=== PATIENT | female | born 1935 | race Caucasian/White ===

== ENCOUNTER 2016-12-27 17:39 | Emergency (ER) | payer MEDICARE ==
[~2016-12-27] VITALS: Ht 165.1 cm; Wt 66.2 kg
[~2016-12-27 17:39] MED LIST: ALLO100T PO; DIGO250T PO; DOCU-27 PO; FURO40TA4 PO; ISOS60TA2 PO; METO50TA2 PO; MULT-208 PO; PARO40TA3 PO; POTA20TA4 PO; RAMI10CA PO; [UNRECOGNIZED DRUG - REMARK]
[2016-12-27 19:02] VITALS: BP 120/62
--- NOTE | 2016-12-27 19:12 | PHYS DOC ---
Past Medical History Past Medical History: Arthritis, Depression, Hypertension Past Surgical History: Hysterectomy, Pacemaker Additional Past Surgical Histo: partial thyroid, and cornea transplant. Alcohol Use: None Drug Use: None Adult General Chief Complaint Chief Complaint: SHOULDER INJURY HPI HPI 81-year-old female presents with left shoulder pain. She states she recently fell onto her left shoulder causing pain. She did not hit her head or injure any other part of her body. She states the pain is mild to moderate at this point and made worse with any arm movement. [] Review of Systems Review of Systems Constitutional: Denies fever or chills [] Eyes: Denies change in visual acuity, redness, or eye pain [] HENT: Denies nasal congestion or sore throat [] Respiratory: Denies cough or shortness of breath [] Cardiovascular: No additional information not addressed in HPI [] GI: Denies abdominal pain, nausea, vomiting, bloody stools or diarrhea [] : Denies dysuria or hematuria [] Musculoskeletal: Left shoulder pain [] Integument: Denies rash or skin lesions [] Neurologic: Denies headache, focal weakness or sensory changes [] Endocrine: Denies polyuria or polydipsia [] Allergies Allergies Allergies Coded Allergies Type Severity Reaction Last Updated Verified Sulfa (Sulfonamide Antibiotics) Allergy Intermediate 06/07/16 Yes iodine Allergy Intermediate 06/07/16 Yes Physical Exam Physical Exam Constitutional: Well developed, well nourished, no acute distress, non-toxic appearance. [] HENT: Normocephalic, atraumatic, bilateral external ears normal, oropharynx moist, no oral exudates, nose normal. [] Eyes: PERRLA, EOMI, conjunctiva normal, no discharge. [] Neck: Normal range of motion, no tenderness, supple, no stridor. [] Cardiovascular:Heart rate regular rhythm, no murmur [] Lungs & Thorax: Bilateral breath sounds clear to auscultation [] Abdomen: Bowel sounds normal, soft, no tenderness, no masses, no pulsatile masses. [] Skin: Warm, dry, no erythema, no rash. [] Back: No tenderness, no CVA tenderness. [] Extremities: Tenderness over the left greater tuberosity decreased range of motion secondary to pain. [] Neurologic: Alert and oriented X 3, normal motor function, normal sensory function, no focal deficits noted. [] Psychologic: Affect normal, judgement normal, mood normal. [] Current Patient Data Vital Signs Vital Signs Date Time Temp Pulse Resp B/P Pulse Ox O2 Delivery O2 Flow Rate FiO2 12/27/16 18:32 60 16 122/63 96 Room Air 12/27/16 17:52 97.8 97.8 EKG EKG [] Radiology/Procedures Radiology/Procedures [] Impressions: Shoulder x-ray: Negative exam as interpreted by me Course & Med Decision Making Course & Med Decision Making Pertinent Labs and Imaging studies reviewed. (See chart for details) [] Dragon Disclaimer Dragon Disclaimer This electronic medical record was generated, in whole or in part, using a voice recognition dictation system. Departure Departure Impression: Primary Impression: Sprain of left shoulder Disposition: 01 HOME, SELF-CARE Condition: STABLE Referrals: NOA COLLIER MD (PCP) Patient Instructions: Shoulder Sprain Additional Instructions: Tylenol or Motrin for discomfort. Wear the shoulder sling for comfort. Follow with Dr. Dover of this week for recheck. Return if symptoms worsen Problem Qualifiers Primary Impression: Sprain of left shoulder Encounter type: initial encounter Shoulder sprain type: unspecified sprain Qualified Code: S43.402A - Unspecified sprain of left shoulder joint, initial encounter VENTURA BONILLA DO Dec 27, 2016 19:12
--- NOTE | 2016-12-28 08:51 | RAD ---
Indication trauma. Fall. Pain. Internally and externally rotated views of the left shoulder as well as a Y view were obtained. There are some mild degenerative changes at the AC joint. A fracture or acute finding is not seen. Cardiac pacing device is noted. IMPRESSION: No acute bony finding
== END 2016-12-27 19:28 | disposition home or self-care (01) ==
LOC: ER 17:39
DX: S43.402A Unspecified sprain of left shoulder joint, initial encounter (principal); M19.90 Unspecified osteoarthritis, unspecified site; F32.9 Major depressive disorder, single episode, unspecified; I10 Essential (primary) hypertension; Z88.2 Allergy status to sulfonamides; Z88.8 Allergy status to other drugs, medicaments and biological substances; Z96.89 Presence of other specified functional implants; W18.39XA Other fall on same level, initial encounter; Y93.89 Activity, other specified; Y92.89 Other specified places as the place of occurrence of the external cause; Y99.8 Other external cause status
CPT/HCPCS: 73030; 99284

== ENCOUNTER 2017-04-20 21:57 | Emergency (ER) | payer BC, MEDICARE ==
[~2017-04-20] VITALS: Ht 172.7 cm; Wt 66.2 kg
[~2017-04-20 21:57] MED LIST changes: +DOCU-109 PO; -DOCU-27 PO
[2017-04-20] MEDS ORDERED: ACETAMINOPHEN 500 MG TABLET PO ONE (23:00)
--- NOTE | 2017-04-20 23:31 | RAD ---
INDICATION: FALL, HEAD LAC, neck pain COMPARISON: January 14, 2010 TECHNIQUE: Axial CT images obtained through the head and cervical spine without intravenous contrast. Coronal and sagittal reformats processed of cervical spine. One or more of the following individualized dose reduction techniques were utilized for this examination: 1. Automated exposure control; 2. Adjustment of the mA and/or kV according to patient size; 3. Use of iterative reconstruction technique. FINDINGS: Head: No intracranial hemorrhage. No midline shift. Basal cisterns patents. Ventricles and sulci are globally prominent. No acute osseous abnormality. Opacification maxillary sinuses Cervical: Degenerative changes throughout the cervical spine with osteophyte formation at the vertebral body endplates as well as facet hypertrophy. Grade 1 anterolisthesis of C3 on 4. IMPRESSION: No acute intracranial hemorrhage. Opacification of the maxillary sinuses. Could be from sinus congestion or sinusitis. Scattered foci of low-attenuation within the white matter. Nonspecific but can be seen with chronic small vessel ischemic disease. No definite acute fracture or dislocation of the cervical spine. Degenerative changes of the cervical spine. Suspected right lobe of thyroid lesion. Nonemergent ultrasound could further evaluate. Electronically signed by: Abhishek Bill MD (04/20/2017 11:28 PM)
--- NOTE | 2017-04-21 00:19 | PHYS DOC ---
Past Medical History Past Medical History: Arthritis, Depression, Hypertension Past Surgical History: Hysterectomy, Pacemaker Additional Past Surgical Histo: partial thyroid, and cornea transplant. Alcohol Use: None Drug Use: None Adult General Chief Complaint Chief Complaint: MECHANICAL FALL HPI HPI Patient is a 81 year old female who presents with daughter for evaluation of head injury after slip and fall at home. She hit her head on her bed and has a headache and pain to the top of her head associated with laceration. She notes minimal neck pain as well. Bleeding controlled with direct pressure from head wound. She denies vision changes, dizziness, numbness, tingling, weakness, chest pain, back pain, dyspnea, abdominal pain, extremity pain. Usually ambulates with walker. No blood thinner use. Review of Systems Review of Systems Constitutional: Denies fever or chills [] Eyes: Denies change in visual acuity, redness, or eye pain [] HENT: Denies nasal congestion or sore throat [] Respiratory: Denies cough or shortness of breath [] Cardiovascular: No additional information not addressed in HPI [] GI: Denies abdominal pain, nausea, vomiting, bloody stools or diarrhea [] : Denies dysuria or hematuria [] Musculoskeletal: Denies back pain or joint pain [] Integument: Denies rash or skin lesions [] Neurologic: Denies focal weakness or sensory changes [] Endocrine: Denies polyuria or polydipsia [] Current Medications Current Medications Current Medications Medications (Trade) Dose Ordered Sig/[facility] Start Time Stop Time Status Last Admin Dose Admin Acetaminophen (Tylenol) 500 mg 1X ONCE 04/20/17 23:00 04/20/17 23:01 DC 04/20/17 23:15 500 MG Lidocaine/Sodium Bicarbonate (Buffered Lidocaine 1%) 20 ml 1X ONCE 04/21/17 00:30 04/21/17 00:31 DC 04/21/17 00:37 20 ML Allergies Allergies Allergies Coded Allergies Type Severity Reaction Last Updated Verified Sulfa (Sulfonamide Antibiotics) Allergy Intermediate 06/07/16 Yes iodine Allergy Intermediate 06/07/16 Yes Physical Exam Physical Exam Constitutional: Well developed, well nourished, no acute distress, non-toxic appearance. [] HENT: Normocephalic, bilateral external ears normal, oropharynx moist, no oral exudates, nose normal. No murray sign, hemotympanum, or raccoon eyes. Has approximately 4 cm linear laceration to the midline top of head, no active bleeding, no palpable skull abnormality. [] Eyes: PERRLA, EOMI. [] Neck: Normal range of motion, no tenderness, supple. [] Cardiovascular:Heart rate regular rhythm [] Lungs & Thorax: Bilateral breath sounds clear to auscultation [] Abdomen: Bowel sounds normal, soft, no tenderness. [] Skin: Warm, dry, no erythema, no rash. [] Back: No tenderness, no CVA tenderness. [] Extremities: No tenderness, ROM intact, no edema. [] Neurologic: Alert and oriented X 3, normal motor function, normal sensory function, no focal deficits noted, cranial nerves II through XII intact. [] Psychologic: Affect normal, judgement normal, mood normal. [] Current Patient Data Vital Signs Vital Signs Date Time Temp Pulse Resp B/P (MAP) Pulse Ox O2 Delivery O2 Flow Rate FiO2 04/21/17 00:45 60 174/71 (105) Room Air 04/20/17 23:15 93 04/20/17 22:45 98.0 20 98.0 Radiology/Procedures Radiology/Procedures CT head and cervical spine without contrast IMPRESSION: No acute intracranial hemorrhage. Opacification of the maxillary sinuses. Could be from sinus congestion or sinusitis. Scattered foci of low-attenuation within the white matter. Nonspecific but can be seen with chronic small vessel ischemic disease. No definite acute fracture or dislocation of the cervical spine. Degenerative changes of the cervical spine. Suspected right lobe of thyroid lesion. Nonemergent ultrasound could further evaluate. Electronically signed by: Abhishek Bill MD (04/20/2017 11:28 PM) Course & Med Decision Making Course & Med Decision Making Pertinent Labs and Imaging studies reviewed. (See chart for details) Imaging is unremarkable. She has developed no new symptoms. Her symptoms are improving. She tolerated laceration repair well. She and daughter would like to go home. Return precautions given. She and daughter understand and agree with plan. Dragon Disclaimer Dragon Disclaimer This electronic medical record was generated, in whole or in part, using a voice recognition dictation system. Laceration Repair Lac Repair Indication: Scalp laceration Procedure: The patient was placed in the appropriate position and anesthesia around the's duration was lidocaine 1%, 6 mL. The area was then cleaned with normal saline. The laceration was closed with 5 maxim. Total repaired wound length: 3.5 cm. The patient tolerated the procedure well. Complications: none. Departure Departure Impression: Primary Impression: Closed head injury Additional Impression: Scalp laceration Disposition: 01 HOME, SELF-CARE Condition: STABLE Referrals: NOA COLLIER MD (PCP) Patient Instructions: Staple Wound Closure, [id number] Additional Instructions: Take Tylenol as needed for pain. Use normal bathing care to keep your wound clean. Have your maxim removed within 1 week. Follow up with your primary care doctor or return to the Emergency department for this. Return for any concerns. Problem Qualifiers Primary Impression: Closed head injury Encounter type: initial encounter Qualified Codes: S09.90XA - Unspecified injury of head, initial encounter Additional Impression: Scalp laceration Encounter type: initial encounter Qualified Codes: S01.01XA - Laceration without foreign body of scalp, initial encounter Perry MADDOX MD Apr 21, 2017 00:19
[2017-04-21] MEDS ORDERED: LIDOCAINE 1% / SOD BICARB 8.4% 20 ML VIAL. IJ ONE (00:30)
[2017-04-21 01:13] VITALS: BP 141/65
== END 2017-04-21 01:28 | disposition home or self-care (01) ==
LOC: ER 21:57
DX: S01.01XA Laceration without foreign body of scalp, initial encounter (principal); M54.2 Cervicalgia; M19.90 Unspecified osteoarthritis, unspecified site; F32.9 Major depressive disorder, single episode, unspecified; I10 Essential (primary) hypertension; Z90.710 Acquired absence of both cervix and uterus; Z95.0 Presence of cardiac pacemaker; Z94.7 Corneal transplant status; Z88.8 Allergy status to other drugs, medicaments and biological substances; Z88.2 Allergy status to sulfonamides; W01.190A Fall on same level from slipping, tripping and stumbling with subsequent striking against furniture, initial encounter; Y93.89 Activity, other specified; Y92.009 Unspecified place in unspecified non-institutional (private) residence as the place of occurrence of the external cause; Y99.8 Other external cause status
CPT/HCPCS: 12002; 70450; 72125; 99284-25

== ENCOUNTER 2017-11-27 11:57 | Inpatient (IN) | payer BC ==
[2017-11-27 12:44] LABS: ADD MAN DIFF? NO
[2017-11-27 12:52] LABS: BASO % 0 % (0-3); EOS # 0.2 x10^3/uL (0.0-0.7); EOS % 3 % (0-3); HEMATOCRIT 36.6 % (36.0-47.0); HEMOGLOBIN 12.1 g/dL (12.0-15.5); LYMPH # 1.1 x10^3/uL (1.0-4.8); LYMPH % 17 % (24-48); MEAN CORPUSCULAR HEMOGLOBIN 32 pg (25-35); MEAN CORPUSCULAR HGB CONC 33 g/dL (31-37); MEAN CORPUSCULAR VOLUME 95 fL (79-100); MONO # 0.5 x10^3/uL (0.0-1.1); MONO % 7 % (0-9); NEUT % 74 % (31-73); PLATELET COUNT 159 x10^3/uL (140-400); RED BLOOD COUNT 3.86 x10^6/uL (3.50-5.40); RED CELL DISTRIBUTION WIDTH 14.7 % (11.5-14.5); WHITE BLOOD COUNT 6.8 x10^3/uL (4.0-11.0)
[2017-11-27 12:58] LABS: BLOOD UREA NITROGEN 39 mg/dL (7-20); BUN/CREATININE RATIO 24 (6-20); CALCIUM 9.2 mg/dL (8.5-10.1); CREATININE 1.6 mg/dL (0.6-1.0); GLUCOSE 160 mg/dL (70-99)
[2017-11-27 12:59] LABS: ANION GAP 2 (6-14); CARBON DIOXIDE 36 mmol/L (21-32); CHLORIDE 99 mmol/L (98-107); GFR 30.7; POTASSIUM 3.9 mmol/L (3.5-5.1); SODIUM 137 mmol/L (136-145)
[2017-11-27 13:02] LABS: INR 1.2 (0.8-1.1); PROTHROMBIN TIME PATIENT 14.1 SEC (11.7-14.0)
[2017-11-27 13:06] LABS: ALBUMIN 3.4 g/dL (3.4-5.0); ALBUMIN/GLOBULIN RATIO 0.8 (1.0-1.7); ALK PHOS 67 U/L (46-116); ALT (SGPT) 13 U/L (14-59); AST (SGOT) 21 U/L (15-37); TOTAL BILIRUBIN 0.7 mg/dL (0.2-1.0); TOTAL PROTEIN 7.6 g/dL (6.4-8.2)
[2017-11-27 13:08] LABS: TROPONINI < 0.017 ng/mL (0.000-0.055)
[2017-11-27 13:10] LABS: NT-PRO BNP 1696 pg/mL (0-449)
[2017-11-27 13:29] LABS: BILIRUBIN,URINE NEGATIVE (NEG); CLARITY,URINE CLEAR; COLOR,URINE YELLOW; GLUCOSE,URINE NEGATIVE (NEG); NITRITE,URINE NEGATIVE (NEG); PROTEIN,URINE NEGATIVE (NEG-TRACE); UROBILINOGEN,URINE 0.2 mg/dL (0.2 mg/dL)
[2017-11-27 13:34] LABS: BACTERIA,URINE MANY /HPF (0-FEW); RBC,URINE OCC /HPF (0-2)
[2017-11-27 13:55] LABS: INFLUENZA A PATIENT NEGATIVE (NEGATIVE); INFLUENZA B PATIENT NEGATIVE (NEGATIVE); OBC FLU VALID
[2017-11-27] MEDS ORDERED: hydrALAZINE 20 MG/ML VIAL. IVP (17:15)
[2017-11-27] MEDS ORDERED: levETIRAcetam 500 MG in IV DEXTROSE 5% 100 ML IV (18:00)
[2017-11-27 18:16] LABS: CREATINE KINASE 27 U/L (26-192)
[2017-11-27 18:26] LABS: VITAMIN-B12 546 pg/mL (247-911)
[2017-11-27] MEDS: levETIRAcetam 500 MG in IV DEXTROSE 5% 100 ML IV (20:46)
[2017-11-28] MEDS: cefTRIAXone IV Push 1 GM VIAL. IVP (09:27)
[2017-11-28] MEDS: levETIRAcetam 500 MG in IV DEXTROSE 5% 100 ML IV ×2 (09:28→20:44)
[2017-11-28 13:21] LABS: HEMOGLOBIN A1C 4.9 % (4.8-5.6)
[2017-11-28] MEDS: DEXAMETHASONE 0.1% OPHTH SOLUTION 5ML BOTTLE. OU ×2 (14:42→20:46)
[2017-11-28] MEDS: FAMOTIDINE 20 MG/2 ML VIAL IVP (20:44)
[2017-11-28 21:10] LABS: MRSA BY PCR Negative (Negative)
[2017-11-29 06:31] LABS: ALBUMIN 3.2 g/dL (3.4-5.0); ALBUMIN/GLOBULIN RATIO 0.7 (1.0-1.7); ALK PHOS 64 U/L (46-116); ALT (SGPT) 11 U/L (14-59); ANION GAP 8 (6-14); AST (SGOT) 21 U/L (15-37); BLOOD UREA NITROGEN 36 mg/dL (7-20); BUN/CREATININE RATIO 28 (6-20); CALCIUM 9.3 mg/dL (8.5-10.1); CARBON DIOXIDE 34 mmol/L (21-32); CHLORIDE 103 mmol/L (98-107); CREATININE 1.3 mg/dL (0.6-1.0); GLUCOSE 117 mg/dL (70-99); PHOSPHORUS 3.8 mg/dL (2.6-4.7); POTASSIUM 3.6 mmol/L (3.5-5.1); SODIUM 145 mmol/L (136-145); TOTAL BILIRUBIN 0.7 mg/dL (0.2-1.0); TOTAL PROTEIN 7.6 g/dL (6.4-8.2); TRIGLYCERIDES 145 mg/dL (0-150)
[2017-11-29] MEDS: cefTRIAXone IV Push 1 GM VIAL. IVP (08:25)
[2017-11-29] MEDS: DEXAMETHASONE 0.1% OPHTH SOLUTION 5ML BOTTLE. OU ×2 (08:25→21:40)
[2017-11-29] MEDS: levETIRAcetam 500 MG in IV DEXTROSE 5% 100 ML IV (08:25)
[2017-11-29] MEDS: ACETAMINOPHEN 325 MG TABLET. PO (17:18)
[2017-11-29] MEDS: CHOLECALCIFEROL (VITAMIN D3) 1,000 UNIT TABLET PO (17:18)
[2017-11-29] MEDS: FAMOTIDINE 20 MG/2 ML VIAL IVP (21:00)
[2017-11-30] MEDS: DEXAMETHASONE 0.1% OPHTH SOLUTION 5ML BOTTLE. OU ×2 (08:30→20:41)
[2017-11-30] MEDS: cefTRIAXone IV Push 1 GM VIAL. IVP (08:31)
[2017-11-30] MEDS: CHOLECALCIFEROL (VITAMIN D3) 1,000 UNIT TABLET PO (08:31)
[2017-11-30] MEDS: CALCIUM CARBONATE 500 MG TABLET PO (08:33)
[2017-11-30] MEDS: ACETAMINOPHEN 325 MG TABLET. PO (17:53)
[2017-11-30] MEDS: LACTOBACILLUS RHAMNOSUS GG 1 CAPSULE. PO ×2 (17:53→20:40)
[2017-11-30] MEDS: FAMOTIDINE 20 MG/2 ML VIAL IVP (20:40)
[2017-12-01 06:34] LABS: ANION GAP 1 (6-14); BLOOD UREA NITROGEN 27 mg/dL (7-20); CALCIUM 8.7 mg/dL (8.5-10.1); CARBON DIOXIDE 37 mmol/L (21-32); CHLORIDE 102 mmol/L (98-107); CREATININE 1.2 mg/dL (0.6-1.0); GFR 42.8; GLUCOSE 105 mg/dL (70-99); MAGNESIUM 2.2 mg/dL (1.8-2.4); PHOSPHORUS 2.9 mg/dL (2.6-4.7); SODIUM 140 mmol/L (136-145)
[2017-12-01] MEDS: LACTOBACILLUS RHAMNOSUS GG 1 CAPSULE. PO ×2 (09:09→21:39)
[2017-12-01] MEDS: CHOLECALCIFEROL (VITAMIN D3) 1,000 UNIT TABLET PO (09:09)
[2017-12-01] MEDS: DEXAMETHASONE 0.1% OPHTH SOLUTION 5ML BOTTLE. OU ×2 (09:10→21:40)
[2017-12-01] MEDS: cefTRIAXone IV Push 1 GM VIAL. IVP (09:10)
[2017-12-01] MEDS: CALCIUM CARBONATE 500 MG TABLET PO (09:11)
[2017-12-01] MEDS: ACETAMINOPHEN 325 MG TABLET. PO (12:53)
[2017-12-01] MEDS: CIPROFLOXACIN HCL 250 MG TABLET. PO (21:39)
[2017-12-01] MEDS: levETIRAcetam 250 MG TABLET PO (21:39)
[2017-12-01] MEDS: FAMOTIDINE 20 MG TABLET. PO (21:39)
[2017-12-02 05:07] LABS: ANION GAP 7 (6-14); BLOOD UREA NITROGEN 23 mg/dL (7-20); CALCIUM 8.8 mg/dL (8.5-10.1); CARBON DIOXIDE 31 mmol/L (21-32); CHLORIDE 105 mmol/L (98-107); CREATININE 1.1 mg/dL (0.6-1.0); GFR 47.3; GLUCOSE 112 mg/dL (70-99); MAGNESIUM 2.4 mg/dL (1.8-2.4); PHOSPHORUS 2.7 mg/dL (2.6-4.7); POTASSIUM 3.8 mmol/L (3.5-5.1); SODIUM 143 mmol/L (136-145)
[2017-12-02] MEDS: DEXAMETHASONE 0.1% OPHTH SOLUTION 5ML BOTTLE. OU ×2 (08:23→21:55)
[2017-12-02] MEDS: CHOLECALCIFEROL (VITAMIN D3) 1,000 UNIT TABLET PO (08:23)
[2017-12-02] MEDS: CIPROFLOXACIN HCL 250 MG TABLET. PO (08:23)
[2017-12-02] MEDS: CALCIUM CARBONATE 500 MG TABLET PO (08:23)
[2017-12-02] MEDS: LACTOBACILLUS RHAMNOSUS GG 1 CAPSULE. PO ×2 (08:23→21:48)
[2017-12-02] MEDS: levETIRAcetam 250 MG TABLET PO ×2 (08:23→21:48)
[2017-12-02] MEDS: FUROSEMIDE 40 MG TABLET. PO (11:37)
[2017-12-02] MEDS: PARoxetine 20 MG TABLET PO (11:37)
[2017-12-02] MEDS: DIGOXIN 125 MCG TABLET. PO (11:39)
[2017-12-02] MEDS: METOPROLOL TART IMMED RELEASE 50 MG TABLET. PO ×2 (11:39→21:45)
[2017-12-02] MEDS: ACETAMINOPHEN 325 MG TABLET. PO (16:56)
[2017-12-02] MEDS: FAMOTIDINE 20 MG TABLET. PO (21:48)
[2017-12-03 06:01] LABS: ANION GAP 4 (6-14); BLOOD UREA NITROGEN 22 mg/dL (7-20); CALCIUM 8.7 mg/dL (8.5-10.1); CARBON DIOXIDE 32 mmol/L (21-32); CHLORIDE 104 mmol/L (98-107); CREATININE 1.1 mg/dL (0.6-1.0); GFR 47.3; GLUCOSE 107 mg/dL (70-99); MAGNESIUM 2.3 mg/dL (1.8-2.4); POTASSIUM 3.9 mmol/L (3.5-5.1); SODIUM 140 mmol/L (136-145)
[2017-12-03] MEDS: DEXAMETHASONE 0.1% OPHTH SOLUTION 5ML BOTTLE. OU ×2 (08:41→21:12)
[2017-12-03] MEDS: FUROSEMIDE 40 MG TABLET. PO (08:42)
[2017-12-03] MEDS: METOPROLOL TART IMMED RELEASE 50 MG TABLET. PO ×2 (08:42→21:07)
[2017-12-03] MEDS: CALCIUM CARBONATE 500 MG TABLET PO (08:42)
[2017-12-03] MEDS: LACTOBACILLUS RHAMNOSUS GG 1 CAPSULE. PO ×2 (08:42→21:07)
[2017-12-03] MEDS: PARoxetine 20 MG TABLET PO (08:43)
[2017-12-03] MEDS: CHOLECALCIFEROL (VITAMIN D3) 1,000 UNIT TABLET PO (08:43)
[2017-12-03] MEDS: DIGOXIN 125 MCG TABLET. PO (08:43)
[2017-12-03] MEDS: levETIRAcetam 250 MG TABLET PO ×2 (08:43→21:07)
[2017-12-03] MEDS: FAMOTIDINE 20 MG TABLET. PO (21:07)
[2017-12-03] MEDS: ACETAMINOPHEN 325 MG TABLET. PO (21:08)
[2017-12-04 05:19] LABS: ALBUMIN/GLOBULIN RATIO 0.8 (1.0-1.7); ALK PHOS 63 U/L (46-116); ALT (SGPT) 13 U/L (14-59); ANION GAP 6 (6-14); AST (SGOT) 20 U/L (15-37); BLOOD UREA NITROGEN 23 mg/dL (7-20); BUN/CREATININE RATIO 19 (6-20); CARBON DIOXIDE 33 mmol/L (21-32); CHLORIDE 104 mmol/L (98-107); CREATININE 1.2 mg/dL (0.6-1.0); GFR 42.8; GLUCOSE 105 mg/dL (70-99); MAGNESIUM 2.2 mg/dL (1.8-2.4); PHOSPHORUS 3.5 mg/dL (2.6-4.7); SODIUM 143 mmol/L (136-145); TOTAL BILIRUBIN 0.6 mg/dL (0.2-1.0)
[2017-12-04] MEDS: CHOLECALCIFEROL (VITAMIN D3) 1,000 UNIT TABLET PO (08:39)
[2017-12-04] MEDS: DEXAMETHASONE 0.1% OPHTH SOLUTION 5ML BOTTLE. OU ×2 (08:39→22:34)
[2017-12-04] MEDS: DIGOXIN 125 MCG TABLET. PO (08:39)
[2017-12-04] MEDS: PARoxetine 20 MG TABLET PO (08:39)
[2017-12-04] MEDS: FUROSEMIDE 40 MG TABLET. PO (08:40)
[2017-12-04] MEDS: CALCIUM CARBONATE 500 MG TABLET PO (08:40)
[2017-12-04] MEDS: METOPROLOL TART IMMED RELEASE 50 MG TABLET. PO ×2 (08:40→22:33)
[2017-12-04] MEDS: LACTOBACILLUS RHAMNOSUS GG 1 CAPSULE. PO ×2 (08:40→22:33)
[2017-12-04] MEDS: levETIRAcetam 250 MG TABLET PO ×2 (08:40→22:33)
[2017-12-04] MEDS: ACETAMINOPHEN 325 MG TABLET. PO ×3 (08:45→22:34)
[2017-12-04 16:35] LABS: HEMATOCRIT 35.1 % (36.0-47.0); HEMOGLOBIN 11.7 g/dL (12.0-15.5); MEAN CORPUSCULAR HEMOGLOBIN 32 pg (25-35); MEAN CORPUSCULAR HGB CONC 33 g/dL (31-37); MEAN CORPUSCULAR VOLUME 94 fL (79-100); PLATELET COUNT 188 x10^3/uL (140-400); RED BLOOD COUNT 3.72 x10^6/uL (3.50-5.40); RED CELL DISTRIBUTION WIDTH 14.2 % (11.5-14.5); WHITE BLOOD COUNT 6.2 x10^3/uL (4.0-11.0)
[2017-12-04 16:44] LABS: INR 1.1 (0.8-1.1); PROTHROMBIN TIME PATIENT 13.8 SEC (11.7-14.0)
[2017-12-04] MEDS: FAMOTIDINE 20 MG TABLET. PO (22:33)
[2017-12-05] MEDS: ACETAMINOPHEN 325 MG TABLET. PO ×3 (06:13→22:12)
[2017-12-05 06:54] LABS: POC GLUCOSE 92 mg/dL (70-99)
[2017-12-05] MEDS: CALCIUM CARBONATE 500 MG TABLET PO (09:04)
[2017-12-05] MEDS: FUROSEMIDE 40 MG TABLET. PO (09:05)
[2017-12-05] MEDS: DIGOXIN 125 MCG TABLET. PO (09:05)
[2017-12-05] MEDS: LACTOBACILLUS RHAMNOSUS GG 1 CAPSULE. PO ×2 (09:05→22:12)
[2017-12-05] MEDS: METOPROLOL TART IMMED RELEASE 50 MG TABLET. PO ×2 (09:05→22:12)
[2017-12-05] MEDS: levETIRAcetam 250 MG TABLET PO ×2 (09:06→22:12)
[2017-12-05] MEDS: CHOLECALCIFEROL (VITAMIN D3) 1,000 UNIT TABLET PO (09:06)
[2017-12-05] MEDS: PARoxetine 20 MG TABLET PO (09:06)
[2017-12-05] MEDS: DEXAMETHASONE 0.1% OPHTH SOLUTION 5ML BOTTLE. OU ×2 (09:10→22:12)
[2017-12-05] MEDS: FAMOTIDINE 20 MG TABLET. PO (22:12)
[2017-12-06] MEDS: levETIRAcetam 250 MG TABLET PO ×2 (09:11→21:56)
[2017-12-06] MEDS: CHOLECALCIFEROL (VITAMIN D3) 1,000 UNIT TABLET PO (09:11)
[2017-12-06] MEDS: LACTOBACILLUS RHAMNOSUS GG 1 CAPSULE. PO ×2 (09:11→21:57)
[2017-12-06] MEDS: FUROSEMIDE 40 MG TABLET. PO (09:11)
[2017-12-06] MEDS: CALCIUM CARBONATE 500 MG TABLET PO (09:12)
[2017-12-06] MEDS: PARoxetine 20 MG TABLET PO (09:12)
[2017-12-06] MEDS: METOPROLOL TART IMMED RELEASE 50 MG TABLET. PO ×2 (09:12→21:56)
[2017-12-06] MEDS: DIGOXIN 125 MCG TABLET. PO (09:12)
[2017-12-06] MEDS: DEXAMETHASONE 0.1% OPHTH SOLUTION 5ML BOTTLE. OU ×2 (09:13→21:56)
[2017-12-06] MEDS: ACETAMINOPHEN 325 MG TABLET. PO (21:55)
[2017-12-06] MEDS: FAMOTIDINE 20 MG TABLET. PO (21:56)
[2017-12-07 05:55] LABS: TRIGLYCERIDES 133 mg/dL (0-150)
[2017-12-07] MEDS: LACTOBACILLUS RHAMNOSUS GG 1 CAPSULE. PO ×2 (09:50→20:28)
[2017-12-07] MEDS: CHOLECALCIFEROL (VITAMIN D3) 1,000 UNIT TABLET PO (09:50)
[2017-12-07] MEDS: DEXAMETHASONE 0.1% OPHTH SOLUTION 5ML BOTTLE. OU ×2 (09:50→21:55)
[2017-12-07] MEDS: levETIRAcetam 250 MG TABLET PO ×2 (09:50→20:29)
[2017-12-07] MEDS: PARoxetine 20 MG TABLET PO (09:51)
[2017-12-07] MEDS: ACETAMINOPHEN 325 MG TABLET. PO ×2 (09:51→20:29)
[2017-12-07] MEDS: FUROSEMIDE 40 MG TABLET. PO (09:51)
[2017-12-07] MEDS: CALCIUM CARBONATE 500 MG TABLET PO (09:51)
[2017-12-07] MEDS: DIGOXIN 125 MCG TABLET. PO (09:51)
[2017-12-07] MEDS: METOPROLOL TART IMMED RELEASE 50 MG TABLET. PO ×2 (09:52→20:29)
[2017-12-07] MEDS: FAMOTIDINE 20 MG TABLET. PO (20:29)
[2017-12-08] MEDS: ACETAMINOPHEN 325 MG TABLET. PO ×2 (05:46→20:02)
[2017-12-08] MEDS: DEXAMETHASONE 0.1% OPHTH SOLUTION 5ML BOTTLE. OU ×2 (09:11→20:01)
[2017-12-08] MEDS: LACTOBACILLUS RHAMNOSUS GG 1 CAPSULE. PO ×2 (09:11→21:00)
[2017-12-08] MEDS: CALCIUM CARBONATE 500 MG TABLET PO (09:11)
[2017-12-08] MEDS: DIGOXIN 125 MCG TABLET. PO (09:12)
[2017-12-08] MEDS: METOPROLOL TART IMMED RELEASE 50 MG TABLET. PO ×2 (09:12→20:01)
[2017-12-08] MEDS: CHOLECALCIFEROL (VITAMIN D3) 1,000 UNIT TABLET PO (09:12)
[2017-12-08] MEDS: levETIRAcetam 250 MG TABLET PO ×2 (09:12→20:01)
[2017-12-08] MEDS: PARoxetine 20 MG TABLET PO (09:12)
[2017-12-08] MEDS: FUROSEMIDE 40 MG TABLET. PO (09:12)
[2017-12-08] MEDS: POLYETHYLENE GLYCOL 3350 17 GM PACKET. PO (11:55)
[2017-12-08] MEDS: FAMOTIDINE 20 MG TABLET. PO (20:01)
[2017-12-09] MEDS: FUROSEMIDE 40 MG TABLET. PO (08:07)
[2017-12-09] MEDS: LACTOBACILLUS RHAMNOSUS GG 1 CAPSULE. PO ×2 (08:07→21:21)
[2017-12-09] MEDS: METOPROLOL TART IMMED RELEASE 50 MG TABLET. PO ×2 (08:08→21:22)
[2017-12-09] MEDS: POLYETHYLENE GLYCOL 3350 17 GM PACKET. PO (08:08)
[2017-12-09] MEDS: PARoxetine 20 MG TABLET PO (08:09)
[2017-12-09] MEDS: CALCIUM CARBONATE 500 MG TABLET PO (08:09)
[2017-12-09] MEDS: CHOLECALCIFEROL (VITAMIN D3) 1,000 UNIT TABLET PO (08:10)
[2017-12-09] MEDS: DIGOXIN 125 MCG TABLET. PO (08:10)
[2017-12-09] MEDS: levETIRAcetam 250 MG TABLET PO ×2 (08:10→21:21)
[2017-12-09] MEDS: DEXAMETHASONE 0.1% OPHTH SOLUTION 5ML BOTTLE. OU ×2 (08:11→21:22)
[2017-12-09] MEDS: ACETAMINOPHEN 325 MG TABLET. PO (10:39)
[2017-12-09] MEDS: ACETAMINOPHEN/CODEINE 300/30MG TABLET. PO (15:31)
[2017-12-09] MEDS: FAMOTIDINE 20 MG TABLET. PO (21:22)
[2017-12-10] MEDS: CALCIUM CARBONATE 500 MG TABLET PO (09:50)
[2017-12-10] MEDS: POLYETHYLENE GLYCOL 3350 17 GM PACKET. PO (09:50)
[2017-12-10] MEDS: LACTOBACILLUS RHAMNOSUS GG 1 CAPSULE. PO ×2 (09:50→21:16)
[2017-12-10] MEDS: DIGOXIN 125 MCG TABLET. PO (09:51)
[2017-12-10] MEDS: METOPROLOL TART IMMED RELEASE 50 MG TABLET. PO ×2 (09:51→21:17)
[2017-12-10] MEDS: levETIRAcetam 250 MG TABLET PO ×2 (09:51→21:16)
[2017-12-10] MEDS: DEXAMETHASONE 0.1% OPHTH SOLUTION 5ML BOTTLE. OU ×2 (09:52→21:17)
[2017-12-10] MEDS: FUROSEMIDE 40 MG TABLET. PO (09:52)
[2017-12-10] MEDS: PARoxetine 20 MG TABLET PO (09:52)
[2017-12-10] MEDS: CHOLECALCIFEROL (VITAMIN D3) 1,000 UNIT TABLET PO (09:52)
[2017-12-10] MEDS: FAMOTIDINE 20 MG TABLET. PO (21:16)
[2017-12-10] MEDS: ACETAMINOPHEN/CODEINE 300/30MG TABLET. PO (21:16)
[2017-12-11] MEDS: POLYETHYLENE GLYCOL 3350 17 GM PACKET. PO (08:19)
[2017-12-11] MEDS: CHOLECALCIFEROL (VITAMIN D3) 1,000 UNIT TABLET PO (08:20)
[2017-12-11] MEDS: LACTOBACILLUS RHAMNOSUS GG 1 CAPSULE. PO ×2 (08:20→21:02)
[2017-12-11] MEDS: CALCIUM CARBONATE 500 MG TABLET PO (08:20)
[2017-12-11] MEDS: FUROSEMIDE 40 MG TABLET. PO (08:20)
[2017-12-11] MEDS: DIGOXIN 125 MCG TABLET. PO (08:20)
[2017-12-11] MEDS: METOPROLOL TART IMMED RELEASE 50 MG TABLET. PO ×2 (08:20→21:03)
[2017-12-11] MEDS: PARoxetine 20 MG TABLET PO (08:21)
[2017-12-11] MEDS: levETIRAcetam 250 MG TABLET PO ×2 (08:21→21:02)
[2017-12-11] MEDS: DEXAMETHASONE 0.1% OPHTH SOLUTION 5ML BOTTLE. OU ×2 (08:23→21:02)
[2017-12-11] MEDS: ACETAMINOPHEN/CODEINE 300/30MG TABLET. PO ×2 (12:06→21:02)
[2017-12-11] MEDS: FAMOTIDINE 20 MG TABLET. PO (21:02)
[2017-12-12] MEDS: POLYETHYLENE GLYCOL 3350 17 GM PACKET. PO (08:46)
[2017-12-12] MEDS: levETIRAcetam 250 MG TABLET PO (08:48)
[2017-12-12] MEDS: METOPROLOL TART IMMED RELEASE 50 MG TABLET. PO (08:48)
[2017-12-12] MEDS: DIGOXIN 125 MCG TABLET. PO (08:48)
[2017-12-12] MEDS: PARoxetine 20 MG TABLET PO (08:48)
[2017-12-12] MEDS: CALCIUM CARBONATE 500 MG TABLET PO (08:48)
[2017-12-12] MEDS: CHOLECALCIFEROL (VITAMIN D3) 1,000 UNIT TABLET PO (08:49)
[2017-12-12] MEDS: FUROSEMIDE 40 MG TABLET. PO (08:49)
[2017-12-12] MEDS: LACTOBACILLUS RHAMNOSUS GG 1 CAPSULE. PO (08:49)
[2017-12-12] MEDS: DEXAMETHASONE 0.1% OPHTH SOLUTION 5ML BOTTLE. OU (08:54)
== END 2017-12-12 16:15 | disposition home health service (06) | DRG 85 ==
LOC: 4 NORTH 11-29 15:06 → ER 11:57 → 1 WEST ICU 14:49
DX: S06.5X0A Traumatic subdural hemorrhage without loss of consciousness, initial encounter (principal); G93.41 Metabolic encephalopathy; G93.6 Cerebral edema; E11.22 Type 2 diabetes mellitus with diabetic chronic kidney disease; I27.20 Pulmonary hypertension, unspecified; E11.65 Type 2 diabetes mellitus with hyperglycemia; R13.10 Dysphagia, unspecified; I48.2 Chronic atrial fibrillation; G81.91 Hemiplegia, unspecified affecting right dominant side; R41.4 Neurologic neglect syndrome; I13.0 Hypertensive heart and chronic kidney disease with heart failure and stage 1 through stage 4 chronic kidney disease, or unspecified chronic kidney disease; I50.40 Unspecified combined systolic (congestive) and diastolic (congestive) heart failure; E03.9 Hypothyroidism, unspecified; E04.2 Nontoxic multinodular goiter; E55.9 Vitamin D deficiency, unspecified; F03.90 Unspecified dementia, unspecified severity, without behavioral disturbance, psychotic disturbance, mood disturbance, and anxiety; F32.9 Major depressive disorder, single episode, unspecified; G89.29 Other chronic pain; I25.10 Atherosclerotic heart disease of native coronary artery without angina pectoris; I70.0 Atherosclerosis of aorta; J32.0 Chronic maxillary sinusitis; K21.9 Gastro-esophageal reflux disease without esophagitis; M47.812 Spondylosis without myelopathy or radiculopathy, cervical region; M50.30 Other cervical disc degeneration, unspecified cervical region; N18.9 Chronic kidney disease, unspecified; R29.6 Repeated falls; R29.810 Facial weakness; M43.12 Spondylolisthesis, cervical region; M54.5 Low back pain; S60.221A Contusion of right hand, initial encounter; W18.39XA Other fall on same level, initial encounter; Y93.89 Activity, other specified; Y92.89 Other specified places as the place of occurrence of the external cause; Y99.8 Other external cause status; Z79.899 Other long term (current) drug therapy; Z86.73 Personal history of transient ischemic attack (TIA), and cerebral infarction without residual deficits; Z88.2 Allergy status to sulfonamides; Z90.710 Acquired absence of both cervix and uterus; Z91.81 History of falling; Z95.0 Presence of cardiac pacemaker; G47.00 Insomnia, unspecified; Z88.8 Allergy status to other drugs, medicaments and biological substances
CPT/HCPCS: 36415; 70450; 71045; 72125; 73565; 74018; 76536; 80048; 80053; 81001; 82306; 82550; 82607; 82962; 83036; 83735; 83880; 84100; 84443; 84478; 84484; 85025; 85027; 85610; 87086; 87641; 87804; 87804-59; 92526-GN; 92610-GN; 93005; 96365; 97110-GP; 97116-GP; 97140-GP; 97162-GP; 97166-GO; 97530-GO; 97530-GP; 97535-GO; 99285; 99285-25; J0696; J1953; S0028

== ENCOUNTER → 2017-12-29 | Outpatient (CLI) | payer BC | END | disposition home or self-care (01) | LOC: CT 14:56 | DX: I62.01 Nontraumatic acute subdural hemorrhage (principal) | CPT/HCPCS: 70450 ==

== ENCOUNTER 2018-01-08 14:23 | Emergency (ER) | payer BC ==
[2018-01-08 15:14] LABS: ADD MAN DIFF? NO
[2018-01-08 15:15] LABS: BASO % 0 % (0-3); EOS # 0.2 x10^3/uL (0.0-0.7); EOS % 4 % (0-3); HEMOGLOBIN 13.4 g/dL (12.0-15.5); LYMPH # 1.2 x10^3/uL (1.0-4.8); LYMPH % 22 % (24-48); MEAN CORPUSCULAR HEMOGLOBIN 31 pg (25-35); MEAN CORPUSCULAR HGB CONC 33 g/dL (31-37); MEAN CORPUSCULAR VOLUME 95 fL (79-100); MONO # 0.5 x10^3/uL (0.0-1.1); MONO % 8 % (0-9); NEUT # 3.7 x10^3uL (1.8-7.7); NEUT % 66 % (31-73); PLATELET COUNT 141 x10^3/uL (140-400); RED BLOOD COUNT 4.33 x10^6/uL (3.50-5.40); RED CELL DISTRIBUTION WIDTH 14.8 % (11.5-14.5); WHITE BLOOD COUNT 5.7 x10^3/uL (4.0-11.0)
[2018-01-08 15:28] LABS: ANION GAP 5 (6-14); BLOOD UREA NITROGEN 26 mg/dL (7-20); CALCIUM 9.5 mg/dL (8.5-10.1); CARBON DIOXIDE 36 mmol/L (21-32); CHLORIDE 104 mmol/L (98-107); CREATININE 1.1 mg/dL (0.6-1.0); GFR 47.3; GLUCOSE 82 mg/dL (70-99); POTASSIUM 3.9 mmol/L (3.5-5.1); SODIUM 145 mmol/L (136-145)
[2018-01-08 15:29] LABS: INR 1.1 (0.8-1.1); PARTIAL THROMBOPLASTIN TIME 30 SEC (24-38); PROTHROMBIN TIME PATIENT 13.7 SEC (11.7-14.0)
== END 2018-01-08 16:30 | disposition home or self-care (01) ==
LOC: ER 14:23
DX: S09.90XA Unspecified injury of head, initial encounter (principal); Z86.73 Personal history of transient ischemic attack (TIA), and cerebral infarction without residual deficits; I11.0 Hypertensive heart disease with heart failure; I50.9 Heart failure, unspecified; Z95.0 Presence of cardiac pacemaker; Z88.2 Allergy status to sulfonamides; Z91.041 Radiographic dye allergy status; W18.39XA Other fall on same level, initial encounter; Y93.89 Activity, other specified; Y99.8 Other external cause status; Y92.89 Other specified places as the place of occurrence of the external cause
CPT/HCPCS: 36415; 70450; 72125; 80048; 85025; 85610; 85730; 99285-25

== ENCOUNTER 2018-06-21 03:37 | Emergency (ER) | payer BC ==
[~2018-06-21] VITALS: Ht 162.6 cm; Wt 75.3 kg
[~2018-06-21 03:37] MED LIST changes: +ASPI-630 PO; +CALC500T54 PO; +LEVE250T30 PO; +MELA3TAB2 PO; -METO50TA2 PO; +METO50TA6 PO; +POLY17PO3 PO; +PRED5DRO16 OS; +PSYL0.5220 PO; +RANI150T21 PO
[2018-06-21] MEDS: LIDOCAINE 2% PF 2ML VIAL. INJ ONE (04:20)
[2018-06-21 05:00] VITALS: BP 162/77
--- NOTE | 2018-06-21 05:17 | RAD ---
INDICATION: pt fell; bleeding to top of head COMPARISON: January 08, 2018 TECHNIQUE: Axial CT images obtained through the head and cervical spine without intravenous contrast. Coronal and sagittal reformats processed of cervical spine. One or more of the following individualized dose reduction techniques were utilized for this examination: 1. Automated exposure control; 2. Adjustment of the mA and/or kV according to patient size; 3. Use of iterative reconstruction technique. FINDINGS: Head: No intracranial hemorrhage. No midline shift. Basal cisterns patents. Ventricles and sulci are again prominent. Scattered foci of low attenuation of white matter. No acute osseous abnormality. Repeat demonstration of high density opacification of right maxillary sinus. Suspected left posterior and possible additional right frontal scalp small cephalohematoma. Cervical: No definite acute fracture. No dislocation. No evidence of perivertebral hematoma. Degenerative changes throughout the spine. Grade 1 anterolisthesis of C4 on 5. IMPRESSION: 1. No acute intracranial hemorrhage. 2. No definite acute fracture or dislocation of the cervical spine. 3. Repeat demonstration of high density opacification of the right maxillary sinus. 4. Degenerative changes throughout the cervical spine. 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 5. Mass is identified at the right thyroid with some calcifications within. Ultrasound could better evaluate. Electronically signed by: Abhishek Bill MD (06/21/2018 5:14 AM) [facility]
[2018-06-21] MEDS: DIPHTH,PERTUSS(ACELL),TET TOX 0.5 ML DISP.SYRIN. VAX IM ONE (05:36)
--- NOTE | 2018-06-21 05:36 | PHYS DOC ---
Past Medical History Past Medical History: Arthritis, CHF, CVA, Depression, Hypertension Additional Past Medical Histor: "HEART PROBLEM" TIA IN April Past Surgical History: Hysterectomy, Pacemaker Additional Past Surgical Histo: partial thyroid, and cornea transplant,L) breast cyst removed. Alcohol Use: None Drug Use: None Adult General Chief Complaint Chief Complaint: MECHANICAL FALL HPI HPI Patient is a 82 year olD female brought in by family with mechanical fall she said she was walking to the bathroom in the dark in her room at her walker got caught the wrong way she hit her head no loss of consciousness no chest pain or shortness of breath no abdominal pain really no neck pain at all. This is happening to her several times before. NOT sick recently she did not faint Review of Systems Review of Systems Constitutional: Denies fever or chills [] Respiratory: Denies cough or shortness of breath [] Cardiovascular: No additional information not addressed in HPI [] GI: Denies abdominal pain, nausea, vomiting, bloody stools or diarrhea [] Integument: Denies rash or skin lesions [] All other systems were reviewed and found to be within normal limits, except as documented in this note. Current Medications Current Medications Current Medications Medications (Trade) Dose Ordered Sig/[facility] Start Time Stop Time Status Last Admin Dose Admin Diphtheria/ Tetanus/Acell Pertussis (Boostrix) 0.5 ml ONCE ONCE 06/21/18 05:30 06/21/18 05:31 DC Lidocaine HCl (Xylocaine-Mpf 2% Vial) 6 ml 1X ONCE 06/21/18 04:15 06/21/18 04:16 DC 06/21/18 04:20 6 ML Allergies Allergies Allergies Coded Allergies Type Severity Reaction Last Updated Verified Sulfa (Sulfonamide Antibiotics) Allergy Intermediate 12/05/17 Yes iodine Allergy Intermediate 12/05/17 Yes Physical Exam Physical Exam Constitutional: Well developed, well nourished, no acute distress, non-toxic appearance. [] HENT: Normocephalic, 4 CM LACERATION TO TOP OF HEAD NO FB NOTED , bilateral external ears normal, oropharynx moist, no oral exudates, nose normal. [] Eyes: PERRLA, EOMI, conjunctiva normal, no discharge. [] Neck:IN CCOLLAR no tenderness, supple, no stridor. [] NO CHETS WLAL TTP NOTED. Abdomen: Bowel sounds normal, soft, no tenderness, no masses, no pulsatile masses. [] Skin: Warm, dry, no erythema, no rash. [] Back: No tenderness, no CVA tenderness. [] Extremities: No tenderness, no cyanosis, no clubbing, ROM intact, no edema. [] Neurologic: Alert and oriented X 3, normal motor function, normal sensory function, no focal deficits noted. [] Psychologic: Affect normal, judgement normal, mood normal. [] Current Patient Data Vital Signs Vital Signs Date Time Temp Pulse Resp B/P (MAP) Pulse Ox O2 Delivery O2 Flow Rate FiO2 06/21/18 05:00 60 19 06/21/18 04:30 92 06/21/18 03:40 97.4 163/76 (105) Room Air 97.4 EKG EKG [] Radiology/Procedures Radiology/Procedures [] Impressions: IMPRESSION: 1. No acute intracranial hemorrhage. 2. No definite acute fracture or dislocation of the cervical spine. 3. Repeat demonstration of high density opacification of the right maxillary sinus. 4. Degenerative changes throughout the cervical spine. 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 5. Mass is identified at the right thyroid with some calcifications within. Ultrasound could better evaluate. Electronically signed by: Abhishek Bill MD (06/21/2018 5:14 AM) [facility] Course & Med Decision Making Course & Med Decision Making Pertinent Labs and Imaging studies reviewed. (See chart for details) [] Procedure note: Laceration repair verbal consent obtained lidocaine 2% subcutaneous for anesthesia was irrigated profusely no foreign body was seen closed with 5 maxim 4 cm total size Closed head injury head CT C-spine CT were negative frequent falls by history. Patient is well-appearing at baseline I reviewed multiple previous ER notes I could not find any tenderness ever given so we did give a today daughter's agreement precautions were advised. Discharge instructions included information about the thyroid finding said previously been reported to the family as well John Disclaimer John Disclaimer This electronic medical record was generated, in whole or in part, using a voice recognition dictation system. Departure Departure Impression: Primary Impression: Closed head injury Disposition: HOME, SELF-CARE Condition: STABLE Patient Instructions: Laceration Care, Adult, [id number] Additional Instructions: STAPLE REMOVAL IN TEN DAYS SHE ANDRES MD Jun 21, 2018 05:36
== END 2018-06-21 05:49 | disposition home or self-care (01) ==
LOC: ER 03:37
DX: S09.90XA Unspecified injury of head, initial encounter (principal); M19.90 Unspecified osteoarthritis, unspecified site; I11.0 Hypertensive heart disease with heart failure; I50.9 Heart failure, unspecified; F32.9 Major depressive disorder, single episode, unspecified; Z90.710 Acquired absence of both cervix and uterus; Z95.0 Presence of cardiac pacemaker; Z88.2 Allergy status to sulfonamides; Z91.041 Radiographic dye allergy status; W05.0XXA Fall from non-moving wheelchair, initial encounter; Y93.89 Activity, other specified; Y92.091 Bathroom in other non-institutional residence as the place of occurrence of the external cause; Y99.8 Other external cause status
CPT/HCPCS: 12002; 70450; 72125; 90471; 90715; 99284; J2001

== ENCOUNTER 2018-08-02 14:15 | Emergency (ER) | payer BC ==
[~2018-08-02] VITALS: Ht 165.1 cm; Wt 75.3 kg
[~2018-08-02 14:15] MED LIST changes: -RAMI10CA PO; +RAMI10CA53 PO
[2018-08-02 14:46] VITALS: BP 162/77
[2018-08-02 15:09] LABS: BASO % 1 % (0-3); EOS # 0.3 x10^3/uL (0.0-0.7); EOS % 6 % (0-3); HEMATOCRIT 40.1 % (36.0-47.0); HEMOGLOBIN 13.6 g/dL (12.0-15.5); LYMPH # 1.3 x10^3/uL (1.0-4.8); LYMPH % 28 % (24-48); MEAN CORPUSCULAR HEMOGLOBIN 32 pg (25-35); MEAN CORPUSCULAR HGB CONC 34 g/dL (31-37); MEAN CORPUSCULAR VOLUME 94 fL (79-100); MONO # 0.4 x10^3/uL (0.0-1.1); MONO % 9 % (0-9); NEUT # 2.6 x10^3uL (1.8-7.7); NEUT % 57 % (31-73); PLATELET COUNT 149 x10^3/uL (140-400); RED BLOOD COUNT 4.25 x10^6/uL (3.50-5.40); RED CELL DISTRIBUTION WIDTH 14.5 % (11.5-14.5); WHITE BLOOD COUNT 4.6 x10^3/uL (4.0-11.0)
--- NOTE | 2018-08-02 15:13 | PHYS DOC ---
Past Medical History Past Medical History: Arthritis, CHF, CVA, Depression, Hypertension Additional Past Medical Histor: "HEART PROBLEM" TIA IN April Past Surgical History: Hysterectomy, Pacemaker Additional Past Surgical Histo: partial thyroid, and cornea transplant,L) breast cyst removed. Alcohol Use: None Drug Use: None Adult General Chief Complaint Chief Complaint: VAGINAL BLEEDING [facility] HPI Patient is a 82 year old female who presents with vaginal bleeding this morning at 1 AM in her brief. Bleeding has since stopped. Patient lives with her daughter. Review of Systems Review of Systems Constitutional: Denies fever or chills [] Eyes: Denies change in visual acuity, redness, or eye pain [] HENT: Denies nasal congestion or sore throat [] Respiratory: Denies cough or shortness of breath [] Cardiovascular: No additional information not addressed in HPI [] GI: Denies abdominal pain, nausea, vomiting, bloody stools or diarrhea. Vaginal bleeding early this morning. [] : Denies dysuria or hematuria [] Musculoskeletal: Denies back pain or joint pain [] Integument: Denies rash or skin lesions [] Neurologic: Denies headache, focal weakness or sensory changes [] Endocrine: Denies polyuria or polydipsia [] All other systems were reviewed and found to be within normal limits, except as documented in this note. Allergies Allergies Allergies Coded Allergies Type Severity Reaction Last Updated Verified Sulfa (Sulfonamide Antibiotics) Allergy Intermediate 12/05/17 Yes iodine Allergy Intermediate 12/05/17 Yes Physical Exam Physical Exam Constitutional: Well developed, well nourished, no acute distress, non-toxic appearance. [] HENT: Normocephalic, atraumatic, bilateral external ears normal, oropharynx moist, no oral exudates, nose normal. [] Eyes: PERRLA, EOMI, conjunctiva normal, no discharge. [] Neck: Normal range of motion, no tenderness, supple, no stridor. [] Cardiovascular:Heart rate regular rhythm, no murmur [] Lungs & Thorax: Bilateral breath sounds clear to auscultation [] Abdomen: Bowel sounds normal, soft, no tenderness, no masses, no pulsatile masses. No vaginal blood seen. No rectal blood seen.[] Skin: Warm, dry, no erythema, no rash. [] Back: No tenderness, no CVA tenderness. [] Extremities: No tenderness, no cyanosis, no clubbing, ROM intact, no edema. [] Neurologic: Alert and oriented X 3, normal motor function, normal sensory function, no focal deficits noted. [] Psychologic: Affect normal, judgement normal, mood normal. [] Current Patient Data Vital Signs Vital Signs Date Time Temp Pulse Resp B/P (MAP) Pulse Ox O2 Delivery O2 Flow Rate FiO2 08/02/18 16:00 60 96 Room Air 08/02/18 14:46 97.8 18 162/77 (105) 97.8 Lab Values Laboratory Tests Test 08/02/18 14:48 08/02/18 14:57 08/02/18 15:41 White Blood Count 4.6 x10^3/uL (4.0-11.0) Red Blood Count 4.25 x10^6/uL (3.50-5.40) Hemoglobin 13.6 g/dL (12.0-15.5) Hematocrit 40.1 % (36.0-47.0) Mean Corpuscular Volume 94 fL (79-100) Mean Corpuscular Hemoglobin 32 pg (25-35) Mean Corpuscular Hemoglobin Concent 34 g/dL (31-37) Red Cell Distribution Width 14.5 % (11.5-14.5) Platelet Count 149 x10^3/uL (140-400) Neutrophils (%) (Auto) 57 % (31-73) Lymphocytes (%) (Auto) 28 % (24-48) Monocytes (%) (Auto) 9 % (0-9) Eosinophils (%) (Auto) 6 % (0-3) H Basophils (%) (Auto) 1 % (0-3) Neutrophils # (Auto) 2.6 x10^3uL (1.8-7.7) Lymphocytes # (Auto) 1.3 x10^3/uL (1.0-4.8) Monocytes # (Auto) 0.4 x10^3/uL (0.0-1.1) Eosinophils # (Auto) 0.3 x10^3/uL (0.0-0.7) Basophils # (Auto) 0.0 x10^3/uL (0.0-0.2) Sodium Level 144 mmol/L (136-145) Potassium Level 3.9 mmol/L (3.5-5.1) Chloride Level 105 mmol/L (98-107) Carbon Dioxide Level 35 mmol/L (21-32) H Anion Gap 4 (6-14) L Blood Urea Nitrogen 25 mg/dL (7-20) H Creatinine 1.1 mg/dL (0.6-1.0) H Estimated GFR (Cockcroft-Gault) 47.3 Glucose Level 73 mg/dL (70-99) Calcium Level 9.5 mg/dL (8.5-10.1) Urine Collection Type U cath Urine Color Yellow Urine Clarity Clear Urine pH 6.0 Urine Specific [place] 1.010 Urine Protein Negative mg/dL (NEG-TRACE) Urine Glucose (UA) Negative mg/dL (NEG) Urine Ketones (Stick) Negative mg/dL (NEG) Urine Blood Negative (NEG) Urine Nitrite Positive (NEG) Urine Bilirubin Negative (NEG) Urine Urobilinogen Dipstick 0.2 mg/dL (0.2 mg/dL) Urine Leukocyte Esterase Small (NEG) Urine RBC 0 /HPF (0-2) Urine WBC 5-10 /HPF (0-4) Urine Bacteria Many /HPF (0-FEW) Urine Hyaline Casts Moderate /HPF Urine Mucus Slight /LPF Stool Occult Blood Negative (NEG) Laboratory Tests 08/02/18 14:48 Laboratory Tests 08/02/18 14:48 Microbiology 08/02/18 Urine Culture - Preliminary, Resulted 08/02/18 Urine Culture Result 1 (SABAS) - Preliminary, Resulted EKG EKG [] Radiology/Procedures Radiology/Procedures [] Course & Med Decision Making Course & Med Decision Making Patient is a 82 year old female who presents with vaginal bleeding this morning at 1 AM in her brief. Bleeding has since stopped. Patient lives with her daughter. Patient is alert and oriented. Patient denies any pelvic trauma or sexual activity. Patient denies any urinary symptoms. Patient denies any dizziness, chest pain, abdominal pain, shortness of air, nausea, vomiting. Abdomen is soft and nontender and has no masses. Vaginal exam shows no vaginal bleeding and no trauma. Patient is straight catheter and clear yellow urine came out. There is no blood in the vaginal rectal area. Patient's brief does have small specks of dried blood. Lungs are clear in upper lobes but diminished in lower lobes. Patient denies any pain. Patient's urine is positive for nitrites she will be treated for urinary tract infection with Macrobid. Blood work is unremarkable. Stool Hemoccult is negative for blood. Patient to follow up with her primary care physician and REPORTING [employer]AD. Staff Physician Addendum: I was working in the ER during the course of this patient's visit. I was available for consultation as needed, but I was not directly involved in the care of this patient. [] Dragon Disclaimer Dragon Disclaimer This electronic medical record was generated, in whole or in part, using a voice recognition dictation system. Departure Departure Impression: Primary Impression: Urinary tract infection Disposition: HOME, SELF-CARE Condition: STABLE Referrals: NOA COLLIER MD (PCP) FIOR ZHANG Jr, MD Patient Instructions: Urinary Tract Infection Additional Instructions: Follow up with your primary care physician. Concerning any further vaginal bleeding. Take medications as prescribed. Scripts Nitrofurantoin Monohyd/M-Cryst (MACROBID 100 MG CAPSULE) 100 Mg Capsule 1 CAP PO BID, #20 CAP Prov: ANAT MERRILL APRN 08/02/18 Problem Qualifiers Primary Impression: Urinary tract infection Urinary tract infection type: site unspecified Hematuria presence: without hematuria Qualified Codes: N39.0 - Urinary tract infection, site not specified ANAT MERRILL APRN Aug 02, 2018 15:12 SHE ANDRES MD Aug 06, 2018 06:57
[2018-08-02 15:17] LABS: CALCIUM 9.5 mg/dL (8.5-10.1); CREATININE 1.1 mg/dL (0.6-1.0); GFR 47.3; POTASSIUM 3.9 mmol/L (3.5-5.1)
[2018-08-02 15:19] LABS: BILIRUBIN,URINE NEGATIVE (NEG); CLARITY,URINE CLEAR; COLOR,URINE YELLOW; NITRITE,URINE POSITIVE (NEG); PROTEIN,URINE NEGATIVE (NEG-TRACE); UROBILINOGEN,URINE 0.2 mg/dL (0.2 mg/dL)
[2018-08-02 15:37] LABS: BACTERIA,URINE MANY /HPF (0-FEW); HYALINE CASTS, URINE MODERATE /HPF; RBC,URINE 0 /HPF (0-2)
[2018-08-02 15:58] LABS: FECAL OB PT NEGATIVE (NEG)
[2018-08-02] MEDS ORDERED: NITR100C62 PO (16:00)
== END 2018-08-02 16:35 | disposition home or self-care (01) ==
LOC: ER 14:15
DX: N39.0 Urinary tract infection, site not specified (principal); I11.0 Hypertensive heart disease with heart failure; I50.9 Heart failure, unspecified; Z86.73 Personal history of transient ischemic attack (TIA), and cerebral infarction without residual deficits; Z95.0 Presence of cardiac pacemaker; Z90.710 Acquired absence of both cervix and uterus; Z88.2 Allergy status to sulfonamides; Z91.041 Radiographic dye allergy status
CPT/HCPCS: 36415; 80048; 81001; 82274; 85025; 87086; 99284; P9612

== ENCOUNTER 2019-05-17 03:49 | Emergency (ER) | payer BC ==
[~2019-05-17] VITALS: Ht 167.6 cm; Wt 75.3 kg
[~2019-05-17 03:49] MED LIST changes: +NITR100C62 PO; +POLY17PO28 PO; -POLY17PO3 PO; +RANI-376 PO; -RANI150T21 PO
--- NOTE | 2019-05-17 04:39 | PHYS DOC ---
Past Medical History Past Medical History: Arthritis, CHF, CVA, Depression, Hypertension Additional Past Medical Histor: "HEART PROBLEM" TIA IN April Past Surgical History: Hysterectomy, Pacemaker Additional Past Surgical Histo: partial thyroid, and cornea transplant,L)breast cyst removed. Alcohol Use: None Drug Use: None Adult General Chief Complaint Chief Complaint: MECHANICAL FALL [facility] Patient is a 83 year old after she fell this morning. Patient fell on her right side 2 days ago also. Patient says she hit her right elbow and right hip on the ground, denies hit her head. Patient denies any headache, no neck pain, no back pain. She denies any chest pain or any headache prior to the fall. Review of Systems Review of Systems Constitutional: Denies fever or chills [] Eyes: Denies change in visual acuity, redness, or eye pain [] HENT: Denies nasal congestion or sore throat [] Respiratory: Denies cough or shortness of breath [] Cardiovascular: No additional information not addressed in HPI [] GI: Denies abdominal pain, nausea, vomiting, bloody stools or diarrhea [] : Denies dysuria or hematuria [] Musculoskeletal: Denies back pain, positive for right elbow and right hip pain Integument: Denies rash or skin lesions [] Neurologic: Denies headache, focal weakness or sensory changes [] Endocrine: Denies polyuria or polydipsia [] All other systems were reviewed and found to be within normal limits, except as documented in this note. Allergies Allergies Allergies Coded Allergies Type Severity Reaction Last Updated Verified Sulfa (Sulfonamide Antibiotics) Allergy Intermediate 12/05/17 Yes iodine Allergy Intermediate 12/05/17 Yes Physical Exam Physical Exam Constitutional: Well developed, well nourished, no acute distress, non-toxic appearance. [] HENT: Normocephalic, atraumatic, bilateral external ears normal, oropharynx moist, no oral exudates, nose normal. [] Eyes: PERRLA, EOMI, conjunctiva normal, no discharge. [] Neck: Normal range of motion, no tenderness, supple, no stridor. [] Cardiovascular:Heart rate regular rhythm, no murmur [] Lungs & Thorax: Bilateral breath sounds clear to auscultation [] Abdomen: Bowel sounds normal, soft, no tenderness, no masses, no pulsatile masses. [] Skin: Warm, dry, There is a large hematoma on right upper thigh. Back: No tenderness, no CVA tenderness. [] Extremities: There is tenderness to palpation of right elbow and right hip. Neurologic: Alert and oriented X 3, normal motor function, normal sensory function, no focal deficits noted. [] Psychologic: Affect normal, judgement normal, mood normal. [] Current Patient Data Vital Signs Vital Signs Date Time Temp Pulse Resp B/P (MAP) Pulse Ox O2 Delivery O2 Flow Rate FiO2 05/17/19 03:50 98.3 76 18 147/88 (107) 96 Nasal Cannula 2.0 98.3 EKG EKG [] Radiology/Procedures Radiology/Procedures xray of right elbow, right hip, right femur: no fracture or dislocation. Course & Med Decision Making Course & Med Decision Making Pertinent Labs and Imaging studies reviewed. (See chart for details) [] Dragon Disclaimer Dragon Disclaimer This electronic medical record was generated, in whole or in part, using a voice recognition dictation system. Departure Departure Impression: Primary Impression: Contusion of elbow, right Additional Impression: Contusion of right hip and thigh Disposition: HOME, SELF-CARE Condition: STABLE Referrals: NOA COLLIER MD (PCP) FOLLOW UP WITH YOUR DOCTOR ON MONDAY Patient Instructions: Contusion, Elbow Contusion Problem Qualifiers RACHANA MILLER DO May 17, 2019 04:39
[2019-05-17 06:00] VITALS: BP 155/67
--- NOTE | 2019-05-17 06:01 | RAD ---
Three-view right elbow radiographs 05/17/2019 CLINICAL HISTORY: Fall with injury to the right elbow. AP, lateral and oblique digital radiographs of the right elbow were obtained. No fracture or dislocation of the right elbow is seen. There is no radiographic evidence of a joint effusion. IMPRESSION: No fracture or dislocation of the right elbow is seen. Electronically signed by: Abhinav Snyder MD (05/17/2019 5:59 AM) [id number]
--- NOTE | 2019-05-17 06:06 | RAD ---
AP and lateral right hip radiographs to include an AP radiograph of the pelvis along with AP and lateral radiographs of the right femur 05/17/2019 CLINICAL HISTORY: Fall with pelvic, right hip and right upper leg pain. An AP digital radiograph of the pelvis to include both hips was obtained. AP and lateral radiographs of the right hip were obtained. 2 AP and a lateral digital radiographs of the right femur were obtained. No pelvic bone fracture is seen. Both hips are intact. Specifically no fracture or dislocation of the right hip is seen. Mild to moderate degenerative changes are seen involving both SI joints and both hips, right greater than left. Calcification of the common iliac arteries and their branches is noted. Moderate to severe degenerative changes are seen involving all 3 compartments of the right knee. No fracture or dislocation right femur is seen. IMPRESSION: No fracture or dislocation is seen. Electronically signed by: Abhinav Snyder MD (05/17/2019 6:03 AM) [id number]
== END 2019-05-17 06:11 | disposition home or self-care (01) ==
LOC: ER 03:49
DX: S50.01XA Contusion of right elbow, initial encounter (principal); S70.01XA Contusion of right hip, initial encounter; S70.11XA Contusion of right thigh, initial encounter; I11.0 Hypertensive heart disease with heart failure; I50.9 Heart failure, unspecified; Z86.73 Personal history of transient ischemic attack (TIA), and cerebral infarction without residual deficits; Z95.0 Presence of cardiac pacemaker; Z88.2 Allergy status to sulfonamides; Z91.041 Radiographic dye allergy status; W18.09XA Striking against other object with subsequent fall, initial encounter; Y93.89 Activity, other specified; Y92.89 Other specified places as the place of occurrence of the external cause; Y99.8 Other external cause status
CPT/HCPCS: 73080; 73502; 73552; 99284

== ENCOUNTER 2019-06-14 12:34 | Inpatient (IN) | payer BC ==
[~2019-06-14] VITALS: Ht 170.2 cm; Wt 72.6 kg
--- NOTE | 2019-06-14 13:47 | RAD ---
PORTABLE CHEST 1V Clinical indications: Weakness. COMPARISON: June 07, 2016. Findings: Chronic cephalization of pulmonary flow is evident. Right pulmonary artery is prominent but unchanged. These findings may be seen with chronic pulmonary arterial hypertension. Chronic bilateral interstitial lung disease is seen. Calcified granuloma of the left midlung zone is seen which is stable. No new lung consolidation or pleural effusion or pneumothorax is seen. The heart size is prominent but stable. A unipolar right ventricular pacemaker is again evident. The mediastinum is stable. Impression: No new lung infiltrate is seen. Chronic cephalization of pulmonary flow. Findings may reflect chronic pulmonary arterial hypertension. Chronic interstitial lung disease bilaterally. Chronic cardiomegaly. Electronically signed by: Shaq London MD (06/14/2019 1:44 PM) [place] [id number]
--- NOTE | 2019-06-14 13:50 | RAD ---
CT HEAD INDICATION: Weakness COMPARISON: 06/21/2018 Exposure: One or more of the following individualized dose reduction techniques were utilized for this examination: 1. Automated exposure control 2. Adjustment of the mA and/or kV according to patient size 3. Use of iterative reconstruction technique TECHNIQUE: 5 mm contiguous axial images were obtained from the skull base to the vertex in both bone and soft tissue algorithm. FINDINGS: Mild bilateral periventricular white matter hypodensities likely chronic small vessel ischemic disease. No evidence of acute intracranial hemorrhage. No extra-axial fluid collections. No mass effect or midline shift. Ventricular size is appropriate. Basal cisterns are patent. No fractures identified.Weaver-white differentiation is preserved.Globes and orbits are within normal limits. Complete opacification of the right maxillary sinus. There is moderate mucosal thickening identified in the left maxillary sinus IMPRESSION: 1. No acute intracranial findings. 2. Sinus disease. Electronically signed by: Alvarez Ga MD (06/14/2019 1:47 PM) [id number]
[2019-06-14 13:59] LABS: BASO % 1 % (0-3); EOS # 0.2 x10^3/uL (0.0-0.7); EOS % 5 % (0-3); HEMATOCRIT 41.7 % (36.0-47.0); HEMOGLOBIN 14.2 g/dL (12.0-15.5); LYMPH # 1.1 x10^3/uL (1.0-4.8); LYMPH % 27 % (24-48); MEAN CORPUSCULAR HEMOGLOBIN 32 pg (25-35); MEAN CORPUSCULAR HGB CONC 34 g/dL (31-37); MEAN CORPUSCULAR VOLUME 95 fL (79-100); MONO # 0.4 x10^3/uL (0.0-1.1); MONO % 10 % (0-9); NEUT # 2.2 x10^3/uL (1.8-7.7); NEUT % 57 % (31-73); PLATELET COUNT 149 x10^3/uL (140-400); RED BLOOD COUNT 4.41 x10^6/uL (3.50-5.40); RED CELL DISTRIBUTION WIDTH 14.8 % (11.5-14.5)
--- NOTE | 2019-06-14 14:02 | PHYS DOC ---
Past Medical History Past Medical History: Arthritis, CHF, CVA, Depression, Hypertension Additional Past Medical Histor: "HEART PROBLEM" TIA IN April Past Surgical History: Hysterectomy, Pacemaker Additional Past Surgical Histo: partial thyroid, and cornea transplant,L)breast cyst removed. Alcohol Use: None Drug Use: None Adult General Chief Complaint Chief Complaint: NEURO SYMPTOMS/DEFICITS [facility] HPI Patient is a 83 year old female who presents with him health nurse came to the house today in family states the patient complained of right arm weakness and home health nurse had to go to the ER. This right arm weakness complaint started at 9:00 this morning. Family states patient was finding she went to bed. Family states that the patient has been acting more altered in her speech is slowed and has been more fatigued lately. Family states that she also has been depressed and they think that she is starting to give up. Family denies patient having fever, nausea, vomiting, chest pain, shortness of air. Review of Systems Review of Systems Constitutional: Denies fever or chills [] Eyes: Denies change in visual acuity, redness, or eye pain [] HENT: Denies nasal congestion or sore throat [] Respiratory: Denies cough or shortness of breath [] Cardiovascular: No additional information not addressed in HPI [] GI: Denies abdominal pain, nausea, vomiting, bloody stools or diarrhea [] : Denies dysuria or hematuria [] Musculoskeletal: Right sided weakness. Denies back pain or joint pain [] Integument: Denies rash or skin lesions [] Neurologic: AMS. Denies headache, focal weakness or sensory changes [] Endocrine: Denies polyuria or polydipsia [] All other systems were reviewed and found to be within normal limits, except as documented in this note. Allergies Allergies Allergies Coded Allergies Type Severity Reaction Last Updated Verified Sulfa (Sulfonamide Antibiotics) Allergy Intermediate 12/05/17 Yes iodine Allergy Intermediate 12/05/17 Yes Physical Exam Physical Exam Constitutional: Well developed, well nourished, no acute distress, non-toxic appearance. [] HENT: Normocephalic, atraumatic, bilateral external ears normal, oropharynx michaela st, no oral exudates, nose normal. [] Eyes: PERRLA, EOMI, conjunctiva normal, no discharge. [] Neck: Normal range of motion, no tenderness, supple, no stridor. [] Cardiovascular:Heart rate sinus, incomplete right bundle rhythm, no murmur [] Lungs & Thorax: Bilateral breath sounds clear to auscultation [] Abdomen: Bowel sounds normal, soft, no tenderness, no masses, no pulsatile masses. [] Skin: Warm, dry, no erythema, no rash. [] Back: No tenderness, no CVA tenderness. [] Extremities: Right arm and leg weakness. No tenderness, no cyanosis, no clubbing, ROM intact, no edema. [] Neurologic: Alert and oriented X 3, normal motor function, normal sensory function, no focal deficits noted. [] Psychologic: Affect normal, judgement normal, mood normal. [] Current Patient Data Vital Signs Vital Signs Date Time Temp Pulse Resp B/P (MAP) Pulse Ox O2 Delivery O2 Flow Rate FiO2 06/14/19 14:00 60 18 94 06/14/19 13:21 98.6 144/92 (109) Room Air 98.6 Lab Values Laboratory Tests Test 06/14/19 13:00 06/14/19 13:54 Urine Collection Type Unknown Urine Color Yellow Urine Clarity Clear Urine pH 6.5 Urine Specific [place] 1.010 Urine Protein Negative mg/dL (NEG-TRACE) Urine Glucose (UA) Negative mg/dL (NEG) Urine Ketones (Stick) Negative mg/dL (NEG) Urine Blood Negative (NEG) Urine Nitrite Negative (NEG) Urine Bilirubin Negative (NEG) Urine Urobilinogen Dipstick 0.2 mg/dL (0.2 mg/dL) Urine Leukocyte Esterase Negative (NEG) Urine RBC 0 /HPF (0-2) Urine WBC 0 /HPF (0-4) Urine Squamous Epithelial Cells Few /LPF Urine Bacteria 0 /HPF (0-FEW) White Blood Count 4.0 x10^3/uL (4.0-11.0) Red Blood Count 4.41 x10^6/uL (3.50-5.40) Hemoglobin 14.2 g/dL (12.0-15.5) Hematocrit 41.7 % (36.0-47.0) Mean Corpuscular Volume 95 fL (79-100) Mean Corpuscular Hemoglobin 32 pg (25-35) Mean Corpuscular Hemoglobin Concent 34 g/dL (31-37) Red Cell Distribution Width 14.8 % (11.5-14.5) H Platelet Count 149 x10^3/uL (140-400) Neutrophils (%) (Auto) 57 % (31-73) Lymphocytes (%) (Auto) 27 % (24-48) Monocytes (%) (Auto) 10 % (0-9) H Eosinophils (%) (Auto) 5 % (0-3) H Basophils (%) (Auto) 1 % (0-3) Neutrophils # (Auto) 2.2 x10^3/uL (1.8-7.7) Lymphocytes # (Auto) 1.1 x10^3/uL (1.0-4.8) Monocytes # (Auto) 0.4 x10^3/uL (0.0-1.1) Eosinophils # (Auto) 0.2 x10^3/uL (0.0-0.7) Basophils # (Auto) 0.0 x10^3/uL (0.0-0.2) Prothrombin Time 14.4 SEC (11.7-14.0) H Prothrombin Time INR 1.2 (0.8-1.1) H Activated Partial Thromboplast Time 28 SEC (24-38) Sodium Level 147 mmol/L (136-145) H Potassium Level 4.5 mmol/L (3.5-5.1) Chloride Level 107 mmol/L (98-107) Carbon Dioxide Level 37 mmol/L (21-32) H Anion Gap 3 (6-14) L Blood Urea Nitrogen 32 mg/dL (7-20) H Creatinine 1.3 mg/dL (0.6-1.0) H Estimated GFR (Cockcroft-Gault) 38.9 BUN/Creatinine Ratio 25 (6-20) H Glucose Level 85 mg/dL (70-99) Calcium Level 10.1 mg/dL (8.5-10.1) Total Bilirubin 0.6 mg/dL (0.2-1.0) Aspartate Amino Transferase (AST) 29 U/L (15-37) Alanine Aminotransferase (ALT) 17 U/L (14-59) Alkaline Phosphatase 75 U/L (46-116) Troponin I Quantitative < 0.017 ng/mL (0.000-0.055) Total Protein 8.6 g/dL (6.4-8.2) H Albumin 3.8 g/dL (3.4-5.0) Albumin/Globulin Ratio 0.8 (1.0-1.7) L Laboratory Tests 06/14/19 13:54 Laboratory Tests 06/14/19 13:54 EKG EKG AFib, incomplete right bundle block, no STEMI[] Interpretation Time: [address] Baldwin Radiology/Procedures Radiology/Procedures [] Impressions: [facility] [address] [place] [address] IMAGING REPORT Signed PATIENT: MARTA SULLIVAN ACCOUNT: [id number] : 1935 LOCATION: ER AGE: 83 SEX: F EXAM STATUS: REG ER ORD. PHYSICIAN: ANAT MERRILL APRN REASON: WEAKNESS PROCEDURE: CT HEAD WO CONTRAST CT HEAD INDICATION: Weakness COMPARISON: 06/21/2018 Exposure: One or more of the following individualized dose reduction techniques were utilized for this examination: 1. Automated exposure control 2. Adjustment of the mA and/or kV according to patient size 3. Use of iterative reconstruction technique TECHNIQUE: 5 mm contiguous axial images were obtained from the skull base to the vertex in both bone and soft tissue algorithm. FINDINGS: Mild bilateral periventricular white matter hypodensities likely chronic small vessel ischemic disease. No evidence of acute intracranial hemorrhage. No extra-axial fluid collections. No mass effect or midline shift. Ventricular size is appropriate. Basal cisterns are patent. No fractures identified.Weaver-white differentiation is preserved.Globes and orbits are within normal limits. Complete opacification of the right maxillary sinus. There is moderate mucosal thickening identified in the left maxillary sinus IMPRESSION: 1. No acute intracranial findings. 2. Sinus disease. Electronically signed by: Alvarez Ga MD (06/14/2019 1:47 PM) [id number] DICTATED and SIGNED BY: ALVAREZ GA MD DATE: 06/14/19 [id number] [place] [address] IMAGING REPORT Signed PATIENT: MARTA SULLIVAN ACCOUNT: [id number] : 1935 LOCATION: ER AGE: 83 SEX: F EXAM STATUS: REG ER ORD. PHYSICIAN: ANAT MERRILL APRN REASON: WEAKNESS PROCEDURE: PORTABLE CHEST 1V PORTABLE CHEST 1V Clinical indications: Weakness. COMPARISON: June 07, 2016. Findings: Chronic cephalization of pulmonary flow is evident. Right pulmonary artery is prominent but unchanged. These findings may be seen with chronic pulmonary arterial hypertension. Chronic bilateral interstitial lung disease is seen. Calcified granuloma of the left midlung zone is seen which is stable. No new lung consolidation or pleural effusion or pneumothorax is seen. The heart size is prominent but stable. A unipolar right ventricular pacemaker is again evident. The mediastinum is stable. Impression: No new lung infiltrate is seen. Chronic cephalization of pulmonary flow. Findings may reflect chronic pulmonary arterial hypertension. Chronic interstitial lung disease bilaterally. Chronic cardiomegaly. Electronically signed by: Ros London MD (06/14/2019 1:44 PM) [id number] DICTATED and SIGNED BY: ROS LONDON MD DATE: 06/14/19 1344 Course & Med Decision Making Course & Med Decision Making Patient is a 83 year old female who presents with [facility] health nurse came to the house today in family states the patient complained of right arm weakness and home health nurse had to go to the ER. This right arm weakness complaint started at 9:00 this morning. Family states patient was finding she went to bed. Family states that the patient has been acting more altered in her speech is slowed and has been more fatigued lately. Family states that she also has been depressed and they think that she is starting to give up. Family denies patient having fever, nausea, vomiting, chest pain, shortness of air. PERRLA. Patient is weaker on the right side with examination. Patient does follow commands but she is slow to follow commands. Family states patient has chronic pain generalized all over her body. Patient is not on blood thinners. No extremity edema. EKG shows sinus with rhythm with incomplete right bundle branch block but no STEMI. She rates her generalized pain 8 out of 10. Chest x-ray and head CT show no acute findings. Bilateral feet numbness. Urinalysis shows no infection. I have spoken to Dr. Salazar and he states to admit the patient and consult neurology. Patient remained stable with no change in status. Dragon Disclaimer Dragon Disclaimer This electronic medical record was generated, in whole or in part, using a voice recognition dictation system. NIHSS Stroke Scale NIH Stroke Scale: NIH Stroke Scale Response (Comments) Value Level of Consciousness: 0 Alert/Responsive 0 LOC Questions: 0 Answers both correctly 0 LOC Commands: 0 Performs both tasks 0 Best Gaze: 0 Normal 0 Visual: 0 No visual loss 0 Facial Palsy: 0 Normal, symmetrical 0 Motor - Left Arm 0 No drift 0 Motor - Right Arm 2 Some effort 2 Motor - Left Leg 0 No drift 0 Motor: Right Leg 1 Drift but can hold 1 Limb Ataxia: 0 Absent 0 Sensory: 1 Mid to moderate loss 1 Best Language: 0 Normal 0 Dysathria: 0 Normal 0 Extinction and Inattention: 0 Normal 0 Total 4 Departure Departure Impression: Primary Impression: Altered mental status Additional Impression: Weakness Disposition: 09 ADMITTED INPATIENT Admitting Physician: Dale Salazar Condition: STABLE Referrals: DALE SALAZAR MD (PCP) Problem Qualifiers Primary Impression: Altered mental status Altered mental status type: unspecified Qualified Codes: R41.82 - Altered mental status, unspecified ANAT MERRILL APRN Jun 14, 2019 14:02
[2019-06-14 14:08] LABS: PROTHROMBIN TIME PATIENT 14.4 SEC (11.7-14.0)
[2019-06-14 14:10] LABS: CALCIUM 10.1 mg/dL (8.5-10.1); CREATININE 1.3 mg/dL (0.6-1.0); GFR 38.9; POTASSIUM 4.5 mmol/L (3.5-5.1)
[2019-06-14 14:15] LABS: ALBUMIN 3.8 g/dL (3.4-5.0); ALBUMIN/GLOBULIN RATIO 0.8 (1.0-1.7); TOTAL BILIRUBIN 0.6 mg/dL (0.2-1.0); TOTAL PROTEIN 8.6 g/dL (6.4-8.2)
[2019-06-14 14:16] LABS: BILIRUBIN,URINE NEGATIVE (NEG); CLARITY,URINE CLEAR; COLOR,URINE YELLOW; NITRITE,URINE NEGATIVE (NEG); PH,URINE 6.5; PROTEIN,URINE NEGATIVE (NEG-TRACE); UROBILINOGEN,URINE 0.2 mg/dL (0.2 mg/dL)
--- NOTE | 2019-06-14 14:26 | EKG ---
[facility] [address] [place] [address] Test Date: 2019-06-14 Test Time: 13:40:45 Pat Name: MARTA SULLIVAN Department: Room: Gender: F [employer]: : 1935 Requested By: ANAT MERRILL Order Number: [id number] Reading MD: Measurements Intervals [place] Rate: 61 P: ID: QRS: 118 QRSD: 118 T: 0 QT: 442 QTc: 451 Interpretive Statements ATRIAL FIBRILLATION ABNORMAL RIGHT AXIS DEVIATION INCOMPLETE RIGHT BUNDLE BRANCH BLOCK LVH WITH REPOLARIZATION ABNORMALITY RVH WITH REPOLARIZATION ABNORMALITY QRS(T) CONTOUR ABNORMALITY CANNOT RULE OUT HIGH LATERAL INFARCT ABNORMAL ECG No previous ECG available for comparison
[2019-06-14 14:28] LABS: BACTERIA,URINE 0 /HPF (0-FEW); RBC,URINE 0 /HPF (0-2); SQUAMOUS EPITHELIAL CELL,UR FEW /LPF; WBC,URINE 0 /HPF (0-4)
[2019-06-14] MEDS ORDERED: ONDANSETRON PF 4 MG/2 ML VIAL. IV PRN (15:45)
[2019-06-14] MEDS ORDERED: ACETAMINOPHEN 325 MG TABLET. PO PRN (15:45)
[2019-06-14 17:59] VITALS: BP 146/69
[2019-06-14 19:45] VITALS: BP 156/67
[2019-06-14 23:45] VITALS: BP 135/65
[2019-06-15 03:45] VITALS: BP 125/64
[2019-06-15 07:56] VITALS: BP 152/67
[2019-06-15] MEDS: ALLOPURINOL 100 MG TABLET. PO SCH (09:00)
[2019-06-15 09:49] LABS: BASO % 1 % (0-3); EOS # 0.2 x10^3/uL (0.0-0.7); EOS % 6 % (0-3); HEMATOCRIT 41.4 % (36.0-47.0); HEMOGLOBIN 13.8 g/dL (12.0-15.5); LYMPH # 0.8 x10^3/uL (1.0-4.8); LYMPH % 24 % (24-48); MEAN CORPUSCULAR HEMOGLOBIN 31 pg (25-35); MEAN CORPUSCULAR HGB CONC 33 g/dL (31-37); MEAN CORPUSCULAR VOLUME 94 fL (79-100); MONO # 0.3 x10^3/uL (0.0-1.1); MONO % 7 % (0-9); NEUT # 2.1 x10^3/uL (1.8-7.7); NEUT % 61 % (31-73); PLATELET COUNT 147 x10^3/uL (140-400); RED BLOOD COUNT 4.39 x10^6/uL (3.50-5.40); RED CELL DISTRIBUTION WIDTH 14.7 % (11.5-14.5); WHITE BLOOD COUNT 3.5 x10^3/uL (4.0-11.0)
[2019-06-15 10:09] LABS: CALCIUM 9.5 mg/dL (8.5-10.1); CREATININE 1.3 mg/dL (0.6-1.0); GFR 38.9; POTASSIUM 3.9 mmol/L (3.5-5.1)
[2019-06-15] MEDS: DEXAMETHASONE 0.1% OPHTH SOLUTION 5ML BOTTLE. OS SCH ×2 (10:11→20:52)
[2019-06-15] MEDS: DOCUSATE SODIUM 100 MG CAPSULE. PO SCH ×2 (10:12→20:52)
[2019-06-15] MEDS: POTASSIUM CHLORIDE 20 MEQ TABLET.ER. PO SCH (10:12)
[2019-06-15] MEDS: POLYETHYLENE GLYCOL 3350 17 GM PACKET. PO SCH (10:12)
[2019-06-15] MEDS: levETIRAcetam 250 MG TABLET PO SCH ×2 (10:12→20:52)
[2019-06-15] MEDS: METOPROLOL TART IMMED RELEASE 50 MG TABLET. PO SCH ×2 (10:13→20:52)
[2019-06-15] MEDS: DIGOXIN 250 MCG TABLET. PO SCH (10:13)
[2019-06-15] MEDS: FAMOTIDINE 20 MG TABLET. PO SCH (10:13)
[2019-06-15] MEDS: FUROSEMIDE 40 MG TABLET. PO SCH (10:13)
[2019-06-15 11:22] VITALS: BP 142/54
[2019-06-15] MEDS ORDERED: ASPIRIN CHEWABLE 81 MG TABLET. PO SCH (12:30)
--- NOTE | 2019-06-15 12:33 | RAD ---
EXAM: CT right lower extremity from the iliac crest through the distal tibial shaft DATE: 06/15/2019 10:53 AM COMPARISON: No prior INDICATION: Right lower leg injury, pain and swelling. TECHNIQUE: CT of the right lower extremity from the iliac crest through the distal tibial shaft was performed without IV contrast. Axial, coronal and sagittal reformatted images were generated. PQRS compliance statement - One or more of the following individualized dose reduction techniques were utilized for this study: 1. Automated exposure control 2. Adjustment of the mA and/or kV according to patient size 3. Use of iterative reconstruction technique FINDINGS: A 9.7 x 5.5 x 20.8 cm (AP by transverse by craniocaudal) collection is seen overlying the anterolateral aspect of the right proximal thigh. This abuts the fascia overlying the anterolateral right thigh. Mild mass effect on the subjacent musculature. Dense atherosclerotic calcifications of aorta are seen. Colonic diverticulosis. Moderate colonic stool content. No abdominal or pelvic ascites. No abdominal or pelvic lymphadenopathy. No evidence for acute fracture or dislocation. Right knee joint osteoarthritis. IMPRESSION: Collection overlying the anterolateral right thigh about the fascia, possibly soft tissue hematoma although Simons-Brad lesion/degloving injury would have similar appearance. Electronically signed by: Claudio Farris MD (06/15/2019 12:30 PM) [facility]
--- NOTE | 2019-06-15 14:18 | RAD ---
EXAM: 3 views right shoulder DATE: 06/15/2019 1:28 PM INDICATION: Right shoulder pain COMPARISON: No Prior FINDINGS/ IMPRESSION: 1. Advanced right glenohumeral joint osteoarthritis with symmetric joint space effacement, subchondral cystic change and inferior projecting osteophytes. 2. Mild AC joint degenerative change. 3. Humeral head is high riding which may be seen with rotator cuff tear or tendinosis. Electronically signed by: Claudio Farris MD (06/15/2019 2:15 PM) [facility]
--- NOTE | 2019-06-15 14:26 | PDOC2 ---
NEUROLOGY CONSULT Date of Admission Date of Admission DATE: 06/15/19 TIME: 14:20 Reason for Consult Reason for Consult: Right side weakness, recurrent. Slurred speech, recurrent. 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 Metabolic encephalopathy. Fall AFib. CAD CHF HTN DM Hypothyroidism. Thyroid nodules. Degenerative spine disease. Vit D insufficiency. Pacemaker. RECOMMENDATIONS/PLAN: ASA 81 mg daily OK. Repeat HCT today. Lab: see orders. Treat medical diseases. No MRI due to pacemaker. HISTORY OF THE PRESENT ILLNESS: 83-y-old female patient with multiple medical diseases and AFib but not on anticoagulant due to frequent falls. She had symptoms of right side weakness and slurred speech this am and she was brought to the ER of [facility] for further evaluation. She had similar symptoms several times in junior past. HCT was negative for ICH or ischemic changes this time. Past Medical History Cardiovascular: AFIB, CAD, CHF, HTN CENTRAL NERVOUS SYSTEM: Dementia ENT: No pertinent hx Renal/: No pertinent hx Endocrine: Diabetes, Hypothyroidism Past Surgical History Pacemaker placement. Family History Non contributory. Social History ALCOHOL: none Drugs: None ALLERGY: Reviewed. MEDICATIONS: Refer to MAR REVIEW OF SYSTEMS: Constitutional: No malnutrition, cachexia. Head: Traumatic brain and head injury this time. Skin: No edema, or rash. Ear: No infection, tinnitus. Eyes: No vision loss or color blindness. Nose: No bleeding or purulent discharges. Hearing: Hearing decrease. Neck: No acute injury. Breast: No history of cancer, masses,or discharges. Cardiac: CAD, CHF, AFib, Pacemaker Placement, HTN.. Pulmonary: No COPD. GI: No GI ulcer, GI bleeding. Urinary/genital: UTI. Endocrinologic: Diabetes Mellitus, hypothyroidism. Skeletomuscular: Falls. Neurological: see HP. Psychiatric: Denies drug use/abuse. Otherwise, not [id number] review of systems. PHYSICAL EXAMINATION: General appearance is in subacute distress. HEENT: Normocephalic and nontraumatic. Eyes, nose, ears, and throat are unremarkable. Neck is supple. No lymphadenopathy. No bruits are heard over the carotid artery. No crepitus. Cardiovascular: S1, S2, irregular rate and rhythm. Pulmonary: Relative clear to auscultation bilaterally. Abdomen: Bowel sounds are positive. Extremities: No rash, lesions, or edema. No restriction of range of motion NEUROLOGICAL EXAMINATION: Awake. Oriented partially to time, but knows place and person. PERRL. EOMI CN: No VII palsy. Muscle tone: WNL Muscle strength: 3- right UE, 3-4 right LE, 4+ left side. DTR: 1+ Plantar reflex: Neutral response bilaterally Gait: Not examined in bed. Sensory exam: minimal response to stimuli. No acute cerebellar signs elicited. F-T-N test fine. Current Medications Current Medications Current Medications Ondansetron HCl (Zofran) 4 mg PRN Q8HRS PRN IV NAUSEA/VOMITING; Start 06/14/19 at 15:45; Stop 06/15/19 at 15:44 Acetaminophen (Tylenol) 650 mg PRN Q4HRS PRN PO FEVER Last administered on 06/15/19 10:18; Start 06/14/19 at 15:45; Stop 06/15/19 at 15:44 Allopurinol (Zyloprim) 100 mg DAILY PO Last administered on 06/15/19 10:18; Start 06/15/19 at 09:00 Digoxin (Lanoxin) 250 mcg DAILY PO Last administered on 06/15/19 10:18; Start 06/15/19 at 09:00 Docusate Sodium (Colace) 100 mg BID PO Last administered on 06/15/19 10:18; Start 06/15/19 at 09:00 Furosemide (Lasix) 40 mg DAILY PO Last administered on 06/15/19 10:18; Start 06/15/19 at 09:00 Levetiracetam (Keppra) 250 mg BID PO Last administered on 06/15/19 10:18; Start 06/15/19 at 09:00 Metoprolol Tartrate (Lopressor) 50 mg BID PO Last administered on 06/15/19 10:18; Start 06/15/19 at 09:00 Polyethylene Glycol (miraLAX PACKET) 17 gm DAILY PO Last administered on 06/15/19 10:18; Start 06/15/19 at 09:00 Potassium Chloride (Klor-Con) 20 meq DAILY PO Last administered on 06/15/19 10:18; Start 06/15/19 at 09:00 Dexamethasone (Maxidex) 1 drop BID OS Last administered on 06/15/19 10:18; Start 06/15/19 at 09:00 Famotidine (Pepcid) 20 mg DAILY PO Last administered on 06/15/19at 10:18; Start 06/15/19 at 09:00 Sertraline HCl (Zoloft) 50 mg QHS PO ; Start 06/15/19 at 21:00 Aspirin (Children'S Aspirin) 81 mg DAILYWBKFT PO Last administered on 06/15/19at 12:51; Start 06/15/19 at 12:30; Stop 06/16/19 at 08:00 Aspirin (Children'S Aspirin) 325 mg DAILYWBKFT PO ; Start 06/16/19 at 08:00; Status UNV Active Scripts Active Polyethylene Glycol 3350 17 Gm Powd.pack 17 Gm PO DAILY 30 Days Zantac (Ranitidine Hcl) 150 Mg Tablet 150 Mg PO BID 30 Days Metoprolol Tartrate 50 Mg Tablet 50 Mg PO BID Furosemide 40 Mg Tablet 40 Mg PO DAILY 30 Days Keppra (Levetiracetam) 250 Mg Tablet 250 Mg PO BID 30 Days Reported Prednisolone Acetate 5 Ml Drops.susp 1 Drop OS BID Fiber Laxative (Psyllium Husk) 0.52 Gm Capsule 0.52 Gm PO Calcium (Calcium Carbonate) 500 Mg Tab.chew 500 Mg PO BID Melatonin 3 Mg Tablet 5 Mg PO PRN Allopurinol 100 Mg Tablet Unknown Dose PO DAILY Paroxetine Hcl 40 Mg Tablet Unknown Dose PO DAILY Multi-Day Vitamins (Multivitamin) 1 Each Tablet Unknown Dose PO DAILY Digoxin 250 Mcg Tablet Unknown Dose PO DAILY Klor-Con M20 (Potassium Chloride) 20 Meq Tab.er.prt Unknown Dose PO DAILY Colace (Docusate Sodium) 100 Mg Capsule Unknown Dose PO BID Allergies Allergies: Allergies Coded Allergies Type Severity Reaction Last Updated Verified Sulfa (Sulfonamide Antibiotics) Allergy Intermediate 12/05/17 Yes iodine Allergy Intermediate 12/05/17 Yes ROS Review of System The patient denies any associated fevers, chills, headache, ear pain, rhinorrhea, sore throat, stiff neck, productive cough, chest pain, shortness of breath, back or flank pain, abdominal pain, nausea, vomiting, diarrhea, constipation, dysuria, rash, numbness, weakness, tingling, incontinence, difficulty ambulating, or diaphoresis. Physical Exam Physical Exam General: Well developed, well nourished, no acute distress, well appearing HEENT: Pupils equally round and reactive to light, EOMI, no discharge, normal conjunctiva Neck: Supple, no nuchal rigidity, no JVD, trachea midline, no tenderness Cardiac: RRR, no murmurs, no gallops, no rubs Chest/Lungs: CTAB, no wheeze, no rhonchi, no crackles Abdomen: soft, non-distended, no guarding, no peritoneal signs, non-tender Back: No tenderness Extremities: no edema, pulses intact, non-tender,capillary refill <3 sec bilateral upper and lower extremities, Neuro: Alert and oriented x 4, no focal deficits, normal speech Vitals Vitals: Vital Signs Date Time Temp Pulse Resp B/P (MAP) Pulse Ox O2 Delivery O2 Flow Rate FiO2 06/15/19 11:22 97.7 83 20 142/54 (83) 93 Nasal Cannula 2.0 97.7 Labs Labs Laboratory Tests Test 06/14/19 13:00 06/14/19 13:54 06/15/19 09:33 Urine Collection Type Unknown Urine Color Yellow Urine Clarity Clear Urine pH 6.5 Urine Specific [place] 1.010 Urine Protein Negative mg/dL (NEG-TRACE) Urine Glucose (UA) Negative mg/dL (NEG) Urine Ketones (Stick) Negative mg/dL (NEG) Urine Blood Negative (NEG) Urine Nitrite Negative (NEG) Urine Bilirubin Negative (NEG) Urine Urobilinogen Dipstick 0.2 mg/dL (0.2 mg/dL) Urine Leukocyte Esterase Negative (NEG) Urine RBC 0 /HPF (0-2) Urine WBC 0 /HPF (0-4) Urine Squamous Epithelial Cells Few /LPF Urine Bacteria 0 /HPF (0-FEW) White Blood Count 4.0 x10^3/uL (4.0-11.0) 3.5 x10^3/uL (4.0-11.0) Red Blood Count 4.41 x10^6/uL (3.50-5.40) 4.39 x10^6/uL (3.50-5.40) Hemoglobin 14.2 g/dL (12.0-15.5) 13.8 g/dL (12.0-15.5) Hematocrit 41.7 % (36.0-47.0) 41.4 % (36.0-47.0) Mean Corpuscular Volume 95 fL (79-100) 94 fL (79-100) Mean Corpuscular Hemoglobin 32 pg (25-35) 31 pg (25-35) Mean Corpuscular Hemoglobin Concent 34 g/dL (31-37) 33 g/dL (31-37) Red Cell Distribution Width 14.8 % (11.5-14.5) 14.7 % (11.5-14.5) Platelet Count 149 x10^3/uL (140-400) 147 x10^3/uL (140-400) Neutrophils (%) (Auto) 57 % (31-73) 61 % (31-73) Lymphocytes (%) (Auto) 27 % (24-48) 24 % (24-48) Monocytes (%) (Auto) 10 % (0-9) 7 % (0-9) Eosinophils (%) (Auto) 5 % (0-3) 6 % (0-3) Basophils (%) (Auto) 1 % (0-3) 1 % (0-3) Neutrophils # (Auto) 2.2 x10^3/uL (1.8-7.7) 2.1 x10^3/uL (1.8-7.7) Lymphocytes # (Auto) 1.1 x10^3/uL (1.0-4.8) 0.8 x10^3/uL (1.0-4.8) Monocytes # (Auto) 0.4 x10^3/uL (0.0-1.1) 0.3 x10^3/uL (0.0-1.1) Eosinophils # (Auto) 0.2 x10^3/uL (0.0-0.7) 0.2 x10^3/uL (0.0-0.7) Basophils # (Auto) 0.0 x10^3/uL (0.0-0.2) 0.0 x10^3/uL (0.0-0.2) Prothrombin Time 14.4 SEC (11.7-14.0) Prothromb Time International Ratio 1.2 (0.8-1.1) Activated Partial Thromboplast Time 28 SEC (24-38) Sodium Level 147 mmol/L (136-145) 146 mmol/L (136-145) Potassium Level 4.5 mmol/L (3.5-5.1) 3.9 mmol/L (3.5-5.1) Chloride Level 107 mmol/L (98-107) 105 mmol/L (98-107) Carbon Dioxide Level 37 mmol/L (21-32) 34 mmol/L (21-32) Anion Gap 3 (6-14) 7 (6-14) Blood Urea Nitrogen 32 mg/dL (7-20) 32 mg/dL (7-20) Creatinine 1.3 mg/dL (0.6-1.0) 1.3 mg/dL (0.6-1.0) Estimated GFR (Cockcroft-Gault) 38.9 38.9 BUN/Creatinine Ratio 25 (6-20) Glucose Level 85 mg/dL (70-99) 124 mg/dL (70-99) Calcium Level 10.1 mg/dL (8.5-10.1) 9.5 mg/dL (8.5-10.1) Total Bilirubin 0.6 mg/dL (0.2-1.0) Aspartate Amino Transf (AST/SGOT) 29 U/L (15-37) Alanine Aminotransferase (ALT/SGPT) 17 U/L (14-59) Alkaline Phosphatase 75 U/L (46-116) Troponin I Quantitative < 0.017 ng/mL (0.000-0.055) Total Protein 8.6 g/dL (6.4-8.2) Albumin 3.8 g/dL (3.4-5.0) Albumin/Globulin Ratio 0.8 (1.0-1.7) Creatine Kinase 23 U/L (26-192) Laboratory Tests Test 06/15/19 09:33 White Blood Count 3.5 x10^3/uL (4.0-11.0) Red Blood Count 4.39 x10^6/uL (3.50-5.40) Hemoglobin 13.8 g/dL (12.0-15.5) Hematocrit 41.4 % (36.0-47.0) Mean Corpuscular Volume 94 fL (79-100) Mean Corpuscular Hemoglobin 31 pg (25-35) Mean Corpuscular Hemoglobin Concent 33 g/dL (31-37) Red Cell Distribution Width 14.7 % (11.5-14.5) Platelet Count 147 x10^3/uL (140-400) Neutrophils (%) (Auto) 61 % (31-73) Lymphocytes (%) (Auto) 24 % (24-48) Monocytes (%) (Auto) 7 % (0-9) Eosinophils (%) (Auto) 6 % (0-3) Basophils (%) (Auto) 1 % (0-3) Neutrophils # (Auto) 2.1 x10^3/uL (1.8-7.7) Lymphocytes # (Auto) 0.8 x10^3/uL (1.0-4.8) Monocytes # (Auto) 0.3 x10^3/uL (0.0-1.1) Eosinophils # (Auto) 0.2 x10^3/uL (0.0-0.7) Basophils # (Auto) 0.0 x10^3/uL (0.0-0.2) Sodium Level 146 mmol/L (136-145) Potassium Level 3.9 mmol/L (3.5-5.1) Chloride Level 105 mmol/L (98-107) Carbon Dioxide Level 34 mmol/L (21-32) Anion Gap 7 (6-14) Blood Urea Nitrogen 32 mg/dL (7-20) Creatinine 1.3 mg/dL (0.6-1.0) Estimated GFR (Cockcroft-Gault) 38.9 Glucose Level 124 mg/dL (70-99) Calcium Level 9.5 mg/dL (8.5-10.1) Creatine Kinase 23 U/L (26-192) MICHAEL MITCHELL MD Jun 15, 2019 14:26
--- NOTE | 2019-06-15 15:01 | RAD ---
Carotid ultrasound 06/15/2019. Reason for exam: CVA. Color Doppler and spectral waveform analysis was performed along with real-time grayscale technique. Measurements were obtained in centimeters per second. Carotid stenoses were graded per It criteria. FINDINGS: A small amount of plaque is seen at both carotid bulbs. Flow in the vertebral arteries is antegrade. The following velocity measurements were obtained: CCA peak: Right, 69, left, 87. ICA peak: Right, 79, left, 64. IC/CC ratio: Right, 1.09, left, 0.73. IMPRESSION: Mild plaque. No evidence of significant stenosis. Electronically signed by: Jc Green Jr., MD (06/15/2019 2:58 PM) [facility]
[2019-06-15 15:50] VITALS: BP 136/56
--- NOTE | 2019-06-15 18:23 | NUR ---
Call placed to Dr Beckford, CT of head was done yesterday but ordered for repeat today. Dr Beckford is aware and does want CT done again.
[2019-06-15 19:40] VITALS: BP 131/60
--- NOTE | 2019-06-15 20:51 | HP ---
ADMIT DATE: 06/14/2019 CHIEF COMPLAINT: Weakness. HISTORY OF PRESENT ILLNESS AND HOSPITAL COURSE: This patient is an 83-year-old female, who was recently discharged approximately [address] [facility]. She was followed by home health. Home health nurse felt that she was increasingly weak with facial droop and right-sided weakness more than her previous deficits from left subdural hematoma. The patient came to the ER, was found to have changes in mental status as noted by family and ongoing weakness and could not rule out new CVA. The patient was unable to care for herself; therefore, she was admitted to the hospital for further evaluation including Neurology consultation. The patient had ongoing complaints of right hip pain and right shoulder weakness as well as significant knee pain, right hip had continued mass with at least 2 previous x-rays showing no evidence of hip fracture. , the patient was admitted for further evaluation and Neurology consultation. PAST MEDICAL HISTORY: Significant for: 1. Chronic atrial fibrillation, not on anticoagulation due to significant fall risk. 2. Sick sinus syndrome with pacemaker placement. 3. Hypertension. 4. Osteoarthritis of knees and shoulders. 5. Osteoporosis. 6. Pulmonary hypertension. 7. Obesity. 8. History of subdural hematoma. 9. Recent seizure, admitted at [facility] in April with new onset seizure. 10. Coronary artery disease. 11. History of congestive heart failure. 12. Valvular heart disease. 13. Depression and anxiety. 14. Chronic kidney disease stage 3. 15. Mild dementia. 16. Urinary incontinence. FAMILY HISTORY: Significant for mother who with complications of TB, father who with throat cancer, brother who with cancer of unspecified and a sister who had Alzheimer's type dementia. PAST SURGICAL HISTORY: Significant for partial thyroidectomy, corneal transplants, abdominal hysterectomy, breast biopsy, and pacemaker placement. SOCIAL HISTORY: The patient does not smoke. She has never smoked. She does not use alcohol. She has excellent family support. ALLERGIES: The patient's allergies revealed ALLERGIES TO SULFA, WHICH CAUSES A RASH AND IODINE WITH UNKNOWN REACTION LISTED. REVIEW OF SYSTEMS: The patient was doing well until 3 or 4 days ago when she began having increasing weakness and right-sided weakness. She also complains of significant fatigue. She states mass on right side of the hip will swell and then improve over time intermittently. PHYSICAL EXAMINATION: GENERAL: This is a well-nourished, moderately obese female, in no apparent distress on my exam, she is alert and oriented. HEENT: Benign. NECK: Supple. CARDIAC: Irregularly irregular. LUNGS: Clear. ABDOMEN: Soft, nontender. EXTREMITIES: 2+ pulses. She had a large seroma type mass along the right lateral aspect of her hip and femur. She has poor range of motion of her knees, tenderness to her right shoulder with range of motion. ASSESSMENT: 1. Recurrent right-sided weakness, possibly due to old subdural hematoma. 2. Generalized weakness. 3. Chronic atrial fibrillation. 4. Pulmonary hypertension. 5. See past medical history. PLAN: To proceed with PT and OT modalities, consult neurology for further evaluation. Assess the need for further skilled care or home with home health versus fci placement. If symptoms do not improve, reevaluate shoulder, knee and hip pain. Obtain CT of the hip to rule out occult fracture. Consult Orthopedics for further treatment to assist with mobility and pain. NOA COLLIER MD DR: GAYE/baltazar JOB#: [id number] / [id number]
[2019-06-15] MEDS ORDERED: SERTRALINE 50 MG TABLET. PO SCH (21:00)
--- NOTE | 2019-06-15 22:21 | CONS ---
DATE OF CONSULTATION: 06/15/2019 ORTHOPEDIC CONSULTATION REQUESTING CONSULTATION: Dale Salazar MD REASON FOR CONSULTATION: Right shoulder pain and right hip mass. HISTORY OF PRESENT ILLNESS: The patient is an 83-year-old female who indicates that she has longstanding right shoulder pain, but was brought into the hospital as she complained of some right arm weakness and apparently family stated that she had been found with some altered speech and a lot of fatigue lately. She says the shoulder pain has been severe over a long period of time, certainly worsening over the last several months. She said she had a recent fall within the past couple of months and noted some swelling on her hip. It was initially much more painful, swelling is up and down since then and is over the outside of her hip itself. It is more painful with pressure on the area than it is with weightbearing. PAST MEDICAL HISTORY: Significant for previous stroke, congestive heart failure, depression, hypertension, arthritis and recent TIA. PAST SURGICAL HISTORY: Pacemaker and hysterectomy, thyroid surgery, corneal transplant and breast surgery for removal of a cyst. MEDICATIONS: List is reviewed. ALLERGIES: SHE LISTS ALLERGIES TO SULFA AND IODINE. SOCIAL HISTORY: Family is involved in her care. Denies any tobacco, alcohol or drug use. FAMILY HISTORY: Noncontributory. REVIEW OF SYSTEMS: Significant really for her shoulder pain as above and a hip swelling and tenderness. PHYSICAL EXAMINATION: EXTREMITIES: On examination, she has extremely limited range of motion of the right shoulder, basically pseudoparalysis finding where she can only abducted or elevate the shoulder to about 25 degrees elevation and that with quite a bit of pain. There is no apprehension or instability. Rotator cuff strength is minimal, really cannot abducted against any gravity much less any other force. External rotation strength is minimal, internal rotation strength about 3+ to 4/5. Normal parascapular motion. She seems to have some crepitus with motion of the right shoulder, better motion of the left shoulder with relatively normal examination, normal alignment, stability of bilateral elbows and wrists. On examination of both lower extremities, she has a swollen area over the lateral right hip, shows some bruising and I suspect hematoma. She has mild tenderness over the area, which is overlying the trochanteric bursa just proximally. She has no tenderness on weightbearing through an extended extremity or rotating the hip and no groin tenderness whatsoever otherwise normal alignment, stability of bilateral hips, knees and ankles and overall intact motor function, distal pulses, sensation, reflexes, skin in both upper and lower extremities throughout. IMAGING STUDIES: CT of the lower extremity show no bony abnormality on my evaluation, but she does have some soft tissue swelling lateral to the right hip and according to radiology report consistent with soft tissue hematoma, which it looks like clinically. IMPRESSION: Hematoma, right hip and right shoulder pain, chronic and worsening with pseudoparalysis. TREATMENT PLAN: I described to her that the findings on her shoulder are likely indicative of chronic rotator cuff injury. I would like to get x-rays of her shoulder to further evaluate her situation and treatment options. She does not indicate any prior treatments for it as far as her right hip. She does have hematoma over the hip based on her clinical examination and CT findings. I told her that there really is not a good way other than observation and letting this resolve on its own because opening it up, leaves her possibility of infection and it is unlikely to resolve at any faster, but potentially with a lot more complications to and she should not be symptomatically limited in terms of walking and can just keep pressure off of it symptomatically. I will see her follow up when her x-ray results are available for further evaluation, treatment and discussion regarding her right shoulder. GEOVANI FERNANDEZ MD DR: ZEINAB/baltazar JOB#: [id number] / [id number]
[2019-06-15 23:45] VITALS: BP 139/65
--- NOTE | 2019-06-16 01:22 | RAD ---
EXAM: CT HEAD WITHOUT CONTRAST. HISTORY: Right weakness. TECHNIQUE: Computed tomography of the head was performed without intravenous contrast. COMPARISON: 06/14/2019. FINDINGS: There is no intracranial hemorrhage. A stable 1.5 cm CSF density inferiorly in the left basal ganglia may reflect a chronic lacunar infarct or a choroidal fissure cyst. Hypoattenuation within the white matter indicates moderate chronic microangiopathic change. Prominence of the lateral ventricles and hemispheric sulci indicates moderate atrophy. The right maxillary sinus is opacified with dense material. There is moderate mucosal thickening in the left maxillary sinus. There are changes of bilateral cataract surgery. The temporal bones are unremarkable. The calvarium reveals no suspicious lesions. There are atherosclerotic calcifications of the internal carotid and vertebral arteries. IMPRESSION: 1. No acute intracranial findings. 2. Moderate atrophy and chronic microangiopathic white matter change 3. 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 *One or more of the following individualized dose reduction techniques were utilized for this examination: 1. Automated exposure control. 2. Adjustment of the mA and/or kV according to patient size. 3. Use of iterative reconstruction technique. Electronically signed by: Bryn Ames MD (06/16/2019 1:19 AM) [facility]
[2019-06-16 03:45] VITALS: BP 144/59
[2019-06-16 07:40] VITALS: BP 147/73
[2019-06-16] MEDS ORDERED: ASPIRIN CHEWABLE 81 MG TABLET. PO SCH (08:00)
[2019-06-16] MEDS ORDERED: ASPIRIN ENTERIC COATED 325 MG TABLET.DR. PO SCH (08:00)
--- NOTE | 2019-06-16 08:28 | SNU/HH DC ---
DISCHARGE WITH HOME HEALTH DISCHARGE INFORMATION: Discharge Date: Jun 16, 2019 Final Diagnosis: Problems Medical Problems: (1) Altered mental status Status: Acute (2) Weakness Status: Acute Condition on Discharge: Stable CODE STATUS: Code Status: Full HOME HEALTH: Face to Face: I certify this patient is under my care and that I, or a nurse practitioner or physician's desk assistant working with me, had a face to face encounter that meets the physician face to face encounter requirements with this patient on []. RN For Eval/Treatment: Yes Physical Therapy For: Evalulation/Treatment Occupational Therapy For: Evaluation/Treatment Home Health Aide For: Self-care Pt Meets Homebound Status: Unsteady balance w/ amb, POST DISCHARGE ORDERS: Activity Instructions for Disc: Activity as tolerated CERTIFICATION STATEMENT: Certification Statement: Certification Statement: Based on the above finding, I certify that this patient is confined to the home and needs intermittent long-term care, physical therapy and/or speech therapy, or continues to need occupational therapy.~ This patient is under my care, and I have initiated the establishment of the plan of care.~ This patient will be followed by myself or a community physician who will periodically review the plan of care. Home Meds Active Scripts Polyethylene Glycol 3350 (POLYETHYLENE GLYCOL 3350) 17 Gm Powd.pack, 17 GM PO DAILY for 30 Days, #30 PKT Prov:NOA COLLIER MD 12/12/17 Ranitidine Hcl (ZANTAC) 150 Mg Tablet, 150 MG PO BID for 30 Days, #60 TAB Prov:NOA COLLIER MD 12/12/17 Metoprolol Tartrate (METOPROLOL TARTRATE) 50 Mg Tablet, 50 MG PO BID, #60 TAB 5 Refills Prov:NOA COLLIER MD 12/12/17 Furosemide (FUROSEMIDE) 40 Mg Tablet, 40 MG PO DAILY for 30 Days, #30 TAB Prov:NOA COLLIER MD 12/12/17 Levetiracetam (KEPPRA) 250 Mg Tablet, 250 MG PO BID for 30 Days, #60 TAB Prov:DAKOTA EDOUARD MD 12/01/17 Reported Medications Prednisolone Acetate (PREDNISOLONE ACETATE) 5 Ml Drops.susp, 1 DROP OS BID, #5 ML 11/27/17 Psyllium Husk (FIBER LAXATIVE) 0.52 Gm Capsule, 0.52 GM PO, CAP 11/27/17 Calcium Carbonate (CALCIUM) 500 Mg Tab.chew, 500 MG PO BID, TAB.CHEW 11/27/17 Melatonin (MELATONIN) 3 Mg Tablet, 5 MG PO PRN for INSOMNIA, TAB 11/27/17 Allopurinol (ALLOPURINOL) 100 Mg Tablet, PO DAILY, #30 TAB 5 Refills 06/04/16 Paroxetine Hcl (PAROXETINE HCL) 40 Mg Tablet, PO DAILY, #30 TAB 5 Refills 06/04/16 Multivitamin (MULTI-DAY VITAMINS) 1 Each Tablet, PO DAILY, #30 TAB 06/04/16 Digoxin (DIGOXIN) 250 Mcg Tablet, PO DAILY, #30 TAB 5 Refills 06/04/16 Potassium Chloride (KLOR-CON M20) 20 Meq Tab.er.prt, PO DAILY, #90 TAB 1 Refill 06/04/16 Docusate Sodium (COLACE) 100 Mg Capsule, PO BID, #30 CAP 06/04/16 Discontinued Scripts Nitrofurantoin Monohyd/M-Cryst (MACROBID 100 MG CAPSULE) 100 Mg Capsule, 1 CAP PO BID, #20 CAP Prov:ANAT MERRILL APRN 08/02/18 NOA COLLIER MD Jun 16, 2019 08:28
--- NOTE | 2019-06-16 08:44 | DS ---
DATE OF DISCHARGE: 06/16/2019 ADMITTING DIAGNOSES: 1. Right-sided weakness, suspected cerebrovascular accident. 2. Mental status changes. 3. Chronic atrial fibrillation. 4. Pulmonary hypertension. CHRONIC DIAGNOSES: 1. Sick sinus syndrome with pacemaker. 2. Hypertension. 3. Osteoarthritis of shoulders and knees. 4. Osteoporosis. 5. Pulmonary hypertension. 6. Obesity. 7. History of subdural hematoma. 8. Recent new onset seizure in 04/2019. 9. Coronary artery disease. 10. Congestive heart failure, stable. 11. Valvular heart disease. 12. Depression, anxiety. 13. Chronic kidney disease stage 3. 14. Mild dementia. 15. Urinary incontinence. HISTORY OF PRESENT ILLNESS AND HOSPITAL COURSE: This patient is an 83-year-old female who was found by longterm home health nurse to have increasing right-sided weakness consistent with CVA. She was brought to the Emergency Room and felt that she was weak. Family felt that her mental status had changed and that she had ongoing increasing right-sided weakness. She had negative CT and MRI could not be done due to pacemaker placement. Neurology was consulted for evaluation and the patient had ongoing shoulder and knee pain and Orthopedic Surgery was also consulted. The patient had a previous hematoma to her right hip and no occult fracture was ruled out by a CT scan. She improved during hospital stay and required PT and OT modalities. The patient was recommended to go to longterm, but has run out of longterm days due to recent longterm stay and has been stable at home with home health with excellent family support. Therefore, plans to discharge the patient to home with home health were made. DISCHARGE MEDICATIONS: She was discharged on the following medications: Allopurinol 100 mg daily, calcium carbonate 500 mg b.i.d., Lanoxin 250 mcg daily, Colace 100 mg b.i.d., Lasix 40 mg daily, Keppra 250 mg b.i.d., melatonin 5 mg at bedtime p.r.n., metoprolol 50 mg b.i.d., Plavix 40 mg daily, MiraLax 17 g in liquid daily, potassium 10 mEq daily, prednisone ophthalmic drops 1 drop to both eyes b.i.d., fiber laxative daily, Zantac 150 mg b.i.d. INSTRUCTIONS: She will follow up in the office in 1 week for continued care and evaluation. NOA COLLIER MD DR: Bill JOB#: [id number] / [id number]
[2019-06-16] MEDS: DEXAMETHASONE 0.1% OPHTH SOLUTION 5ML BOTTLE. OS SCH (09:32)
[2019-06-16] MEDS: levETIRAcetam 250 MG TABLET PO SCH (09:32)
[2019-06-16] MEDS: DIGOXIN 250 MCG TABLET. PO SCH (09:32)
[2019-06-16] MEDS: POTASSIUM CHLORIDE 20 MEQ TABLET.ER. PO SCH (09:32)
[2019-06-16] MEDS: ALLOPURINOL 100 MG TABLET. PO SCH (09:33)
[2019-06-16] MEDS: DOCUSATE SODIUM 100 MG CAPSULE. PO SCH (09:33)
[2019-06-16] MEDS: FUROSEMIDE 40 MG TABLET. PO SCH (09:33)
[2019-06-16] MEDS: FAMOTIDINE 20 MG TABLET. PO SCH (09:33)
[2019-06-16] MEDS: METOPROLOL TART IMMED RELEASE 50 MG TABLET. PO SCH (09:33)
[2019-06-16] MEDS: POLYETHYLENE GLYCOL 3350 17 GM PACKET. PO SCH (09:34)
[2019-06-16 11:09] LABS: CHOLESTEROL/HDL RATIO 2.7
[2019-06-16 11:13] VITALS: BP 130/56
[2019-06-16] MEDS ORDERED: BUPIVACAINE MPF 0.5% 10 ML VIAL. IJ ONE (11:15)
[2019-06-16 11:25] LABS: DIG 0.4 ng/mL (0.9-2.0)
[2019-06-16] MEDS ORDERED: methylPREDNISolone ACETATE 80 MG/ML VIAL. IM ONE (11:30)
[2019-06-16 11:31] LABS: DIG < 0.2 ng/mL (0.9-2.0)
--- NOTE | 2019-06-16 12:08 | PDOC ---
PROGRESS NOTES Subjective Subjective Problems overnight: Continues to have right shoulder pain and weakness particularly with any use but constant aching as well Objective Vital Signs Vital Signs Date Time Temp Pulse Resp B/P (MAP) Pulse Ox O2 Delivery O2 Flow Rate FiO2 06/16/19 11:13 97.5 88 18 130/56 (80) 98 Nasal Cannula 2.0 97.5 Physical Exam Right shoulder has finding is of no paralysis crepitus with motion and even restricted passive range of motion and pain with any passive or active range of motion and extreme weakness Labs Laboratory Tests Test 06/14/19 13:00 06/14/19 13:54 06/15/19 09:33 06/16/19 10:00 Urine Collection Type Unknown Urine Color Yellow Urine Clarity Clear Urine pH 6.5 Urine Specific Levan 1.010 Urine Protein Negative mg/dL (NEG-TRACE) Urine Glucose (UA) Negative mg/dL (NEG) Urine Ketones (Stick) Negative mg/dL (NEG) Urine Blood Negative (NEG) Urine Nitrite Negative (NEG) Urine Bilirubin Negative (NEG) Urine Urobilinogen Dipstick 0.2 mg/dL (0.2 mg/dL) Urine Leukocyte Esterase Negative (NEG) Urine RBC 0 /HPF (0-2) Urine WBC 0 /HPF (0-4) Urine Squamous Epithelial Cells Few /LPF Urine Bacteria 0 /HPF (0-FEW) White Blood Count 4.0 x10^3/uL (4.0-11.0) 3.5 x10^3/uL (4.0-11.0) Red Blood Count 4.41 x10^6/uL (3.50-5.40) 4.39 x10^6/uL (3.50-5.40) Hemoglobin 14.2 g/dL (12.0-15.5) 13.8 g/dL (12.0-15.5) Hematocrit 41.7 % (36.0-47.0) 41.4 % (36.0-47.0) Mean Corpuscular Volume 95 fL (79-100) 94 fL (79-100) Mean Corpuscular Hemoglobin 32 pg (25-35) 31 pg (25-35) Mean Corpuscular Hemoglobin Concent 34 g/dL (31-37) 33 g/dL (31-37) Red Cell Distribution Width 14.8 % (11.5-14.5) 14.7 % (11.5-14.5) Platelet Count 149 x10^3/uL (140-400) 147 x10^3/uL (140-400) Neutrophils (%) (Auto) 57 % (31-73) 61 % (31-73) Lymphocytes (%) (Auto) 27 % (24-48) 24 % (24-48) Monocytes (%) (Auto) 10 % (0-9) 7 % (0-9) Eosinophils (%) (Auto) 5 % (0-3) 6 % (0-3) Basophils (%) (Auto) 1 % (0-3) 1 % (0-3) Neutrophils # (Auto) 2.2 x10^3/uL (1.8-7.7) 2.1 x10^3/uL (1.8-7.7) Lymphocytes # (Auto) 1.1 x10^3/uL (1.0-4.8) 0.8 x10^3/uL (1.0-4.8) Monocytes # (Auto) 0.4 x10^3/uL (0.0-1.1) 0.3 x10^3/uL (0.0-1.1) Eosinophils # (Auto) 0.2 x10^3/uL (0.0-0.7) 0.2 x10^3/uL (0.0-0.7) Basophils # (Auto) 0.0 x10^3/uL (0.0-0.2) 0.0 x10^3/uL (0.0-0.2) Prothrombin Time 14.4 SEC (11.7-14.0) Prothromb Time International Ratio 1.2 (0.8-1.1) Activated Partial Thromboplast Time 28 SEC (24-38) Sodium Level 147 mmol/L (136-145) 146 mmol/L (136-145) Potassium Level 4.5 mmol/L (3.5-5.1) 3.9 mmol/L (3.5-5.1) Chloride Level 107 mmol/L (98-107) 105 mmol/L (98-107) Carbon Dioxide Level 37 mmol/L (21-32) 34 mmol/L (21-32) Anion Gap 3 (6-14) 7 (6-14) Blood Urea Nitrogen 32 mg/dL (7-20) 32 mg/dL (7-20) Creatinine 1.3 mg/dL (0.6-1.0) 1.3 mg/dL (0.6-1.0) Estimated GFR (Cockcroft-Gault) 38.9 38.9 BUN/Creatinine Ratio 25 (6-20) Glucose Level 85 mg/dL (70-99) 124 mg/dL (70-99) Calcium Level 10.1 mg/dL (8.5-10.1) 9.5 mg/dL (8.5-10.1) Total Bilirubin 0.6 mg/dL (0.2-1.0) Aspartate Amino Transf (AST/SGOT) 29 U/L (15-37) Alanine Aminotransferase (ALT/SGPT) 17 U/L (14-59) Alkaline Phosphatase 75 U/L (46-116) Troponin I Quantitative < 0.017 ng/mL (0.000-0.055) Total Protein 8.6 g/dL (6.4-8.2) Albumin 3.8 g/dL (3.4-5.0) Albumin/Globulin Ratio 0.8 (1.0-1.7) Creatine Kinase 23 U/L (26-192) Digoxin Level < 0.2 ng/mL (0.9-2.0) 0.4 ng/mL (0.9-2.0) Digoxin Last Dose Date Unknown 06/15/19 Digoxin Last Dose Time Unknown 1013 Triglycerides Level 87 mg/dL (0-150) Cholesterol Level 128 mg/dL (0-200) LDL Cholesterol, Calculated 63 mg/dL (0-100) VLDL Cholesterol, Calculated 17 mg/dL (0-40) Non-HDL Cholesterol Calculated 80 mg/dL (0-129) HDL Cholesterol 48 mg/dL (40-60) Cholesterol/HDL Ratio 2.7 Laboratory Tests Test 06/16/19 10:00 Triglycerides Level 87 mg/dL (0-150) Cholesterol Level 128 mg/dL (0-200) LDL Cholesterol, Calculated 63 mg/dL (0-100) VLDL Cholesterol, Calculated 17 mg/dL (0-40) Non-HDL Cholesterol Calculated 80 mg/dL (0-129) HDL Cholesterol 48 mg/dL (40-60) Cholesterol/HDL Ratio 2.7 Digoxin Level 0.4 ng/mL (0.9-2.0) Digoxin Last Dose Date 06/15/19 Digoxin Last Dose Time 1013 Imaging X-rays show severe degenerative changes at the glenohumeral joint and high riding humeral head suspicious for rotator cuff arthropathy Assessment Assessment Right shoulder pain and weakness and rotator cuff arthropathy Plan Plan of Care I went over with her the treatment options of continued observation which is unacceptable to her due to the pain and limitations. We talked about the possibility of an injection to give her hopefully symptomatic pain relief only and noted that it would not improve her function. I also talked about the possibility of surgical treatment of a reverse shoulder arthroplasty which would address both her pain and functional issues. She said that while she is right handed and is thinking about further treatment as this is very limiting to her daily activities she would like to proceed with the injection initially and therefore after informed consent was obtained right shoulder was injected with 1 mL 80 mg/mm Depo-Medrol under sterile conditions from an anterior approach which she tolerated well. She can follow-up on an outpatient basis for further discussion about treatment options based on how her pain relief and function as after injection GEOVANI FERNANDEZ MD Jun 16, 2019 12:08
--- NOTE | 2019-06-16 12:40 | NUR ---
Dr. Moran at beside with patient and injected Bupivacaine 0.5% and 1 ml 80mg/mm Depo-Medrol using aseptic technique. Band aid applied to right shoulder.
--- NOTE | 2019-06-16 14:20 | NUR ---
Discharge instructions given to patient and son. Education given over general weakness, altered mental status, and stroke symptoms. Informed patient to follow up with current home health agency. Pt will also follow up with Dr. Salazar in one week. Dr. Moran's contact information given to patient and was instructed to follow up outpatient if she desired further treatment. Patient and son verbalized understanding.
--- NOTE | 2019-06-16 14:31 | PDOC ---
PROGRESS NOTES Assessment Assessment Right side weakness, recurrent. Slurred speech, recurrent. 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 Metabolic encephalopathy. Fall AFib. CAD CHF HTN DM Hypothyroidism. Thyroid nodules. Degenerative spine disease. Vit D insufficiency. Pacemaker. No evidence of acute large vessel stroke this time. RECOMMENDATIONS/PLAN: Treat medical diseases. No MRI due to pacemaker. Discussed with her son at bedside on 06/16/19. 2HCTs are negative for acute findings. HISTORY OF THE PRESENT ILLNESS: 83-y-old female patient with multiple medical diseases and AFib but not on anticoagulant due to frequent falls. She had symptoms of right side weakness and slurred speech this am and she was brought to the ER of [facility] for further evaluation. She had similar symptoms several times in the past. HCT was negative for ICH or ischemic changes this time. Right side weakness improved since 06/15/19. Past Medical History Cardiovascular: AFIB, CAD, CHF, HTN CENTRAL NERVOUS SYSTEM: Dementia ENT: No pertinent hx Renal/: No pertinent hx Endocrine: Diabetes, Hypothyroidism Past Surgical History Pacemaker placement. Family History Non contributory. Social History ALCOHOL: none Drugs: None ALLERGY: Reviewed. MEDICATIONS: Refer to MAR REVIEW OF SYSTEMS: Constitutional: No malnutrition, cachexia. Head: Traumatic brain and head injury this time. Skin: No edema, or rash. Ear: No infection, tinnitus. Eyes: No vision loss or color blindness. Nose: No bleeding or purulent discharges. Hearing: Hearing decrease. Neck: No acute injury. Breast: No history of cancer, masses,or discharges. Cardiac: CAD, CHF, AFib, Pacemaker Placement, HTN.. Pulmonary: No COPD. GI: No GI ulcer, GI bleeding. Urinary/genital: UTI. Endocrinologic: Diabetes Mellitus, hypothyroidism. Skeletomuscular: Falls. Neurological: see HP. Psychiatric: Denies drug use/abuse. Otherwise, not [id number] review of systems. PHYSICAL EXAMINATION: General appearance is in no acute distress. HEENT: Normocephalic and nontraumatic. Eyes, nose, ears, and throat are unremarkable. Neck is supple. No lymphadenopathy. No bruits are heard over the carotid artery. No crepitus. Cardiovascular: S1, S2, irregular rate and rhythm. Pulmonary: Relative clear to auscultation bilaterally. Abdomen: Bowel sounds are positive. Extremities: No rash, lesions, or edema. No restriction of range of motion NEUROLOGICAL EXAMINATION: Awake. Oriented partially to time, but knows place and person. PERRL. EOMI CN: No VII palsy. Muscle tone: WNL Muscle strength: 4 right side, 4+ left side.. DTR: 1+ Plantar reflex: Neutral response bilaterally Gait: Not examined in chair. Sensory exam: withdraw response to stimuli. No acute cerebellar signs elicited. F-T-N test fine. Objective Objective Vital Signs Date Time Temp Pulse Resp B/P (MAP) Pulse Ox O2 Delivery O2 Flow Rate FiO2 06/16/19 11:13 97.5 88 18 130/56 (80) 98 Nasal Cannula 2.0 97.5 Intake and Output 06/16/19 07:00 Intake Total 1150 ml Output Total 51 ml Balance 1099 ml Intake Oral 1150 ml Output Stool Total 1 ml Chest Tube Drainage Total 50 ml # Voids 3 Vitals Signs Vitals VS - Last 72 Hours, by Label Date Time Temp Pulse Resp B/P (MAP) Pulse Ox O2 Delivery O2 Flow Rate FiO2 06/16/19 11:13 97.5 88 18 130/56 (80) 98 Nasal Cannula 2.0 97.5 06/16/19 09:34 94 147/73 06/16/19 09:34 94 147/73 06/16/19 08:00 Nasal Cannula 2.0 06/16/19 07:40 97.8 94 18 147/73 (97) 96 Nasal Cannula 2.0 97.8 06/16/19 03:45 97.5 61 17 144/59 (87) 95 Nasal Cannula 2.0 97.5 06/15/19 23:45 97.8 62 17 139/65 (89) 96 Nasal Cannula 2.0 97.8 06/15/19 20:52 63 131/60 06/15/19 20:00 Nasal Cannula 2.0 06/15/19 19:40 97.9 63 20 131/60 (83) 96 Nasal Cannula 2.0 97.9 06/15/19 15:50 98.2 82 20 136/56 (82) 95 Nasal Cannula 2.0 98.2 06/15/19 11:22 97.7 83 20 142/54 (83) 93 Nasal Cannula 2.0 97.7 06/15/19 10:18 95 152/67 06/15/19 10:18 95 152/67 06/15/19 08:00 Room Air 2.0 06/15/19 07:56 98.1 95 18 152/67 (95) 92 Nasal Cannula 2.0 98.1 Laboratory Laboratory Laboratory Tests Test 06/16/19 10:00 Triglycerides Level 87 mg/dL (0-150) Cholesterol Level 128 mg/dL (0-200) LDL Cholesterol, Calculated 63 mg/dL (0-100) VLDL Cholesterol, Calculated 17 mg/dL (0-40) Non-HDL Cholesterol Calculated 80 mg/dL (0-129) HDL Cholesterol 48 mg/dL (40-60) Cholesterol/HDL Ratio 2.7 Digoxin Level 0.4 ng/mL (0.9-2.0) Digoxin Last Dose Date 06/15/19 Digoxin Last Dose Time 1013 Medication Medications Current Medications Aspirin (Children'S Aspirin) 324 mg DAILYWBKFT PO ; Start 06/16/19 at 08:00; Stop 06/15/19 at 14:28; Status DC Aspirin (Ecotrin) 325 mg DAILYWBKFT PO ; Start 06/16/19 at 08:00; Stop 06/15/19 at 14:24; Status DC Bupivacaine HCl (Sensorcaine Mpf 0.5%) 10 ml 1X ONCE IJ ; Start 06/16/19 at 11:15; Stop 06/16/19 at 11:16; Status DC Methylprednisolone Acetate (DEPO-Medrol 80MG VIAL) 80 mg 1X ONCE IM ; Start 06/16/19 at 11:30; Stop 06/16/19 at 11:31; Status DC Sertraline HCl (Zoloft) 50 mg QHS PO Last administered on 06/15/19at 20:52; Start 06/15/19 at 21:00 Comment Review of Relevant I have reviewed the following items jerrica (where applicable) has been applied. MICHAEL MITCHELL MD Jun 16, 2019 14:31
== END 2019-06-16 13:31 | disposition home health service (06) | DRG 553 ==
LOC: ER 12:34 → 6 SOUTH 14:12
PROVIDERS: ADMIT Family Medicine; ATTEND Family Medicine
DX: M19.011 Primary osteoarthritis, right shoulder (principal); G93.41 Metabolic encephalopathy; I13.0 Hypertensive heart and chronic kidney disease with heart failure and stage 1 through stage 4 chronic kidney disease, or unspecified chronic kidney disease; M17.0 Bilateral primary osteoarthritis of knee; S70.01XA Contusion of right hip, initial encounter; I50.9 Heart failure, unspecified; F32.9 Major depressive disorder, single episode, unspecified; I48.2 Chronic atrial fibrillation; I49.5 Sick sinus syndrome; M19.012 Primary osteoarthritis, left shoulder; M81.0 Age-related osteoporosis without current pathological fracture; I27.20 Pulmonary hypertension, unspecified; E66.9 Obesity, unspecified; I25.10 Atherosclerotic heart disease of native coronary artery without angina pectoris; F41.9 Anxiety disorder, unspecified; N18.3 Chronic kidney disease, stage 3 (moderate); F03.90 Unspecified dementia, unspecified severity, without behavioral disturbance, psychotic disturbance, mood disturbance, and anxiety; R32 Unspecified urinary incontinence; R47.81 Slurred speech; E04.2 Nontoxic multinodular goiter; E55.9 Vitamin D deficiency, unspecified; E03.9 Hypothyroidism, unspecified; E11.22 Type 2 diabetes mellitus with diabetic chronic kidney disease; W18.39XA Other fall on same level, initial encounter; Z80.8 Family history of malignant neoplasm of other organs or systems; Z68.25 Body mass index [BMI] 25.0-25.9, adult; Z86.73 Personal history of transient ischemic attack (TIA), and cerebral infarction without residual deficits; Z90.710 Acquired absence of both cervix and uterus; Z95.0 Presence of cardiac pacemaker; Z91.81 History of falling; Z88.2 Allergy status to sulfonamides; Z91.041 Radiographic dye allergy status; Z82.0 Family history of epilepsy and other diseases of the nervous system; Z79.82 Long term (current) use of aspirin; Y93.89 Activity, other specified; Y92.89 Other specified places as the place of occurrence of the external cause; Y99.8 Other external cause status
CPT/HCPCS: 36415; 70450; 71045; 73030; 73700; 80048; 80053; 80061; 80162; 81001; 82550; 82607; 84484; 85025; 85610; 85730; 93005; 93880; 97116; 99285-25; G0378

== ENCOUNTER → 2020-01-15 | Outpatient (CLI) | payer BC ==
[~2020-01-15] MED LIST changes: -DIGO250T PO; +DIGO250T3 PO; -MELA3TAB2 PO; +MELA3TAB4 PO
[2020-01-15 05:51] LABS: BASO % 1 % (0-3); EOS # 0.3 x10^3/uL (0.0-0.7); EOS % 8 % (0-3); HEMATOCRIT 39.5 % (36.0-47.0); HEMOGLOBIN 12.9 g/dL (12.0-15.5); LYMPH % 25 % (24-48); MEAN CORPUSCULAR HEMOGLOBIN 30 pg (25-35); MEAN CORPUSCULAR HGB CONC 33 g/dL (31-37); MEAN CORPUSCULAR VOLUME 93 fL (79-100); MONO # 0.3 x10^3/uL (0.0-1.1); MONO % 8 % (0-9); NEUT # 2.4 x10^3/uL (1.8-7.7); NEUT % 59 % (31-73); PLATELET COUNT 127 x10^3/uL (140-400); RED BLOOD COUNT 4.25 x10^6/uL (3.50-5.40)
[2020-01-15 06:06] LABS: CALCIUM 9.5 mg/dL (8.5-10.1); CREATININE 1.2 mg/dL (0.6-1.0); GFR 42.6; POTASSIUM 4.2 mmol/L (3.5-5.1)
== END | disposition home or self-care (01) ==
LOC: SPEC 00:12
PROVIDERS: ATTEND Family Medicine
DX: I25.10 Atherosclerotic heart disease of native coronary artery without angina pectoris (principal)
CPT/HCPCS: 36415; 80048; 85025

== ENCOUNTER → 2020-04-23 | Outpatient (CLI) | payer BC ==
--- NOTE | 2020-04-23 12:37 | RAD ---
Right shoulder 2 views INDICATION: Right shoulder pain. COMPARISON: Right shoulder x-rays of 06/15/2019. FINDINGS: No fracture or dislocation. Severe degenerative changes at the glenohumeral joints and lesser degenerative changes at the acromioclavicular joint are evident. These are similar to previous exam. Soft tissues unremarkable. IMPRESSION: Degenerative changes in the right glenohumeral joint and acromioclavicular joint. No fracture or dislocation. Electronically signed by: Patricia Grubbs MD (04/23/2020 12:34 PM) [id number]
== END | disposition home or self-care (01) ==
PROVIDERS: ATTEND Family Medicine
DX: M19.011 Primary osteoarthritis, right shoulder (principal)
CPT/HCPCS: 73030

== ENCOUNTER → 2020-05-20 | Outpatient (CLI) | payer BC | END | disposition home or self-care (01) | LOC: SPEC 11:59 | PROVIDERS: ATTEND Family Medicine | DX: E55.9 Vitamin D deficiency, unspecified (principal) | CPT/HCPCS: 36415; 82306 ==

== ENCOUNTER 2020-05-26 14:00 | Inpatient (IN) | payer BC ==
[~2020-05-26] VITALS: Ht 167.6 cm; Wt 77.9 kg
[2020-05-26 14:31] LABS: BASO % 0 % (0-3); EOS # 0.1 x10^3/uL (0.0-0.7); EOS % 2 % (0-3); HEMATOCRIT 49.1 % (36.0-47.0); HEMOGLOBIN 16.3 g/dL (12.0-15.5); LYMPH # 1.2 x10^3/uL (1.0-4.8); LYMPH % 25 % (24-48); MEAN CORPUSCULAR HEMOGLOBIN 31 pg (25-35); MEAN CORPUSCULAR HGB CONC 33 g/dL (31-37); MEAN CORPUSCULAR VOLUME 92 fL (79-100); MONO # 0.3 x10^3/uL (0.0-1.1); MONO % 7 % (0-9); NEUT # 3.2 x10^3/uL (1.8-7.7); NEUT % 65 % (31-73); PLATELET COUNT 109 x10^3/uL (140-400); RED BLOOD COUNT 5.33 x10^6/uL (3.50-5.40); RED CELL DISTRIBUTION WIDTH 16.4 % (11.5-14.5); WHITE BLOOD COUNT 4.9 x10^3/uL (4.0-11.0)
[2020-05-26 14:40] LABS: PROTHROMBIN TIME PATIENT 14.3 SEC (11.7-14.0)
[2020-05-26 14:44] LABS: D-DIMER 1.16 ug/mlFEU (0.00-0.50)
--- NOTE | 2020-05-26 14:46 | PHYS DOC ---
Past Medical History Past Medical History: Arthritis, CHF, CVA, Depression, Hypertension Additional Past Medical Histor: "HEART PROBLEM" TIA IN April Past Surgical History: Hysterectomy, Pacemaker Additional Past Surgical Histo: partial thyroid, and cornea transplant,L)breast cyst removed. Smoking Status: Former Smoker Alcohol Use: None Drug Use: None General Adult EDM: Chief Complaint: SHORTNESS OF BREATH HPI: HPI: Patient is a 84 year old who was noted to have a low O2 sats at the shelter. Patient has been short of breath for a day. Patient reports a cough but no fever. Patient also complains of epigastric pain and some nausea. No vomiting or diarrhea. Patient denies any chest pain. Patient given breathing treatments and oxygen with improvement of her symptoms prior to arrival. Review of Systems: Review of Systems: Constitutional: Denies fever or chills. [] Eyes: Denies change in visual acuity. [] HENT: Denies nasal congestion or sore throat. [] Respiratory: Complains of cough and shortness of breath Cardiovascular: Denies chest pain or edema. [] GI: Complains of epigastric pain but no, nausea, vomiting, bloody stools or diarrhea. [] : Denies dysuria. [] Musculoskeletal: Denies back pain or joint pain. [] Integument: Denies rash. [] Neurologic: Denies headache, focal weakness or sensory changes. [] Endocrine: Denies polyuria or polydipsia. [] Lymphatic: Denies swollen glands. [] Psychiatric: Denies depression or anxiety. [] Heart Score: Risk Factors: Risk Factors: DM, Current or recent (<one month) smoker, HTN, HLP, family history of CAD, obesity. Risk Scores: Score 0 - 3: 2.5% MACE over next 6 weeks - Discharge Home Score 4 - 6: 20.3% MACE over next 6 weeks - Admit for Clinical Observation Score 7 - 10: 72.7% MACE over next 6 weeks - Early Invasive Strategies Allergies: Allergies: Allergies Coded Allergies Type Severity Reaction Last Updated Verified Sulfa (Sulfonamide Antibiotics) Allergy Intermediate 12/05/17 Yes iodine Allergy Intermediate 12/05/17 Yes Physical Exam: PE: Constitutional: Well developed, well nourished, mild distress HENT: Normocephalic, atraumatic, bilateral external ears normal, oropharynx moist, no oral exudates, nose normal. [] Eyes: PERRLA, EOMI, conjunctiva normal, no discharge. [] Neck: Normal range of motion, no tenderness, supple, no stridor. [] Cardiovascular:Heart rate regular rhythm, no murmur, peripheral pulses intact [] Lungs & Thorax: Diminished breath sounds bilaterally Abdomen: Bowel sounds normal, soft, mild epigastric tenderness but no guarding or rebound, no pulsatile masses Skin: Warm, dry, no erythema, no rash. [] Back: No tenderness, no CVA tenderness. [] Extremities: No tenderness, no cyanosis, no clubbing, ROM intact, no edema. [] Neurologic: Alert but mild confusion normal motor function, normal sensory function, no focal deficits noted. [] Psychologic: Affect normal, judgement normal, mood normal. [] Current Patient Data: Labs: Laboratory Tests Test 05/26/20 14:20 White Blood Count 4.9 x10^3/uL (4.0-11.0) Red Blood Count 5.33 x10^6/uL (3.50-5.40) Hemoglobin 16.3 g/dL (12.0-15.5) H Hematocrit 49.1 % (36.0-47.0) H Mean Corpuscular Volume 92 fL (79-100) Mean Corpuscular Hemoglobin 31 pg (25-35) Mean Corpuscular Hemoglobin Concent 33 g/dL (31-37) Red Cell Distribution Width 16.4 % (11.5-14.5) H Platelet Count 109 x10^3/uL (140-400) L Neutrophils (%) (Auto) 65 % (31-73) Lymphocytes (%) (Auto) 25 % (24-48) Monocytes (%) (Auto) 7 % (0-9) Eosinophils (%) (Auto) 2 % (0-3) Basophils (%) (Auto) 0 % (0-3) Neutrophils # (Auto) 3.2 x10^3/uL (1.8-7.7) Lymphocytes # (Auto) 1.2 x10^3/uL (1.0-4.8) Monocytes # (Auto) 0.3 x10^3/uL (0.0-1.1) Eosinophils # (Auto) 0.1 x10^3/uL (0.0-0.7) Basophils # (Auto) 0.0 x10^3/uL (0.0-0.2) Prothrombin Time 14.3 SEC (11.7-14.0) H Prothrombin Time INR 1.2 (0.8-1.1) H Activated Partial Thromboplast Time 30 SEC (24-38) Fibrinogen 376 mg/dL (200-440) D-Dimer (Kristan) 1.16 ug/mlFEU (0.00-0.50) H Laboratory Tests 05/26/20 14:20 EKG: EKG: EKG interpreted by tx junctional rhythm with a LVH and right axis deviation wide-complex nonspecific ST changes rate of 65 Radiology/Procedures: Radiology/Procedures: [][facility] [address] [place], [place] [id number] IMAGING REPORT Signed PATIENT: MARTA SULLIVAN ACCOUNT: [id number] : 1935 LOCATION: ER AGE: 84 SEX: F EXAM STATUS: REG ER ORD. PHYSICIAN: MONTRELL DANIELS MD REASON: cough, soa PROCEDURE: PORTABLE CHEST 1V PORTABLE CHEST 1V History: Reason: cough, soa / Spl. Instructions: / History: Comparison: January 14, 2020 Findings: Mild interstitial thickening. No pleural effusion. Unchanged heart size. No pneumothorax. Stable left-sided pacemaker. Bilateral glenohumeral DJD, right greater than left. Chronic right-sided rib fracture. Prior granulomatous disease within the chest. Impression: 1. Unchanged mild interstitial thickening, may relate to chronic interstitial changes although superimposed pulmonary edema is possible. Electronically signed by: Kris Rodriguez DO (05/26/2020 2:45 PM) [facility] DICTATED and SIGNED BY: KRIS RODRIGUEZ DO DATE: 05/26/20 1442 Course & Med Decision Making: Course & Med Decision Making Pertinent Labs and Imaging studies reviewed. (See chart for details) [] 84-year-old female presents with shortness of breath and hypoxia. X-ray due to pulmonary fibrosis or CHF. Patient given Lasix and steroids. Patient also tested for COVID will be admitted to the hospital. Discussed with Dr. Shahid who will admit the patient. Patient stable on minimal supplemental oxygen at this time. Dragon Disclaimer: Dragon Disclaimer: This electronic medical record was generated, in whole or in part, using a voice recognition dictation system. Departure Departure Impression: Primary Impression: Hypoxia Disposition: ADMITTED INPATIENT Admitting Physician: DONNIE (DR. SHAHID) Condition: STABLE Referrals: NOA COLLIER MD (PCP) Justicifation of Admission Dx: Justifications for Admission: Justification of Admission Dx: Yes MONTRELL DANIELS MD May 26, 2020 14:46
[2020-05-26 15:05] LABS: % LYMPHS 30 % (24-48); % MONOS 8 % (0-10); % SEGS 62 % (35-66); ANISOCYTOSIS SLIGHT; PLT ESTIMATE DECREASED (ADEQUATE)
[2020-05-26 15:09] LABS: CALCIUM 9.6 mg/dL (8.5-10.1); CREATININE 1.6 mg/dL (0.6-1.0); GFR 30.6; POTASSIUM 4.2 mmol/L (3.5-5.1)
[2020-05-26] MEDS ORDERED: methylPREDNISolone SOD SUCC PF 125 MG/2 ML VIAL. IV ONE (16:00)
[2020-05-26] MEDS ORDERED: ONDANSETRON PF 4 MG/2 ML VIAL. IV PRN (16:30)
--- NOTE | 2020-05-26 16:31 | PDOC1 ---
History and Physical Date of Admission: Date of Admission DATE: 05/26/20 TIME: 16:26 Chief Complaint: Chief Complain: Shortness of breath History of Present Illness: HPI: Most of the history was obtained from the ED physician and via chart review Patient is an 84-year-old female with past medical history of pulmonary fibrosis, chronic systolic CHF with EF of 50% last echocardiogram was in 2016, h istory of CVA, hypertension, diabetes, hypothyroidism who presents with having low O2 saturations in the shelter. Patient states that she has been short of breath for a day. Denies any exacerbating or alleviating factors. Patient reports a cough but no fever. Denies abdominal pain, diarrhea, bloody stools, dysuria, confusion, or syncope. Past Medical/Surgical History: PMH/PSH: Past Medical History: Arthritis, CHF, CVA, Depression, Hypertension, Hysterectomy, Pacemaker Past Surgical history: Partial thyroidectomy and cornea transplant, L breast cyst removed. Allergies: Allergies: Coded Allergies: Sulfa (Sulfonamide Antibiotics) (Verified Allergy, Intermediate, 12/05/17) iodine (Verified Allergy, Intermediate, 12/05/17) Family History: Family History: Reviewed and none reported Social History: Social History: Smoking Status: Former Smoker Alcohol Use: None Drug Use: None Current Medications: Current Medications Current Medications Methylprednisolone Sodium Succinate (SOLU-Medrol 125MG VIAL) 125 mg 1X ONCE IV ; Start 05/26/20 at 16:00; Stop 05/26/20 at 16:01; Status DC Active Scripts Active Polyethylene Glycol 3350 17 Gm Powd.pack 17 Gm PO DAILY 30 Days Zantac (Ranitidine Hcl) 150 Mg Tablet 150 Mg PO BID 30 Days Metoprolol Tartrate 50 Mg Tablet 50 Mg PO BID Furosemide 40 Mg Tablet 40 Mg PO DAILY 30 Days Keppra (Levetiracetam) 250 Mg Tablet 250 Mg PO BID 30 Days Reported Prednisolone Acetate 5 Ml Drops.susp 1 Drop OS BID Fiber Laxative (Psyllium Husk) 0.52 Gm Capsule 0.52 Gm PO Calcium (Calcium Carbonate) 500 Mg Tab.chew 500 Mg PO BID Melatonin 3 Mg Tablet 5 Mg PO PRN Allopurinol 100 Mg Tablet Unknown Dose PO DAILY Paroxetine Hcl 40 Mg Tablet Unknown Dose PO DAILY Multi-Day Vitamins (Multivitamin) 1 Each Tablet Unknown Dose PO DAILY Digoxin 250 Mcg Tablet Unknown Dose PO DAILY Klor-Con M20 (Potassium Chloride) 20 Meq Tab.er.prt Unknown Dose PO DAILY Colace (Docusate Sodium) 100 Mg Capsule Unknown Dose PO BID ROS: Review of Systems Review of System REVIEW OF SYSTEMS: GENERAL: Denies weakness SKIN: No bruising, hair changes or rashes. EYES: No blurred, double or loss of vision. NOSE AND THROAT: No history of nosebleeds, hoarseness or sore throat. HEART: No history of palpitations, chest pain or shortness of breath on exertion. LUNGS: Denies cough, hemoptysis, wheezing or shortness of breath. GASTROINTESTINAL: Denies changes in appetite, nausea, vomiting, diarrhea or constipation. GENITOURINARY: No history of frequency, urgency, hesitancy or nocturia. NEUROLOGIC: Denies history of numbness, tingling, or tremor. PSYCHIATRIC: No history of panic, anxiety or depression. ENDOCRINE: No history of heat or cold intolerance, polyuria or polydipsia. EXTREMITIES: Denies joint pain, pain on walking or stiffness. Physical Exam: Vital Signs: Vital Signs Date Time Temp Pulse Resp B/P (MAP) Pulse Ox O2 Delivery O2 Flow Rate FiO2 05/26/20 14:00 97.5 72 20 121/68 (85) 91 Room Air 97.5 Physcial Exam: GEN: No apparent distress. Alert and oriented HEENT: Normal cephalic, atraumatic, external auditory canals are patent EYES: Extraocular muscles are intact, pupil are equally round and reactive to light and accommodation MUSCULOSKELETAL: Well developed , well nourished, good range of motion ENDOCRINE: No thyromegaly was palpated LYMPHATICS: No cervical chain or axillary nodes were noted HEMATOPOIETIC: No bruising NECK: Supple, no JVD, no thyromegaly was noted LUNGS: Clear to auscultation in all lung neves without rhonchi or wheezing HEART: RRR, S!, S2 present. Peripheral pulses intact, no obvious murmurs noted ABDOMEN: Soft, nontender. Positive bowel sounds, no organomegaly, normal bowel sounds EXTREMITIES: Without clubbing, cyanosis, or edema. Pedal pulses intact. Negative Homans sign NEUROLOGIC: Normal speech and tone. A&O x 3, moves all extremities, no obvious focal deficits PSYCHIATRIC: Normal affect, normal mood. Stable SKIN: No ulcerations or rashes, good skin turgor, no jaundice VASCULAR: Good capillary refill, neurovascular bundle appears to be intact Labs: Labs: Laboratory Tests Test 05/26/20 14:20 White Blood Count 4.9 x10^3/uL (4.0-11.0) Red Blood Count 5.33 x10^6/uL (3.50-5.40) Hemoglobin 16.3 g/dL (12.0-15.5) Hematocrit 49.1 % (36.0-47.0) Mean Corpuscular Volume 92 fL (79-100) Mean Corpuscular Hemoglobin 31 pg (25-35) Mean Corpuscular Hemoglobin Concent 33 g/dL (31-37) Red Cell Distribution Width 16.4 % (11.5-14.5) Platelet Count 109 x10^3/uL (140-400) Neutrophils (%) (Auto) 65 % (31-73) Lymphocytes (%) (Auto) 25 % (24-48) Monocytes (%) (Auto) 7 % (0-9) Eosinophils (%) (Auto) 2 % (0-3) Basophils (%) (Auto) 0 % (0-3) Neutrophils # (Auto) 3.2 x10^3/uL (1.8-7.7) Lymphocytes # (Auto) 1.2 x10^3/uL (1.0-4.8) Monocytes # (Auto) 0.3 x10^3/uL (0.0-1.1) Eosinophils # (Auto) 0.1 x10^3/uL (0.0-0.7) Basophils # (Auto) 0.0 x10^3/uL (0.0-0.2) Segmented Neutrophils % 62 % (35-66) Lymphocytes % 30 % (24-48) Monocytes % 8 % (0-10) Platelet Estimate Decreased (ADEQUATE) Anisocytosis Slight Prothrombin Time 14.3 SEC (11.7-14.0) Prothromb Time International Ratio 1.2 (0.8-1.1) Activated Partial Thromboplast Time 30 SEC (24-38) Fibrinogen 376 mg/dL (200-440) D-Dimer (Kristan) 1.16 ug/mlFEU (0.00-0.50) Sodium Level 134 mmol/L (136-145) Potassium Level 4.2 mmol/L (3.5-5.1) Chloride Level 97 mmol/L (98-107) Carbon Dioxide Level 35 mmol/L (21-32) Anion Gap 2 (6-14) Blood Urea Nitrogen 35 mg/dL (7-20) Creatinine 1.6 mg/dL (0.6-1.0) Estimated GFR (Cockcroft-Gault) 30.6 BUN/Creatinine Ratio 22 (6-20) Glucose Level 100 mg/dL (70-99) Lactic Acid Level 1.3 mmol/L (0.4-2.0) Calcium Level 9.6 mg/dL (8.5-10.1) Troponin I Quantitative 0.035 ng/mL (0.000-0.055) QD-Vvk-X-Type Natriuretic Peptide 7314 pg/mL (0-449) Lipase 235 U/L (73-393) Procalcitonin < 0.10 ng/mL (0.00-0.10) Laboratory Tests Test 05/26/20 14:20 White Blood Count 4.9 x10^3/uL (4.0-11.0) Red Blood Count 5.33 x10^6/uL (3.50-5.40) Hemoglobin 16.3 g/dL (12.0-15.5) Hematocrit 49.1 % (36.0-47.0) Mean Corpuscular Volume 92 fL (79-100) Mean Corpuscular Hemoglobin 31 pg (25-35) Mean Corpuscular Hemoglobin Concent 33 g/dL (31-37) Red Cell Distribution Width 16.4 % (11.5-14.5) Platelet Count 109 x10^3/uL (140-400) Neutrophils (%) (Auto) 65 % (31-73) Lymphocytes (%) (Auto) 25 % (24-48) Monocytes (%) (Auto) 7 % (0-9) Eosinophils (%) (Auto) 2 % (0-3) Basophils (%) (Auto) 0 % (0-3) Neutrophils # (Auto) 3.2 x10^3/uL (1.8-7.7) Lymphocytes # (Auto) 1.2 x10^3/uL (1.0-4.8) Monocytes # (Auto) 0.3 x10^3/uL (0.0-1.1) Eosinophils # (Auto) 0.1 x10^3/uL (0.0-0.7) Basophils # (Auto) 0.0 x10^3/uL (0.0-0.2) Segmented Neutrophils % 62 % (35-66) Lymphocytes % 30 % (24-48) Monocytes % 8 % (0-10) Platelet Estimate Decreased (ADEQUATE) Anisocytosis Slight Prothrombin Time 14.3 SEC (11.7-14.0) Prothromb Time International Ratio 1.2 (0.8-1.1) Activated Partial Thromboplast Time 30 SEC (24-38) Fibrinogen 376 mg/dL (200-440) D-Dimer (Kristan) 1.16 ug/mlFEU (0.00-0.50) Sodium Level 134 mmol/L (136-145) Potassium Level 4.2 mmol/L (3.5-5.1) Chloride Level 97 mmol/L (98-107) Carbon Dioxide Level 35 mmol/L (21-32) Anion Gap 2 (6-14) Blood Urea Nitrogen 35 mg/dL (7-20) Creatinine 1.6 mg/dL (0.6-1.0) Estimated GFR (Cockcroft-Gault) 30.6 BUN/Creatinine Ratio 22 (6-20) Glucose Level 100 mg/dL (70-99) Lactic Acid Level 1.3 mmol/L (0.4-2.0) Calcium Level 9.6 mg/dL (8.5-10.1) Troponin I Quantitative 0.035 ng/mL (0.000-0.055) JR-Zgw-X-Type Natriuretic Peptide 7314 pg/mL (0-449) Lipase 235 U/L (73-393) Procalcitonin < 0.10 ng/mL (0.00-0.10) Images: Images All labs, images, and reports were reviewed by sd personally PORTABLE CHEST 1V History: Reason: cough, soa / Spl. Instructions: / History: Comparison: January 14, 2020 Findings: Mild interstitial thickening. No pleural effusion. Unchanged heart size. No pneumothorax. Stable left-sided pacemaker. Bilateral glenohumeral DJD, right greater than left. Chronic right-sided rib fracture. Prior granulomatous disease within the chest. Impression: 1. Unchanged mild interstitial thickening, may relate to chronic interstitial changes although superimposed pulmonary edema is possible. Assessment/Plan Assessment/Plan Acute hypoxic respiratory failure due to CHF exacerbation versus underlying interstitial lung disease PUI COVID testing Elevated d-dimer, low probability for PE Acute electrolyte derangement Acute on chronic renal failure secondary to vasomotor nephropathy Erythrocytosis due to possible chronic hypoxia Thrombocytopenia CHF History of CVA Depression Hypertension Admit to medicine Will obtain bilateral DVT ultrasound to rule out DVT. Pending COVID testing Cardiology consult Pending echo Pending pulmonology consult Pending cardiology consult Heparin for DVT prophylaxis ADA diet Full code Discussed with RN and SW Dispo pending ultrasound Justicifation of Admission Dx: Justifications for Admission: Justification of Admission Dx: Yes Respiratory Failure: Severe Resp Distress MAN SHAHID MD May 26, 2020 16:31
[2020-05-26 17:24] LABS: ALBUMIN 3.9 g/dL (3.4-5.0); TOTAL BILIRUBIN 1.2 mg/dL (0.2-1.0); TOTAL PROTEIN 7.9 g/dL (6.4-8.2)
[2020-05-26 17:38] LABS: C-REACTIVE PROTEIN 4.6 mg/L (0-3.3)
--- NOTE | 2020-05-26 17:49 | RAD ---
Exam: CT of chest without contrast INDICATION: Short of air TECHNIQUE: Sequential axial images through the chest obtained without IV contrast. Sagittal and coronal reformatted images were reconstructed from the axial data and reviewed. Comparisons: None FINDINGS: Visualized portions of the thyroid are unremarkable. No enlarged mediastinal lymph nodes are identified. Heart is enlarged. No pericardial effusion. Pacer with leads terminating in the right ventricle. Moderate coronary artery calcifications. Thoracic aorta has a normal course and caliber. Pulmonary artery is mildly enlarged with main pulmonary artery measuring approximately 3.7 cm in diameter. Airways are patent. No consolidation or pneumothorax. Strandy opacities at the dependent portion lungs likely representing atelectasis. No suspicious lung nodules. There is a linear bandlike opacity at the right upper lobe anteriorly, likely related to scarring. 2 mm nodule in the right upper lobe series 2 image 18 No pleural effusion or thickening. Visualized upper abdomen is unremarkable. No suspicious osseous lesions or acute fractures. IMPRESSION: 1. Mild pulmonary artery enlargement. Correlate with 4 pulmonary arterial hypertension. 2. A 2 mm nodule in the right upper lobe. In a low-risk patient no further follow-up imaging is recommended. In a high-risk patient optional one-year follow-up CT can BE performed. Exposure: One or more of the following in the visualized dose reduction techniques were utilized for this examination: 1. Automated exposure control 2. Adjustment of the MA and/or KV according to patient size 3. Use of iterative of reconstructive technique Electronically signed by: Fabricio Bernal MD (05/26/2020 5:46 PM) [id number]
[2020-05-26] MEDS ORDERED: FUROSEMIDE 40 MG/4 ML VIAL. IVP ONE (18:00)
[2020-05-26 18:22] VITALS: BP 152/72
[2020-05-26] MEDS: METOPROLOL TART IMMED RELEASE 50 MG TABLET. PO SCH (20:23)
[2020-05-26] MEDS: DOCUSATE SODIUM 100 MG CAPSULE. PO SCH (20:23)
[2020-05-26] MEDS: levETIRAcetam 250 MG TABLET PO SCH (20:23)
[2020-05-26] MEDS: CALCIUM CARBONATE 500 MG TABLET PO SCH (20:24)
[2020-05-26] MEDS: HEPARIN for SUB-Q USE 5,000 UNIT/ML VIAL. SQ SCH (20:34)
[2020-05-26 23:45] VITALS: BP 123/62
[2020-05-27 03:15] VITALS: BP 135/65
--- NOTE | 2020-05-27 03:28 | EKG ---
[facility] [address] [place] [id number] Test Date: 2020-05-26 Test Time: 14:10:35 Pat Name: MARTA SULLIVAN Department: Room: Gender: F Clerk Of Court: : 1935 Requested By: MONTRELL DANIELS Order Number: [id number] Reading MD: Measurements Intervals [place] Rate: 65 P: [place]: QRS: 152 QRSD: 164 T: -15 QT: 456 QTc: 475 Interpretive Statements IRREGULAR RHYTHM, NO P-WAVE FOUND VENTRICULAR PREMATURE COMPLEX(ES) ABNORMAL RIGHT AXIS DEVIATION NON SPECIFIC INTRAVENTRICULAR BLOCK CONSIDER RIGHT VENTRICULAR HYPERTROPHY QRS(T) CONTOUR ABNORMALITY CONSISTENT WITH LATERAL INFARCT POSSIBLY RECENT ABNORMAL ECG RI6.01 No previous ECG available for comparison
[2020-05-27 07:12] VITALS: BP 143/70
[2020-05-27] MEDS: CALCIUM CARBONATE 500 MG TABLET PO SCH ×2 (09:25→18:21)
[2020-05-27] MEDS: DOCUSATE SODIUM 100 MG CAPSULE. PO SCH ×2 (09:25→20:33)
[2020-05-27] MEDS: levETIRAcetam 250 MG TABLET PO SCH ×2 (09:25→20:33)
[2020-05-27] MEDS: METOPROLOL TART IMMED RELEASE 50 MG TABLET. PO SCH ×2 (09:25→20:34)
[2020-05-27] MEDS: POLYETHYLENE GLYCOL 3350 17 GM PACKET. PO SCH (09:25)
[2020-05-27] MEDS: HEPARIN for SUB-Q USE 5,000 UNIT/ML VIAL. SQ SCH ×2 (09:29→20:34)
--- NOTE | 2020-05-27 10:04 | PDOC ---
[facility] PROGRESS NOTE Chief Complaint Chief Complaint Acute hypoxic respiratory failure due to CHF exacerbation versus underlying interstitial lung disease COVID testing pending Elevated d-dimer, low probability for PE Acute electrolyte derangement Acute on chronic renal failure secondary to vasomotor nephropathy Erythrocytosis due to possible chronic hypoxia Thrombocytopenia CHF History of CVA Depression Hypertension History of Present Illness History of Present Illness 05/27/20 Patient seen and examined Chart reviewed Discussed with RN No fevers today Resting in NAD on 2L O2 NC Vitals/I&O Vitals/I&O: Vital Signs Date Time Temp Pulse Resp B/P (MAP) Pulse Ox O2 Delivery O2 Flow Rate FiO2 05/27/20 09:25 66 143/70 05/27/20 07:12 95.6 22 95 Nasal Cannula 2.0 95.6 I & O 05/26/20 05/26/20 05/27/20 15:00 23:00 07:00 Intake Total 100 ml Balance 100 ml Physical Exam General: Alert, Cooperative Heart: Regular rate, Normal S1, Normal S2 Lungs: Clear Abdomen: Soft, No tenderness Extremities: No clubbing, No cyanosis Skin: No rashes, No significant lesion Labs Labs: Laboratory Tests Test 05/26/20 14:20 White Blood Count 4.9 x10^3/uL (4.0-11.0) Red Blood Count 5.33 x10^6/uL (3.50-5.40) Hemoglobin 16.3 g/dL (12.0-15.5) Hematocrit 49.1 % (36.0-47.0) Mean Corpuscular Volume 92 fL (79-100) Mean Corpuscular Hemoglobin 31 pg (25-35) Mean Corpuscular Hemoglobin Concent 33 g/dL (31-37) Red Cell Distribution Width 16.4 % (11.5-14.5) Platelet Count 109 x10^3/uL (140-400) Neutrophils (%) (Auto) 65 % (31-73) Lymphocytes (%) (Auto) 25 % (24-48) Monocytes (%) (Auto) 7 % (0-9) Eosinophils (%) (Auto) 2 % (0-3) Basophils (%) (Auto) 0 % (0-3) Neutrophils # (Auto) 3.2 x10^3/uL (1.8-7.7) Lymphocytes # (Auto) 1.2 x10^3/uL (1.0-4.8) Monocytes # (Auto) 0.3 x10^3/uL (0.0-1.1) Eosinophils # (Auto) 0.1 x10^3/uL (0.0-0.7) Basophils # (Auto) 0.0 x10^3/uL (0.0-0.2) Segmented Neutrophils % 62 % (35-66) Lymphocytes % 30 % (24-48) Monocytes % 8 % (0-10) Platelet Estimate Decreased (ADEQUATE) Anisocytosis Slight Prothrombin Time 14.3 SEC (11.7-14.0) Prothromb Time International Ratio 1.2 (0.8-1.1) Activated Partial Thromboplast Time 30 SEC (24-38) Fibrinogen 376 mg/dL (200-440) D-Dimer (Kristan) 1.16 ug/mlFEU (0.00-0.50) Sodium Level 134 mmol/L (136-145) Potassium Level 4.2 mmol/L (3.5-5.1) Chloride Level 97 mmol/L (98-107) Carbon Dioxide Level 35 mmol/L (21-32) Anion Gap 2 (6-14) Blood Urea Nitrogen 35 mg/dL (7-20) Creatinine 1.6 mg/dL (0.6-1.0) Estimated GFR (Cockcroft-Gault) 30.6 BUN/Creatinine Ratio 22 (6-20) Glucose Level 100 mg/dL (70-99) Lactic Acid Level 1.3 mmol/L (0.4-2.0) Calcium Level 9.6 mg/dL (8.5-10.1) Transferrin 178 mg/dL (149-313) Total Bilirubin 1.2 mg/dL (0.2-1.0) Aspartate Amino Transf (AST/SGOT) 26 U/L (15-37) Alanine Aminotransferase (ALT/SGPT) 17 U/L (14-59) Alkaline Phosphatase 88 U/L (46-116) Creatine Kinase 69 U/L (26-192) Troponin I Quantitative 0.035 ng/mL (0.000-0.055) C-Reactive Protein, Quantitative 4.6 mg/L (0-3.3) KS-Nbk-[id number]-Type Natriuretic Peptide 7314 pg/mL (0-449) Total Protein 7.9 g/dL (6.4-8.2) Albumin 3.9 g/dL (3.4-5.0) Albumin/Globulin Ratio 1.0 (1.0-1.7) Lipase 235 U/L (73-393) Procalcitonin < 0.10 ng/mL (0.00-0.10) Thyroid Stimulating Hormone (TSH) 3.009 uIU/mL (0.358-3.74) Assessment and Plan Assessmemt and Plan Problems Medical Problems: (1) Hypoxia Status: Acute Assessment/Plan Acute hypoxic respiratory failure due to CHF exacerbation versus underlying interstitial lung disease PUI COVID testing pending Elevated d-dimer, low probability for PE Acute electrolyte derangement Acute on chronic renal failure secondary to vasomotor nephropathy Erythrocytosis due to possible chronic hypoxia Thrombocytopenia CHF History of CVA Depression Hypertension Plan: Pending COVID testing Pending pulmonology consult Pending cardiology consult Bilateral DVT ultrasound is pending to rule out DVT PT/OT/ST Heparin for DVT prophylaxis DNR Appreciate subspecialty input Comment Review of Relevant I have reviewed the following items jerrica (where applicable) has been applied. Medications: Current Medications Medications (Trade) Dose Ordered Sig/Chen Route PRN Reason Start Time Stop Time Status Last Admin Dose Admin Methylprednisolone Sodium Succinate (SOLU-Medrol 125MG VIAL) 125 mg 1X ONCE IV 05/26/20 16:00 05/26/20 16:01 DC 05/26/20 16:59 Heparin Sodium (Porcine) (Heparin Sodium) 5,000 unit Q12HR SQ 05/26/20 21:00 05/27/20 09:29 Docusate Sodium (Colace) 100 mg BID PO 05/26/20 21:00 05/27/20 09:25 Levetiracetam (Keppra) 250 mg BID PO 05/26/20 21:00 05/27/20 09:25 Metoprolol Tartrate (Lopressor) 50 mg BID PO 05/26/20 21:00 05/27/20 09:25 Polyethylene Glycol (miraLAX PACKET) 17 gm DAILY PO 05/27/20 09:00 05/27/20 09:25 Calcium Carbonate/ Glycine (Oscal) 500 mg BIDWMEALS PO 05/26/20 20:00 05/27/20 09:25 Furosemide (Lasix) 40 mg 1X ONCE IVP 05/26/20 18:00 05/26/20 18:01 DC 05/26/20 19:06 Justicifation of Admission Dx: Justifications for Admission: Justification of Admission Dx: Yes Respiratory Failure: Severe Resp Distress HANSEL CHEATHAM III DO May 27, 2020 10:04
[2020-05-27 10:38] LABS: CALCIUM 9.6 mg/dL (8.5-10.1); CREATININE 1.5 mg/dL (0.6-1.0); GFR 32.9; MAGNESIUM 1.9 mg/dL (1.8-2.4); POTASSIUM 4.3 mmol/L (3.5-5.1)
[2020-05-27 11:05] VITALS: BP 146/74
[2020-05-27] MEDS ORDERED: FUROSEMIDE 40 MG/4 ML VIAL. IVP ONE (11:45)
--- NOTE | 2020-05-27 11:49 | PDOC2 ---
CARDIAC CONSULT DATE OF CONSULT Date of Consult DATE: 05/27/20 TIME: 11:13 REASON FOR CONSULT Reason for Consult: CHF, dyspnea REFERRING PHYSICIAN Referring Physician: Torres SOURCE Source: Chart review, Patient HISTORY OF PRESENT ILLNESS HISTORY OF PRESENT ILLNESS This is a pleasant 84 yo female admitted for complains of shortness of breath and note with hypoxia at the correction. Denies any chest pain or palpitations. She does have chronic AFIB and currently is rate controlled with intermittent V pacing. No recent falls or injury. She did get better with O2 suppleent. She is a poor historian. Presently she denies any discomfort and for the most part she defers answering questions to her daughter but she is not p resent and she could not give me any further details. PAST MEDICAL HISTORY Cardiovascular: AFIB (chronic), CAD (known for diffuse disease), CHF, HTN, Valve insufficiency (moderate to severe TR), Pulmonary hypertension Pulmonary: No pertinent hx CENTRAL NERVOUS SYSTEM: Other (subdural hematoma) GI: GERD Heme/Onc: No pertinent hx Hepatobiliary: No pertinent hx Psych: Anxiety Musculoskeletal: Osteoarthritis Rheumatologic: Gout Infectious disease: No pertinent hx ENT: Other (cataract) Renal/: Chronic renal insuff (CKD3) Endocrine: Diabetes (?), Hypothyroidism Dermatology: No pertinent hx PAST SURGICAL HISTORY Past Surgical History: Pacemaker (single chamber), Cataract Removal, Tonsillectomy, Hysterectomy, Other (partial thyroidectomy) FAMILY HISTORY Family History noncontributory SOCIAL HISTORY Smoke: No ALCOHOL: none Drugs: None Lives: [facility] CURRENT MEDICATIONS CURRENT MEDICATIONS Current Medications Medications (Trade) Dose Ordered Sig/Chen Route PRN Reason Start Time Stop Time Status Last Admin Dose Admin Methylprednisolone Sodium Succinate (SOLU-Medrol 125MG VIAL) 125 mg 1X ONCE IV 05/26/20 16:00 05/26/20 16:01 DC 05/26/20 16:59 Heparin Sodium (Porcine) (Heparin Sodium) 5,000 unit Q12HR SQ 05/26/20 21:00 05/27/20 09:29 Docusate Sodium (Colace) 100 mg BID PO 05/26/20 21:00 05/27/20 09:25 Levetiracetam (Keppra) 250 mg BID PO 05/26/20 21:00 05/27/20 09:25 Metoprolol Tartrate (Lopressor) 50 mg BID PO 05/26/20 21:00 05/27/20 09:25 Polyethylene Glycol (miraLAX PACKET) 17 gm DAILY PO 05/27/20 09:00 05/27/20 09:25 Calcium Carbonate/ Glycine (Oscal) 500 mg BIDWMEALS PO 05/26/20 20:00 05/27/20 09:25 Furosemide (Lasix) 40 mg 1X ONCE IVP 05/26/20 18:00 05/26/20 18:01 DC 05/26/20 19:06 ALLERGIES ALLERGIES: Coded Allergies: Sulfa (Sulfonamide Antibiotics) (Verified Allergy, Intermediate, 12/05/17) iodine (Verified Allergy, Intermediate, 12/05/17) ROS Review of System limited, poor historian PHYSICAL EXAM PHYSICAL EXAM Discussed with RN General: Alert, Oriented X3, Cooperative, No acute distress HEENT: Atraumatic Lungs: Other (diminished) Heart: Other (AFIB- V paced) Abdomen: Soft Extremities: Other (2+ bilateral pitting edema) Skin: No breakdown Neuro: Normal speech Psych/Mental Status: Mental status NL, Mood NL MUSCULOSKELETAL: Osteoarthritic changes both hands VITALS/I&O VITALS/I&O: Vital Signs Date Time Temp Pulse Resp B/P (MAP) Pulse Ox O2 Delivery O2 Flow Rate FiO2 05/27/20 09:25 66 143/70 05/27/20 07:12 95.6 22 95 Nasal Cannula 2.0 95.6 I & O 05/26/20 05/26/20 05/27/20 15:00 23:00 07:00 Intake Total 100 ml Balance 100 ml LABS Lab: Laboratory Tests Test 05/26/20 14:20 05/27/20 09:40 White Blood Count 4.9 x10^3/uL (4.0-11.0) Red Blood Count 5.33 x10^6/uL (3.50-5.40) Hemoglobin 16.3 g/dL (12.0-15.5) H Hematocrit 49.1 % (36.0-47.0) H Mean Corpuscular Volume 92 fL (79-100) Mean Corpuscular Hemoglobin 31 pg (25-35) Mean Corpuscular Hemoglobin Concent 33 g/dL (31-37) Red Cell Distribution Width 16.4 % (11.5-14.5) H Platelet Count 109 x10^3/uL (140-400) L Neutrophils (%) (Auto) 65 % (31-73) Lymphocytes (%) (Auto) 25 % (24-48) Monocytes (%) (Auto) 7 % (0-9) Eosinophils (%) (Auto) 2 % (0-3) Basophils (%) (Auto) 0 % (0-3) Neutrophils # (Auto) 3.2 x10^3/uL (1.8-7.7) Lymphocytes # (Auto) 1.2 x10^3/uL (1.0-4.8) Monocytes # (Auto) 0.3 x10^3/uL (0.0-1.1) Eosinophils # (Auto) 0.1 x10^3/uL (0.0-0.7) Basophils # (Auto) 0.0 x10^3/uL (0.0-0.2) Segmented Neutrophils % 62 % (35-66) Lymphocytes % 30 % (24-48) Monocytes % 8 % (0-10) Platelet Estimate Decreased (ADEQUATE) Anisocytosis Slight Prothrombin Time 14.3 SEC (11.7-14.0) H Prothrombin Time INR 1.2 (0.8-1.1) H Activated Partial Thromboplast Time 30 SEC (24-38) Fibrinogen 376 mg/dL (200-440) D-Dimer (Kristan) 1.16 ug/mlFEU (0.00-0.50) H Sodium Level 134 mmol/L (136-145) L 140 mmol/L (136-145) Potassium Level 4.2 mmol/L (3.5-5.1) 4.3 mmol/L (3.5-5.1) Chloride Level 97 mmol/L (98-107) L 101 mmol/L (98-107) Carbon Dioxide Level 35 mmol/L (21-32) H 34 mmol/L (21-32) H Anion Gap 2 (6-14) L 5 (6-14) L Blood Urea Nitrogen 35 mg/dL (7-20) H 36 mg/dL (7-20) H Creatinine 1.6 mg/dL (0.6-1.0) H 1.5 mg/dL (0.6-1.0) H Estimated GFR (Cockcroft-Gault) 30.6 32.9 BUN/Creatinine Ratio 22 (6-20) H Glucose Level 100 mg/dL (70-99) H 112 mg/dL (70-99) H Lactic Acid Level 1.3 mmol/L (0.4-2.0) Calcium Level 9.6 mg/dL (8.5-10.1) 9.6 mg/dL (8.5-10.1) Transferrin 178 mg/dL (149-313) Total Bilirubin 1.2 mg/dL (0.2-1.0) H Aspartate Amino Transferase (AST) 26 U/L (15-37) Alanine Aminotransferase (ALT) 17 U/L (14-59) Alkaline Phosphatase 88 U/L (46-116) Creatine Kinase 69 U/L (26-192) Troponin I Quantitative 0.035 ng/mL (0.000-0.055) C-Reactive Protein, Quantitative 4.6 mg/L (0-3.3) H ZB-Cwu-[id number]-Type Natriuretic Peptide 7314 pg/mL (0-449) H Total Protein 7.9 g/dL (6.4-8.2) Albumin 3.9 g/dL (3.4-5.0) Albumin/Globulin Ratio 1.0 (1.0-1.7) Lipase 235 U/L (73-393) Procalcitonin < 0.10 ng/mL (0.00-0.10) Thyroid Stimulating Hormone (TSH) 3.009 uIU/mL (0.358-3.74) Magnesium Level 1.9 mg/dL (1.8-2.4) Laboratory Tests 05/26/20 14:20 Laboratory Tests 05/26/20 14:20 05/27/20 09:40 ECHOCARDIOGRAM ECHOCARDIOGRAM <Conclusion> Left ventricle systolic function is normal. The Ejection Fraction is 50-55%. Septal motion suggestive of conduction abnormality. Tissue Doppler imaging reveals moderate left ventricular diastolic dysfunction. The right ventricle is moderately dilated. Right ventricular systolic function is mild to moderately reduced. There is a pacemaker lead seen in the right ventricle and right atrium. The right atrium is severely dilated. Doppler and Color Flow revealed moderate to severe tricuspid regurgitation. There is severe pulmonary hypertension. The PA pressure was estimated at 72 mmHg. DATE: 06/06/16 1022 ASSESSMENT/PLAN ASSESSMENT/PLAN 1. Acute on chronic diastolic CHF with known severe pulmonary HTN and valvular insufficiency. SOA better 2. PUI: Covid PCR pending. Afebrile 3. CAD: known diffuse disease, clinically stable. No CP 4. Chronic AFIB: rate controlled 5. PPM in situ: (medtronic) V paced 6. Hx of Subdural Hematoma due to falls: 2018 7. HTN: controlled 8. CKD3 Recommendations 1. Lasix therapy 2. Continue metoprolol. Will check Dig level. 3. Will verify utilization of ASA as this will benefit her given her AFIB and hx of CAD. Discussed with RN to check with facility. 4. Await covid PCR and if negative then will obtain TTE and interrogate device SARAH RIOS APRN May 27, 2020 11:48
--- NOTE | 2020-05-27 12:23 | CONS ---
DATE OF CONSULTATION: PULMONARY CONSULTATION ATTENDING PHYSICIAN: Dr. Macdonald. REASON FOR CONSULTATION: Hypoxia. HISTORY OF PRESENT ILLNESS: The patient is an 84-year-old female who has history of pulmonary fibrosis, probably mild; history of chronic systolic CHF with an EF of 50%, last echo was in 2016; history of CVA, hypertension and diabetes. She was brought into the hospital with low oxygen saturation from the detention. She had some mild shortness of breath. She has a mild cough. No fever, no chills. No chest pain. Denies any obvious COVID exposures. CT of the chest was reviewed. She has mild basilar fibrosis. She has mild pulmonary artery enlargement and a 2 mm nodule in the right upper lobe. She is currently requiring oxygen at 2 liters, saturation 95%, no fever. I have been asked to see her for further evaluation. PAST MEDICAL HISTORY: History of arthritis, CHF, CVA, depression, hypertension. PAST SURGICAL HISTORY: Hysterectomy, pacemaker, partial thyroidectomy and cornea transplant and breast cyst removal. ALLERGIES: SULFA AND IODINE. REVIEW OF SYSTEMS: Twelve-point system obtained. Pertinent positives discussed in my history of present illness, otherwise noncontributory. All systems that were negative were reviewed as well. FAMILY HISTORY: Noncontributory to lungs. SOCIAL HISTORY: She has minimal tobacco use in the past. MEDICATIONS: Reviewed as listed in the MRAD. PHYSICAL EXAMINATION: VITAL SIGNS: Reviewed. Blood pressure is stable, pulse ox 95% on 2 liters. NECK: Supple. LUNGS: With diminished breath sounds at the bases. CARDIOVASCULAR: With a regular rate. ABDOMEN: Soft. EXTREMITIES: With no pitting edema. LABORATORY DATA: Reviewed. White cell count 4.9, hemoglobin 16.3, and platelets are 109. BUN 36 and creatinine 1.5. IMPRESSION: 1. Acute hypoxic respiratory failure. Could be a combination of mild underlying fibrosis versus systolic congestive heart failure. We will need additional imaging study such as echocardiogram. 2. Probable underlying chronic obstructive pulmonary disease, although she has minimal tobacco use. 3. Low clinical suspicion for COVID. 4. Acute kidney injury. 5. Mild hyponatremia. RECOMMENDATIONS: 1. Continue present oxygen at 2 liters. 2. Obtain an echocardiogram. 3. Rule out for COVID. 4. Obtain venous Dopplers of lower extremities that has been ordered. We will follow with that. 5. P.r.n. bronchodilators. 6. Discussed with RN. Raines will follow along with you. IRAM OCASIO MD DR: ANMOL/baltazar JOB#: [id number] / [id number]
[2020-05-27 12:37] LABS: DIG < 0.2 ng/mL (0.9-2.0)
[2020-05-27 15:35] VITALS: BP 143/66
--- NOTE | 2020-05-27 16:35 | NUR ---
SW following. Spoke with RN and reviewed chart. Pt is a LTC resident at [facility] and pt can return when stable per Marjorie. Pt on 2l and oral medications. Pulmonary and cardiology are consulted. SW to continue following.
[2020-05-27 19:19] VITALS: BP 135/68
[2020-05-27 23:14] VITALS: BP 134/61
[2020-05-28 02:41] VITALS: BP 130/64
--- NOTE | 2020-05-28 05:19 | RAD ---
Bilateral Lower Extremity Venous Doppler: Reason for examination: Bilateral lower extremity swelling. The lower extremity venous systems bilaterally were evaluated from the common femoral and greater saphenous veins distally to the calf veins with grayscale imaging, color-flow imaging and spectral analysis. There is normal blood flow without deep venous thrombosis. There is normal response of the venous systems to compression and augmentation. Impression: No deep venous thrombosis in the lower extremity venous systems bilaterally. Electronically signed by: Jamila Moon MD (05/28/2020 5:16 AM) [id number]
[2020-05-28 07:00] VITALS: BP 135/62
--- NOTE | 2020-05-28 09:05 | PDOC ---
CARDIO Progress Notes Date and Time Date of Service 05/28/2020 Time of Evaluation 1100 Subjective Subjective: No Chest Pain, No shortness of breath, No Palpitations Vitals Vitals Vital Signs Date Time Temp Pulse Resp B/P (MAP) Pulse Ox O2 Delivery O2 Flow Rate FiO2 05/28/20 07:00 97.7 90 16 135/62 (86) 94 Room Air 97.7 05/28/20 02:41 2.0 Weight Weight [ ] Input and Output Intake and Output Intake and Output 05/28/20 07:00 Intake Total 200 ml Balance 200 ml Intake Oral 200 ml # Voids 1 # Bowel Movements 1 Laboratory Labs Laboratory Tests Test 05/27/20 09:40 Sodium Level 140 mmol/L (136-145) Potassium Level 4.3 mmol/L (3.5-5.1) Chloride Level 101 mmol/L (98-107) Carbon Dioxide Level 34 mmol/L (21-32) Anion Gap 5 (6-14) Blood Urea Nitrogen 36 mg/dL (7-20) Creatinine 1.5 mg/dL (0.6-1.0) Estimated GFR (Cockcroft-Gault) 32.9 Glucose Level 112 mg/dL (70-99) Calcium Level 9.6 mg/dL (8.5-10.1) Magnesium Level 1.9 mg/dL (1.8-2.4) Digoxin Level < 0.2 ng/mL (0.9-2.0) Digoxin Last Dose Date 05/26/20 Digoxin Last Dose Time 0900 Microbiology Micro Microbiology 05/26/20 Blood Culture - Preliminary, Resulted NO GROWTH AFTER 1 DAY Physical Exam HEENT: Neck Supple W Full Motion Chest: Symmetric LUNGS: Clear to Auscultation Heart: irregularly irregular (AFIB) Abdomen: Soft N/T Extremities: No Calf Tenderness Neurology: alert, follow commands Assessment Assessment 1. Acute on chronic diastolic CHF with mild systolic dysfunction associated with known severe pulmonary HTN and valvular insufficiency. compensated. covid negative 2. CAD: known diffuse disease, clinically stable. No CP. EF at 45-50% 3. Chronic AFIB: rate controlled, off tele unit 4. PPM in situ: (medtronic) V paced, interogation revealed normal functioning device, no sustained or frequent HVR, 10 month battery life. single lead device. 6. Hx of Subdural Hematoma due to falls: 2017 7. HTN: controlled 8. CKD3 9. Debility Recommendations 1. Lasix therapy. 2. Continue metoprolol. off digoxin. 3. No hx of GI bleed. risks and benefits reviewed with family and inquired with son Alec if any absolute contraindications mentioned in regards to ASA and there was none. Agreed to resume ECASA 81 mg for known CAD and stroke prevention. Not a candidated for director long term care OAC. 4. Continue with conservative measures given her advanced age and significant chronic comorbidities 5. Follow up with Dr. Beyer on July 21 at 1:30 PM Justicifation of Admission Dx: Justifications for Admission: Justification of Admission Dx: Yes Respiratory Failure: Severe Resp Distress SARAH RIOS APRN May 28, 2020 09:05
--- NOTE | 2020-05-28 09:12 | NUR ---
SW following. Discussed with RN, pt is COVID-19 negative. SW awaiting confirmation from Dr. Ga of when pt may be able to return to [facility]. RODNEY will continue to follow. Addendum: 05/28/20 at 1104 by JANA STEVENS Pt discharging back to [facility] today at 1130. RODNEY attempted to contact Chasity JARAMILLO to notify - no answer. RODNEY notified pt's son, Tico. RN notified. No further RODNEY needs.
[2020-05-28 09:19] VITALS: BP 135/62
[2020-05-28] MEDS: levETIRAcetam 250 MG TABLET PO SCH (09:19)
[2020-05-28] MEDS: DOCUSATE SODIUM 100 MG CAPSULE. PO SCH (09:19)
[2020-05-28] MEDS: CALCIUM CARBONATE 500 MG TABLET PO SCH (09:19)
[2020-05-28] MEDS: METOPROLOL TART IMMED RELEASE 50 MG TABLET. PO SCH (09:19)
[2020-05-28] MEDS: POLYETHYLENE GLYCOL 3350 17 GM PACKET. PO SCH (09:19)
[2020-05-28] MEDS: HEPARIN for SUB-Q USE 5,000 UNIT/ML VIAL. SQ SCH (09:20)
[2020-05-28] MEDS ORDERED: DIGO125T3 PO (09:38)
--- NOTE | 2020-05-28 09:41 | PDOC3 ---
Discharge Summary Visit Information Date of Admission: May 26, 2020 Date of Discharge: May 28, 2020 Admitting Diagnosis: CHF Final Diagnosis Acute hypoxic respiratory failure due to CHF exacerbation versus underlying interstitial lung disease COVID testing pending Elevated d-dimer, low probability for PE Acute electrolyte derangement Acute on chronic renal failure secondary to vasomotor nephropathy Erythrocytosis due to possible chronic hypoxia Thrombocytopenia CHF History of CVA Depression Hypertension Problems Medical Problems: (1) Hypoxia Status: Acute Brief Hospital Course Allergies Allergies Coded Allergies Type Severity Reaction Last Updated Verified Sulfa (Sulfonamide Antibiotics) Allergy Intermediate 12/05/17 Yes iodine Allergy Intermediate 12/05/17 Yes Vital Signs Vital Signs Date Time Temp Pulse Resp B/P (MAP) Pulse Ox O2 Delivery O2 Flow Rate FiO2 05/28/20 09:19 90 135/62 05/28/20 07:00 97.7 16 94 Room Air 97.7 05/28/20 02:41 2.0 Lab Results Laboratory Tests Test 05/26/20 14:20 05/26/20 17:00 05/27/20 09:40 White Blood Count 4.9 x10^3/uL (4.0-11.0) Red Blood Count 5.33 x10^6/uL (3.50-5.40) Hemoglobin 16.3 g/dL (12.0-15.5) Hematocrit 49.1 % (36.0-47.0) Mean Corpuscular Volume 92 fL (79-100) Mean Corpuscular Hemoglobin 31 pg (25-35) Mean Corpuscular Hemoglobin Concent 33 g/dL (31-37) Red Cell Distribution Width 16.4 % (11.5-14.5) Platelet Count 109 x10^3/uL (140-400) Neutrophils (%) (Auto) 65 % (31-73) Lymphocytes (%) (Auto) 25 % (24-48) Monocytes (%) (Auto) 7 % (0-9) Eosinophils (%) (Auto) 2 % (0-3) Basophils (%) (Auto) 0 % (0-3) Neutrophils # (Auto) 3.2 x10^3/uL (1.8-7.7) Lymphocytes # (Auto) 1.2 x10^3/uL (1.0-4.8) Monocytes # (Auto) 0.3 x10^3/uL (0.0-1.1) Eosinophils # (Auto) 0.1 x10^3/uL (0.0-0.7) Basophils # (Auto) 0.0 x10^3/uL (0.0-0.2) Segmented Neutrophils % 62 % (35-66) Lymphocytes % 30 % (24-48) Monocytes % 8 % (0-10) Platelet Estimate Decreased (ADEQUATE) Anisocytosis Slight Prothrombin Time 14.3 SEC (11.7-14.0) Prothromb Time International Ratio 1.2 (0.8-1.1) Activated Partial Thromboplast Time 30 SEC (24-38) Fibrinogen 376 mg/dL (200-440) D-Dimer (Kristan) 1.16 ug/mlFEU (0.00-0.50) Sodium Level 134 mmol/L (136-145) 140 mmol/L (136-145) Potassium Level 4.2 mmol/L (3.5-5.1) 4.3 mmol/L (3.5-5.1) Chloride Level 97 mmol/L (98-107) 101 mmol/L (98-107) Carbon Dioxide Level 35 mmol/L (21-32) 34 mmol/L (21-32) Anion Gap 2 (6-14) 5 (6-14) Blood Urea Nitrogen 35 mg/dL (7-20) 36 mg/dL (7-20) Creatinine 1.6 mg/dL (0.6-1.0) 1.5 mg/dL (0.6-1.0) Estimated GFR (Cockcroft-Gault) 30.6 32.9 BUN/Creatinine Ratio 22 (6-20) Glucose Level 100 mg/dL (70-99) 112 mg/dL (70-99) Lactic Acid Level 1.3 mmol/L (0.4-2.0) Calcium Level 9.6 mg/dL (8.5-10.1) 9.6 mg/dL (8.5-10.1) Transferrin 178 mg/dL (149-313) Total Bilirubin 1.2 mg/dL (0.2-1.0) Aspartate Amino Transf (AST/SGOT) 26 U/L (15-37) Alanine Aminotransferase (ALT/SGPT) 17 U/L (14-59) Alkaline Phosphatase 88 U/L (46-116) Creatine Kinase 69 U/L (26-192) Troponin I Quantitative 0.035 ng/mL (0.000-0.055) C-Reactive Protein, Quantitative 4.6 mg/L (0-3.3) NJ-Cgi-N-Type Natriuretic Peptide 7314 pg/mL (0-449) Total Protein 7.9 g/dL (6.4-8.2) Albumin 3.9 g/dL (3.4-5.0) Albumin/Globulin Ratio 1.0 (1.0-1.7) Lipase 235 U/L (73-393) Procalcitonin < 0.10 ng/mL (0.00-0.10) Thyroid Stimulating Hormone (TSH) 3.009 uIU/mL (0.358-3.74) Coronavirus (PCR) Not detected (Not Detected) Magnesium Level 1.9 mg/dL (1.8-2.4) Digoxin Level < 0.2 ng/mL (0.9-2.0) Digoxin Last Dose Date 05/26/20 Digoxin Last Dose Time 0900 Brief Hospital Course Ms. Dean is a 84 old Patient seen and examined Chart reviewed Discussed with RN No fevers today Resting in NAD on 2L O2 NC Discharge Information Condition at Discharge: Improved Follow Up: Weeks Disposition/Orders: D/C to Another Facility Scheduled Allopurinol (Allopurinol) 100 Mg Tablet, Unknown Dose PO DAILY, #30 Ref 5 (Reported) Entered as Reported by: ROCÍO GRIFFITHS on 06/04/16 0837 Last Action: HELD on 05/26/201723 by MAN SHAHID MD Calcium Carbonate (Calcium) 500 Mg Tab.chew, 500 MG PO BID, (Reported) Entered as Reported by: ISSAC AQUINO on 11/27/17 175 Last Action: Converted on 05/26/201723 by MAN SHAHID MD Digoxin (Digoxin) 250 Mcg Tablet, Unknown Dose PO DAILY, #30 Ref 5 (Reported) Entered as Reported by: ROCÍO GRIFFITHS on 06/04/16 0833 Digoxin (Digoxin) 125 Mcg Tablet, 125 MCG PO DAILY for AFIB/HEART FAILURE, #30 Prescribed by: JAGJIT FONSECA on 05/28/20 0938 Docusate Sodium (Colace) 100 Mg Capsule, Unknown Dose PO BID, #30 (Reported) Entered as Reported by: ROCÍO GRIFFITHS on 06/04/16 0831 Last Action: Continued on 05/26/201723 by MAN SHAHID MD Furosemide (Furosemide) 40 Mg Tablet, 40 MG PO DAILY for 30 Days, #30 Prescribed by: NOA COLLIER on 12/12/17901 Last Action: HELD on 05/26/201723 by MAN SHAHID MD Levetiracetam (Keppra) 250 Mg Tablet, 250 MG PO BID for 30 Days, #60 Prescribed by: DAKOTA EDOUARD MD on 12/01/171133 Last Action: Continued on 05/26/201723 by MAN SHAHID MD Metoprolol Tartrate (Metoprolol Tartrate) 50 Mg Tablet, 50 MG PO BID, #60 Ref 5 Prescribed by: NOA COLLIER on 12/12/17901 Last Action: Continued on 05/26/201723 by MAN SHAHID MD Multivitamin (Multi-Day Vitamins) 1 Each Tablet, Unknown Dose PO DAILY, #30 (Reported) Entered as Reported by: ROCÍO GRIFFITHS on 06/04/16 0835 Paroxetine Hcl (Paroxetine Hcl) 40 Mg Tablet, Unknown Dose PO DAILY, #30 Ref 5 ( Reported) Entered as Reported by: ROCÍO GRIFFITHS on 06/04/16 0837 Polyethylene Glycol 3350 (Polyethylene Glycol 3350) 17 Gm Powd.pack, 17 GM PO DAILY for 30 Days, #30 Prescribed by: NOA COLLIER on 12/12/17901 Last Action: Continued on 05/26/201723 by MAN SHAHID MD Potassium Chloride (Klor-Con M20) 20 Meq Tab.er.prt, Unknown Dose PO DAILY, #90 Ref 1 (Reported) Entered as Reported by: ROCÍO CANTUO on 06/04/16 0832 Prednisolone Acetate (Prednisolone Acetate) 5 Ml Drops.susp, 1 DROP OS BID, #5 (Reported) Entered as Reported by: LOY CAMACHO on 11/27/172000 Ranitidine Hcl (Zantac) 150 Mg Tablet, 150 MG PO BID for 30 Days, #60 Prescribed by: NOA COLLIER on 12/12/17901 Scheduled PRN Melatonin (Melatonin) 3 Mg Tablet, 5 MG PO for INSOMNIA, (Reported) Entered as Reported by: ISSAC AQUINO on 1/29/18 1753 Miscellaneous Medications Psyllium Husk (Fiber Laxative) 0.52 Gm Capsule, 0.52 GM PO, (Reported) Entered as Reported by: ISSAC AQUINO on 11/27/17 175 Patient Instructions Patient Instructions > 30 min face to face eval dig level low, unsure if taking resume dig at 125 mcg for age Justicifation of Admission Dx: Justifications for Admission: Justification of Admission Dx: Yes Respiratory Failure: Severe Resp Distress JAGJIT FONSECA MD May 28, 2020 09:41
--- NOTE | 2020-05-28 09:42 | PDOC ---
PULMONARY PROGRESS NOTES Subjective feels better no soa Vitals Vital Signs Date Time Temp Pulse Resp B/P (MAP) Pulse Ox O2 Delivery O2 Flow Rate FiO2 05/28/20 09:19 90 135/62 05/28/20 07:00 97.7 16 94 Room Air 97.7 05/28/20 02:41 2.0 General: Alert, No acute distress Lungs: Clear Cardiovascular: S1 Abdomen: Soft Extremities: No Edema Labs Laboratory Tests Test 05/26/20 14:20 05/26/20 17:00 05/27/20 09:40 White Blood Count 4.9 x10^3/uL (4.0-11.0) Red Blood Count 5.33 x10^6/uL (3.50-5.40) Hemoglobin 16.3 g/dL (12.0-15.5) Hematocrit 49.1 % (36.0-47.0) Mean Corpuscular Volume 92 fL (79-100) Mean Corpuscular Hemoglobin 31 pg (25-35) Mean Corpuscular Hemoglobin Concent 33 g/dL (31-37) Red Cell Distribution Width 16.4 % (11.5-14.5) Platelet Count 109 x10^3/uL (140-400) Neutrophils (%) (Auto) 65 % (31-73) Lymphocytes (%) (Auto) 25 % (24-48) Monocytes (%) (Auto) 7 % (0-9) Eosinophils (%) (Auto) 2 % (0-3) Basophils (%) (Auto) 0 % (0-3) Neutrophils # (Auto) 3.2 x10^3/uL (1.8-7.7) Lymphocytes # (Auto) 1.2 x10^3/uL (1.0-4.8) Monocytes # (Auto) 0.3 x10^3/uL (0.0-1.1) Eosinophils # (Auto) 0.1 x10^3/uL (0.0-0.7) Basophils # (Auto) 0.0 x10^3/uL (0.0-0.2) Segmented Neutrophils % 62 % (35-66) Lymphocytes % 30 % (24-48) Monocytes % 8 % (0-10) Platelet Estimate Decreased (ADEQUATE) Anisocytosis Slight Prothrombin Time 14.3 SEC (11.7-14.0) Prothromb Time International Ratio 1.2 (0.8-1.1) Activated Partial Thromboplast Time 30 SEC (24-38) Fibrinogen 376 mg/dL (200-440) D-Dimer (Kristan) 1.16 ug/mlFEU (0.00-0.50) Sodium Level 134 mmol/L (136-145) 140 mmol/L (136-145) Potassium Level 4.2 mmol/L (3.5-5.1) 4.3 mmol/L (3.5-5.1) Chloride Level 97 mmol/L (98-107) 101 mmol/L (98-107) Carbon Dioxide Level 35 mmol/L (21-32) 34 mmol/L (21-32) Anion Gap 2 (6-14) 5 (6-14) Blood Urea Nitrogen 35 mg/dL (7-20) 36 mg/dL (7-20) Creatinine 1.6 mg/dL (0.6-1.0) 1.5 mg/dL (0.6-1.0) Estimated GFR (Cockcroft-Gault) 30.6 32.9 BUN/Creatinine Ratio 22 (6-20) Glucose Level 100 mg/dL (70-99) 112 mg/dL (70-99) Lactic Acid Level 1.3 mmol/L (0.4-2.0) Calcium Level 9.6 mg/dL (8.5-10.1) 9.6 mg/dL (8.5-10.1) Transferrin 178 mg/dL (149-313) Total Bilirubin 1.2 mg/dL (0.2-1.0) Aspartate Amino Transf (AST/SGOT) 26 U/L (15-37) Alanine Aminotransferase (ALT/SGPT) 17 U/L (14-59) Alkaline Phosphatase 88 U/L (46-116) Creatine Kinase 69 U/L (26-192) Troponin I Quantitative 0.035 ng/mL (0.000-0.055) C-Reactive Protein, Quantitative 4.6 mg/L (0-3.3) MT-Nbh-Z-Type Natriuretic Peptide 7314 pg/mL (0-449) Total Protein 7.9 g/dL (6.4-8.2) Albumin 3.9 g/dL (3.4-5.0) Albumin/Globulin Ratio 1.0 (1.0-1.7) Lipase 235 U/L (73-393) Procalcitonin < 0.10 ng/mL (0.00-0.10) Thyroid Stimulating Hormone (TSH) 3.009 uIU/mL (0.358-3.74) Coronavirus (PCR) Not detected (Not Detected) Magnesium Level 1.9 mg/dL (1.8-2.4) Digoxin Level < 0.2 ng/mL (0.9-2.0) Digoxin Last Dose Date 05/26/20 Digoxin Last Dose Time 0900 Medications Active Scripts Medications Dose Route/Sig Max Daily Dose Days Date Category Digoxin 125 Mcg Tablet 125 Mcg PO DAILY 05/28/20 Rx Polyethylene Glycol 3350 17 Gm Powd.pack 17 Gm PO DAILY 30 12/12/17 Rx Zantac (Ranitidine Hcl) 150 Mg Tablet 150 Mg PO BID 30 12/12/17 Rx Metoprolol Tartrate 50 Mg Tablet 50 Mg PO BID 12/12/17 Rx Furosemide 40 Mg Tablet 40 Mg PO DAILY 30 12/12/17 Rx Keppra (Levetiracetam) 250 Mg Tablet 250 Mg PO BID 30 12/01/17 Rx Prednisolone Acetate 5 Ml Drops.susp 1 Drop OS BID 11/27/17 Reported Fiber Laxative (Psyllium Husk) 0.52 Gm Capsule 0.52 Gm PO 11/27/17 Reported Calcium (Calcium Carbonate) 500 Mg Tab.chew 500 Mg PO BID 11/27/17 Reported Melatonin 3 Mg Tablet 5 Mg PO PRN 11/27/17 Reported Allopurinol 100 Mg Tablet Unknown Dose PO DAILY 06/04/16 Reported Paroxetine Hcl 40 Mg Tablet Unknown Dose PO DAILY 06/04/16 Reported Multi-Day Vitamins (Multivitamin) 1 Each Tablet Unknown Dose PO DAILY 06/04/16 Reported Digoxin 250 Mcg Tablet Unknown Dose PO DAILY 06/04/16 Reported Klor-Con M20 (Potassium Chloride) 20 Meq Tab.er.prt Unknown Dose PO DAILY 06/04/16 Reported Colace (Docusate Sodium) 100 Mg Capsule Unknown Dose PO BID 06/04/16 Reported Impression . 1. Acute hypoxic respiratory failure. Could be a combination of mild underlying fibrosis versus acute on chronic diastolic congestive heart failure. 2. Probable underlying chronic obstructive pulmonary disease, although she has minimal tobacco use. 3. Low clinical suspicion for COVID. test neg 4. Acute kidney injury. 5. Mild hyponatremia. 6. Moderate diastolic dysfunction. sec pulmonary HTN Plan . RECOMMENDATIONS: 1. Continue present oxygen at 2 liters. 2. echocardiogram report reviewed 3. Ruled out for COVID. 4. Neg venous Dopplers of lower extremities 5. P.r.n. bronchodilators. 6. PO Lasix 7. Discussed with RN. We will follow along with you. IRAM OCASIO MD May 28, 2020 09:42
[2020-05-28 09:48] LABS: CALCIUM 9.5 mg/dL (8.5-10.1); CREATININE 1.4 mg/dL (0.6-1.0); GFR 35.7; MAGNESIUM 1.9 mg/dL (1.8-2.4); POTASSIUM 3.6 mmol/L (3.5-5.1)
--- NOTE | 2020-05-28 10:10 | SNU/HH DC ---
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 Erythrocytosis due to possible chronic hypoxia Thrombocytopenia CHF, acute on chronic diastolic History of CVA Depression Hypertension Problems Medical Problems: (1) Hypoxia Status: Acute CONDITION ON DISCHARGE: Stable CODE STATUS: Code Status: DNR/DNI LONG-TERM: SNF STAY <30 DAYS: Yes POST DISCHARGE ORDERS: ACTIVITY ORDERS: Activity as tolerated WEIGHT BEARING STATUS: Full weight bearing, As tolerated DIET AFTER DISCHARGE: Cardiac FOLLOW-UP: PHYSICIAN FOLLOW-UP: primary care, 1-2 weeks, ADDITIONAL FOLLOW-UP: cardiology as needed LAB ORDERS FOR FOLLOW-UP: cbc, chem 7, digoxin level in 7 days TREATMENT/EQUIPMENT ORDERS: ADAPTIVE EQUIPMENT NEEDED: None Physical Therapy For: Evalulation/Treatment Occupational Therapy For: Evaluation/Treatment DISCHARGE MEDICATIONS: Home Meds Active Scripts Digoxin (DIGOXIN) 125 Mcg Tablet, 125 MCG PO DAILY for AFIB/HEART FAILURE, #30 TAB Prov:JAGJIT FONSECA MD 05/28/20 Polyethylene Glycol 3350 (POLYETHYLENE GLYCOL 3350) 17 Gm Powd.pack, 17 GM PO DAILY for 30 Days, #30 PKT Prov:NOA COLLIER MD 12/12/17 Ranitidine Hcl (ZANTAC) 150 Mg Tablet, 150 MG PO BID for 30 Days, #60 TAB Prov:NOA COLLIER MD 12/12/17 Metoprolol Tartrate (METOPROLOL TARTRATE) 50 Mg Tablet, 50 MG PO BID, #60 TAB 5 Refills Prov:NOA COLLIER MD 12/12/17 Furosemide (FUROSEMIDE) 40 Mg Tablet, 40 MG PO DAILY for 30 Days, #30 TAB Prov:NOA COLLIER MD 12/12/17 Levetiracetam (KEPPRA) 250 Mg Tablet, 250 MG PO BID for 30 Days, #60 TAB Prov:DAKOTA EDOUARD MD 12/01/17 Reported Medications Prednisolone Acetate (PREDNISOLONE ACETATE) 5 Ml Drops.susp, 1 DROP OS BID, #5 ML 11/27/17 Calcium Carbonate (CALCIUM) 500 Mg Tab.chew, 500 MG PO BID, TAB.CHEW 11/27/17 Allopurinol (ALLOPURINOL) 100 Mg Tablet, PO DAILY, #30 TAB 5 Refills 8/6/16 Paroxetine Hcl (PAROXETINE HCL) 40 Mg Tablet, PO DAILY, #30 TAB 5 Refills 06/04/16 Multivitamin (MULTI-DAY VITAMINS) 1 Each Tablet, PO DAILY, #30 TAB 06/04/16 Potassium Chloride (KLOR-CON M20) 20 Meq Tab.er.prt, PO DAILY, #90 TAB 1 Refill 06/04/16 Docusate Sodium (COLACE) 100 Mg Capsule, PO BID, #30 CAP 06/04/16 Discontinued Reported Medications Psyllium Husk (FIBER LAXATIVE) 0.52 Gm Capsule, 0.52 GM PO, CAP 11/27/17 Melatonin (MELATONIN) 3 Mg Tablet, 5 MG PO PRN for INSOMNIA, TAB 11/27/17 Digoxin (DIGOXIN) 250 Mcg Tablet, PO DAILY, #30 TAB 5 Refills 06/04/16 JAGJIT FONSECA MD May 28, 2020 10:10
--- NOTE | 2020-05-28 10:15 | CARD ---
MR#: [id number] Date of Study: 05/28/2020 Ordering Physician: IRAM OCASIO, Referring Physician: IRAM OCASIO Tech: Kimberly Carcamo TAMRA APPROVED REPORT EXAM: Two-dimensional and M-mode echocardiogram with Doppler and color Doppler. Other Information Quality : Good INDICATION Dyspnea Congestive Heart Failure Pacemaker 2D DIMENSIONS RVDd4.3 (2.9-3.5cm)Left Atrium(2D)4.9 (1.6-4.0cm) IVSd1.4 (0.7-1.1cm)Aortic Root(2D)2.8 (2.0-3.7cm) LVDd4.2 (3.9-5.9cm)LVOT Diameter2.0 (1.8-2.4cm) PWd1.1 (0.7-1.1cm)LVDs3.0 (2.5-4.0cm) FS (%) 29.2 %SV44.2 ml LVEF(%)56.4 (>50%) Aortic Valve AoV Peak Luigi.170.9cm/sAoV VTI35.0cm AO Peak GR.11.7mmHgLVOT Peak Luigi.84.4cm/s AO Mean GR.7mmHgAVA (VMAX)1.63cm2 KENISHA (VTI)1.80cm2 Mitral Valve MV E Gawknsqz81.2cm/sMV DECEL [id number] MV A Yhyzfldl59.5cm/sE/A Ratio3.0 Tricuspid Valve TR P. Hepmkthk599xy/sRAP [id number] TR Peak Gr.76trIwQWDF81dfCh LEFT VENTRICLE The left ventricle is normal size. There is mild asymmetric septal left ventricular hypertrophy. The left ventricular systolic function is low normal. EF 45-50% Apical motion consistent with pacemaker a ctivation. There is normal segmental wall motion. Mild global hypokinesis. Tissue Doppler imaging rev eals moderate left ventricular diastolic dysfunction. RIGHT VENTRICLE The right ventricle is moderate to severely dilated. RV Systolic function is mildly to moderately red uced. There is a pacemaker lead in the right ventricle. ATRIA The left atrium is moderately dilated. A pacemaker is seen in the right atrium consistent with histor y. The right atrium is mildly dilated. The interatrial septum is intact with no evidence for an atria l septal defect or patent foramen ovale as noted on 2-D or Doppler imaging. AORTIC VALVE The aortic valve is calcified but opens well. Doppler and Color Flow revealed no significant aortic r egurgitation. There is no significant aortic valvular stenosis. MITRAL VALVE The mitral valve is calcified but opens well. Mitral annular calcification is mild. There is no evide nce of mitral valve prolapse. There is no mitral valve stenosis. Doppler and Color-flow revealed trac e to mild mitral regurgitation. TRICUSPID VALVE The tricuspid valve is normal in structure and function. Doppler and Color Flow revealed trace to mil d tricuspid regurgitation. There is severe pulmonary hypertension. The PA pressure was estimated at 6 6 mmHg. There is no tricuspid valve stenosis. PULMONIC VALVE The pulmonic valve is not well visualized. Doppler and Color Flow revealed mild pulmonic valvular reg urgitation. There is no pulmonic valvular stenosis. GREAT VESSELS The aortic root is normal in size. The ascending aorta is normal in size. The IVC is dilated and joy apses >50% with inspiration. PERICARDIAL EFFUSION There is no evidence of significant pericardial effusion. Critical Notification Critical Value: No <Conclusion> The left ventricular systolic function is low normal. EF 45-50% Apical motion consistent with pacemaker activation. There is normal segmental wall motion. Mild globa l hypokinesis. The right ventricle is moderate to severely dilated. RV Systolic function is mildly to moderately reduced. There is a pacemaker lead in the right ventricle. Doppler and Color Flow revealed trace to mild tricuspid regurgitation. There is severe pulmonary hype rtension. The PA pressure was estimated at 66 mmHg. Signed by : Wilmer Machado, Electronically Approved : 05/28/2020 10:15:24
[2020-05-28 12:35] LABS: CHOLESTEROL/HDL RATIO 2.5
[2020-05-29] MEDS ORDERED: ASPIRIN ENTERIC COATED 81 MG TABLET.DR. PO SCH (08:00)
[2020-05-29] MEDS ORDERED: POTASSIUM CHLORIDE 10 MEQ TABLET.ER. PO SCH (08:00)
[2020-05-29] MEDS ORDERED: FUROSEMIDE 40 MG TABLET. PO SCH (09:00)
== END 2020-05-28 12:10 | DRG 189 ==
LOC: ER 14:00 → 6 SOUTH 16:35 → 4 NORTH 05-28 05:01
PROVIDERS: ADMIT Internal Medicine; ATTEND Internal Medicine
DX: J96.01 Acute respiratory failure with hypoxia (principal); N17.0 Acute kidney failure with tubular necrosis; I50.43 Acute on chronic combined systolic (congestive) and diastolic (congestive) heart failure; I13.0 Hypertensive heart and chronic kidney disease with heart failure and stage 1 through stage 4 chronic kidney disease, or unspecified chronic kidney disease; E87.1 Hypo-osmolality and hyponatremia; I48.20 Chronic atrial fibrillation, unspecified; M84.48XA Pathological fracture, other site, initial encounter for fracture; D69.6 Thrombocytopenia, unspecified; D75.1 Secondary polycythemia; E03.9 Hypothyroidism, unspecified; E11.22 Type 2 diabetes mellitus with diabetic chronic kidney disease; F32.9 Major depressive disorder, single episode, unspecified; I07.1 Rheumatic tricuspid insufficiency; I25.10 Atherosclerotic heart disease of native coronary artery without angina pectoris; I27.20 Pulmonary hypertension, unspecified; J44.9 Chronic obstructive pulmonary disease, unspecified; J84.10 Pulmonary fibrosis, unspecified; M19.011 Primary osteoarthritis, right shoulder; N18.3 Chronic kidney disease, stage 3 (moderate); Z20.828 Contact with and (suspected) exposure to other viral communicable diseases; Z86.73 Personal history of transient ischemic attack (TIA), and cerebral infarction without residual deficits; Z87.891 Personal history of nicotine dependence; Z90.710 Acquired absence of both cervix and uterus; Z94.7 Corneal transplant status; Z95.0 Presence of cardiac pacemaker; F41.9 Anxiety disorder, unspecified; K21.9 Gastro-esophageal reflux disease without esophagitis; M10.9 Gout, unspecified; M19.90 Unspecified osteoarthritis, unspecified site
CPT/HCPCS: 36415; 71045; 71250; 80048; 80053; 80061; 80162; 82550; 83605; 83690; 83735; 83880; 84145; 84443; 84466; 84484; 85007; 85025; 85379; 85384; 85610; 85730; 86140; 87040; 93005; 93306; 93970; 96374; 99285; J1644; J1940; J2930; G0378; U0003-CS

== ENCOUNTER → 2020-06-04 | Outpatient (CLI) | payer BC ==
[2020-05-28 09:19] VITALS: BP 135/62
[~2020-06-04] MED LIST changes: +DIGO125T3 PO
[2020-06-04 09:57] LABS: ANION GAP 0 (6-14); BLOOD UREA NITROGEN 26 mg/dL (7-20); CALCIUM 9.1 mg/dL (8.5-10.1); CARBON DIOXIDE 37 mmol/L (21-32); CHLORIDE 105 mmol/L (98-107); DIG 1.1 ng/mL (0.9-2.0); GFR 52.6; GLUCOSE 82 mg/dL (70-99); POTASSIUM 4.3 mmol/L (3.5-5.1); SODIUM 142 mmol/L (136-145)
[2020-06-04 10:10] LABS: BASO % 1 % (0-3); EOS # 0.2 x10^3/uL (0.0-0.7); EOS % 4 % (0-3); HEMATOCRIT 44.5 % (36.0-47.0); HEMOGLOBIN 14.6 g/dL (12.0-15.5); LYMPH % 22 % (24-48); MEAN CORPUSCULAR HEMOGLOBIN 30 pg (25-35); MEAN CORPUSCULAR HGB CONC 33 g/dL (31-37); MEAN CORPUSCULAR VOLUME 91 fL (79-100); MONO # 0.5 x10^3/uL (0.0-1.1); MONO % 11 % (0-9); NEUT # 2.8 x10^3/uL (1.8-7.7); NEUT % 63 % (31-73); PLATELET COUNT 110 x10^3/uL (140-400); RED BLOOD COUNT 4.88 x10^6/uL (3.50-5.40); RED CELL DISTRIBUTION WIDTH 15.5 % (11.5-14.5); WHITE BLOOD COUNT 4.4 x10^3/uL (4.0-11.0)
[2020-06-04 13:29] LABS: % ATYL 1 % (0-0); % BANDS 3 % (0-9); % EOS 3 % (0-5); % LYMPHS 27 % (24-48); % MONOS 13 % (0-10); % SEGS 53 % (35-66)
[2020-06-04 13:30] LABS: PLT ESTIMATE ADEQUATE (ADEQUATE)
== END | disposition home or self-care (01) ==
LOC: SPEC 08:51
PROVIDERS: ATTEND Family Medicine
DX: I48.0 Paroxysmal atrial fibrillation (principal); J44.9 Chronic obstructive pulmonary disease, unspecified; I50.9 Heart failure, unspecified
CPT/HCPCS: 36415; 80048; 80162; 85007; 85025

== ENCOUNTER → 2020-10-09 | Outpatient (CLI) | payer BC ==
[2020-10-09 13:16] LABS: BASO % 0 % (0-3); EOS # 0.2 x10^3/uL (0.0-0.7); EOS % 6 % (0-3); HEMATOCRIT 36.2 % (36.0-47.0); HEMOGLOBIN 12.2 g/dL (12.0-15.5); LYMPH # 0.7 x10^3/uL (1.0-4.8); LYMPH % 18 % (24-48); MEAN CORPUSCULAR HEMOGLOBIN 32 pg (25-35); MEAN CORPUSCULAR HGB CONC 34 g/dL (31-37); MEAN CORPUSCULAR VOLUME 95 fL (79-100); MONO # 0.3 x10^3/uL (0.0-1.1); MONO % 8 % (0-9); NEUT # 2.7 x10^3/uL (1.8-7.7); NEUT % 69 % (31-73); PLATELET COUNT 113 x10^3/uL (140-400)
[2020-10-09 13:31] LABS: CALCIUM 8.7 mg/dL (8.5-10.1); CREATININE 1.2 mg/dL (0.6-1.0); GFR 42.5
== END ==
LOC: SPEC 11:54 → EDSTATUS 12:41
PROVIDERS: ATTEND Family Medicine
DX: I25.10 Atherosclerotic heart disease of native coronary artery without angina pectoris (principal)
CPT/HCPCS: 36415; 80048; 85025

== ENCOUNTER → 2020-10-22 | Outpatient (CLI) | payer BC ==
[~2020-10-22] MED LIST changes: +ACET500T68 PO; +Cholecalciferol PO; +DICL100G54 TP; +FLUO20CA20 PO; -ISOS60TA2 PO; +ISOS60TA55 PO; +MAG355OR11 PO; +MELA10TA3 PO; +NITR0.4T24 SL; +OMEP20CA16 PO; +PETR113O TP; -POLY17PO28 PO; +POLY17PO52 PO; +PROP10DR3 EACHEYE; +TRAM50TA PO; +zinc
[2020-10-22 11:46] LABS: CALCIUM 8.6 mg/dL (8.5-10.1); CREATININE 1.2 mg/dL (0.6-1.0); GFR 42.5; POTASSIUM 4.2 mmol/L (3.5-5.1)
== END ==
LOC: SPEC 11:25
PROVIDERS: ATTEND Family Medicine
DX: I50.9 Heart failure, unspecified (principal)
CPT/HCPCS: 36415; 80048

== ENCOUNTER 2020-11-14 20:02 | Inpatient (IN) | payer BC, OTHER ==
[~2020-11-14] VITALS: Ht 170.2 cm; Wt 68.3 kg
[~2020-11-14 20:02] MED LIST changes: -ACET500T68 PO; -Cholecalciferol PO; -DICL100G54 TP; -FLUO20CA20 PO; -MAG355OR11 PO; -MELA10TA3 PO; -NITR0.4T24 SL; -OMEP20CA16 PO; -PETR113O TP; -PROP10DR3 EACHEYE; -TRAM50TA PO; -zinc
[2020-11-14] MEDS ORDERED: DEXAMETHASONE SOD PHOS 20 MG/5 ML VIAL. IV ONE (20:45)
[2020-11-14 20:48] LABS: BASO % 0 % (0-3); EOS # 0.1 x10^3/uL (0.0-0.7); EOS % 2 % (0-3); HEMATOCRIT 42.6 % (36.0-47.0); HEMOGLOBIN 13.9 g/dL (12.0-15.5); LYMPH # 0.3 x10^3/uL (1.0-4.8); LYMPH % 9 % (24-48); MEAN CORPUSCULAR HEMOGLOBIN 30 pg (25-35); MEAN CORPUSCULAR HGB CONC 33 g/dL (31-37); MEAN CORPUSCULAR VOLUME 93 fL (79-100); MONO # 0.3 x10^3/uL (0.0-1.1); MONO % 8 % (0-9); NEUT % 82 % (31-73); PLATELET COUNT 125 x10^3/uL (140-400); RED BLOOD COUNT 4.58 x10^6/uL (3.50-5.40); RED CELL DISTRIBUTION WIDTH 14.8 % (11.5-14.5); WHITE BLOOD COUNT 3.7 x10^3/uL (4.0-11.0)
[2020-11-14 20:51] LABS: PROTHROMBIN TIME PATIENT 14.3 SEC (11.7-14.0)
[2020-11-14 20:53] LABS: CALCIUM 9.1 mg/dL (8.5-10.1); CREATININE 1.4 mg/dL (0.6-1.0); GFR 35.6; POTASSIUM 4.2 mmol/L (3.5-5.1)
[2020-11-14 20:59] LABS: ALBUMIN/GLOBULIN RATIO 0.7 (1.0-1.7); TOTAL BILIRUBIN 1.6 mg/dL (0.2-1.0); TOTAL PROTEIN 7.6 g/dL (6.4-8.2)
[2020-11-14 21:12] LABS: % BANDS 12 % (0-9); % EOS 1 % (0-5); % LYMPHS 10 % (24-48); % MONOS 10 % (0-10); % MYELOS 1 % (0-0); % SEGS 66 % (35-66)
[2020-11-14 21:13] LABS: PLT ESTIMATE DECREASED (ADEQUATE)
[2020-11-14] MEDS ORDERED: IV NORMAL SALINE 1000ML BAG 1,000 ML IV ONE ×2 (21:30)
[2020-11-14] MEDS ORDERED: ACETAMINOPHEN 650 MG SUPP.RECT. PR ONE (21:30)
[2020-11-14] MEDS ORDERED: ACETAMINOPHEN 325 MG TABLET. PO PRN ×2 (21:45→22:00)
[2020-11-14] MEDS ORDERED: SENNOSIDES 8.6 MG TABLET PO PRN (21:45)
[2020-11-14] MEDS ORDERED: DOCUSATE SODIUM 100 MG CAPSULE. PO PRN (21:45)
[2020-11-14] MEDS ORDERED: DEXTROSE 50% 25 GM / 50ML DISP.SYRIN. IV PRN (21:45)
--- NOTE | 2020-11-14 21:45 | PHYS DOC ---
Past Medical History Past Medical History: Arthritis, CHF, CVA, Depression, Hypertension Additional Past Medical Histor: "HEART PROBLEM" TIA (MARISABEL TOWNSEND APRN) Past Surgical History: Hysterectomy, Pacemaker Additional Past Surgical Histo: partial thyroid, and cornea transplant,L)breast cyst removed. (MARISABEL TOWNSEND APRN) Smoking Status: Unknown if ever smoked Alcohol Use: None Drug Use: None (MARISABEL TOWNSEND APRN) General Adult EDM: Chief Complaint: ALTERED MENTAL STATUS HPI: HPI: Patient is a 85 year old female with a history of CHF, CVA, hypertension, who presents to the ED today from the local custodial. Patient was sent to the ED for altered mental status that began 4 days ago. Shortness of breath that was noted today with O2 sats less than 90 on room air at the custodial. Patient herself is a poor historian. snf reports patient also had a fever. Per custodial report patient tested positive for COVID-19 4 days ago. (MARISABEL TOWNSEND APRN) Review of Systems: Review of Systems: Constitutional: Reports fever Eyes: Denies change in visual acuity. [] HENT: Denies nasal congestion or sore throat. [] Respiratory: Reports shortness of breath. Denies cough Cardiovascular: Denies chest pain or edema. [] GI: Denies abdominal pain, nausea, vomiting, bloody stools or diarrhea. [] : Denies dysuria. [] Musculoskeletal: Denies back pain or joint pain. [] Integument: Denies rash. [] Neurologic: Reports altered mental status. Denies headache, focal weakness or sensory changes. [] Psychiatric: Denies depression or anxiety. [] (MARISABEL TOWNSEND APRN) Heart Score: Risk Factors: Risk Factors: DM, Current or recent (<one month) smoker, HTN, HLP, family hi story of CAD, obesity. Risk Scores: Score 0 - 3: 2.5% MACE over next 6 weeks - Discharge Home Score 4 - 6: 20.3% MACE over next 6 weeks - Admit for Clinical Observation Score 7 - 10: 72.7% MACE over next 6 weeks - Early Invasive Strategies (MARISABEL TOWNSEND APRN) Current Medications: Current Medications Medications (Trade) Dose Ordered Sig/Chen Start Time Stop Time Status Last Admin Dose Admin Acetaminophen (Tylenol Supp) 650 mg 1X ONCE 11/14/20 21:30 11/14/20 21:31 DC 11/14/20 21:05 650 MG Ascorbic Acid (Vitamin C) 3,000 mg TID 11/15/20 09:00 UNV Dexamethasone Sodium Phosphate (Decadron) 4 mg Q12HR 11/15/20 09:00 UNV Levofloxacin/ Dextrose 100 ml @ 100 mls/hr 1X ONCE 11/14/20 22:00 11/14/20 22:59 Sodium Chloride 1,000 ml @ 1,000 mls/hr 1X ONCE 11/14/20 21:30 11/14/20 22:29 Cancel Thiamine HCl 100 mg/Dextrose 51 ml @ 102 mls/hr Q8HRS 11/14/20 22:00 UNV (MARISABEL TOWNSEND APRN) Allergies: Allergies: Allergies Coded Allergies Type Severity Reaction Last Updated Verified Sulfa (Sulfonamide Antibiotics) Allergy Intermediate 12/05/17 Yes iodine Allergy Intermediate 12/05/17 Yes (MARISABEL TOWNSEND APRN) Physical Exam: PE: Constitutional: Well developed, well nourished, no acute distress, non-toxic appearance. [] HENT: Normocephalic, atraumatic, bilateral external ears normal, oropharynx moist, no oral exudates, nose normal. [] Eyes: PERRLA, EOMI, conjunctiva normal, no discharge. [] Neck: Normal range of motion, no tenderness, supple, no stridor. [] Cardiovascular:Heart rate regular rhythm Lungs & Thorax: Coarse lung sounds Abdomen: Bowel sounds normal, soft, no tenderness, no masses, no pulsatile masses. [] Skin: Warm, dry, no erythema, no rash. [] Back: No tenderness, no CVA tenderness. [] Extremities: No tenderness, no cyanosis, no clubbing, ROM intact, no edema. [] Neurologic: Alert and oriented X 1, normal motor function, normal sensory function, no focal deficits noted. [] Psychologic: Affect normal, judgement normal, mood normal. [] (MARISABEL TOWNSEND CARVER HAND) Current Patient Data: Labs: Laboratory Tests Test 11/14/20 20:14 11/14/20 20:30 Glucose (Fingerstick) 102 mg/dL (70-99) H White Blood Count 3.7 x10^3/uL (4.0-11.0) L Red Blood Count 4.58 x10^6/uL (3.50-5.40) Hemoglobin 13.9 g/dL (12.0-15.5) Hematocrit 42.6 % (36.0-47.0) Mean Corpuscular Volume 93 fL (79-100) Mean Corpuscular Hemoglobin 30 pg (25-35) Mean Corpuscular Hemoglobin Concent 33 g/dL (31-37) Red Cell Distribution Width 14.8 % (11.5-14.5) H Platelet Count 125 x10^3/uL (140-400) L Neutrophils (%) (Auto) 82 % (31-73) H Lymphocytes (%) (Auto) 9 % (24-48) L Monocytes (%) (Auto) 8 % (0-9) Eosinophils (%) (Auto) 2 % (0-3) Basophils (%) (Auto) 0 % (0-3) Neutrophils # (Auto) 3.0 x10^3/uL (1.8-7.7) Lymphocytes # (Auto) 0.3 x10^3/uL (1.0-4.8) L Monocytes # (Auto) 0.3 x10^3/uL (0.0-1.1) Eosinophils # (Auto) 0.1 x10^3/uL (0.0-0.7) Basophils # (Auto) 0.0 x10^3/uL (0.0-0.2) Segmented Neutrophils % 66 % (35-66) Band Neutrophils % 12 % (0-9) H Lymphocytes % 10 % (24-48) L Monocytes % 10 % (0-10) Eosinophils % 1 % (0-5) Myelocytes % 1 % (0-0) H Platelet Estimate Decreased (ADEQUATE) Prothrombin Time 14.3 SEC (11.7-14.0) H Prothrombin Time INR 1.1 (0.8-1.1) Activated Partial Thromboplast Time 27 SEC (24-38) Sodium Level 154 mmol/L (136-145) H Potassium Level 4.2 mmol/L (3.5-5.1) Chloride Level 112 mmol/L (98-107) H Carbon Dioxide Level 33 mmol/L (21-32) H Anion Gap 9 (6-14) Blood Urea Nitrogen 65 mg/dL (7-20) H Creatinine 1.4 mg/dL (0.6-1.0) H Estimated GFR (Cockcroft-Gault) 35.6 BUN/Creatinine Ratio 46 (6-20) H Glucose Level 103 mg/dL (70-99) H Lactic Acid Level 1.2 mmol/L (0.4-2.0) Calcium Level 9.1 mg/dL (8.5-10.1) Total Bilirubin 1.6 mg/dL (0.2-1.0) H Aspartate Amino Transferase (AST) 52 U/L (15-37) H Alanine Aminotransferase (ALT) 29 U/L (14-59) Alkaline Phosphatase 89 U/L (46-116) Troponin I Quantitative 0.092 ng/mL (0.000-0.055) [id number]-Type Natriuretic Peptide 03578 pg/mL (0-449) H Total Protein 7.6 g/dL (6.4-8.2) Albumin 3.0 g/dL (3.4-5.0) L Albumin/Globulin Ratio 0.7 (1.0-1.7) L Laboratory Tests 11/14/20 20:30 Laboratory Tests 11/14/20 20:30 (MARISABEL TOWNSEND APRN) EKG: EKG: []PROCEDURE: PORTABLE CHEST 1V Exam: Chest one view INDICATION: Short of air TECHNIQUE: Frontal view of the chest Comparisons: 10/08/2020 FINDINGS: Heart is mildly enlarged. Pulmonary vessels are within normal limits. Diffuse hazy airspace disease. No pleural effusion. IMPRESSION: Diffuse bilateral airspace disease, may relate to edema or atypical infectious process. Electronically signed by: Fabricio Hylton MD (11/14/2020 9:45 PM) [facility] DICTATED and SIGNED BY: FABRICIO HYLTON MD DATE: 11/14/20 [id number] (MARISABEL TOWNSEND APRN) Radiology/Procedures: Radiology/Procedures: [] (MARISABEL TOWNSEND APRN) Course & Med Decision Making: Course & Med Decision Making Pertinent Labs and Imaging studies reviewed. (See chart for details) This is a 85-year-old female patient presented to the ED today from the local custodial to be evaluated for altered mental status, shortness of breath, fever. Patient is currently on oxygen 4 L satting 95%. She was apparently less than 90% on room air in the custodial. Patient arrives in the ED and we are notified she is a DNR/DNI. I contacted patient's power of regulatory attorney who is the son-in-law, spoke to him and he requested we do what we can to provide patient with better care than what she got at the custodial. Son-in-law also did not believe patient has COVID-19. He is requesting we retest her. Informed him patient was positive and looking at her physical exam and symptoms she probably has Covid. CBC with a WBC of 3.7, platelet count is 125. CMP with sodium of 154, creatinine 1.4, BUN 65, BNP 12,476, lactic is normal Patient is febrile in the ED. I spoke to Dr. Macdonald who accepted patient for admission. He requested we give her Decadron, as well as small amount IV fluids roughly 500 cc. Patient was also given Levaquin (MARISABEL TOWNSEND APRN) Dragon Disclaimer: Dragon Disclaimer: This electronic medical record was generated, in whole or in part, using a voice recognition dictation system. (MARISABEL TOWNSEND APRN) Departure Departure Impression: Primary Impression: Altered mental status Qualified Codes: R41.82 - Altered mental status, unspecified Additional Impressions: Dehydration COVID-19 virus RNA test result positive at limit of detection Respiratory failure Qualified Codes: J96.01 - Acute respiratory failure with hypoxia Fever Qualified Codes: R50.9 - Fever, unspecified Disposition: ADMITTED INPT THIS HOSP Condition: STABLE Referrals: NOA COLLIER MD (PCP) Attending Signature Attending Signature I have reviewed the PA/PULP MILL TEAM LEADER's note and plan of care. I was available for consultation as needed during the patient's visit in the emergency department. I agree with the clinical impression, plan, and disposition. (NOA ROBLES DO) MARISABEL TOWNSEND APRN Nov 14, 2020 21:45 NOA ROBLES DO Nov 15, 2020 03:07
[2020-11-14] MEDS ORDERED: ONDANSETRON PF 4 MG/2 ML VIAL. IV PRN (22:00)
[2020-11-14] MEDS ORDERED: MORPHINE SULFATE 4 MG/ML VIAL. IV PRN (22:00)
[2020-11-14 23:26] VITALS: BP 143/76
[2020-11-15] MEDS: THIAMINE INJ 100 MG in IV DEXTROSE 5% 50 ML IV SCH ×4 (00:07→21:17)
[2020-11-15] MEDS ORDERED: PETR113O TP (00:24)
[2020-11-15] MEDS ORDERED: ACET500T68 PO (00:25)
[2020-11-15] MEDS ORDERED: DICL100G54 TP (00:31)
[2020-11-15] MEDS ORDERED: FLUO20CA20 PO (00:32)
[2020-11-15] MEDS ORDERED: LEVE250T30 PO (00:33)
[2020-11-15] MEDS ORDERED: MAG355OR11 PO (00:35)
[2020-11-15] MEDS ORDERED: MELA10TA3 PO (00:37)
[2020-11-15] MEDS ORDERED: NITR0.4T24 SL (00:48)
[2020-11-15] MEDS ORDERED: OMEP20CA16 PO (00:49)
[2020-11-15] MEDS ORDERED: PROP10DR3 EACHEYE (00:53)
[2020-11-15] MEDS ORDERED: TRAM50TA PO (00:54)
[2020-11-15] MEDS ORDERED: zinc (00:57)
[2020-11-15] MEDS ORDERED: Cholecalciferol PO (00:58)
--- NOTE | 2020-11-15 02:19 | NUR ---
Admit from ED to [facility] room 252 via [place]. Transferred from [place] to bed in room via 4 person lift. Alert. Confused. Cooperative. VSS. Orientated to room and call light. Reviewed POC to include COVID isolation, tele monitor, IV ABX, and not to get out of bed without assist. Needs reinforcement. Resting in bed with call light at hand. Bed alarm on.
[2020-11-15 02:47] VITALS: BP 142/65
[2020-11-15 06:01] LABS: BASO % 0 % (0-3); EOS % 1 % (0-3); HEMATOCRIT 39.5 % (36.0-47.0); HEMOGLOBIN 12.9 g/dL (12.0-15.5); LYMPH # 0.2 x10^3/uL (1.0-4.8); LYMPH % 9 % (24-48); MEAN CORPUSCULAR HEMOGLOBIN 30 pg (25-35); MEAN CORPUSCULAR HGB CONC 33 g/dL (31-37); MEAN CORPUSCULAR VOLUME 93 fL (79-100); MONO # 0.1 x10^3/uL (0.0-1.1); MONO % 4 % (0-9); NEUT # 2.4 x10^3/uL (1.8-7.7); NEUT % 87 % (31-73); PLATELET COUNT 107 x10^3/uL (140-400); RED BLOOD COUNT 4.24 x10^6/uL (3.50-5.40); RED CELL DISTRIBUTION WIDTH 15.2 % (11.5-14.5); WHITE BLOOD COUNT 2.7 x10^3/uL (4.0-11.0)
[2020-11-15 06:15] LABS: CALCIUM 8.5 mg/dL (8.5-10.1); CREATININE 1.2 mg/dL (0.6-1.0); GFR 42.5; MAGNESIUM 2.7 mg/dL (1.8-2.4); PHOSPHORUS 3.2 mg/dL (2.6-4.7)
[2020-11-15 07:00] VITALS: BP 150/66
[2020-11-15] MEDS: DEXAMETHASONE SOD PHOS 4 MG/ML VIAL IVP SCH (08:53)
[2020-11-15] MEDS: ASCORBIC ACID 500 MG TABLET PO SCH ×3 (08:54→21:16)
[2020-11-15] MEDS ORDERED: ENOXAPARIN 40 MG/0.4 ML SYRINGE. SQ SCH (09:00)
[2020-11-15] MEDS ORDERED: DEXAMETHASONE SOD PHOS 4 MG/ML VIAL IVP SCH (09:00)
[2020-11-15 10:50] VITALS: BP 156/66
[2020-11-15] MEDS ORDERED: DICLOFENAC SODIUM 1% TOPICAL GEL 100GM TUBE. TP PRN (11:45)
[2020-11-15] MEDS ORDERED: ACETAMINOPHEN 500 MG TABLET PO PRN (11:45)
[2020-11-15] MEDS ORDERED: DOCUSATE SODIUM 100 MG CAPSULE. PO PRN (11:45)
[2020-11-15] MEDS ORDERED: ENOXAPARIN 30 MG/0.3 ML SYRINGE. SQ SCH (12:00)
[2020-11-15] MEDS ORDERED: MINERAL OIL/PETROLATUM TOPICAL CREAM 113GM JAR. TP PRN (12:00)
--- NOTE | 2020-11-15 12:07 | HP ---
ADMIT DATE: HISTORY OF PRESENT ILLNESS: This patient is an 85-year-old woman who resides [facility] a [facility]. She presented to the Emergency Department late yesterday evening with about 7 days of shortness of air and hypoxia. She tested positive for COVID-19 four days ago and was able to be treated conservatively at the penitentiary. They transferred her in late last night when she was unable to maintain her saturations up over 90% on room air. I am seeing her this morning now about 12 hours since admission. She is quite dyspneic, but holding her saturation at about 95% on 4 liters. Nursing tells me that she has had a hard time swallowing and we are holding her home medications while we are obtaining a formal swallow evaluation. The patient's only complaint this morning is that she is quite thirsty and is asking for water. She denies any pain, palpitations, nausea, vomiting, or change in her bowel habits. She is unable to engage monosyllabic responses, which may be her baseline, but she is also quite dyspneic. All other systems reviewed and negative. PAST MEDICAL HISTORY: 1. The patient had an admission here in 04/2020 for increased dyspnea. Most of the history is obtained by review of those records. The patient does have a history of chronic diastolic congestive heart failure that had been reportedly stable. 2. Chronic atrial fibrillation for which she has been a poor candidate for anticoagulation. 3. The patient has a pacemaker for sick sinus syndrome, follows with the Cardiology team here. 4. COPD. 5. Question of interstitial lung disease. 6. Chronic stage 3 renal failure with a baseline creatinine of about 1.5. MEDICATIONS: Please see the medication reconciliation form. SOCIAL HISTORY: The patient resides in a local penitentiary. I have not spoken with her medical durable power of trust and estates attorney at this point. Per the record, she does have full code status. She does not take any tobacco, alcohol or illicit drugs. FAMILY HISTORY: Reviewed in full from the record and noncontributory to the present illness. PHYSICAL EXAMINATION: VITAL SIGNS: Reviewed since admission and are notable for the patient was hypothermic on admission with the temperature of 95.1, blood pressure has been in the 140s-150s/60s, heart rate is in the 60s and regular. She is quite dyspneic, saturating 95% on average on 4 liters. GENERAL: She is a frail 85-year-old woman who is interactive, dyspneic, otherwise in no acute distress. HEENT: Unremarkable for acute abnormality. NECK: Soft and supple. No adenopathy or thyromegaly noted. CHEST: Bilateral equal air entry, though diminished throughout. No crackles or wheezes are noted. She is markedly dyspneic with a respiratory rate of about 22-24 on evaluation. HEART: S1, S2 normal. Regular rate and rhythm. No murmurs or gallops are noted. ABDOMEN: Soft, nontender, nondistended. No masses or organomegaly noted. EXTREMITIES: Unremarkable for acute abnormality. LABORATORY DATA AND OTHER STUDIES: Admission white count is 2.7, which is lower than her baseline that is typically in normal range; hemoglobin of 12.9; platelet count of 107. Chemistry panel notable for marked hypernatremia with a sodium level of 156, BUN is 60, creatinine is 1.2, GFR is measured at 34. Magnesium is 2.7. Troponin mildly elevated. Chest x-ray is notable for diffuse hazy airspace disease. No pleural effusion. ASSESSMENT AND PLAN AND IMPRESSION: An 85-year-old woman with underlying complex multimorbidity admitted from the penitentiary 4 days after a COVID positive PCR test for hypoxia and dyspnea. She is holding her own on 4 liters of oxygen continuously. I have spoken with Pulmonary. They have been consulted this morning. Their assistance is appreciated. It does not appear that the patient is a candidate for remdesivir given her borderline GFR and duration of symptoms bordering and eligibility for the treatment. We appreciate their input. We may need Cardiology consultation as well. The patient's leukopenia and thrombocytopenia are most likely secondary to the COVID. We will gently rehydrate her with 1/2 normal saline, carefully monitoring her volume status. Reevaluate hypernatremia in the morning. We will use Lovenox for DVT prophylaxis. Inpatient status is most appropriate as we anticipate a length of stay of at least 3-5 midnights while we work this through. We will continue to follow her closely clinically on the telemetry unit. CITLALY WALSH MD DR: KASSANDRA/baltazar JOB#: [id number] / [id number] MTDD
[2020-11-15] MEDS: POLYVINYL ALCOHOL 1.4% OPHTH SOLUTION 15ML BOTTLE. OU SCH ×3 (13:36→21:16)
[2020-11-15] MEDS: DIGOXIN 125 MCG TABLET. PO SCH (13:36)
[2020-11-15] MEDS: FUROSEMIDE 40 MG TABLET. PO SCH (13:36)
[2020-11-15] MEDS: FLUoxetine HCL 20 MG CAPSULE PO SCH (13:36)
--- NOTE | 2020-11-15 14:18 | EKG ---
[facility] [address] [place] [address] Test Date: 2020-11-14 Test Time: 20:18:04 Pat Name: MARTA SULLIVAN Department: Room: Gender: F [employer] Manager: : [id number] Requested By: MARISABEL TOWNSEND Order Number: [id number] Reading MD: Measurements Intervals [place] Rate: 60 P: NE: QRS: 185 QRSD: 176 T: -23 QT: 432 QTc: 436 Interpretive Statements IRREGULAR RHYTHM, NO P-WAVE FOUND ABNORMAL RIGHT SUPERIOR AXIS DEVIATION NON SPECIFIC INTRAVENTRICULAR BLOCK CONSIDER RIGHT VENTRICULAR HYPERTROPHY QRS(T) CONTOUR ABNORMALITY CONSISTENT WITH ANTEROSEPTAL INFARCT POSSIBLY RECENT ABNORMAL ECG RI6.02 No previous ECG available for comparison
[2020-11-15 15:12] VITALS: BP 162/63
[2020-11-15] MEDS: IV 1/2 NORMAL SALINE 1,000 ML IV SCH (16:11)
[2020-11-15 19:55] VITALS: BP 158/58
[2020-11-15] MEDS: levETIRAcetam 250 MG TABLET PO SCH (21:16)
[2020-11-15] MEDS: METOPROLOL TART IMMED RELEASE 50 MG TABLET. PO SCH (21:17)
[2020-11-15] MEDS: ENOXAPARIN 40 MG/0.4 ML SYRINGE. SQ SCH (21:17)
[2020-11-15 23:12] VITALS: BP 174/63
[2020-11-16] MEDS: IV 1/2 NORMAL SALINE 1,000 ML IV SCH ×2 (01:20→14:40)
[2020-11-16 02:45] VITALS: BP 184/61
[2020-11-16] MEDS: THIAMINE INJ 100 MG in IV DEXTROSE 5% 50 ML IV SCH (05:45)
[2020-11-16 07:08] LABS: BASO % 0 % (0-3); EOS % 0 % (0-3); HEMATOCRIT 40.7 % (36.0-47.0); HEMOGLOBIN 13.6 g/dL (12.0-15.5); LYMPH # 0.2 x10^3/uL (1.0-4.8); LYMPH % 5 % (24-48); MEAN CORPUSCULAR HEMOGLOBIN 30 pg (25-35); MEAN CORPUSCULAR HGB CONC 33 g/dL (31-37); MEAN CORPUSCULAR VOLUME 91 fL (79-100); MONO # 0.3 x10^3/uL (0.0-1.1); MONO % 7 % (0-9); NEUT # 3.7 x10^3/uL (1.8-7.7); NEUT % 88 % (31-73); PLATELET COUNT 126 x10^3/uL (140-400); RED BLOOD COUNT 4.47 x10^6/uL (3.50-5.40); RED CELL DISTRIBUTION WIDTH 14.5 % (11.5-14.5); WHITE BLOOD COUNT 4.2 x10^3/uL (4.0-11.0)
[2020-11-16 07:20] VITALS: BP 164/66
[2020-11-16 07:22] LABS: ALBUMIN 2.6 g/dL (3.4-5.0); ALBUMIN/GLOBULIN RATIO 0.6 (1.0-1.7); CALCIUM 8.7 mg/dL (8.5-10.1); CREATININE 1.1 mg/dL (0.6-1.0); POTASSIUM 3.8 mmol/L (3.5-5.1); TOTAL BILIRUBIN 1.8 mg/dL (0.2-1.0); TOTAL PROTEIN 6.8 g/dL (6.4-8.2)
[2020-11-16] MEDS: ASCORBIC ACID 500 MG TABLET PO SCH (09:00)
[2020-11-16] MEDS: POLYETHYLENE GLYCOL 3350 17 GM PACKET. PO SCH (09:00)
[2020-11-16] MEDS: POLYVINYL ALCOHOL 1.4% OPHTH SOLUTION 15ML BOTTLE. OU SCH ×4 (09:04→21:00)
[2020-11-16] MEDS: PANTOPRAZOLE 40 MG TABLET.DR. PO SCH (09:04)
[2020-11-16] MEDS: METOPROLOL TART IMMED RELEASE 50 MG TABLET. PO SCH ×2 (09:05→21:00)
[2020-11-16] MEDS: levETIRAcetam 250 MG TABLET PO SCH ×2 (09:05→21:01)
[2020-11-16] MEDS: DIGOXIN 125 MCG TABLET. PO SCH (09:05)
[2020-11-16] MEDS: FUROSEMIDE 40 MG TABLET. PO SCH (09:05)
[2020-11-16] MEDS: FLUoxetine HCL 20 MG CAPSULE PO SCH (09:05)
[2020-11-16] MEDS: DEXAMETHASONE SOD PHOS 4 MG/ML VIAL IVP SCH (09:06)
[2020-11-16] MEDS: ENOXAPARIN 40 MG/0.4 ML SYRINGE. SQ SCH ×2 (09:06→21:01)
[2020-11-16] MEDS: ASCORBIC ACID 1,000 MG TABLET PO SCH ×3 (10:00→21:00)
[2020-11-16 10:34] VITALS: BP 147/64
--- NOTE | 2020-11-16 11:14 | PDOC ---
PROGRESS NOTES Date of Service: DATE: 11/16/20 TIME: 11:09 Chief Complaint Chief Complaint sepsis, leukopenia and tachypnea and febrile on admit, acute COVID 19 infection acute hypoxic respiratory failure, on 2 liters acute systolic CHF, BNP elevation, exacerbated by the gentle IV fluid severe malnutrition acute vasomotor nephropathy, dehydration hypernatremia, History of Present Illness History of Present Illness the 1./2 normal saline was stopped overnight for shortness of breath, sodium is better, cont to hold, may restart soon cont the PO intake, doing well on vitamin supplements, add zinc, BID lovenox Vitals Vitals Vital Signs Date Time Temp Pulse Resp B/P (MAP) Pulse Ox O2 Delivery O2 Flow Rate FiO2 11/16/20 10:34 98.4 60 26 147/64 (91) 96 Nasal Cannula 4.0 98.4 Physical Exam General: Alert, Cooperative, No acute distress Heart: Regular rate, Normal S2, Other (3/6 SAMI murmur,. l;eft sternal to apex) Lungs: Clear Abdomen: Soft Skin: No rashes, No breakdown Labs LABS Laboratory Tests Test 11/16/20 06:39 White Blood Count 4.2 x10^3/uL (4.0-11.0) Red Blood Count 4.47 x10^6/uL (3.50-5.40) Hemoglobin 13.6 g/dL (12.0-15.5) Hematocrit 40.7 % (36.0-47.0) Mean Corpuscular Volume 91 fL (79-100) Mean Corpuscular Hemoglobin 30 pg (25-35) Mean Corpuscular Hemoglobin Concent 33 g/dL (31-37) Red Cell Distribution Width 14.5 % (11.5-14.5) Platelet Count 126 x10^3/uL (140-400) Neutrophils (%) (Auto) 88 % (31-73) Lymphocytes (%) (Auto) 5 % (24-48) Monocytes (%) (Auto) 7 % (0-9) Eosinophils (%) (Auto) 0 % (0-3) Basophils (%) (Auto) 0 % (0-3) Neutrophils # (Auto) 3.7 x10^3/uL (1.8-7.7) Lymphocytes # (Auto) 0.2 x10^3/uL (1.0-4.8) Monocytes # (Auto) 0.3 x10^3/uL (0.0-1.1) Eosinophils # (Auto) 0.0 x10^3/uL (0.0-0.7) Basophils # (Auto) 0.0 x10^3/uL (0.0-0.2) Sodium Level 147 mmol/L (136-145) Potassium Level 3.8 mmol/L (3.5-5.1) Chloride Level 110 mmol/L (98-107) Carbon Dioxide Level 28 mmol/L (21-32) Anion Gap 9 (6-14) Blood Urea Nitrogen 47 mg/dL (7-20) Creatinine 1.1 mg/dL (0.6-1.0) Estimated GFR (Cockcroft-Gault) 47.0 BUN/Creatinine Ratio 43 (6-20) Glucose Level 110 mg/dL (70-99) Calcium Level 8.7 mg/dL (8.5-10.1) Total Bilirubin 1.8 mg/dL (0.2-1.0) Aspartate Amino Transf (AST/SGOT) 48 U/L (15-37) Alanine Aminotransferase (ALT/SGPT) 23 U/L (14-59) Alkaline Phosphatase 78 U/L (46-116) Total Protein 6.8 g/dL (6.4-8.2) Albumin 2.6 g/dL (3.4-5.0) Albumin/Globulin Ratio 0.6 (1.0-1.7) Review of Systems Review of Systems weakness, cough, Assessment and Plan Assessmemt and Plan Problems Medical Problems: (1) Altered mental status Status: Acute (2) COVID-19 virus RNA test result positive at limit of detection Status: Acute (3) Dehydration Status: Acute (4) Fever Status: Acute Comment Review of Relevant I have reviewed the following items jerrica (where applicable) has been applied. Labs Laboratory Tests Test 11/14/20 20:14 11/14/20 20:30 11/15/20 01:45 11/15/20 04:00 Glucose (Fingerstick) 102 mg/dL (70-99) White Blood Count 3.7 x10^3/uL (4.0-11.0) 2.7 x10^3/uL (4.0-11.0) Red Blood Count 4.58 x10^6/uL (3.50-5.40) 4.24 x10^6/uL (3.50-5.40) Hemoglobin 13.9 g/dL (12.0-15.5) 12.9 g/dL (12.0-15.5) Hematocrit 42.6 % (36.0-47.0) 39.5 % (36.0-47.0) Mean Corpuscular Volume 93 fL (79-100) 93 fL (79-100) Mean Corpuscular Hemoglobin 30 pg (25-35) 30 pg (25-35) Mean Corpuscular Hemoglobin Concent 33 g/dL (31-37) 33 g/dL (31-37) Red Cell Distribution Width 14.8 % (11.5-14.5) 15.2 % (11.5-14.5) Platelet Count 125 x10^3/uL (140-400) 107 x10^3/uL (140-400) Neutrophils (%) (Auto) 82 % (31-73) 87 % (31-73) Lymphocytes (%) (Auto) 9 % (24-48) 9 % (24-48) Monocytes (%) (Auto) 8 % (0-9) 4 % (0-9) Eosinophils (%) (Auto) 2 % (0-3) 1 % (0-3) Basophils (%) (Auto) 0 % (0-3) 0 % (0-3) Neutrophils # (Auto) 3.0 x10^3/uL (1.8-7.7) 2.4 x10^3/uL (1.8-7.7) Lymphocytes # (Auto) 0.3 x10^3/uL (1.0-4.8) 0.2 x10^3/uL (1.0-4.8) Monocytes # (Auto) 0.3 x10^3/uL (0.0-1.1) 0.1 x10^3/uL (0.0-1.1) Eosinophils # (Auto) 0.1 x10^3/uL (0.0-0.7) 0.0 x10^3/uL (0.0-0.7) Basophils # (Auto) 0.0 x10^3/uL (0.0-0.2) 0.0 x10^3/uL (0.0-0.2) Segmented Neutrophils % 66 % (35-66) Band Neutrophils % 12 % (0-9) Lymphocytes % 10 % (24-48) Monocytes % 10 % (0-10) Eosinophils % 1 % (0-5) Myelocytes % 1 % (0-0) Platelet Estimate Decreased (ADEQUATE) Prothrombin Time 14.3 SEC (11.7-14.0) Prothromb Time International Ratio 1.1 (0.8-1.1) Activated Partial Thromboplast Time 27 SEC (24-38) Sodium Level 154 mmol/L (136-145) 156 mmol/L (136-145) Potassium Level 4.2 mmol/L (3.5-5.1) 4.0 mmol/L (3.5-5.1) Chloride Level 112 mmol/L (98-107) 115 mmol/L (98-107) Carbon Dioxide Level 33 mmol/L (21-32) 29 mmol/L (21-32) Anion Gap 9 (6-14) 12 (6-14) Blood Urea Nitrogen 65 mg/dL (7-20) 60 mg/dL (7-20) Creatinine 1.4 mg/dL (0.6-1.0) 1.2 mg/dL (0.6-1.0) Estimated GFR (Cockcroft-Gault) 35.6 42.5 BUN/Creatinine Ratio 46 (6-20) Glucose Level 103 mg/dL (70-99) 128 mg/dL (70-99) Lactic Acid Level 1.2 mmol/L (0.4-2.0) Calcium Level 9.1 mg/dL (8.5-10.1) 8.5 mg/dL (8.5-10.1) Total Bilirubin 1.6 mg/dL (0.2-1.0) Aspartate Amino Transf (AST/SGOT) 52 U/L (15-37) Alanine Aminotransferase (ALT/SGPT) 29 U/L (14-59) Alkaline Phosphatase 89 U/L (46-116) Troponin I Quantitative 0.092 ng/mL (0.000-0.055) 0.092 ng/mL (0.000-0.055) 0.089 ng/mL (0.000-0.055) LF-Fiq-K-Type Natriuretic Peptide 14945 pg/mL (0-449) Total Protein 7.6 g/dL (6.4-8.2) Albumin 3.0 g/dL (3.4-5.0) Albumin/Globulin Ratio 0.7 (1.0-1.7) Procalcitonin 0.11 ng/mL (0.00-0.10) Phosphorus Level 3.2 mg/dL (2.6-4.7) Magnesium Level 2.7 mg/dL (1.8-2.4) Test 11/16/20 06:39 White Blood Count 4.2 x10^3/uL (4.0-11.0) Red Blood Count 4.47 x10^6/uL (3.50-5.40) Hemoglobin 13.6 g/dL (12.0-15.5) Hematocrit 40.7 % (36.0-47.0) Mean Corpuscular Volume 91 fL (79-100) Mean Corpuscular Hemoglobin 30 pg (25-35) Mean Corpuscular Hemoglobin Concent 33 g/dL (31-37) Red Cell Distribution Width 14.5 % (11.5-14.5) Platelet Count 126 x10^3/uL (140-400) Neutrophils (%) (Auto) 88 % (31-73) Lymphocytes (%) (Auto) 5 % (24-48) Monocytes (%) (Auto) 7 % (0-9) Eosinophils (%) (Auto) 0 % (0-3) Basophils (%) (Auto) 0 % (0-3) Neutrophils # (Auto) 3.7 x10^3/uL (1.8-7.7) Lymphocytes # (Auto) 0.2 x10^3/uL (1.0-4.8) Monocytes # (Auto) 0.3 x10^3/uL (0.0-1.1) Eosinophils # (Auto) 0.0 x10^3/uL (0.0-0.7) Basophils # (Auto) 0.0 x10^3/uL (0.0-0.2) Sodium Level 147 mmol/L (136-145) Potassium Level 3.8 mmol/L (3.5-5.1) Chloride Level 110 mmol/L (98-107) Carbon Dioxide Level 28 mmol/L (21-32) Anion Gap 9 (6-14) Blood Urea Nitrogen 47 mg/dL (7-20) Creatinine 1.1 mg/dL (0.6-1.0) Estimated GFR (Cockcroft-Gault) 47.0 BUN/Creatinine Ratio 43 (6-20) Glucose Level 110 mg/dL (70-99) Calcium Level 8.7 mg/dL (8.5-10.1) Total Bilirubin 1.8 mg/dL (0.2-1.0) Aspartate Amino Transf (AST/SGOT) 48 U/L (15-37) Alanine Aminotransferase (ALT/SGPT) 23 U/L (14-59) Alkaline Phosphatase 78 U/L (46-116) Total Protein 6.8 g/dL (6.4-8.2) Albumin 2.6 g/dL (3.4-5.0) Albumin/Globulin Ratio 0.6 (1.0-1.7) Laboratory Tests Test 11/16/20 06:39 White Blood Count 4.2 x10^3/uL (4.0-11.0) Red Blood Count 4.47 x10^6/uL (3.50-5.40) Hemoglobin 13.6 g/dL (12.0-15.5) Hematocrit 40.7 % (36.0-47.0) Mean Corpuscular Volume 91 fL (79-100) Mean Corpuscular Hemoglobin 30 pg (25-35) Mean Corpuscular Hemoglobin Concent 33 g/dL (31-37) Red Cell Distribution Width 14.5 % (11.5-14.5) Platelet Count 126 x10^3/uL (140-400) Neutrophils (%) (Auto) 88 % (31-73) Lymphocytes (%) (Auto) 5 % (24-48) Monocytes (%) (Auto) 7 % (0-9) Eosinophils (%) (Auto) 0 % (0-3) Basophils (%) (Auto) 0 % (0-3) Neutrophils # (Auto) 3.7 x10^3/uL (1.8-7.7) Lymphocytes # (Auto) 0.2 x10^3/uL (1.0-4.8) Monocytes # (Auto) 0.3 x10^3/uL (0.0-1.1) Eosinophils # (Auto) 0.0 x10^3/uL (0.0-0.7) Basophils # (Auto) 0.0 x10^3/uL (0.0-0.2) Sodium Level 147 mmol/L (136-145) Potassium Level 3.8 mmol/L (3.5-5.1) Chloride Level 110 mmol/L (98-107) Carbon Dioxide Level 28 mmol/L (21-32) Anion Gap 9 (6-14) Blood Urea Nitrogen 47 mg/dL (7-20) Creatinine 1.1 mg/dL (0.6-1.0) Estimated GFR (Cockcroft-Gault) 47.0 BUN/Creatinine Ratio 43 (6-20) Glucose Level 110 mg/dL (70-99) Calcium Level 8.7 mg/dL (8.5-10.1) Total Bilirubin 1.8 mg/dL (0.2-1.0) Aspartate Amino Transf (AST/SGOT) 48 U/L (15-37) Alanine Aminotransferase (ALT/SGPT) 23 U/L (14-59) Alkaline Phosphatase 78 U/L (46-116) Total Protein 6.8 g/dL (6.4-8.2) Albumin 2.6 g/dL (3.4-5.0) Albumin/Globulin Ratio 0.6 (1.0-1.7) Microbiology 11/14/20 Blood Culture - Preliminary, Resulted NO GROWTH AFTER 1 DAY Medications Current Medications Dexamethasone Sodium Phosphate (Decadron) 10 mg 1X ONCE IV Last administered on 11/14/20at 21:05; Start 11/14/20 at 20:45; Stop 11/14/20 at 20:46; Status DC Acetaminophen (Tylenol Supp) 650 mg 1X ONCE SD Last administered on 11/14/20at 21:05; Start 11/14/20 at 21:30; Stop 11/14/20 at 21:31; Status DC Sodium Chloride 1,000 ml @ 1,000 mls/hr 1X ONCE IV Last administered on 11/14/20at 21:06; Start 11/14/20 at 21:30; Stop 11/14/20 at 22:29; Status DC Sodium Chloride 1,000 ml @ 1,000 mls/hr 1X ONCE IV ; Start 11/14/20 at 21:30; Stop 11/14/20 at 22:29; Status Cancel Levofloxacin/ Dextrose 100 ml @ 100 mls/hr 1X ONCE IV Last administered on 11/14/20at 22:36; Start 11/14/20 at 22:00; Stop 11/14/20 at 22:59; Status DC Ascorbic Acid (Vitamin C) 3,000 mg TID PO Last administered on 11/15/20at 21:16; Start 11/15/20 at 09:00; Stop 11/16/20 at 09:35; Status DC Thiamine HCl 100 mg/Dextrose 51 ml @ 102 mls/hr Q8HRS IV Last administered on 11/16/20at 05:45; Start 11/14/20 at 22:00; Stop 11/16/20 at 10:00; Status DC Dexamethasone Sodium Phosphate (Decadron) 4 mg Q12HR IVP ; Start 11/15/20 at 09:00; Stop 11/14/20 at 21:35; Status DC Dexamethasone Sodium Phosphate (Decadron) 4 mg DAILY IVP Last administered on 11/16/20at 09:06; Start 11/15/20 at 09:00 Sennosides (Senna) 17.2 mg PRN BID PRN PO CONSTIPATION 1ST CHOICE; Start 11/14/20 at 21:45 Docusate Sodium (Colace) 100 mg PRN DAILY PRN PO HARD STOOLS; Start 11/14/20 at 21:45 Ondansetron HCl (Zofran) 4 mg PRN Q6HRS PRN IVP NAUSEA/VOMITING 1ST CHOICE; Start 11/14/20 at 21:45 Dextrose (Dextrose 50%-Water Syringe) 12.5 gm PRN Q15MIN PRN IV SEE COMMENTS; Start 11/14/20 at 21:45 Acetaminophen (Tylenol) 650 mg PRN Q4HRS PRN PO TEMP OVER 100.4F OR MILD PAIN; Start 11/14/20 at 21:45; Stop 11/15/20 at 12:59; Status DC Enoxaparin Sodium (Lovenox 40mg Syringe) 40 mg DAILY SQ Last administered on 11/15/20at 08:54; Start 11/15/20 at 09:00; Stop 11/15/20 at 13:03; Status DC Ondansetron HCl (Zofran) 4 mg PRN Q8HRS PRN IV NAUSEA/VOMITING; Start 11/14/20 at 22:00; Stop 11/14/20 at 21:58; Status DC Morphine Sulfate (Morphine Sulfate) 4 mg PRN Q2HR PRN IV SEVERE PAIN 7-10; Start 11/14/20 at 22:00; Stop 11/15/20 at 21:59; Status DC Acetaminophen (Tylenol) 650 mg PRN Q4HRS PRN PO FEVER > 100.3'F; Start 11/14/20 at 22:00; Stop 11/14/20 at 21:58; Status DC Acetaminophen (Tylenol) 1,000 mg PRN Q6HRS PRN PO pain/fever; Start 11/15/20 at 11:45 Diclofenac Sodium (Voltaren) 1 danielle PRN QID PRN TP PAIN; Start 11/15/20 at 11:45 Digoxin (Lanoxin) 125 mcg DAILY PO Last administered on 11/16/20at 09:05; Start 11/15/20 at 12:00 Docusate Sodium (Colace) 100 mg PRN BID PRN PO CONSTIPATION; Start 11/15/20 at 11:45 Fluoxetine HCl (PROzac) 20 mg DAILY PO Last administered on 11/16/20at 09:05; Start 11/15/20 at 12:00 Furosemide (Lasix) 40 mg DAILY PO Last administered on 11/16/20at 09:05; Start 11/15/20 at 12:00 Levetiracetam (Keppra) 250 mg BID PO Last administered on 11/16/20at 09:05; Start 11/15/20 at 21:00 Metoprolol Tartrate (Lopressor) 50 mg BID PO Last administered on 11/16/20at 09:05; Start 11/15/20 at 21:00 Polyethylene Glycol (miraLAX PACKET) 17 gm DAILY PO ; Start 11/16/20 at 09:00 Pantoprazole Sodium (Protonix) 40 mg DAILYAC PO Last administered on 11/16/20at 09:04; Start 11/16/20 at 07:30 Multi-Ingredient Ointment (Hydrocerin Cream) 1 danielle PRN Q1HR PRN TP DRY SKIN / SCALING; Start 11/15/20 at 12:00 Glycerin/ Hypromellose/ Polyethylene (Artificial Tears) 1 drop QID OU Last administered on 11/16/20at 09:04; Start 11/15/20 at 13:00 Sodium Chloride 1,000 ml @ 75 mls/hr [id number] IV Last administered on 11/15/20at 16:11; Start 11/15/20 at 12:00 Enoxaparin Sodium (Lovenox 30mg Syringe) 30 mg Q24H SQ ; Start 11/15/20 at 12:00; Status UNV Enoxaparin Sodium (Lovenox 40mg Syringe) 40 mg BID SQ Last administered on 11/16/20at 09:06; Start 11/15/20 at 21:00 Thiamine Mononitrate (Vitamin B-1) 100 mg Q8HRS PO ; Start 11/16/20 at 14:00 Ascorbic Acid (Vitamin C) 1,000 mg TID PO ; Start 11/16/20 at 10:00 Active Scripts Active Digoxin 125 Mcg Tablet 125 Mcg PO DAILY Polyethylene Glycol 3350 17 Gm Powd.pack 17 Gm PO DAILY 30 Days Metoprolol Tartrate 50 Mg Tablet 50 Mg PO BID Furosemide 40 Mg Tablet 40 Mg PO DAILY 30 Days Keppra (Levetiracetam) 250 Mg Tablet 250 Mg PO BID 30 Days Reported [Cholecalciferol] 6,000 Intlu PO DAILY [zinc] 1 Tab DAILY Tramadol Hcl 50 Mg Tablet 50 Mg PO Q12HR Systane Ultra 0.4-0.3% Eye Drp (Propylene Glycol/Peg 400) 10 Ml Drops 1 Drop EACHEYE QID Omeprazole 20 Mg Capsule.dr 20 Mg PO DAILY Nitrostat (Nitroglycerin) 0.4 Mg Tab.subl 0.4 Mg SL PRN Q5MIN PRN Melatonin 10 Mg Tablet.er 10 Mg PO HS Maalox Advanced Suspension (Mag Hydrox/Aluminum Hyd/Simeth) 355 Ml Oral.susp 30 Ml PO Q2HR PRN Keppra (Levetiracetam) 250 Mg Tablet 250 Mg PO BID Fluoxetine Hcl 20 Mg Capsule 20 Mg PO DAILY Voltaren (Diclofenac Sodium) 100 Gm Gel..gram. 1 Gm TP QID PRN 30 Days apply to affected area(s) Acetaminophen 500 Mg Tablet 1,000 Mg PO Q6HRS PRN Vitamin A & D Ointment (Petrolatum,White/Lanolin) 113 Gm Oint...g. 113 Gm TP BID Apply to buttock topically as needed for irritaion Calcium (Calcium Carbonate) 500 Mg Tab.chew 1,000 Mg PO BID Allopurinol 100 Mg Tablet 100 Mg PO DAILY Multi-Day Vitamins (Multivitamin) 1 Each Tablet 1 Tab PO DAILY Klor-Con M20 (Potassium Chloride) 20 Meq Tab.er.prt 20 Meq PO DAILY Colace (Docusate Sodium) 100 Mg Capsule 100 Mg Pe PO BID PRN Vitals/I & O Vital Sign - Last 24 Hours 11/15/20 11/15/20 11/15/20 11/15/20 13:36 15:12 19:55 20:00 Temp 97.8 97.7 97.8 97.7 Pulse 60 60 63 Resp 24 24 B/P (MAP) 156/66 162/63 (96) 158/58 (91) Pulse Ox 95 94 O2 Delivery Nasal Cannula Nasal Cannula Nasal Cannula O2 Flow Rate 4.0 4.0 4.0 11/15/20 11/15/20 11/16/20 11/16/20 21:17 23:12 02:45 07:20 Temp 97.8 97.7 98.3 97.8 97.7 98.3 Pulse 63 67 66 78 Resp 24 24 28 B/P (MAP) 158/58 174/63 (100) 184/61 (102) 164/66 (98) Pulse Ox 90 88 94 O2 Delivery Nasal Cannula Nasal Cannula Nasal Cannula O2 Flow Rate 4.0 4.0 4.0 11/16/20 11/16/20 11/16/20 11/16/20 07:49 09:05 09:05 10:34 Temp 98.4 98.4 Pulse 78 78 60 Resp 26 B/P (MAP) 164/66 164/66 147/64 (91) Pulse Ox 96 O2 Delivery Nasal Cannula Nasal Cannula O2 Flow Rate 4.0 4.0 Intake and Output 11/15/20 11/15/20 11/16/20 15:00 23:00 07:00 Intake Total 51 ml 837 ml 25 ml Output Total 600 ml 200 ml Balance 51 ml 237 ml -175 ml Justicifation of Admission Dx: Justifications for Admission: Justification of Admission Dx: Yes Respiratory Failure: Severe Resp Distress JAGJIT FONSECA MD Nov 16, 2020 11:14
[2020-11-16] MEDS ORDERED: guaiFENesin/CODEINE 100mg/10mg 5 ML LIQUID PO PRN (11:15)
[2020-11-16] MEDS: ZINC SULFATE 220 MG CAPSULE. PO SCH (12:51)
[2020-11-16] MEDS: THIAMINE 100 MG TABLET. PO SCH ×2 (12:51→21:00)
--- NOTE | 2020-11-16 14:12 | NUR ---
SS following for discharge planning. SS reviewed pt chart and discussed with pt RN. Pt is LTC resident from [facility], ; fax [phone]. Pt is currently on four liters nasal canula. COVID19 positive. Per RN, pt having respiratory distress due to COVID19. Not stable. SS will continue to follow for discharge planning.
[2020-11-16] MEDS ORDERED: FUROSEMIDE 40 MG/4 ML VIAL. IVP ONE (14:45)
[2020-11-16 15:00] VITALS: BP 132/58
--- NOTE | 2020-11-16 15:54 | PDOC ---
PULMONARY PROGRESS NOTES DATE: 11/16/20 TIME: 15:53 Vitals Vital Signs Date Time Temp Pulse Resp B/P (MAP) Pulse Ox O2 Delivery O2 Flow Rate FiO2 11/16/20 10:34 98.4 60 26 147/64 (91) 96 Nasal Cannula 4.0 98.4 General: Alert, No acute distress Lungs: Clear Cardiovascular: S1 Abdomen: Soft Extremities: No Edema Labs Laboratory Tests Test 11/14/20 20:14 11/14/20 20:30 11/15/20 01:45 11/15/20 04:00 Glucose (Fingerstick) 102 mg/dL (70-99) White Blood Count 3.7 x10^3/uL (4.0-11.0) 2.7 x10^3/uL (4.0-11.0) Red Blood Count 4.58 x10^6/uL (3.50-5.40) 4.24 x10^6/uL (3.50-5.40) Hemoglobin 13.9 g/dL (12.0-15.5) 12.9 g/dL (12.0-15.5) Hematocrit 42.6 % (36.0-47.0) 39.5 % (36.0-47.0) Mean Corpuscular Volume 93 fL (79-100) 93 fL (79-100) Mean Corpuscular Hemoglobin 30 pg (25-35) 30 pg (25-35) Mean Corpuscular Hemoglobin Concent 33 g/dL (31-37) 33 g/dL (31-37) Red Cell Distribution Width 14.8 % (11.5-14.5) 15.2 % (11.5-14.5) Platelet Count 125 x10^3/uL (140-400) 107 x10^3/uL (140-400) Neutrophils (%) (Auto) 82 % (31-73) 87 % (31-73) Lymphocytes (%) (Auto) 9 % (24-48) 9 % (24-48) Monocytes (%) (Auto) 8 % (0-9) 4 % (0-9) Eosinophils (%) (Auto) 2 % (0-3) 1 % (0-3) Basophils (%) (Auto) 0 % (0-3) 0 % (0-3) Neutrophils # (Auto) 3.0 x10^3/uL (1.8-7.7) 2.4 x10^3/uL (1.8-7.7) Lymphocytes # (Auto) 0.3 x10^3/uL (1.0-4.8) 0.2 x10^3/uL (1.0-4.8) Monocytes # (Auto) 0.3 x10^3/uL (0.0-1.1) 0.1 x10^3/uL (0.0-1.1) Eosinophils # (Auto) 0.1 x10^3/uL (0.0-0.7) 0.0 x10^3/uL (0.0-0.7) Basophils # (Auto) 0.0 x10^3/uL (0.0-0.2) 0.0 x10^3/uL (0.0-0.2) Segmented Neutrophils % 66 % (35-66) Band Neutrophils % 12 % (0-9) Lymphocytes % 10 % (24-48) Monocytes % 10 % (0-10) Eosinophils % 1 % (0-5) Myelocytes % 1 % (0-0) Platelet Estimate Decreased (ADEQUATE) Prothrombin Time 14.3 SEC (11.7-14.0) Prothromb Time International Ratio 1.1 (0.8-1.1) Activated Partial Thromboplast Time 27 SEC (24-38) Sodium Level 154 mmol/L (136-145) 156 mmol/L (136-145) Potassium Level 4.2 mmol/L (3.5-5.1) 4.0 mmol/L (3.5-5.1) Chloride Level 112 mmol/L (98-107) 115 mmol/L (98-107) Carbon Dioxide Level 33 mmol/L (21-32) 29 mmol/L (21-32) Anion Gap 9 (6-14) 12 (6-14) Blood Urea Nitrogen 65 mg/dL (7-20) 60 mg/dL (7-20) Creatinine 1.4 mg/dL (0.6-1.0) 1.2 mg/dL (0.6-1.0) Estimated GFR (Cockcroft-Gault) 35.6 42.5 BUN/Creatinine Ratio 46 (6-20) Glucose Level 103 mg/dL (70-99) 128 mg/dL (70-99) Lactic Acid Level 1.2 mmol/L (0.4-2.0) Calcium Level 9.1 mg/dL (8.5-10.1) 8.5 mg/dL (8.5-10.1) Total Bilirubin 1.6 mg/dL (0.2-1.0) Aspartate Amino Transf (AST/SGOT) 52 U/L (15-37) Alanine Aminotransferase (ALT/SGPT) 29 U/L (14-59) Alkaline Phosphatase 89 U/L (46-116) Troponin I Quantitative 0.092 ng/mL (0.000-0.055) 0.092 ng/mL (0.000-0.055) 0.089 ng/mL (0.000-0.055) [id number] Natriuretic Peptide 40872 pg/mL (0-449) Total Protein 7.6 g/dL (6.4-8.2) Albumin 3.0 g/dL (3.4-5.0) Albumin/Globulin Ratio 0.7 (1.0-1.7) Procalcitonin 0.11 ng/mL (0.00-0.10) Phosphorus Level 3.2 mg/dL (2.6-4.7) Magnesium Level 2.7 mg/dL (1.8-2.4) Test 11/16/20 06:39 White Blood Count 4.2 x10^3/uL (4.0-11.0) Red Blood Count 4.47 x10^6/uL (3.50-5.40) Hemoglobin 13.6 g/dL (12.0-15.5) Hematocrit 40.7 % (36.0-47.0) Mean Corpuscular Volume 91 fL (79-100) Mean Corpuscular Hemoglobin 30 pg (25-35) Mean Corpuscular Hemoglobin Concent 33 g/dL (31-37) Red Cell Distribution Width 14.5 % (11.5-14.5) Platelet Count 126 x10^3/uL (140-400) Neutrophils (%) (Auto) 88 % (31-73) Lymphocytes (%) (Auto) 5 % (24-48) Monocytes (%) (Auto) 7 % (0-9) Eosinophils (%) (Auto) 0 % (0-3) Basophils (%) (Auto) 0 % (0-3) Neutrophils # (Auto) 3.7 x10^3/uL (1.8-7.7) Lymphocytes # (Auto) 0.2 x10^3/uL (1.0-4.8) Monocytes # (Auto) 0.3 x10^3/uL (0.0-1.1) Eosinophils # (Auto) 0.0 x10^3/uL (0.0-0.7) Basophils # (Auto) 0.0 x10^3/uL (0.0-0.2) Sodium Level 147 mmol/L (136-145) Potassium Level 3.8 mmol/L (3.5-5.1) Chloride Level 110 mmol/L (98-107) Carbon Dioxide Level 28 mmol/L (21-32) Anion Gap 9 (6-14) Blood Urea Nitrogen 47 mg/dL (7-20) Creatinine 1.1 mg/dL (0.6-1.0) Estimated GFR (Cockcroft-Gault) 47.0 BUN/Creatinine Ratio 43 (6-20) Glucose Level 110 mg/dL (70-99) Calcium Level 8.7 mg/dL (8.5-10.1) Total Bilirubin 1.8 mg/dL (0.2-1.0) Aspartate Amino Transf (AST/SGOT) 48 U/L (15-37) Alanine Aminotransferase (ALT/SGPT) 23 U/L (14-59) Alkaline Phosphatase 78 U/L (46-116) Total Protein 6.8 g/dL (6.4-8.2) Albumin 2.6 g/dL (3.4-5.0) Albumin/Globulin Ratio 0.6 (1.0-1.7) Laboratory Tests Test 11/16/20 06:39 White Blood Count 4.2 x10^3/uL (4.0-11.0) Red Blood Count 4.47 x10^6/uL (3.50-5.40) Hemoglobin 13.6 g/dL (12.0-15.5) Hematocrit 40.7 % (36.0-47.0) Mean Corpuscular Volume 91 fL (79-100) Mean Corpuscular Hemoglobin 30 pg (25-35) Mean Corpuscular Hemoglobin Concent 33 g/dL (31-37) Red Cell Distribution Width 14.5 % (11.5-14.5) Platelet Count 126 x10^3/uL (140-400) Neutrophils (%) (Auto) 88 % (31-73) Lymphocytes (%) (Auto) 5 % (24-48) Monocytes (%) (Auto) 7 % (0-9) Eosinophils (%) (Auto) 0 % (0-3) Basophils (%) (Auto) 0 % (0-3) Neutrophils # (Auto) 3.7 x10^3/uL (1.8-7.7) Lymphocytes # (Auto) 0.2 x10^3/uL (1.0-4.8) Monocytes # (Auto) 0.3 x10^3/uL (0.0-1.1) Eosinophils # (Auto) 0.0 x10^3/uL (0.0-0.7) Basophils # (Auto) 0.0 x10^3/uL (0.0-0.2) Sodium Level 147 mmol/L (136-145) Potassium Level 3.8 mmol/L (3.5-5.1) Chloride Level 110 mmol/L (98-107) Carbon Dioxide Level 28 mmol/L (21-32) Anion Gap 9 (6-14) Blood Urea Nitrogen 47 mg/dL (7-20) Creatinine 1.1 mg/dL (0.6-1.0) Estimated GFR (Cockcroft-Gault) 47.0 BUN/Creatinine Ratio 43 (6-20) Glucose Level 110 mg/dL (70-99) Calcium Level 8.7 mg/dL (8.5-10.1) Total Bilirubin 1.8 mg/dL (0.2-1.0) Aspartate Amino Transf (AST/SGOT) 48 U/L (15-37) Alanine Aminotransferase (ALT/SGPT) 23 U/L (14-59) Alkaline Phosphatase 78 U/L (46-116) Total Protein 6.8 g/dL (6.4-8.2) Albumin 2.6 g/dL (3.4-5.0) Albumin/Globulin Ratio 0.6 (1.0-1.7) Medications Active Scripts Medications Dose Route/Sig Max Daily Dose Days Date Category Dose Instructions [Cholecalciferol] 6,000 Intlu PO DAILY 11/15/20 Reported [zinc] 1 Tab DAILY 11/15/20 Reported Tramadol Hcl 50 Mg Tablet 50 Mg PO Q12HR 11/15/20 Reported Systane Ultra 0.4-0.3% Eye Drp (Propylene Glycol/Peg 400) 10 Ml Drops 1 Drop EACHEYE QID 11/15/20 Reported Omeprazole 20 Mg Capsule.dr 20 Mg PO DAILY 11/15/20 Reported Nitrostat (Nitroglycerin) 0.4 Mg Tab.subl 0.4 Mg SL PRN Q5MIN PRN 11/15/20 Reported Melatonin 10 Mg Tablet.er 10 Mg PO HS 11/15/20 Reported Maalox Advanced Suspension (Mag Hydrox/Aluminum Hyd/Simeth) 355 Ml Oral.susp 30 Ml PO Q2HR PRN 11/15/20 Reported Keppra (Levetiracetam) 250 Mg Tablet 250 Mg PO BID 11/15/20 Reported Fluoxetine Hcl 20 Mg Capsule 20 Mg PO DAILY 11/15/20 Reported Voltaren (Diclofenac Sodium) 100 Gm Gel..gram. 1 Gm TP QID PRN 30 11/15/20 Reported apply to affected area(s) Acetaminophen 500 Mg Tablet 1,000 Mg PO Q6HRS PRN 11/15/20 Reported Vitamin A & D Ointment (Petrolatum,White/Lanolin) 113 Gm Oint...g. 113 Gm TP BID 11/15/20 Reported Apply to buttock topically as needed for irritaion Digoxin 125 Mcg Tablet 125 Mcg PO DAILY 05/28/20 Rx Polyethylene Glycol 3350 17 Gm Powd.pack 17 Gm PO DAILY 30 12/12/17 Rx Metoprolol Tartrate 50 Mg Tablet 50 Mg PO BID 12/12/17 Rx Furosemide 40 Mg Tablet 40 Mg PO DAILY 30 12/12/17 Rx Keppra (Levetiracetam) 250 Mg Tablet 250 Mg PO BID 30 12/01/17 Rx Calcium (Calcium Carbonate) 500 Mg Tab.chew 1,000 Mg PO BID 11/27/17 Reported Allopurinol 100 Mg Tablet 100 Mg PO DAILY 06/04/16 Reported Multi-Day Vitamins (Multivitamin) 1 Each Tablet 1 Tab PO DAILY 06/04/16 Reported Klor-Con M20 (Potassium Chloride) 20 Meq Tab.er.prt 20 Meq PO DAILY 06/04/16 Reported Colace (Docusate Sodium) 100 Mg Capsule 100 Mg Pe PO BID PRN 06/04/16 Reported Impression . Full note dictated Acute hypoxemic respiratory failure suspect secondary to COVID-19 viral pneumonia positive on 11/06/20---, possible bacterial pneumonia I suspect some of her dyspnea is likewise related to acute pulmonary edema, will give Lasix x1 CARL GRISSOM MD Nov 16, 2020 15:53
[2020-11-16] MEDS ORDERED: PIP/TAZO PER PHARMACY MC PRN (16:00)
[2020-11-16] MEDS: PIPERACILLIN/TAZOBACTAM 3.375 GM in IV NORMAL SALINE 50ML 50 ML IV SCH ×2 (16:45→23:00)
[2020-11-16] MEDS ORDERED: PIPERACILLIN/TAZOBACTAM 2.25 GM in IV NORMAL SALINE 50ML 50 ML IV SCH (17:00)
[2020-11-16 18:41] VITALS: BP 124/58
--- NOTE | 2020-11-16 20:38 | CONS ---
DATE OF CONSULTATION: 11/16/2020 ATTENDING PHYSICIAN: Dr. Arredondo. REASON FOR CONSULTATION: The patient is seen in pulmonary consultation at the request of Dr. Arredondo for acute hypoxemic respiratory failure. HISTORY OF PRESENT ILLNESS: The patient is an 85-year-old female who [facility]. Apparently, she tested positive on the 8th of this month. She was transferred to [place] for hypoxemia. Room air saturation started to decrease down to below 90%. She was transferred to [place]. She was admitted. I was asked to see her in consultation. She had a chest x-ray, which revealed diffuse bilateral airspace disease. In comparison to the film of 10/08/2020, this was about the same or maybe slightly worse. The patient denies fever, chills or night sweats. The patient does have a history of previous mild fibrosis. She was back here. She was in the hospital back in 04/2020. 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 PAST MEDICAL HISTORY: Remarkable for: 1. 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 2. Chronic obstructive pulmonary disease, unknown FEV1. 3. History of chronic heart failure. She is on diuretics at home. 4. History of arthritis. 5. Depression. 6. Hypertension. 7. Previous cerebrovascular accident. 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 She also had a breast cyst removed. ALLERGIES: SULFA AND IODINE. REVIEW OF SYSTEMS: As indicated above, otherwise, a 10-point system was reviewed and negative. FAMILY HISTORY: Noncontributory in this age group. SOCIAL HISTORY: She has minimal use of tobacco in the past. CURRENT MEDICATIONS: List was reviewed. The patient has been started on steroids, given vitamin C, zinc. She is on DVT prophylaxis. PHYSICAL EXAMINATION: GENERAL: The patient was in no respiratory distress. VITAL SIGNS: Stable. O2 saturation was greater than 92%, currently on 4 liters of oxygen supplementation. She had a T-max of 102.7 upon admission. HEENT: Eyes, the sclerae were nonicteric. NECK: Jugular venous distention was not elevated. CHEST: Full expansion. LUNGS: Adequate flow with crackles in the bases. CARDIOVASCULAR: Regular rate and rhythm with S1, S2, no S3. ABDOMEN: Soft, nontender. EXTREMITIES: No clubbing, cyanosis or edema. LABORATORY DATA: White count was 3.7, hemoglobin and hematocrit were noted. INR was 1.1. Electrolytes were noted. BUN was elevated, creatinine was elevated. Troponin was elevated. BNP was markedly elevated. IMPRESSION: 1. Acute hypoxemic respiratory failure. 2. COVID-19 viral pneumonia that tested positive on 10/06/2020. 3. Acute on chronic systolic heart failure. 4. Chronic obstructive pulmonary disease with acute exacerbation. 5. Renal insufficiency. 6. Severe malnutrition, present upon admission. 7. Elevated troponin, suspect demand ischemia. PLAN: 1. We will continue support of IV steroids, the patient is too far out to benefit from remdesivir. 2. Continue empiric antibiotics. 3. Diurese Lasix x 1. Monitor urinary output and clinical response. 4. Continue home meds. 5. Continue DVT prophylaxis. I do appreciate the privilege in sharing in the patient's care. CARL GRISSOM MD DR: ABHINAV/baltazar JOB#: [id number] / [id number]
[2020-11-16 23:24] VITALS: BP 136/62
[2020-11-17 03:53] VITALS: BP 120/62
[2020-11-17] MEDS: IV 1/2 NORMAL SALINE 1,000 ML IV SCH (04:00)
[2020-11-17] MEDS: THIAMINE 100 MG TABLET. PO SCH ×3 (05:04→21:05)
[2020-11-17] MEDS: PIPERACILLIN/TAZOBACTAM 3.375 GM in IV NORMAL SALINE 50ML 50 ML IV SCH ×4 (05:04→23:10)
[2020-11-17 07:00] VITALS: BP 143/60
--- NOTE | 2020-11-17 07:14 | PDOC ---
[facility] PROGRESS NOTE Date of Service DOS: DATE: 11/17/20 TIME: 07:10 Chief Complaint Chief Complaint A/P: Sepsis, leukopenia and tachypnea and febrile on admit, Acute COVID 19 infection Acute hypoxic respiratory failure, on 2 liters Acute systolic CHF, BNP elevation, exacerbated by the gentle IV fluid Severe protein calorie malnutrition Acute vasomotor nephropathy, dehydration Hypernatremia Elevated troponin - likely demand ischemia COPD Depression HTN Prior CVA COVID-19 viral pneumonia that tested positive on 10/06/2020. 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 She did test positive for COVID 19 on 11/06/20. Chest radiograph revealed diffuse bilateral airspace disease. Admitted with pulmonary consultation. 11/16: the 1./2 normal saline was stopped overnight for shortness of breath, sodium is better, cont to hold, may restart soon. cont the PO intake, doing well Overnight afebrile. On 4L NCO2. Asking for water. Notes no appetite. K 3.1, Na 150. 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 l;eft sternal to apex) Lungs: Clear Abdomen: Soft Skin: No rashes, No breakdown Assessment and Plan Assessmemt and Plan Problems Medical Problems: (1) Altered mental status Status: Acute (2) COVID-19 virus RNA test result positive at limit of detection Status: Acute (3) Dehydration Status: Acute (4) Fever Status: Acute Comment Review of Relevant I have reviewed the following items jerrica (where applicable) has been applied. Medications: Current Medications Medications (Trade) Dose Ordered Sig/Chen Route PRN Reason Start Time Stop Time Status Last Admin Dose Admin Pantoprazole Sodium (Protonix) 40 mg DAILYAC PO 11/16/20 07:30 11/16/20 09:04 Thiamine Mononitrate (Vitamin B-1) 100 mg Q8HRS PO 11/16/20 14:00 11/17/20 05:04 Ascorbic Acid (Vitamin C) 1,000 mg TID PO 11/16/20 10:00 11/16/20 21:00 Zinc Sulfate (Orazinc) 220 mg DAILY PO 11/16/20 12:00 11/16/20 12:51 Furosemide (Lasix) 40 mg 1X ONCE IVP 11/16/20 14:45 11/16/20 14:53 DC 11/16/20 15:42 Piperacillin Sod/ Tazobactam Sod 3.375 gm/Sodium Chloride 50 ml @ 100 mls/hr Q6HRS IV 11/16/20 17:00 11/17/20 05:04 Justifications for Admission Other Justification covid infection QUANG COLEY MD Nov 17, 2020 07:14
[2020-11-17 07:33] LABS: BASO % 0 % (0-3); EOS # 0.1 x10^3/uL (0.0-0.7); EOS % 2 % (0-3); HEMATOCRIT 40.8 % (36.0-47.0); HEMOGLOBIN 13.5 g/dL (12.0-15.5); LYMPH # 0.3 x10^3/uL (1.0-4.8); LYMPH % 7 % (24-48); MEAN CORPUSCULAR HEMOGLOBIN 30 pg (25-35); MEAN CORPUSCULAR HGB CONC 33 g/dL (31-37); MEAN CORPUSCULAR VOLUME 91 fL (79-100); MONO # 0.3 x10^3/uL (0.0-1.1); MONO % 9 % (0-9); NEUT # 3.2 x10^3/uL (1.8-7.7); NEUT % 82 % (31-73); PLATELET COUNT 118 x10^3/uL (140-400); RED BLOOD COUNT 4.48 x10^6/uL (3.50-5.40); RED CELL DISTRIBUTION WIDTH 14.7 % (11.5-14.5); WHITE BLOOD COUNT 3.9 x10^3/uL (4.0-11.0)
[2020-11-17 07:44] LABS: CALCIUM 8.8 mg/dL (8.5-10.1); CREATININE 1.2 mg/dL (0.6-1.0); GFR 42.5; POTASSIUM 3.1 mmol/L (3.5-5.1)
[2020-11-17] MEDS ORDERED: POTASSIUM CL 20MEQ IN D5W 1,000 ML IV ONE (08:45)
[2020-11-17] MEDS ORDERED: POTASSIUM BICARB 10 MEQ EFFERVESCENT TABLET. PO ONE (08:45)
[2020-11-17] MEDS: FLUoxetine HCL 20 MG CAPSULE PO SCH (08:57)
[2020-11-17] MEDS: METOPROLOL TART IMMED RELEASE 50 MG TABLET. PO SCH ×2 (08:57→21:05)
[2020-11-17] MEDS: POLYVINYL ALCOHOL 1.4% OPHTH SOLUTION 15ML BOTTLE. OU SCH ×4 (08:57→21:04)
[2020-11-17] MEDS: levETIRAcetam 250 MG TABLET PO SCH ×2 (08:57→21:04)
[2020-11-17] MEDS: ZINC SULFATE 220 MG CAPSULE. PO SCH (08:57)
[2020-11-17] MEDS: DEXAMETHASONE SOD PHOS 4 MG/ML VIAL IVP SCH (08:57)
[2020-11-17] MEDS: DIGOXIN 125 MCG TABLET. PO SCH (08:58)
[2020-11-17] MEDS: PANTOPRAZOLE 40 MG TABLET.DR. PO SCH (08:58)
[2020-11-17] MEDS: ASCORBIC ACID 1,000 MG TABLET PO SCH ×3 (08:58→21:04)
[2020-11-17] MEDS: FUROSEMIDE 40 MG TABLET. PO SCH (08:58)
[2020-11-17] MEDS: ENOXAPARIN 40 MG/0.4 ML SYRINGE. SQ SCH ×2 (08:59→21:04)
[2020-11-17] MEDS: POLYETHYLENE GLYCOL 3350 17 GM PACKET. PO SCH (09:00)
--- NOTE | 2020-11-17 09:29 | PDOC ---
PULMONARY PROGRESS NOTES DATE: 11/17/20 TIME: 09:27 Subjective no soa,on 4 litres Vitals Vital Signs Date Time Temp Pulse Resp B/P (MAP) Pulse Ox O2 Delivery O2 Flow Rate FiO2 11/17/20 08:58 60 120/62 11/17/20 07:00 96.7 20 94 Nasal Cannula 4.0 96.7 General: Alert, No acute distress Lungs: Crackles Cardiovascular: S1 Abdomen: Soft Neuro Exam: Alert Extremities: No Edema Skin: Warm Labs Laboratory Tests Test 11/16/20 06:39 11/17/20 07:10 White Blood Count 4.2 x10^3/uL (4.0-11.0) 3.9 x10^3/uL (4.0-11.0) Red Blood Count 4.47 x10^6/uL (3.50-5.40) 4.48 x10^6/uL (3.50-5.40) Hemoglobin 13.6 g/dL (12.0-15.5) 13.5 g/dL (12.0-15.5) Hematocrit 40.7 % (36.0-47.0) 40.8 % (36.0-47.0) Mean Corpuscular Volume 91 fL (79-100) 91 fL (79-100) Mean Corpuscular Hemoglobin 30 pg (25-35) 30 pg (25-35) Mean Corpuscular Hemoglobin Concent 33 g/dL (31-37) 33 g/dL (31-37) Red Cell Distribution Width 14.5 % (11.5-14.5) 14.7 % (11.5-14.5) Platelet Count 126 x10^3/uL (140-400) 118 x10^3/uL (140-400) Neutrophils (%) (Auto) 88 % (31-73) 82 % (31-73) Lymphocytes (%) (Auto) 5 % (24-48) 7 % (24-48) Monocytes (%) (Auto) 7 % (0-9) 9 % (0-9) Eosinophils (%) (Auto) 0 % (0-3) 2 % (0-3) Basophils (%) (Auto) 0 % (0-3) 0 % (0-3) Neutrophils # (Auto) 3.7 x10^3/uL (1.8-7.7) 3.2 x10^3/uL (1.8-7.7) Lymphocytes # (Auto) 0.2 x10^3/uL (1.0-4.8) 0.3 x10^3/uL (1.0-4.8) Monocytes # (Auto) 0.3 x10^3/uL (0.0-1.1) 0.3 x10^3/uL (0.0-1.1) Eosinophils # (Auto) 0.0 x10^3/uL (0.0-0.7) 0.1 x10^3/uL (0.0-0.7) Basophils # (Auto) 0.0 x10^3/uL (0.0-0.2) 0.0 x10^3/uL (0.0-0.2) Sodium Level 147 mmol/L (136-145) 150 mmol/L (136-145) Potassium Level 3.8 mmol/L (3.5-5.1) 3.1 mmol/L (3.5-5.1) Chloride Level 110 mmol/L (98-107) 111 mmol/L (98-107) Carbon Dioxide Level 28 mmol/L (21-32) 32 mmol/L (21-32) Anion Gap 9 (6-14) 7 (6-14) Blood Urea Nitrogen 47 mg/dL (7-20) 51 mg/dL (7-20) Creatinine 1.1 mg/dL (0.6-1.0) 1.2 mg/dL (0.6-1.0) Estimated GFR (Cockcroft-Gault) 47.0 42.5 BUN/Creatinine Ratio 43 (6-20) Glucose Level 110 mg/dL (70-99) 114 mg/dL (70-99) Calcium Level 8.7 mg/dL (8.5-10.1) 8.8 mg/dL (8.5-10.1) Total Bilirubin 1.8 mg/dL (0.2-1.0) Aspartate Amino Transf (AST/SGOT) 48 U/L (15-37) Alanine Aminotransferase (ALT/SGPT) 23 U/L (14-59) Alkaline Phosphatase 78 U/L (46-116) Total Protein 6.8 g/dL (6.4-8.2) Albumin 2.6 g/dL (3.4-5.0) Albumin/Globulin Ratio 0.6 (1.0-1.7) Magnesium Level 2.5 mg/dL (1.8-2.4) Laboratory Tests Test 11/17/20 07:10 White Blood Count 3.9 x10^3/uL (4.0-11.0) Red Blood Count 4.48 x10^6/uL (3.50-5.40) Hemoglobin 13.5 g/dL (12.0-15.5) Hematocrit 40.8 % (36.0-47.0) Mean Corpuscular Volume 91 fL (79-100) Mean Corpuscular Hemoglobin 30 pg (25-35) Mean Corpuscular Hemoglobin Concent 33 g/dL (31-37) Red Cell Distribution Width 14.7 % (11.5-14.5) Platelet Count 118 x10^3/uL (140-400) Neutrophils (%) (Auto) 82 % (31-73) Lymphocytes (%) (Auto) 7 % (24-48) Monocytes (%) (Auto) 9 % (0-9) Eosinophils (%) (Auto) 2 % (0-3) Basophils (%) (Auto) 0 % (0-3) Neutrophils # (Auto) 3.2 x10^3/uL (1.8-7.7) Lymphocytes # (Auto) 0.3 x10^3/uL (1.0-4.8) Monocytes # (Auto) 0.3 x10^3/uL (0.0-1.1) Eosinophils # (Auto) 0.1 x10^3/uL (0.0-0.7) Basophils # (Auto) 0.0 x10^3/uL (0.0-0.2) Sodium Level 150 mmol/L (136-145) Potassium Level 3.1 mmol/L (3.5-5.1) Chloride Level 111 mmol/L (98-107) Carbon Dioxide Level 32 mmol/L (21-32) Anion Gap 7 (6-14) Blood Urea Nitrogen 51 mg/dL (7-20) Creatinine 1.2 mg/dL (0.6-1.0) Estimated GFR (Cockcroft-Gault) 42.5 Glucose Level 114 mg/dL (70-99) Calcium Level 8.8 mg/dL (8.5-10.1) Magnesium Level 2.5 mg/dL (1.8-2.4) Medications Active Scripts Medications Dose Route/Sig Max Daily Dose Days Date Category Dose Instructions [Cholecalciferol] 6,000 Intlu PO DAILY 11/15/20 Reported [zinc] 1 Tab DAILY 11/15/20 Reported Tramadol Hcl 50 Mg Tablet 50 Mg PO Q12HR 11/15/20 Reported Systane Ultra 0.4-0.3% Eye Drp (Propylene Glycol/Peg 400) 10 Ml Drops 1 Drop EACHEYE QID 11/15/20 Reported Omeprazole 20 Mg Capsule.dr 20 Mg PO DAILY 11/15/20 Reported Nitrostat (Nitroglycerin) 0.4 Mg Tab.subl 0.4 Mg SL PRN Q5MIN PRN 11/15/20 Reported Melatonin 10 Mg Tablet.er 10 Mg PO HS 11/15/20 Reported Maalox Advanced Suspension (Mag Hydrox/Aluminum Hyd/Simeth) 355 Ml Oral.susp 30 Ml PO Q2HR PRN 11/15/20 Reported Keppra (Levetiracetam) 250 Mg Tablet 250 Mg PO BID 11/15/20 Reported Fluoxetine Hcl 20 Mg Capsule 20 Mg PO DAILY 11/15/20 Reported Voltaren (Diclofenac Sodium) 100 Gm Gel..gram. 1 Gm TP QID PRN 30 11/15/20 Reported apply to affected area(s) Acetaminophen 500 Mg Tablet 1,000 Mg PO Q6HRS PRN 11/15/20 Reported Vitamin A & D Ointment (Petrolatum,White/Lanolin) 113 Gm Oint...g. 113 Gm TP BID 11/15/20 Reported Apply to buttock topically as needed for irritaion Digoxin 125 Mcg Tablet 125 Mcg PO DAILY 05/28/20 Rx Polyethylene Glycol 3350 17 Gm Powd.pack 17 Gm PO DAILY 30 12/12/17 Rx Metoprolol Tartrate 50 Mg Tablet 50 Mg PO BID 12/12/17 Rx Furosemide 40 Mg Tablet 40 Mg PO DAILY 30 12/12/17 Rx Keppra (Levetiracetam) 250 Mg Tablet 250 Mg PO BID 30 12/01/17 Rx Calcium (Calcium Carbonate) 500 Mg Tab.chew 1,000 Mg PO BID 11/27/17 Reported Allopurinol 100 Mg Tablet 100 Mg PO DAILY 06/04/16 Reported Multi-Day Vitamins (Multivitamin) 1 Each Tablet 1 Tab PO DAILY 06/04/16 Reported Klor-Con M20 (Potassium Chloride) 20 Meq Tab.er.prt 20 Meq PO DAILY 06/04/16 Reported Colace (Docusate Sodium) 100 Mg Capsule 100 Mg Pe PO BID PRN 06/04/16 Reported Impression . 1. Acute hypoxemic respiratory failure. 2. COVID-19 viral pneumonia that tested positive on 11/06/2019. 3. Acute on chronic systolic heart failure. 4. Chronic obstructive pulmonary disease with acute exacerbation. 5. Renal insufficiency. 6. Severe malnutrition, present upon admission. 7. Elevated troponin, suspect demand ischemia. Plan . PLAN: 1. We will continue support of IV steroids started on remdesivir per PCP 2. Continue empiric antibiotics. 3. Diurese Lasix x 1. Monitor urinary output and clinical response. 4. Continue home meds. 5. Continue DVT prophylaxis. IRAM OCASIO MD Nov 17, 2020 09:29
[2020-11-17 11:00] VITALS: BP 138/58
--- NOTE | 2020-11-17 12:20 | NUR ---
SS following up with discharge planning. SS reviewed pt chart and discussed with pt RN. Pt is currently requiring oxygen at four liters nasal canula. COVID19 positive. Pt on IV Zosyn. Per RN, pt very tired and not eating today. Pt is LTC resident from [facility], ; fax [phone]. SS will continue to follow for discharge planning.
[2020-11-17 15:00] VITALS: BP 143/61
[2020-11-17] MEDS ORDERED: REMDESIVIR LOAD in IV NORMAL SALINE 250ML TV IV ONE (17:00)
[2020-11-17 19:09] VITALS: BP 134/57
[2020-11-17 22:19] VITALS: BP 154/70
[2020-11-18 02:35] VITALS: BP 164/70
[2020-11-18] MEDS: PIPERACILLIN/TAZOBACTAM 3.375 GM in IV NORMAL SALINE 50ML 50 ML IV SCH ×4 (05:30→23:57)
[2020-11-18] MEDS: THIAMINE 100 MG TABLET. PO SCH ×3 (05:30→20:40)
[2020-11-18 07:00] VITALS: BP 154/70
--- NOTE | 2020-11-18 08:06 | PDOC ---
[employer] PROGRESS NOTE Date of Service DOS: DATE: 11/18/20 TIME: 08:06 Chief Complaint Chief Complaint A/P: Sepsis, leukopenia and tachypnea and febrile on admit, Acute COVID 19 infection - steroids, remdesivir Acute hypoxic respiratory failure, on 2 liters Acute systolic CHF, BNP elevation, exacerbated by the gentle IV fluid Severe protein calorie malnutrition Acute vasomotor nephropathy, dehydration Hypernatremia Elevated troponin - likely demand ischemia COPD Depression HTN Prior CVA COVID-19 viral pneumonia that tested positive on 10/11/2020. 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 She did test positive for COVID 19 on 11/11/20. Chest radiograph revealed diffuse bilateral airspace disease. Admitted with pulmonary consultation. 11/16: the 1./2 normal saline was stopped overnight for shortness of breath, sodium is better, cont to hold, may restart soon. cont the PO intake, doing well 11/17: Overnight afebrile. On 4L NCO2. Asking for water. Notes no appetite. K 3.1, Na 150. Initiated on remdesivir. Overnight afebrile. Now on 3L NCO2. Still on dysphagia diet with thickened liquids, asking for water. 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 l;eft sternal to apex) Lungs: Crackles Abdomen: Soft Skin: No rashes, No breakdown Assessment and Plan Assessmemt and Plan Problems Medical Problems: (1) Altered mental status Status: Acute (2) COVID-19 virus RNA test result positive at limit of detection Status: Acute (3) Dehydration Status: Acute (4) Fever Status: Acute Comment Review of Relevant I have reviewed the following items jerrica (where applicable) has been applied. Medications: Current Medications Medications (Trade) Dose Ordered Sig/Chen Route PRN Reason Start Time Stop Time Status Last Admin Dose Admin Potassium Bicarbonate (Potassium Effervescent Tablet) 40 meq 1X ONCE PO 11/17/20 08:45 11/17/20 08:46 DC 11/17/20 08:59 Potassium Chloride/Dextrose 1,000 ml @ 75 mls/hr [id number] ONCE IV 11/17/20 08:45 11/17/20 22:04 DC 11/17/20 09:00 Remdesivir 200 mg/ Sodium Chloride 210 ml @ 210 mls/hr 1X ONCE IV 11/17/20 17:00 11/17/20 17:59 DC 11/17/20 16:41 Justifications for Admission Other Justification covid infection QUANG COLEY MD Nov 18, 2020 08:06
[2020-11-18] MEDS: POLYETHYLENE GLYCOL 3350 17 GM PACKET. PO SCH (08:44)
[2020-11-18 08:58] LABS: BASO % 0 % (0-3); EOS # 0.2 x10^3/uL (0.0-0.7); EOS % 4 % (0-3); HEMATOCRIT 40.9 % (36.0-47.0); HEMOGLOBIN 13.3 g/dL (12.0-15.5); LYMPH # 0.5 x10^3/uL (1.0-4.8); LYMPH % 10 % (24-48); MEAN CORPUSCULAR HEMOGLOBIN 30 pg (25-35); MEAN CORPUSCULAR HGB CONC 33 g/dL (31-37); MEAN CORPUSCULAR VOLUME 92 fL (79-100); MONO # 0.4 x10^3/uL (0.0-1.1); MONO % 8 % (0-9); NEUT # 3.5 x10^3/uL (1.8-7.7); NEUT % 77 % (31-73); PLATELET COUNT 131 x10^3/uL (140-400); RED BLOOD COUNT 4.45 x10^6/uL (3.50-5.40); RED CELL DISTRIBUTION WIDTH 14.4 % (11.5-14.5); WHITE BLOOD COUNT 4.5 x10^3/uL (4.0-11.0)
[2020-11-18 09:28] LABS: ALBUMIN 2.3 g/dL (3.4-5.0); ALBUMIN/GLOBULIN RATIO 0.5 (1.0-1.7); CREATININE 1.2 mg/dL (0.6-1.0); GFR 42.5; POTASSIUM 3.2 mmol/L (3.5-5.1); TOTAL BILIRUBIN 0.8 mg/dL (0.2-1.0); TOTAL PROTEIN 6.6 g/dL (6.4-8.2)
[2020-11-18] MEDS ORDERED: POTASSIUM CHLORIDE 20 MEQ TABLET.ER. PO ONE (09:45)
[2020-11-18] MEDS: ZINC SULFATE 220 MG CAPSULE. PO SCH (10:21)
[2020-11-18] MEDS: levETIRAcetam 250 MG TABLET PO SCH ×2 (10:21→20:41)
[2020-11-18] MEDS: FLUoxetine HCL 20 MG CAPSULE PO SCH (10:21)
[2020-11-18] MEDS: ASCORBIC ACID 1,000 MG TABLET PO SCH ×3 (10:21→20:41)
[2020-11-18] MEDS: PANTOPRAZOLE 40 MG TABLET.DR. PO SCH (10:22)
[2020-11-18] MEDS: METOPROLOL TART IMMED RELEASE 50 MG TABLET. PO SCH ×2 (10:22→20:41)
[2020-11-18] MEDS: DIGOXIN 125 MCG TABLET. PO SCH (10:22)
[2020-11-18] MEDS: DEXAMETHASONE SOD PHOS 4 MG/ML VIAL IVP SCH (10:23)
[2020-11-18] MEDS: FUROSEMIDE 40 MG TABLET. PO SCH (10:23)
[2020-11-18] MEDS: ENOXAPARIN 40 MG/0.4 ML SYRINGE. SQ SCH ×2 (10:24→20:43)
[2020-11-18] MEDS: POLYVINYL ALCOHOL 1.4% OPHTH SOLUTION 15ML BOTTLE. OU SCH ×4 (10:25→20:40)
--- NOTE | 2020-11-18 10:59 | PDOC ---
PULMONARY PROGRESS NOTES DATE: 11/18/20 TIME: 10:58 Subjective no soa,on 3 litres Vitals Vital Signs Date Time Temp Pulse Resp B/P (MAP) Pulse Ox O2 Delivery O2 Flow Rate FiO2 11/18/20 10:22 60 154/70 11/18/20 08:00 Nasal Cannula 3.0 11/18/20 07:00 97.3 18 96 97.3 General: Alert, No acute distress Lungs: Crackles Cardiovascular: S1 Abdomen: Soft Neuro Exam: Alert Extremities: No Edema Skin: Warm Labs Laboratory Tests Test 11/17/20 07:10 11/18/20 08:36 White Blood Count 3.9 x10^3/uL (4.0-11.0) 4.5 x10^3/uL (4.0-11.0) Red Blood Count 4.48 x10^6/uL (3.50-5.40) 4.45 x10^6/uL (3.50-5.40) Hemoglobin 13.5 g/dL (12.0-15.5) 13.3 g/dL (12.0-15.5) Hematocrit 40.8 % (36.0-47.0) 40.9 % (36.0-47.0) Mean Corpuscular Volume 91 fL (79-100) 92 fL (79-100) Mean Corpuscular Hemoglobin 30 pg (25-35) 30 pg (25-35) Mean Corpuscular Hemoglobin Concent 33 g/dL (31-37) 33 g/dL (31-37) Red Cell Distribution Width 14.7 % (11.5-14.5) 14.4 % (11.5-14.5) Platelet Count 118 x10^3/uL (140-400) 131 x10^3/uL (140-400) Neutrophils (%) (Auto) 82 % (31-73) 77 % (31-73) Lymphocytes (%) (Auto) 7 % (24-48) 10 % (24-48) Monocytes (%) (Auto) 9 % (0-9) 8 % (0-9) Eosinophils (%) (Auto) 2 % (0-3) 4 % (0-3) Basophils (%) (Auto) 0 % (0-3) 0 % (0-3) Neutrophils # (Auto) 3.2 x10^3/uL (1.8-7.7) 3.5 x10^3/uL (1.8-7.7) Lymphocytes # (Auto) 0.3 x10^3/uL (1.0-4.8) 0.5 x10^3/uL (1.0-4.8) Monocytes # (Auto) 0.3 x10^3/uL (0.0-1.1) 0.4 x10^3/uL (0.0-1.1) Eosinophils # (Auto) 0.1 x10^3/uL (0.0-0.7) 0.2 x10^3/uL (0.0-0.7) Basophils # (Auto) 0.0 x10^3/uL (0.0-0.2) 0.0 x10^3/uL (0.0-0.2) Sodium Level 150 mmol/L (136-145) 150 mmol/L (136-145) Potassium Level 3.1 mmol/L (3.5-5.1) 3.2 mmol/L (3.5-5.1) Chloride Level 111 mmol/L (98-107) 109 mmol/L (98-107) Carbon Dioxide Level 32 mmol/L (21-32) 35 mmol/L (21-32) Anion Gap 7 (6-14) 6 (6-14) Blood Urea Nitrogen 51 mg/dL (7-20) 47 mg/dL (7-20) Creatinine 1.2 mg/dL (0.6-1.0) 1.2 mg/dL (0.6-1.0) Estimated GFR (Cockcroft-Gault) 42.5 42.5 Glucose Level 114 mg/dL (70-99) 96 mg/dL (70-99) Calcium Level 8.8 mg/dL (8.5-10.1) 9.0 mg/dL (8.5-10.1) Magnesium Level 2.5 mg/dL (1.8-2.4) BUN/Creatinine Ratio 39 (6-20) Total Bilirubin 0.8 mg/dL (0.2-1.0) Aspartate Amino Transf (AST/SGOT) 40 U/L (15-37) Alanine Aminotransferase (ALT/SGPT) 25 U/L (14-59) Alkaline Phosphatase 69 U/L (46-116) Total Protein 6.6 g/dL (6.4-8.2) Albumin 2.3 g/dL (3.4-5.0) Albumin/Globulin Ratio 0.5 (1.0-1.7) Laboratory Tests Test 11/18/20 08:36 White Blood Count 4.5 x10^3/uL (4.0-11.0) Red Blood Count 4.45 x10^6/uL (3.50-5.40) Hemoglobin 13.3 g/dL (12.0-15.5) Hematocrit 40.9 % (36.0-47.0) Mean Corpuscular Volume 92 fL (79-100) Mean Corpuscular Hemoglobin 30 pg (25-35) Mean Corpuscular Hemoglobin Concent 33 g/dL (31-37) Red Cell Distribution Width 14.4 % (11.5-14.5) Platelet Count 131 x10^3/uL (140-400) Neutrophils (%) (Auto) 77 % (31-73) Lymphocytes (%) (Auto) 10 % (24-48) Monocytes (%) (Auto) 8 % (0-9) Eosinophils (%) (Auto) 4 % (0-3) Basophils (%) (Auto) 0 % (0-3) Neutrophils # (Auto) 3.5 x10^3/uL (1.8-7.7) Lymphocytes # (Auto) 0.5 x10^3/uL (1.0-4.8) Monocytes # (Auto) 0.4 x10^3/uL (0.0-1.1) Eosinophils # (Auto) 0.2 x10^3/uL (0.0-0.7) Basophils # (Auto) 0.0 x10^3/uL (0.0-0.2) Sodium Level 150 mmol/L (136-145) Potassium Level 3.2 mmol/L (3.5-5.1) Chloride Level 109 mmol/L (98-107) Carbon Dioxide Level 35 mmol/L (21-32) Anion Gap 6 (6-14) Blood Urea Nitrogen 47 mg/dL (7-20) Creatinine 1.2 mg/dL (0.6-1.0) Estimated GFR (Cockcroft-Gault) 42.5 BUN/Creatinine Ratio 39 (6-20) Glucose Level 96 mg/dL (70-99) Calcium Level 9.0 mg/dL (8.5-10.1) Total Bilirubin 0.8 mg/dL (0.2-1.0) Aspartate Amino Transf (AST/SGOT) 40 U/L (15-37) Alanine Aminotransferase (ALT/SGPT) 25 U/L (14-59) Alkaline Phosphatase 69 U/L (46-116) Total Protein 6.6 g/dL (6.4-8.2) Albumin 2.3 g/dL (3.4-5.0) Albumin/Globulin Ratio 0.5 (1.0-1.7) Medications Active Scripts Medications Dose Route/Sig Max Daily Dose Days Date Category Dose Instructions [Cholecalciferol] 6,000 Intlu PO DAILY 11/15/20 Reported [zinc] 1 Tab DAILY 11/15/20 Reported Tramadol Hcl 50 Mg Tablet 50 Mg PO Q12HR 11/15/20 Reported Systane Ultra 0.4-0.3% Eye Drp (Propylene Glycol/Peg 400) 10 Ml Drops 1 Drop EACHEYE QID 11/15/20 Reported Omeprazole 20 Mg Capsule.dr 20 Mg PO DAILY 11/15/20 Reported Nitrostat (Nitroglycerin) 0.4 Mg Tab.subl 0.4 Mg SL PRN Q5MIN PRN 11/15/20 Reported Melatonin 10 Mg Tablet.er 10 Mg PO HS 11/15/20 Reported Maalox Advanced Suspension (Mag Hydrox/Aluminum Hyd/Simeth) 355 Ml Oral.susp 30 Ml PO Q2HR PRN 11/15/20 Reported Keppra (Levetiracetam) 250 Mg Tablet 250 Mg PO BID 11/15/20 Reported Fluoxetine Hcl 20 Mg Capsule 20 Mg PO DAILY 11/15/20 Reported Voltaren (Diclofenac Sodium) 100 Gm Gel..gram. 1 Gm TP QID PRN 30 11/15/20 Reported apply to affected area(s) Acetaminophen 500 Mg Tablet 1,000 Mg PO Q6HRS PRN 11/15/20 Reported Vitamin A & D Ointment (Petrolatum,White/Lanolin) 113 Gm Oint...g. 113 Gm TP BID 11/15/20 Reported Apply to buttock topically as needed for irritaion Digoxin 125 Mcg Tablet 125 Mcg PO DAILY 05/28/20 Rx Polyethylene Glycol 3350 17 Gm Powd.pack 17 Gm PO DAILY 30 12/12/17 Rx Metoprolol Tartrate 50 Mg Tablet 50 Mg PO BID 12/12/17 Rx Furosemide 40 Mg Tablet 40 Mg PO DAILY 30 12/12/17 Rx Keppra (Levetiracetam) 250 Mg Tablet 250 Mg PO BID 30 12/01/17 Rx Calcium (Calcium Carbonate) 500 Mg Tab.chew 1,000 Mg PO BID 11/27/17 Reported Allopurinol 100 Mg Tablet 100 Mg PO DAILY 06/04/16 Reported Multi-Day Vitamins (Multivitamin) 1 Each Tablet 1 Tab PO DAILY 06/04/16 Reported Klor-Con M20 (Potassium Chloride) 20 Meq Tab.er.prt 20 Meq PO DAILY 06/04/16 Reported Colace (Docusate Sodium) 100 Mg Capsule 100 Mg Pe PO BID PRN 06/04/16 Reported Impression . Acute hypoxemic respiratory failure secondary to COVID-19 viral pneumonia ,positive on 11/11/20---, possible bacterial pneumonia Dyspnea due to above, improve Abnormal CXR Plan . PLAN: 1. We will continue support of IV steroids started on remdesivir per PCP 2. Continue empiric antibiotics. 3. Diurese Lasix x 1. Monitor urinary output and clinical response. 4. Continue home meds. 5. Continue DVT prophylaxis. IRAM OCASIO MD Nov 18, 2020 10:59
[2020-11-18 11:00] VITALS: BP 154/70
--- NOTE | 2020-11-18 11:57 | NUR ---
SS following up with discharge planning. SS reviewed pt chart and discussed with pt RN. Pt is currently requiring oxygen at three liters nasal canula. COVID19 positive. Pt on IV Zosyn and IV Remdesivir. Per RN, pt not eating well. Pt is LTC resident from [facility], ; fax [phone]. PT/OT recommended senior living unit. SS will continue to follow for discharge planning.
[2020-11-18] MEDS ORDERED: POTASSIUM BICARB 20 MEQ EFFERVESCENT TABLET. PO ONE (12:00)
[2020-11-18] MEDS: ONDANSETRON PF 4 MG/2 ML VIAL. IVP PRN (12:43)
--- NOTE | 2020-11-18 14:36 | NUR ---
1400 oral meds were not given, pt states she is "not feeling well enough" to take the pills. Zofran given for nausea. Will continue to monitor.
[2020-11-18 15:00] VITALS: BP 151/66
[2020-11-18] MEDS: REMDESIVIR 100mg in NORMAL SALINE 250ML X 4 DAYS IV SCH (18:16)
[2020-11-18] MEDS: LOPERAMIDE 2 MG CAPSULE PO PRN (18:16)
[2020-11-18 19:45] VITALS: BP 155/62
[2020-11-18] MEDS: LACTOBACILLUS RHAMNOSUS GG 1 CAPSULE. PO SCH (20:41)
[2020-11-18 22:10] VITALS: BP 158/72
[2020-11-19 02:36] VITALS: BP 143/75
[2020-11-19] MEDS: PIPERACILLIN/TAZOBACTAM 3.375 GM in IV NORMAL SALINE 50ML 50 ML IV SCH ×4 (05:35→23:18)
[2020-11-19] MEDS: THIAMINE 100 MG TABLET. PO SCH ×3 (05:36→20:26)
[2020-11-19 07:00] VITALS: BP 141/66
--- NOTE | 2020-11-19 07:32 | PDOC ---
[employer] PROGRESS NOTE Date of Service DOS: DATE: 11/19/20 TIME: 07:31 Chief Complaint Chief Complaint A/P: COVID-19 viral pneumonia that tested positive on 10/11/2020. Sepsis - leukopenia and tachypnea and febrile on admit, Acute COVID 19 infection - steroids, remdesivir Acute hypoxic respiratory failure, on 2 liters Acute systolic CHF, BNP elevation, exacerbated by the gentle IV fluid Severe protein calorie malnutrition Acute vasomotor nephropathy, dehydration Hypernatremia Elevated troponin - likely demand ischemia COPD Depression HTN Prior CVA FEN - General diet PPX - lovenox CODE - DNR/DNI Dispo - inpatient History of Present Illness History of Present Illness Ms Dean is an 85-year-old female care home SNF resident w/ PMHx prior CVA, HTN, COPD who was brought to ED from SNF for worsening hypoxia. She did test positive for COVID 19 on 11/11/20. Chest radiograph revealed diffuse bilateral airspace disease. Admitted with pulmonary consultation. 11/16: the 1./2 normal saline was stopped overnight for shortness of breath, sodium is better, cont to hold, may restart soon. cont the PO intake, doing well 11/17: Overnight afebrile. On 4L NCO2. Asking for water. Notes no appetite. K 3.1, Na 150. Initiated on remdesivir. 11/18: Overnight afebrile. Now on 3L NCO2. Still on dysphagia diet with thickened liquids, asking for water. Has significant diarrhea. Afebrile. Diarrhea resolved with Imodium. C. difficile negative. Overall she feels worse more weak. Asking for thin liquids. Shortness of breath stable choi s still have a cough. Plan: Cont current care F/u [employer] recs Add ProcalAmine Vitals/I&O Vitals/I&O: Vital Signs Date Time Temp Pulse Resp B/P (MAP) Pulse Ox O2 Delivery O2 Flow Rate FiO2 11/19/20 02:36 97.3 63 19 143/75 (97) 96 Nasal Cannula 4.0 97.3 I & O 11/18/20 11/18/20 11/19/20 15:00 23:00 07:00 Intake Total 50 ml 1330 ml 200 ml Output Total 700 ml 400 ml Balance 50 ml 630 ml -200 ml Physical Exam General: Alert, Cooperative, No acute distress Heart: Regular rate, Normal S2, Other (3/6 SAMI murmur,. l;eft sternal to apex) Lungs: Crackles Abdomen: Soft Skin: No rashes, No breakdown Labs Labs: Laboratory Tests Test 11/18/20 08:36 11/18/20 13:15 White Blood Count 4.5 x10^3/uL (4.0-11.0) Red Blood Count 4.45 x10^6/uL (3.50-5.40) Hemoglobin 13.3 g/dL (12.0-15.5) Hematocrit 40.9 % (36.0-47.0) Mean Corpuscular Volume 92 fL (79-100) Mean Corpuscular Hemoglobin 30 pg (25-35) Mean Corpuscular Hemoglobin Concent 33 g/dL (31-37) Red Cell Distribution Width 14.4 % (11.5-14.5) Platelet Count 131 x10^3/uL (140-400) Neutrophils (%) (Auto) 77 % (31-73) Lymphocytes (%) (Auto) 10 % (24-48) Monocytes (%) (Auto) 8 % (0-9) Eosinophils (%) (Auto) 4 % (0-3) Basophils (%) (Auto) 0 % (0-3) Neutrophils # (Auto) 3.5 x10^3/uL (1.8-7.7) Lymphocytes # (Auto) 0.5 x10^3/uL (1.0-4.8) Monocytes # (Auto) 0.4 x10^3/uL (0.0-1.1) Eosinophils # (Auto) 0.2 x10^3/uL (0.0-0.7) Basophils # (Auto) 0.0 x10^3/uL (0.0-0.2) Sodium Level 150 mmol/L (136-145) Potassium Level 3.2 mmol/L (3.5-5.1) Chloride Level 109 mmol/L (98-107) Carbon Dioxide Level 35 mmol/L (21-32) Anion Gap 6 (6-14) Blood Urea Nitrogen 47 mg/dL (7-20) Creatinine 1.2 mg/dL (0.6-1.0) Estimated GFR (Cockcroft-Gault) 42.5 BUN/Creatinine Ratio 39 (6-20) Glucose Level 96 mg/dL (70-99) Calcium Level 9.0 mg/dL (8.5-10.1) Total Bilirubin 0.8 mg/dL (0.2-1.0) Aspartate Amino Transf (AST/SGOT) 40 U/L (15-37) Alanine Aminotransferase (ALT/SGPT) 25 U/L (14-59) Alkaline Phosphatase 69 U/L (46-116) Total Protein 6.6 g/dL (6.4-8.2) Albumin 2.3 g/dL (3.4-5.0) Albumin/Globulin Ratio 0.5 (1.0-1.7) Clostridium difficile Toxin (PCR) Negative (NEGATIVE) Assessment and Plan Assessmemt and Plan Problems Medical Problems: (1) Altered mental status Status: Acute (2) COVID-19 virus RNA test result positive at limit of detection Status: Acute (3) Dehydration Status: Acute (4) Fever Status: Acute Comment Review of Relevant I have reviewed the following items jerrica (where applicable) has been applied. Medications: Current Medications Medications (Trade) Dose Ordered Sig/Chen Route PRN Reason Start Time Stop Time Status Last Admin Dose Admin Remdesivir 100 mg/ Sodium Chloride 230 ml @ 460 mls/hr Q24H IV 11/18/20 17:00 11/21/20 17:29 11/18/20 18:16 Potassium Bicarbonate (Potassium Effervescent Tablet) 40 meq 1X ONCE PO 11/18/20 12:00 11/18/20 12:01 DC 11/18/20 12:06 Loperamide HCl (Imodium) 2 mg PRN Q15MIN PRN PO DIARRHEA 11/18/20 15:30 11/18/20 18:16 Lactobacillus Rhamnosus (Culturelle) 1 cap BID PO 11/18/20 21:00 11/18/20 20:41 Justifications for Admission Other Justification covid infection QUANG COLEY MD Nov 19, 2020 07:32
[2020-11-19] MEDS: POLYETHYLENE GLYCOL 3350 17 GM PACKET. PO SCH (09:00)
[2020-11-19 10:16] LABS: BASO % 0 % (0-3); EOS # 0.1 x10^3/uL (0.0-0.7); EOS % 3 % (0-3); HEMATOCRIT 38.6 % (36.0-47.0); HEMOGLOBIN 12.8 g/dL (12.0-15.5); LYMPH # 0.5 x10^3/uL (1.0-4.8); LYMPH % 10 % (24-48); MEAN CORPUSCULAR HEMOGLOBIN 30 pg (25-35); MEAN CORPUSCULAR HGB CONC 33 g/dL (31-37); MEAN CORPUSCULAR VOLUME 91 fL (79-100); MONO # 0.4 x10^3/uL (0.0-1.1); MONO % 7 % (0-9); NEUT # 4.3 x10^3/uL (1.8-7.7); NEUT % 81 % (31-73); PLATELET COUNT 159 x10^3/uL (140-400); RED BLOOD COUNT 4.23 x10^6/uL (3.50-5.40); RED CELL DISTRIBUTION WIDTH 14.5 % (11.5-14.5); WHITE BLOOD COUNT 5.3 x10^3/uL (4.0-11.0)
[2020-11-19 10:17] LABS: ALBUMIN 2.2 g/dL (3.4-5.0); ALBUMIN/GLOBULIN RATIO 0.6 (1.0-1.7); CALCIUM 8.3 mg/dL (8.5-10.1); CREATININE 1.1 mg/dL (0.6-1.0); TOTAL BILIRUBIN 0.5 mg/dL (0.2-1.0); TOTAL PROTEIN 6.1 g/dL (6.4-8.2)
[2020-11-19] MEDS: LOPERAMIDE 2 MG CAPSULE PO PRN (10:21)
[2020-11-19] MEDS: LACTOBACILLUS RHAMNOSUS GG 1 CAPSULE. PO SCH ×2 (10:21→20:22)
[2020-11-19] MEDS: ZINC SULFATE 220 MG CAPSULE. PO SCH (10:21)
[2020-11-19] MEDS: ASCORBIC ACID 1,000 MG TABLET PO SCH ×3 (10:22→20:22)
[2020-11-19] MEDS: METOPROLOL TART IMMED RELEASE 50 MG TABLET. PO SCH ×2 (10:22→20:23)
[2020-11-19] MEDS: FLUoxetine HCL 20 MG CAPSULE PO SCH (10:22)
[2020-11-19] MEDS: levETIRAcetam 250 MG TABLET PO SCH ×2 (10:22→20:23)
[2020-11-19] MEDS: DIGOXIN 125 MCG TABLET. PO SCH (10:22)
[2020-11-19] MEDS: PANTOPRAZOLE 40 MG TABLET.DR. PO SCH (10:22)
--- NOTE | 2020-11-19 10:22 | PDOC ---
PULMONARY PROGRESS NOTES DATE: 11/19/20 TIME: 10:20 Subjective PT. remains weak no increased cough or SOA on 3 liters N/C Vitals Vital Signs Date Time Temp Pulse Resp B/P (MAP) Pulse Ox O2 Delivery O2 Flow Rate FiO2 11/19/20 07:00 96.9 60 18 141/66 (91) 94 Nasal Cannula 3.0 96.9 ROS: No Nausea, No Chest Pain, No Abdominal Pain, No Increase Cough General: Alert, No acute distress Lungs: Crackles Cardiovascular: S1 Abdomen: Soft Neuro Exam: Alert Extremities: No Edema Skin: Warm Labs Laboratory Tests Test 11/18/20 08:36 11/18/20 13:15 White Blood Count 4.5 x10^3/uL (4.0-11.0) Red Blood Count 4.45 x10^6/uL (3.50-5.40) Hemoglobin 13.3 g/dL (12.0-15.5) Hematocrit 40.9 % (36.0-47.0) Mean Corpuscular Volume 92 fL (79-100) Mean Corpuscular Hemoglobin 30 pg (25-35) Mean Corpuscular Hemoglobin Concent 33 g/dL (31-37) Red Cell Distribution Width 14.4 % (11.5-14.5) Platelet Count 131 x10^3/uL (140-400) Neutrophils (%) (Auto) 77 % (31-73) Lymphocytes (%) (Auto) 10 % (24-48) Monocytes (%) (Auto) 8 % (0-9) Eosinophils (%) (Auto) 4 % (0-3) Basophils (%) (Auto) 0 % (0-3) Neutrophils # (Auto) 3.5 x10^3/uL (1.8-7.7) Lymphocytes # (Auto) 0.5 x10^3/uL (1.0-4.8) Monocytes # (Auto) 0.4 x10^3/uL (0.0-1.1) Eosinophils # (Auto) 0.2 x10^3/uL (0.0-0.7) Basophils # (Auto) 0.0 x10^3/uL (0.0-0.2) Sodium Level 150 mmol/L (136-145) Potassium Level 3.2 mmol/L (3.5-5.1) Chloride Level 109 mmol/L (98-107) Carbon Dioxide Level 35 mmol/L (21-32) Anion Gap 6 (6-14) Blood Urea Nitrogen 47 mg/dL (7-20) Creatinine 1.2 mg/dL (0.6-1.0) Estimated GFR (Cockcroft-Gault) 42.5 BUN/Creatinine Ratio 39 (6-20) Glucose Level 96 mg/dL (70-99) Calcium Level 9.0 mg/dL (8.5-10.1) Total Bilirubin 0.8 mg/dL (0.2-1.0) Aspartate Amino Transf (AST/SGOT) 40 U/L (15-37) Alanine Aminotransferase (ALT/SGPT) 25 U/L (14-59) Alkaline Phosphatase 69 U/L (46-116) Total Protein 6.6 g/dL (6.4-8.2) Albumin 2.3 g/dL (3.4-5.0) Albumin/Globulin Ratio 0.5 (1.0-1.7) Clostridium difficile Toxin (PCR) Negative (NEGATIVE) Laboratory Tests Test 11/18/20 13:15 Clostridium difficile Toxin (PCR) Negative (NEGATIVE) Medications Active Scripts Medications Dose Route/Sig Max Daily Dose Days Date Category Dose Instructions [Cholecalciferol] 6,000 Intlu PO DAILY 11/15/20 Reported [zinc] 1 Tab DAILY 11/15/20 Reported Tramadol Hcl 50 Mg Tablet 50 Mg PO Q12HR 11/15/20 Reported Systane Ultra 0.4-0.3% Eye Drp (Propylene Glycol/Peg 400) 10 Ml Drops 1 Drop EACHEYE QID 11/15/20 Reported Omeprazole 20 Mg Capsule.dr 20 Mg PO DAILY 11/15/20 Reported Nitrostat (Nitroglycerin) 0.4 Mg Tab.subl 0.4 Mg SL PRN Q5MIN PRN 11/15/20 Reported Melatonin 10 Mg Tablet.er 10 Mg PO HS 11/15/20 Reported Maalox Advanced Suspension (Mag Hydrox/Aluminum Hyd/Simeth) 355 Ml Oral.susp 30 Ml PO Q2HR PRN 11/15/20 Reported Keppra (Levetiracetam) 250 Mg Tablet 250 Mg PO BID 11/15/20 Reported Fluoxetine Hcl 20 Mg Capsule 20 Mg PO DAILY 11/15/20 Reported Voltaren (Diclofenac Sodium) 100 Gm Gel..gram. 1 Gm TP QID PRN 30 11/15/20 Reported apply to affected area(s) Acetaminophen 500 Mg Tablet 1,000 Mg PO Q6HRS PRN 11/15/20 Reported Vitamin A & D Ointment (Petrolatum,White/Lanolin) 113 Gm Oint...g. 113 Gm TP BID 11/15/20 Reported Apply to buttock topically as needed for irritaion Digoxin 125 Mcg Tablet 125 Mcg PO DAILY 05/28/20 Rx Polyethylene Glycol 3350 17 Gm Powd.pack 17 Gm PO DAILY 30 12/12/17 Rx Metoprolol Tartrate 50 Mg Tablet 50 Mg PO BID 12/12/17 Rx Furosemide 40 Mg Tablet 40 Mg PO DAILY 30 12/12/17 Rx Keppra (Levetiracetam) 250 Mg Tablet 250 Mg PO BID 30 12/01/17 Rx Calcium (Calcium Carbonate) 500 Mg Tab.chew 1,000 Mg PO BID 11/27/17 Reported Allopurinol 100 Mg Tablet 100 Mg PO DAILY 06/04/16 Reported Multi-Day Vitamins (Multivitamin) 1 Each Tablet 1 Tab PO DAILY 06/04/16 Reported Klor-Con M20 (Potassium Chloride) 20 Meq Tab.er.prt 20 Meq PO DAILY 06/04/16 Reported Colace (Docusate Sodium) 100 Mg Capsule 100 Mg Pe PO BID PRN 06/04/16 Reported Impression . Acute hypoxemic respiratory failure secondary to COVID-19 viral pneumonia ,positive on 11/11/20---, possible bacterial pneumonia Dyspnea due to above, improve Abnormal CXR Plan . PLAN: Continue supplemental oxygent o keep sat above 92%, on 3 liters N/C Continue steroids will need full 10 day course Cotninue ABX: on Zoysn Continue remdesivir for full course Continue PPN for additional nutritional support DVT/GI PPX PT/OT D/W RN and RT PT. is IRAM MADRID MD Nov 19, 2020 10:22
[2020-11-19 10:23] LABS: POTASSIUM 2.7 mmol/L (3.5-5.1)
[2020-11-19] MEDS: ENOXAPARIN 40 MG/0.4 ML SYRINGE. SQ SCH ×2 (10:23→20:22)
[2020-11-19] MEDS: AMINO AC 3%/ELECTROLYTE/GLYCER 1,000 ML IV SCH ×2 (10:23→20:20)
[2020-11-19] MEDS: DEXAMETHASONE SOD PHOS 4 MG/ML VIAL IVP SCH (10:23)
[2020-11-19] MEDS: POLYVINYL ALCOHOL 1.4% OPHTH SOLUTION 15ML BOTTLE. OU SCH ×4 (10:23→20:42)
[2020-11-19 10:52] VITALS: BP 147/63
--- NOTE | 2020-11-19 12:24 | NUR ---
SS following up with discharge planning. SS reviewed pt chart and discussed with pt RN. Pt is currently requiring oxygen at three liters nasal canula. COVID19 positive. Pt on PPN, IV Zosyn, and IV Remdesivir. SS will continue to follow for discharge planning.
[2020-11-19 14:59] VITALS: BP 150/70
[2020-11-19] MEDS ORDERED: POTASSIUM BICARB 20 MEQ EFFERVESCENT TABLET. PO ONE (15:15)
[2020-11-19] MEDS: POTASSIUM CHLORIDE 10MEQ 100 ML IV SCH ×4 (15:29→20:21)
[2020-11-19] MEDS: REMDESIVIR 100mg in NORMAL SALINE 250ML X 4 DAYS IV SCH (16:58)
[2020-11-19 19:50] VITALS: BP 141/57
[2020-11-19 22:50] VITALS: BP 169/72
[2020-11-20] VITALS (7 sets, daily range): BP systolic 155–193; BP diastolic 63–77
[2020-11-20] MEDS: PIPERACILLIN/TAZOBACTAM 3.375 GM in IV NORMAL SALINE 50ML 50 ML IV SCH ×3 (05:05→17:48)
[2020-11-20] MEDS: THIAMINE 100 MG TABLET. PO SCH ×3 (05:05→22:22)
[2020-11-20] MEDS: PANTOPRAZOLE 40 MG TABLET.DR. PO SCH ×2 (05:06→08:39)
[2020-11-20] MEDS: ONDANSETRON PF 4 MG/2 ML VIAL. IVP PRN (06:04)
[2020-11-20 06:45] LABS: BASO % 0 % (0-3); EOS # 0.1 x10^3/uL (0.0-0.7); EOS % 3 % (0-3); HEMATOCRIT 37.6 % (36.0-47.0); HEMOGLOBIN 12.4 g/dL (12.0-15.5); LYMPH # 0.4 x10^3/uL (1.0-4.8); LYMPH % 10 % (24-48); MEAN CORPUSCULAR HEMOGLOBIN 30 pg (25-35); MEAN CORPUSCULAR HGB CONC 33 g/dL (31-37); MEAN CORPUSCULAR VOLUME 92 fL (79-100); MONO # 0.3 x10^3/uL (0.0-1.1); MONO % 7 % (0-9); NEUT # 3.4 x10^3/uL (1.8-7.7); NEUT % 80 % (31-73); PLATELET COUNT 148 x10^3/uL (140-400); RED BLOOD COUNT 4.12 x10^6/uL (3.50-5.40); RED CELL DISTRIBUTION WIDTH 14.7 % (11.5-14.5); WHITE BLOOD COUNT 4.3 x10^3/uL (4.0-11.0)
[2020-11-20 06:58] LABS: MAGNESIUM 2.4 mg/dL (1.8-2.4); PHOSPHORUS 2.2 mg/dL (2.6-4.7)
[2020-11-20 06:59] LABS: ALBUMIN/GLOBULIN RATIO 0.5 (1.0-1.7); CALCIUM 8.4 mg/dL (8.5-10.1); CREATININE 0.8 mg/dL (0.6-1.0); GFR 67.8; POTASSIUM 4.2 mmol/L (3.5-5.1); TOTAL BILIRUBIN 0.5 mg/dL (0.2-1.0); TOTAL PROTEIN 6.1 g/dL (6.4-8.2)
--- NOTE | 2020-11-20 08:18 | PDOC ---
[employer] PROGRESS NOTE Date of Service DOS: DATE: 11/20/20 TIME: 08:15 Chief Complaint Chief Complaint A/P: COVID-19 viral pneumonia that tested positive on 10/11/2020. Sepsis - leukopenia and tachypnea and febrile on admit, Acute COVID 19 infection - steroids, remdesivir Acute hypoxic respiratory failure, on 2 liters Acute systolic CHF, BNP elevation, exacerbated by the gentle IV fluid Severe protein calorie malnutrition Acute vasomotor nephropathy, dehydration Hypernatremia Elevated troponin - likely demand ischemia COPD Depression HTN Prior CVA FEN - General diet PPX - lovenox CODE - DNR/DNI Dispo - inpatient History of Present Illness History of Present Illness Ms Dean is an 85-year-old female [facility] resident w/ PMHx prior CVA, HTN, COPD who was brought to ED from SNF for worsening hypoxia. She did test positive for COVID 19 on 11/11/20. Chest radiograph revealed diffuse bilateral airspace disease. Admitted with pulmonary consultation. 11/16: the 1./2 normal saline was stopped overnight for shortness of breath, sodium is better, cont to hold, may restart soon. cont the PO intake, doing well 11/17: Overnight afebrile. On 4L NCO2. Asking for water. Notes no appetite. K 3.1, Na 150. Initiated on remdesivir. 11/18: Overnight afebrile. Now on 3L NCO2. Still on dysphagia diet with thickened liquids, asking for water. Has significant diarrhea. 11/19: Afebrile. Diarrhea resolved with Imodium. C. difficile negative. Overall she feels worse more weak. Asking for thin liquids. Shortness of breath stable does still have a cough. Afebrile overnight. Still weak. Failed to tolerate thin liquids without aspiration. Still on 3L NCO2 Plan: Cont current care F/u [employer] recs Add ProcalAmine Vitals/I&O Vitals/I&O: Vital Signs Date Time Temp Pulse Resp B/P (MAP) Pulse Ox O2 Delivery O2 Flow Rate FiO2 11/20/20 04:34 60 175/76 (109) 11/20/20 03:10 97.2 22 93 Nasal Cannula 2.0 97.2 I & O 11/19/20 11/19/20 11/20/20 15:00 23:00 07:00 Intake Total 487 ml 560 ml 150 ml Output Total 500 ml Balance 487 ml 60 ml 150 ml Physical Exam General: Alert, Cooperative, No acute distress Heart: Regular rate, Normal S2, Other (3/6 SAMI murmur,. l;eft sternal to apex) Lungs: Crackles Abdomen: Soft Skin: No rashes, No breakdown Labs Labs: Laboratory Tests Test 11/19/20 09:25 11/20/20 05:30 White Blood Count 5.3 x10^3/uL (4.0-11.0) 4.3 x10^3/uL (4.0-11.0) Red Blood Count 4.23 x10^6/uL (3.50-5.40) 4.12 x10^6/uL (3.50-5.40) Hemoglobin 12.8 g/dL (12.0-15.5) 12.4 g/dL (12.0-15.5) Hematocrit 38.6 % (36.0-47.0) 37.6 % (36.0-47.0) Mean Corpuscular Volume 91 fL (79-100) 92 fL (79-100) Mean Corpuscular Hemoglobin 30 pg (25-35) 30 pg (25-35) Mean Corpuscular Hemoglobin Concent 33 g/dL (31-37) 33 g/dL (31-37) Red Cell Distribution Width 14.5 % (11.5-14.5) 14.7 % (11.5-14.5) Platelet Count 159 x10^3/uL (140-400) 148 x10^3/uL (140-400) Neutrophils (%) (Auto) 81 % (31-73) 80 % (31-73) Lymphocytes (%) (Auto) 10 % (24-48) 10 % (24-48) Monocytes (%) (Auto) 7 % (0-9) 7 % (0-9) Eosinophils (%) (Auto) 3 % (0-3) 3 % (0-3) Basophils (%) (Auto) 0 % (0-3) 0 % (0-3) Neutrophils # (Auto) 4.3 x10^3/uL (1.8-7.7) 3.4 x10^3/uL (1.8-7.7) Lymphocytes # (Auto) 0.5 x10^3/uL (1.0-4.8) 0.4 x10^3/uL (1.0-4.8) Monocytes # (Auto) 0.4 x10^3/uL (0.0-1.1) 0.3 x10^3/uL (0.0-1.1) Eosinophils # (Auto) 0.1 x10^3/uL (0.0-0.7) 0.1 x10^3/uL (0.0-0.7) Basophils # (Auto) 0.0 x10^3/uL (0.0-0.2) 0.0 x10^3/uL (0.0-0.2) Sodium Level 148 mmol/L (136-145) 147 mmol/L (136-145) Potassium Level 2.7 mmol/L (3.5-5.1) 4.2 mmol/L (3.5-5.1) Chloride Level 109 mmol/L (98-107) 110 mmol/L (98-107) Carbon Dioxide Level 31 mmol/L (21-32) 29 mmol/L (21-32) Anion Gap 8 (6-14) 8 (6-14) Blood Urea Nitrogen 43 mg/dL (7-20) 35 mg/dL (7-20) Creatinine 1.1 mg/dL (0.6-1.0) 0.8 mg/dL (0.6-1.0) Estimated GFR (Cockcroft-Gault) 47.0 67.8 BUN/Creatinine Ratio 39 (6-20) 44 (6-20) Glucose Level 137 mg/dL (70-99) 97 mg/dL (70-99) Calcium Level 8.3 mg/dL (8.5-10.1) 8.4 mg/dL (8.5-10.1) Total Bilirubin 0.5 mg/dL (0.2-1.0) 0.5 mg/dL (0.2-1.0) Aspartate Amino Transf (AST/SGOT) 29 U/L (15-37) 42 U/L (15-37) Alanine Aminotransferase (ALT/SGPT) 21 U/L (14-59) 23 U/L (14-59) Alkaline Phosphatase 63 U/L (46-116) 65 U/L (46-116) Total Protein 6.1 g/dL (6.4-8.2) 6.1 g/dL (6.4-8.2) Albumin 2.2 g/dL (3.4-5.0) 2.0 g/dL (3.4-5.0) Albumin/Globulin Ratio 0.6 (1.0-1.7) 0.5 (1.0-1.7) Phosphorus Level 2.2 mg/dL (2.6-4.7) Magnesium Level 2.4 mg/dL (1.8-2.4) Assessment and Plan Assessmemt and Plan Problems Medical Problems: (1) Altered mental status Status: Acute (2) COVID-19 virus RNA test result positive at limit of detection Status: Acute (3) Dehydration Status: Acute (4) Fever Status: Acute Comment Review of Relevant I have reviewed the following items jerrica (where applicable) has been applied. Medications: Current Medications Medications (Trade) Dose Ordered Sig/Chen Route PRN Reason Start Time Stop Time Status Last Admin Dose Admin Amino Acids/ Glycerin/ Electrolytes 1,000 ml @ 80 mls/hr [id number] IV 11/19/20 08:45 11/19/20 20:20 Potassium Bicarbonate (Potassium Effervescent Tablet) 40 meq 1X ONCE PO 11/19/20 15:15 11/19/20 15:16 DC 11/19/20 16:30 Potassium Chloride/Water 100 ml @ 100 mls/hr Q1H IV 11/19/20 15:15 11/19/20 19:14 DC 11/19/20 20:21 Justifications for Admission Other Justification covid infection QUANG COLEY MD Nov 20, 2020 08:18
[2020-11-20] MEDS: LACTOBACILLUS RHAMNOSUS GG 1 CAPSULE. PO SCH ×2 (08:38→22:13)
[2020-11-20] MEDS: levETIRAcetam 250 MG TABLET PO SCH ×2 (08:38→22:14)
[2020-11-20] MEDS: ASCORBIC ACID 1,000 MG TABLET PO SCH ×3 (08:38→22:14)
[2020-11-20] MEDS: ENOXAPARIN 40 MG/0.4 ML SYRINGE. SQ SCH ×2 (08:38→22:13)
[2020-11-20] MEDS: DEXAMETHASONE SOD PHOS 4 MG/ML VIAL IVP SCH (08:39)
[2020-11-20] MEDS: ZINC SULFATE 220 MG CAPSULE. PO SCH (08:39)
[2020-11-20] MEDS: DIGOXIN 125 MCG TABLET. PO SCH (08:39)
[2020-11-20] MEDS: POLYVINYL ALCOHOL 1.4% OPHTH SOLUTION 15ML BOTTLE. OU SCH ×4 (08:39→21:00)
[2020-11-20] MEDS: METOPROLOL TART IMMED RELEASE 50 MG TABLET. PO SCH ×2 (08:39→22:14)
[2020-11-20] MEDS: FLUoxetine HCL 20 MG CAPSULE PO SCH (08:39)
[2020-11-20] MEDS: POLYETHYLENE GLYCOL 3350 17 GM PACKET. PO SCH (09:00)
[2020-11-20] MEDS ORDERED: hydrALAZINE 20 MG/ML VIAL. IVP PRN (10:45)
--- NOTE | 2020-11-20 10:46 | PDOC ---
PULMONARY PROGRESS NOTES DATE: 11/20/20 TIME: 10:43 Subjective Remains on 2 liters N/C afebrile no increased SOB or Cough remains weak Vitals Vital Signs Date Time Temp Pulse Resp B/P (MAP) Pulse Ox O2 Delivery O2 Flow Rate FiO2 11/20/20 08:39 61 160/63 11/20/20 08:00 Nasal Cannula 2.0 11/20/20 07:20 97.2 20 94 97.2 ROS: No Nausea, No Chest Pain, No Abdominal Pain, No Increase Cough General: Alert, No acute distress Lungs: Clear Cardiovascular: S1, S2 Abdomen: Soft, Non-tender Neuro Exam: Alert Extremities: No Edema Skin: Warm Labs Laboratory Tests Test 11/18/20 13:15 11/19/20 09:25 11/20/20 05:30 Clostridium difficile Toxin (PCR) Negative (NEGATIVE) White Blood Count 5.3 x10^3/uL (4.0-11.0) 4.3 x10^3/uL (4.0-11.0) Red Blood Count 4.23 x10^6/uL (3.50-5.40) 4.12 x10^6/uL (3.50-5.40) Hemoglobin 12.8 g/dL (12.0-15.5) 12.4 g/dL (12.0-15.5) Hematocrit 38.6 % (36.0-47.0) 37.6 % (36.0-47.0) Mean Corpuscular Volume 91 fL (79-100) 92 fL (79-100) Mean Corpuscular Hemoglobin 30 pg (25-35) 30 pg (25-35) Mean Corpuscular Hemoglobin Concent 33 g/dL (31-37) 33 g/dL (31-37) Red Cell Distribution Width 14.5 % (11.5-14.5) 14.7 % (11.5-14.5) Platelet Count 159 x10^3/uL (140-400) 148 x10^3/uL (140-400) Neutrophils (%) (Auto) 81 % (31-73) 80 % (31-73) Lymphocytes (%) (Auto) 10 % (24-48) 10 % (24-48) Monocytes (%) (Auto) 7 % (0-9) 7 % (0-9) Eosinophils (%) (Auto) 3 % (0-3) 3 % (0-3) Basophils (%) (Auto) 0 % (0-3) 0 % (0-3) Neutrophils # (Auto) 4.3 x10^3/uL (1.8-7.7) 3.4 x10^3/uL (1.8-7.7) Lymphocytes # (Auto) 0.5 x10^3/uL (1.0-4.8) 0.4 x10^3/uL (1.0-4.8) Monocytes # (Auto) 0.4 x10^3/uL (0.0-1.1) 0.3 x10^3/uL (0.0-1.1) Eosinophils # (Auto) 0.1 x10^3/uL (0.0-0.7) 0.1 x10^3/uL (0.0-0.7) Basophils # (Auto) 0.0 x10^3/uL (0.0-0.2) 0.0 x10^3/uL (0.0-0.2) Sodium Level 148 mmol/L (136-145) 147 mmol/L (136-145) Potassium Level 2.7 mmol/L (3.5-5.1) 4.2 mmol/L (3.5-5.1) Chloride Level 109 mmol/L (98-107) 110 mmol/L (98-107) Carbon Dioxide Level 31 mmol/L (21-32) 29 mmol/L (21-32) Anion Gap 8 (6-14) 8 (6-14) Blood Urea Nitrogen 43 mg/dL (7-20) 35 mg/dL (7-20) Creatinine 1.1 mg/dL (0.6-1.0) 0.8 mg/dL (0.6-1.0) Estimated GFR (Cockcroft-Gault) 47.0 67.8 BUN/Creatinine Ratio 39 (6-20) 44 (6-20) Glucose Level 137 mg/dL (70-99) 97 mg/dL (70-99) Calcium Level 8.3 mg/dL (8.5-10.1) 8.4 mg/dL (8.5-10.1) Total Bilirubin 0.5 mg/dL (0.2-1.0) 0.5 mg/dL (0.2-1.0) Aspartate Amino Transf (AST/SGOT) 29 U/L (15-37) 42 U/L (15-37) Alanine Aminotransferase (ALT/SGPT) 21 U/L (14-59) 23 U/L (14-59) Alkaline Phosphatase 63 U/L (46-116) 65 U/L (46-116) Total Protein 6.1 g/dL (6.4-8.2) 6.1 g/dL (6.4-8.2) Albumin 2.2 g/dL (3.4-5.0) 2.0 g/dL (3.4-5.0) Albumin/Globulin Ratio 0.6 (1.0-1.7) 0.5 (1.0-1.7) Phosphorus Level 2.2 mg/dL (2.6-4.7) Magnesium Level 2.4 mg/dL (1.8-2.4) Laboratory Tests Test 11/20/20 05:30 White Blood Count 4.3 x10^3/uL (4.0-11.0) Red Blood Count 4.12 x10^6/uL (3.50-5.40) Hemoglobin 12.4 g/dL (12.0-15.5) Hematocrit 37.6 % (36.0-47.0) Mean Corpuscular Volume 92 fL (79-100) Mean Corpuscular Hemoglobin 30 pg (25-35) Mean Corpuscular Hemoglobin Concent 33 g/dL (31-37) Red Cell Distribution Width 14.7 % (11.5-14.5) Platelet Count 148 x10^3/uL (140-400) Neutrophils (%) (Auto) 80 % (31-73) Lymphocytes (%) (Auto) 10 % (24-48) Monocytes (%) (Auto) 7 % (0-9) Eosinophils (%) (Auto) 3 % (0-3) Basophils (%) (Auto) 0 % (0-3) Neutrophils # (Auto) 3.4 x10^3/uL (1.8-7.7) Lymphocytes # (Auto) 0.4 x10^3/uL (1.0-4.8) Monocytes # (Auto) 0.3 x10^3/uL (0.0-1.1) Eosinophils # (Auto) 0.1 x10^3/uL (0.0-0.7) Basophils # (Auto) 0.0 x10^3/uL (0.0-0.2) Sodium Level 147 mmol/L (136-145) Potassium Level 4.2 mmol/L (3.5-5.1) Chloride Level 110 mmol/L (98-107) Carbon Dioxide Level 29 mmol/L (21-32) Anion Gap 8 (6-14) Blood Urea Nitrogen 35 mg/dL (7-20) Creatinine 0.8 mg/dL (0.6-1.0) Estimated GFR (Cockcroft-Gault) 67.8 BUN/Creatinine Ratio 44 (6-20) Glucose Level 97 mg/dL (70-99) Calcium Level 8.4 mg/dL (8.5-10.1) Phosphorus Level 2.2 mg/dL (2.6-4.7) Magnesium Level 2.4 mg/dL (1.8-2.4) Total Bilirubin 0.5 mg/dL (0.2-1.0) Aspartate Amino Transf (AST/SGOT) 42 U/L (15-37) Alanine Aminotransferase (ALT/SGPT) 23 U/L (14-59) Alkaline Phosphatase 65 U/L (46-116) Total Protein 6.1 g/dL (6.4-8.2) Albumin 2.0 g/dL (3.4-5.0) Albumin/Globulin Ratio 0.5 (1.0-1.7) Medications Active Scripts Medications Dose Route/Sig Max Daily Dose Days Date Category Dose Instructions [Cholecalciferol] 6,000 Intlu PO DAILY 11/15/20 Reported [zinc] 1 Tab DAILY 11/15/20 Reported Tramadol Hcl 50 Mg Tablet 50 Mg PO Q12HR 11/15/20 Reported Systane Ultra 0.4-0.3% Eye Drp (Propylene Glycol/Peg 400) 10 Ml Drops 1 Drop EACHEYE QID 11/15/20 Reported Omeprazole 20 Mg Capsule.dr 20 Mg PO DAILY 11/15/20 Reported Nitrostat (Nitroglycerin) 0.4 Mg Tab.subl 0.4 Mg SL PRN Q5MIN PRN 11/15/20 Reported Melatonin 10 Mg Tablet.er 10 Mg PO HS 11/15/20 Reported Maalox Advanced Suspension (Mag Hydrox/Aluminum Hyd/Simeth) 355 Ml Oral.susp 30 Ml PO Q2HR PRN 11/15/20 Reported Keppra (Levetiracetam) 250 Mg Tablet 250 Mg PO BID 11/15/20 Reported Fluoxetine Hcl 20 Mg Capsule 20 Mg PO DAILY 11/15/20 Reported Voltaren (Diclofenac Sodium) 100 Gm Gel..gram. 1 Gm TP QID PRN 30 11/15/20 Reported apply to affected area(s) Acetaminophen 500 Mg Tablet 1,000 Mg PO Q6HRS PRN 11/15/20 Reported Vitamin A & D Ointment (Petrolatum,White/Lanolin) 113 Gm Oint...g. 113 Gm TP BID 11/15/20 Reported Apply to buttock topically as needed for irritaion Digoxin 125 Mcg Tablet 125 Mcg PO DAILY 05/28/20 Rx Polyethylene Glycol 3350 17 Gm Powd.pack 17 Gm PO DAILY 30 12/12/17 Rx Metoprolol Tartrate 50 Mg Tablet 50 Mg PO BID 12/12/17 Rx Furosemide 40 Mg Tablet 40 Mg PO DAILY 30 12/12/17 Rx Keppra (Levetiracetam) 250 Mg Tablet 250 Mg PO BID 30 12/01/17 Rx Calcium (Calcium Carbonate) 500 Mg Tab.chew 1,000 Mg PO BID 11/27/17 Reported Allopurinol 100 Mg Tablet 100 Mg PO DAILY 06/04/16 Reported Multi-Day Vitamins (Multivitamin) 1 Each Tablet 1 Tab PO DAILY 06/04/16 Reported Klor-Con M20 (Potassium Chloride) 20 Meq Tab.er.prt 20 Meq PO DAILY 06/04/16 Reported Colace (Docusate Sodium) 100 Mg Capsule 100 Mg Pe PO BID PRN 06/04/16 Reported Comments CXR IMPRESSION: Diffuse bilateral airspace disease, may relate to edema or atypical infectious process. Impression . Acute hypoxemic respiratory failure secondary to COVID-19 viral pneumonia ,positive on 11/11/20---, possible bacterial pneumonia Dyspnea due to above, improve Abnormal CXR HTN Plan . PLAN: Continue supplemental oxygent o keep sat above 92%, on 2 liters N/C Continue steroids will need full 10 day course, started on 11/15/20 Cotninue ABX: on Zoysn Continue remdesivir for full course Continue PPN for additional nutritional support, in addition to po intake HTN per PCP DVT/GI PPX PT/OT D/W RN and RT PT. is DNR IRAM OCASIO MD Nov 20, 2020 10:45
[2020-11-20] MEDS: LOPERAMIDE 2 MG CAPSULE PO PRN (15:04)
--- NOTE | 2020-11-20 15:04 | NUR ---
SS following up with discharge planning. SS reviewed pt chart and discussed with pt RN. Pt is currently requiring oxygen at two liters nasal canula. COVID19 positive. Pt on PPN, IV Zosyn, and IV Remdesivir. Pt is [facility] resident from [facility], ; fax [phone]. SS will continue to follow for discharge planning.
[2020-11-20] MEDS: REMDESIVIR 100mg in NORMAL SALINE 250ML X 4 DAYS IV SCH (16:51)
[2020-11-20] MEDS: AMINO AC 3%/ELECTROLYTE/GLYCER 1,000 ML IV SCH ×2 (22:14→22:23)
[2020-11-21] MEDS: PIPERACILLIN/TAZOBACTAM 3.375 GM in IV NORMAL SALINE 50ML 50 ML IV SCH ×5 (00:16→23:57)
[2020-11-21 03:40] VITALS: BP 196/68
[2020-11-21] MEDS: THIAMINE 100 MG TABLET. PO SCH ×3 (06:09→21:51)
--- NOTE | 2020-11-21 06:33 | PDOC ---
PULMONARY PROGRESS NOTES DATE: 11/21/20 TIME: 06:32 Subjective Remains on 2 liters N/C afebrile sob better remains weak Vitals Vital Signs Date Time Temp Pulse Resp B/P (MAP) Pulse Ox O2 Delivery O2 Flow Rate FiO2 11/21/20 03:40 96.5 60 28 196/68 (110) 93 Nasal Cannula 3.0 96.5 ROS: No Nausea, No Chest Pain, No Abdominal Pain, No Increase Cough General: Alert, No acute distress Lungs: Clear Cardiovascular: S1, S2 Abdomen: Soft, Non-tender Neuro Exam: Alert Extremities: No Edema Skin: Warm Labs Laboratory Tests Test 11/19/20 09:25 11/20/20 05:30 White Blood Count 5.3 x10^3/uL (4.0-11.0) 4.3 x10^3/uL (4.0-11.0) Red Blood Count 4.23 x10^6/uL (3.50-5.40) 4.12 x10^6/uL (3.50-5.40) Hemoglobin 12.8 g/dL (12.0-15.5) 12.4 g/dL (12.0-15.5) Hematocrit 38.6 % (36.0-47.0) 37.6 % (36.0-47.0) Mean Corpuscular Volume 91 fL (79-100) 92 fL (79-100) Mean Corpuscular Hemoglobin 30 pg (25-35) 30 pg (25-35) Mean Corpuscular Hemoglobin Concent 33 g/dL (31-37) 33 g/dL (31-37) Red Cell Distribution Width 14.5 % (11.5-14.5) 14.7 % (11.5-14.5) Platelet Count 159 x10^3/uL (140-400) 148 x10^3/uL (140-400) Neutrophils (%) (Auto) 81 % (31-73) 80 % (31-73) Lymphocytes (%) (Auto) 10 % (24-48) 10 % (24-48) Monocytes (%) (Auto) 7 % (0-9) 7 % (0-9) Eosinophils (%) (Auto) 3 % (0-3) 3 % (0-3) Basophils (%) (Auto) 0 % (0-3) 0 % (0-3) Neutrophils # (Auto) 4.3 x10^3/uL (1.8-7.7) 3.4 x10^3/uL (1.8-7.7) Lymphocytes # (Auto) 0.5 x10^3/uL (1.0-4.8) 0.4 x10^3/uL (1.0-4.8) Monocytes # (Auto) 0.4 x10^3/uL (0.0-1.1) 0.3 x10^3/uL (0.0-1.1) Eosinophils # (Auto) 0.1 x10^3/uL (0.0-0.7) 0.1 x10^3/uL (0.0-0.7) Basophils # (Auto) 0.0 x10^3/uL (0.0-0.2) 0.0 x10^3/uL (0.0-0.2) Sodium Level 148 mmol/L (136-145) 147 mmol/L (136-145) Potassium Level 2.7 mmol/L (3.5-5.1) 4.2 mmol/L (3.5-5.1) Chloride Level 109 mmol/L (98-107) 110 mmol/L (98-107) Carbon Dioxide Level 31 mmol/L (21-32) 29 mmol/L (21-32) Anion Gap 8 (6-14) 8 (6-14) Blood Urea Nitrogen 43 mg/dL (7-20) 35 mg/dL (7-20) Creatinine 1.1 mg/dL (0.6-1.0) 0.8 mg/dL (0.6-1.0) Estimated GFR (Cockcroft-Gault) 47.0 67.8 BUN/Creatinine Ratio 39 (6-20) 44 (6-20) Glucose Level 137 mg/dL (70-99) 97 mg/dL (70-99) Calcium Level 8.3 mg/dL (8.5-10.1) 8.4 mg/dL (8.5-10.1) Total Bilirubin 0.5 mg/dL (0.2-1.0) 0.5 mg/dL (0.2-1.0) Aspartate Amino Transf (AST/SGOT) 29 U/L (15-37) 42 U/L (15-37) Alanine Aminotransferase (ALT/SGPT) 21 U/L (14-59) 23 U/L (14-59) Alkaline Phosphatase 63 U/L (46-116) 65 U/L (46-116) Total Protein 6.1 g/dL (6.4-8.2) 6.1 g/dL (6.4-8.2) Albumin 2.2 g/dL (3.4-5.0) 2.0 g/dL (3.4-5.0) Albumin/Globulin Ratio 0.6 (1.0-1.7) 0.5 (1.0-1.7) Phosphorus Level 2.2 mg/dL (2.6-4.7) Magnesium Level 2.4 mg/dL (1.8-2.4) Medications Active Scripts Medications Dose Route/Sig Max Daily Dose Days Date Category Dose Instructions [Cholecalciferol] 6,000 Intlu PO DAILY 11/15/20 Reported [zinc] 1 Tab DAILY 11/15/20 Reported Tramadol Hcl 50 Mg Tablet 50 Mg PO Q12HR 11/15/20 Reported Systane Ultra 0.4-0.3% Eye Drp (Propylene Glycol/Peg 400) 10 Ml Drops 1 Drop EACHEYE QID 11/15/20 Reported Omeprazole 20 Mg Capsule.dr 20 Mg PO DAILY 11/15/20 Reported Nitrostat (Nitroglycerin) 0.4 Mg Tab.subl 0.4 Mg SL PRN Q5MIN PRN 11/15/20 Reported Melatonin 10 Mg Tablet.er 10 Mg PO HS 11/15/20 Reported Maalox Advanced Suspension (Mag Hydrox/Aluminum Hyd/Simeth) 355 Ml Oral.susp 30 Ml PO Q2HR PRN 11/15/20 Reported Keppra (Levetiracetam) 250 Mg Tablet 250 Mg PO BID 11/15/20 Reported Fluoxetine Hcl 20 Mg Capsule 20 Mg PO DAILY 11/15/20 Reported Voltaren (Diclofenac Sodium) 100 Gm Gel..gram. 1 Gm TP QID PRN 30 11/15/20 Reported apply to affected area(s) Acetaminophen 500 Mg Tablet 1,000 Mg PO Q6HRS PRN 11/15/20 Reported Vitamin A & D Ointment (Petrolatum,White/Lanolin) 113 Gm Oint...g. 113 Gm TP BID 11/15/20 Reported Apply to buttock topically as needed for irritaion Digoxin 125 Mcg Tablet 125 Mcg PO DAILY 05/28/20 Rx Polyethylene Glycol 3350 17 Gm Powd.pack 17 Gm PO DAILY 30 12/12/17 Rx Metoprolol Tartrate 50 Mg Tablet 50 Mg PO BID 12/12/17 Rx Furosemide 40 Mg Tablet 40 Mg PO DAILY 30 12/12/17 Rx Keppra (Levetiracetam) 250 Mg Tablet 250 Mg PO BID 30 12/01/17 Rx Calcium (Calcium Carbonate) 500 Mg Tab.chew 1,000 Mg PO BID 11/27/17 Reported Allopurinol 100 Mg Tablet 100 Mg PO DAILY 06/04/16 Reported Multi-Day Vitamins (Multivitamin) 1 Each Tablet 1 Tab PO DAILY 06/04/16 Reported Klor-Con M20 (Potassium Chloride) 20 Meq Tab.er.prt 20 Meq PO DAILY 06/04/16 Reported Colace (Docusate Sodium) 100 Mg Capsule 100 Mg Pe PO BID PRN 06/04/16 Reported Comments CXR IMPRESSION: Diffuse bilateral airspace disease, may relate to edema or atypical infectious process. Impression . Acute hypoxemic respiratory failure secondary to COVID-19 viral pneumonia ,positive on 11/11/20---, possible bacterial pneumonia Dyspnea due to above, improve Abnormal CXR HTN Plan . PLAN: Continue supplemental oxygent sat keep sat 90%, on 2 liters N/C Continue steroids will need full 10 day course, started on 11/15/20 Cotninue ABX: on Zoysn Continue remdesivir for full course Continue PPN for additional nutritional support, in addition to po intake HTN per PCP DVT/GI PPX PT/OT D/W RN and RT PT. is DNR RUBEN NIEVES MD Nov 21, 2020 06:33
[2020-11-21 07:00] VITALS: BP 174/75
[2020-11-21] MEDS: PANTOPRAZOLE 40 MG TABLET.DR. PO SCH (08:38)
[2020-11-21] MEDS: LACTOBACILLUS RHAMNOSUS GG 1 CAPSULE. PO SCH ×2 (08:39→21:51)
[2020-11-21] MEDS: ASCORBIC ACID 1,000 MG TABLET PO SCH ×3 (08:39→21:51)
[2020-11-21] MEDS: DIGOXIN 125 MCG TABLET. PO SCH (08:39)
[2020-11-21] MEDS: ZINC SULFATE 220 MG CAPSULE. PO SCH (08:39)
[2020-11-21] MEDS: DEXAMETHASONE SOD PHOS 4 MG/ML VIAL IVP SCH (08:39)
[2020-11-21] MEDS: POLYETHYLENE GLYCOL 3350 17 GM PACKET. PO SCH (08:40)
[2020-11-21] MEDS: METOPROLOL TART IMMED RELEASE 50 MG TABLET. PO SCH ×2 (08:40→21:51)
[2020-11-21] MEDS: POLYVINYL ALCOHOL 1.4% OPHTH SOLUTION 15ML BOTTLE. OU SCH ×4 (08:40→21:00)
[2020-11-21] MEDS: levETIRAcetam 250 MG TABLET PO SCH ×2 (08:40→21:51)
[2020-11-21] MEDS: ENOXAPARIN 40 MG/0.4 ML SYRINGE. SQ SCH ×2 (08:40→21:52)
[2020-11-21] MEDS: FLUoxetine HCL 20 MG CAPSULE PO SCH (08:40)
--- NOTE | 2020-11-21 10:47 | PDOC ---
[facility] PROGRESS NOTE Date of Service DOS: DATE: 11/21/20 TIME: 10:47 Chief Complaint Chief Complaint A/P: COVID-19 viral pneumonia that tested positive on 10/11/2020. Sepsis - leukopenia and tachypnea and febrile on admit, Acute COVID 19 infection - steroids, remdesivir Acute hypoxic respiratory failure, on 2 liters Acute systolic CHF, BNP elevation, exacerbated by the gentle IV fluid Severe protein calorie malnutrition Acute vasomotor nephropathy, dehydration Hypernatremia Elevated troponin - likely demand ischemia COPD Depression HTN Prior CVA FEN - General diet PPX - lovenox CODE - DNR/DNI Dispo - inpatient History of Present Illness History of Present Illness Ms Dean is an 85-year-old female senior living SNF resident w/ PMHx prior CVA, HTN, COPD who was brought to ED from SNF for worsening hypoxia. She did test positive for COVID 19 on 11/11/20. Chest radiograph revealed diffuse bilateral airspace disease. Admitted with pulmonary consultation. 11/16: the 1./2 normal saline was stopped overnight for shortness of breath, sodium is better, cont to hold, may restart soon. cont the PO intake, doing well 11/17: Overnight afebrile. On 4L NCO2. Asking for water. Notes no appetite. K 3.1, Na 150. Initiated on remdesivir. 11/18: Overnight afebrile. Now on 3L NCO2. Still on dysphagia diet with thickened liquids, asking for water. Has significant diarrhea. 11/19: Afebrile. Diarrhea resolved with Imodium. C. difficile negative. Overall she feels worse more weak. Asking for thin liquids. Shortness of breath stable does still have a cough. 11/20: Afebrile overnight. Still weak. Failed to tolerate thin liquids without aspiration. Still on 3L NCO2 Afebrile overnight. Still requiring 3 L nasal cannula oxygen with weak cough. Having difficulty feeding herself and low appetite. Asking for thin liquids still aspiration precautions. 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 l;eft sternal to apex) Lungs: Clear Abdomen: Soft Skin: No rashes, No breakdown Assessment and Plan Assessmemt and Plan Problems Medical Problems: (1) Altered mental status Status: Acute (2) COVID-19 virus RNA test result positive at limit of detection Status: Acute (3) Dehydration Status: Acute (4) Fever Status: Acute Comment Review of Relevant I have reviewed the following items jerrica (where applicable) has been applied. Justifications for Admission Other Justification covid infection QUANG COLEY MD Nov 21, 2020 10:47
[2020-11-21 11:00] VITALS: BP 131/55
[2020-11-21] MEDS: AMINO AC 3%/ELECTROLYTE/GLYCER 1,000 ML IV SCH ×2 (12:32→23:15)
[2020-11-21 15:00] VITALS: BP 156/60
[2020-11-21] MEDS: MORPHINE SULFATE 2 MG/ML VIAL. IV PRN ×2 (16:18→22:32)
[2020-11-21] MEDS: REMDESIVIR 100mg in NORMAL SALINE 250ML X 4 DAYS IV SCH (16:18)
[2020-11-21] MEDS: LOPERAMIDE 2 MG CAPSULE PO PRN (18:02)
[2020-11-21 18:23] LABS: BASO % 0 % (0-3); EOS % 1 % (0-3); HEMATOCRIT 35.5 % (36.0-47.0); HEMOGLOBIN 11.7 g/dL (12.0-15.5); LYMPH # 0.3 x10^3/uL (1.0-4.8); LYMPH % 9 % (24-48); MEAN CORPUSCULAR HEMOGLOBIN 30 pg (25-35); MEAN CORPUSCULAR HGB CONC 33 g/dL (31-37); MEAN CORPUSCULAR VOLUME 92 fL (79-100); MONO # 0.2 x10^3/uL (0.0-1.1); MONO % 5 % (0-9); NEUT # 3.4 x10^3/uL (1.8-7.7); NEUT % 86 % (31-73); PLATELET COUNT 139 x10^3/uL (140-400); RED BLOOD COUNT 3.85 x10^6/uL (3.50-5.40); RED CELL DISTRIBUTION WIDTH 14.5 % (11.5-14.5)
[2020-11-21 18:35] LABS: CALCIUM 8.3 mg/dL (8.5-10.1); CREATININE 0.8 mg/dL (0.6-1.0); GFR 67.8; POTASSIUM 4.5 mmol/L (3.5-5.1)
[2020-11-21 19:25] VITALS: BP 139/56
[2020-11-21 23:35] VITALS: BP 166/80
[2020-11-22 03:55] VITALS: BP 149/73
[2020-11-22] MEDS: PIPERACILLIN/TAZOBACTAM 3.375 GM in IV NORMAL SALINE 50ML 50 ML IV SCH ×3 (06:18→17:13)
[2020-11-22] MEDS: THIAMINE 100 MG TABLET. PO SCH ×3 (06:18→21:28)
[2020-11-22 07:00] VITALS: BP 186/70
--- NOTE | 2020-11-22 07:37 | PDOC ---
[facility] PROGRESS NOTE Date of Service DOS: DATE: 11/22/20 TIME: 07:36 Chief Complaint Chief Complaint A/P: COVID-19 viral pneumonia that tested positive on 10/11/2020. Sepsis - leukopenia and tachypnea and febrile on admit, Acute COVID 19 infection - steroids, remdesivir Acute hypoxic respiratory failure, on 2 liters Acute systolic CHF, BNP elevation, exacerbated by the gentle IV fluid Severe protein calorie malnutrition Acute vasomotor nephropathy, dehydration Hypernatremia Elevated troponin - likely demand ischemia COPD Depression HTN Prior CVA FEN - General diet PPX - lovenox CODE - DNR/DNI Dispo - inpatient History of Present Illness History of Present Illness Ms Dean is an 85-year-old female [facility] w/ PMHx prior CVA, HTN, COPD who was brought to ED from SNF for worsening hypoxia. She did test positive for COVID 19 on 11/11/20. Chest radiograph revealed diffuse bilateral airspace disease. Admitted with pulmonary consultation. 11/16: the 1./2 normal saline was stopped overnight for shortness of breath, sodium is better, cont to hold, may restart soon. cont the PO intake, doing well 11/17: Overnight afebrile. On 4L NCO2. Asking for water. Notes no appetite. K 3.1, Na 150. Initiated on remdesivir. 11/18: Overnight afebrile. Now on 3L NCO2. Still on dysphagia diet with thickened liquids, asking for water. Has significant diarrhea. 11/19: Afebrile. Diarrhea resolved with Imodium. C. difficile negative. Overall she feels worse more weak. Asking for thin liquids. Shortness of breath stable does still have a cough. 11/20: Afebrile overnight. Still weak. Failed to tolerate thin liquids without aspiration. Still on 3L NCO2 11/21: Afebrile overnight. Still requiring 3 L nasal cannula oxygen. Some chest pain, negative for cardiac etiology. Afebrile overnight. Very agitated overnight improved with Zyprexa. Still requiring 3 L nasal cannula oxygen with weak cough. Having difficulty feeding herself and low appetite. Asking for thin liquids still aspiration precautions. 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 l;eft sternal to apex) Lungs: Clear Abdomen: Soft Skin: No rashes, No breakdown Labs Labs: Laboratory Tests Test 11/21/20 17:35 White Blood Count 4.0 x10^3/uL (4.0-11.0) Red Blood Count 3.85 x10^6/uL (3.50-5.40) Hemoglobin 11.7 g/dL (12.0-15.5) Hematocrit 35.5 % (36.0-47.0) Mean Corpuscular Volume 92 fL (79-100) Mean Corpuscular Hemoglobin 30 pg (25-35) Mean Corpuscular Hemoglobin Concent 33 g/dL (31-37) Red Cell Distribution Width 14.5 % (11.5-14.5) Platelet Count 139 x10^3/uL (140-400) Neutrophils (%) (Auto) 86 % (31-73) Lymphocytes (%) (Auto) 9 % (24-48) Monocytes (%) (Auto) 5 % (0-9) Eosinophils (%) (Auto) 1 % (0-3) Basophils (%) (Auto) 0 % (0-3) Neutrophils # (Auto) 3.4 x10^3/uL (1.8-7.7) Lymphocytes # (Auto) 0.3 x10^3/uL (1.0-4.8) Monocytes # (Auto) 0.2 x10^3/uL (0.0-1.1) Eosinophils # (Auto) 0.0 x10^3/uL (0.0-0.7) Basophils # (Auto) 0.0 x10^3/uL (0.0-0.2) Sodium Level 143 mmol/L (136-145) Potassium Level 4.5 mmol/L (3.5-5.1) Chloride Level 110 mmol/L (98-107) Carbon Dioxide Level 27 mmol/L (21-32) Anion Gap 6 (6-14) Blood Urea Nitrogen 32 mg/dL (7-20) Creatinine 0.8 mg/dL (0.6-1.0) Estimated GFR (Cockcroft-Gault) 67.8 Glucose Level 138 mg/dL (70-99) Calcium Level 8.3 mg/dL (8.5-10.1) Troponin I Quantitative 0.025 ng/mL (0.000-0.055) Assessment and Plan Assessmemt and Plan Problems Medical Problems: (1) Altered mental status Status: Acute (2) COVID-19 virus RNA test result positive at limit of detection Status: Acute (3) Dehydration Status: Acute (4) Fever Status: Acute Comment Review of Relevant I have reviewed the following items jerrica (where applicable) has been applied. Medications: Current Medications Medications (Trade) Dose Ordered Sig/Chen Route PRN Reason Start Time Stop Time Status Last Admin Dose Admin Morphine Sulfate (Morphine Sulfate) 2 mg PRN Q4HRS PRN IV MODERATE TO SEVERE PAIN 11/21/20 16:00 11/21/20 22:32 Justifications for Admission Other Justification covid infection QUANG COLEY MD Nov 22, 2020 07:37
[2020-11-22] MEDS: ENOXAPARIN 40 MG/0.4 ML SYRINGE. SQ SCH ×2 (08:54→21:31)
[2020-11-22] MEDS: ZINC SULFATE 220 MG CAPSULE. PO SCH (08:54)
[2020-11-22] MEDS: PANTOPRAZOLE 40 MG TABLET.DR. PO SCH (08:55)
[2020-11-22] MEDS: levETIRAcetam 250 MG TABLET PO SCH ×2 (08:55→21:28)
[2020-11-22] MEDS: ASCORBIC ACID 1,000 MG TABLET PO SCH ×3 (08:55→21:29)
[2020-11-22] MEDS: FLUoxetine HCL 20 MG CAPSULE PO SCH (08:55)
[2020-11-22] MEDS: DIGOXIN 125 MCG TABLET. PO SCH (08:55)
[2020-11-22] MEDS: LACTOBACILLUS RHAMNOSUS GG 1 CAPSULE. PO SCH ×2 (08:55→21:29)
[2020-11-22] MEDS: METOPROLOL TART IMMED RELEASE 50 MG TABLET. PO SCH ×2 (08:55→21:29)
[2020-11-22] MEDS: DEXAMETHASONE SOD PHOS 4 MG/ML VIAL IVP SCH (08:56)
[2020-11-22] MEDS: MORPHINE SULFATE 2 MG/ML VIAL. IV PRN (08:56)
[2020-11-22] MEDS: LOPERAMIDE 2 MG CAPSULE PO PRN (08:56)
[2020-11-22] MEDS: POLYETHYLENE GLYCOL 3350 17 GM PACKET. PO SCH (08:56)
[2020-11-22] MEDS: POLYVINYL ALCOHOL 1.4% OPHTH SOLUTION 15ML BOTTLE. OU SCH ×4 (08:56→21:29)
[2020-11-22 10:56] LABS: BASO % 0 % (0-3); EOS # 0.2 x10^3/uL (0.0-0.7); EOS % 3 % (0-3); HEMATOCRIT 37.1 % (36.0-47.0); HEMOGLOBIN 12.5 g/dL (12.0-15.5); LYMPH # 0.4 x10^3/uL (1.0-4.8); LYMPH % 7 % (24-48); MEAN CORPUSCULAR HEMOGLOBIN 31 pg (25-35); MEAN CORPUSCULAR HGB CONC 34 g/dL (31-37); MEAN CORPUSCULAR VOLUME 91 fL (79-100); MONO # 0.2 x10^3/uL (0.0-1.1); MONO % 4 % (0-9); NEUT # 5.5 x10^3/uL (1.8-7.7); NEUT % 87 % (31-73); PLATELET COUNT 169 x10^3/uL (140-400); RED CELL DISTRIBUTION WIDTH 14.5 % (11.5-14.5); WHITE BLOOD COUNT 6.4 x10^3/uL (4.0-11.0)
[2020-11-22 11:00] VITALS: BP 128/61
[2020-11-22 11:15] LABS: ALBUMIN 2.3 g/dL (3.4-5.0); ALBUMIN/GLOBULIN RATIO 0.6 (1.0-1.7); CALCIUM 8.3 mg/dL (8.5-10.1); CREATININE 0.8 mg/dL (0.6-1.0); GFR 67.8; TOTAL BILIRUBIN 0.7 mg/dL (0.2-1.0); TOTAL PROTEIN 6.3 g/dL (6.4-8.2)
[2020-11-22 11:20] LABS: POTASSIUM 3.8 mmol/L (3.5-5.1)
[2020-11-22] MEDS: AMINO AC 3%/ELECTROLYTE/GLYCER 1,000 ML IV SCH (11:52)
--- NOTE | 2020-11-22 12:04 | PDOC ---
PULMONARY PROGRESS NOTES DATE: 11/22/20 TIME: 12:04 Subjective Remains on 2 liters N/C afebrile sob better remains weak Vitals Vital Signs Date Time Temp Pulse Resp B/P (MAP) Pulse Ox O2 Delivery O2 Flow Rate FiO2 11/22/20 11:00 96.8 60 22 128/61 (83) 94 Nasal Cannula 4.0 96.8 ROS: No Nausea, No Chest Pain, No Abdominal Pain, No Increase Cough General: Alert, No acute distress Lungs: Clear Cardiovascular: S1, S2 Abdomen: Soft, Non-tender Neuro Exam: Alert Extremities: No Edema Skin: Warm Labs Laboratory Tests Test 11/21/20 17:35 11/22/20 10:10 White Blood Count 4.0 x10^3/uL (4.0-11.0) 6.4 x10^3/uL (4.0-11.0) Red Blood Count 3.85 x10^6/uL (3.50-5.40) 4.10 x10^6/uL (3.50-5.40) Hemoglobin 11.7 g/dL (12.0-15.5) 12.5 g/dL (12.0-15.5) Hematocrit 35.5 % (36.0-47.0) 37.1 % (36.0-47.0) Mean Corpuscular Volume 92 fL (79-100) 91 fL (79-100) Mean Corpuscular Hemoglobin 30 pg (25-35) 31 pg (25-35) Mean Corpuscular Hemoglobin Concent 33 g/dL (31-37) 34 g/dL (31-37) Red Cell Distribution Width 14.5 % (11.5-14.5) 14.5 % (11.5-14.5) Platelet Count 139 x10^3/uL (140-400) 169 x10^3/uL (140-400) Neutrophils (%) (Auto) 86 % (31-73) 87 % (31-73) Lymphocytes (%) (Auto) 9 % (24-48) 7 % (24-48) Monocytes (%) (Auto) 5 % (0-9) 4 % (0-9) Eosinophils (%) (Auto) 1 % (0-3) 3 % (0-3) Basophils (%) (Auto) 0 % (0-3) 0 % (0-3) Neutrophils # (Auto) 3.4 x10^3/uL (1.8-7.7) 5.5 x10^3/uL (1.8-7.7) Lymphocytes # (Auto) 0.3 x10^3/uL (1.0-4.8) 0.4 x10^3/uL (1.0-4.8) Monocytes # (Auto) 0.2 x10^3/uL (0.0-1.1) 0.2 x10^3/uL (0.0-1.1) Eosinophils # (Auto) 0.0 x10^3/uL (0.0-0.7) 0.2 x10^3/uL (0.0-0.7) Basophils # (Auto) 0.0 x10^3/uL (0.0-0.2) 0.0 x10^3/uL (0.0-0.2) Sodium Level 143 mmol/L (136-145) 143 mmol/L (136-145) Potassium Level 4.5 mmol/L (3.5-5.1) 3.8 mmol/L (3.5-5.1) Chloride Level 110 mmol/L (98-107) 108 mmol/L (98-107) Carbon Dioxide Level 27 mmol/L (21-32) 25 mmol/L (21-32) Anion Gap 6 (6-14) 10 (6-14) Blood Urea Nitrogen 32 mg/dL (7-20) 28 mg/dL (7-20) Creatinine 0.8 mg/dL (0.6-1.0) 0.8 mg/dL (0.6-1.0) Estimated GFR (Cockcroft-Gault) 67.8 67.8 Glucose Level 138 mg/dL (70-99) 99 mg/dL (70-99) Calcium Level 8.3 mg/dL (8.5-10.1) 8.3 mg/dL (8.5-10.1) Troponin I Quantitative 0.025 ng/mL (0.000-0.055) BUN/Creatinine Ratio 35 (6-20) Total Bilirubin 0.7 mg/dL (0.2-1.0) Aspartate Amino Transf (AST/SGOT) 44 U/L (15-37) Alanine Aminotransferase (ALT/SGPT) 35 U/L (14-59) Alkaline Phosphatase 79 U/L (46-116) Total Protein 6.3 g/dL (6.4-8.2) Albumin 2.3 g/dL (3.4-5.0) Albumin/Globulin Ratio 0.6 (1.0-1.7) Digoxin Level 1.0 ng/mL (0.9-2.0) Digoxin Last Dose Date 11/22/20 Digoxin Last Dose Time 0900 Laboratory Tests Test 11/21/20 17:35 11/22/20 10:10 White Blood Count 4.0 x10^3/uL (4.0-11.0) 6.4 x10^3/uL (4.0-11.0) Red Blood Count 3.85 x10^6/uL (3.50-5.40) 4.10 x10^6/uL (3.50-5.40) Hemoglobin 11.7 g/dL (12.0-15.5) 12.5 g/dL (12.0-15.5) Hematocrit 35.5 % (36.0-47.0) 37.1 % (36.0-47.0) Mean Corpuscular Volume 92 fL (79-100) 91 fL (79-100) Mean Corpuscular Hemoglobin 30 pg (25-35) 31 pg (25-35) Mean Corpuscular Hemoglobin Concent 33 g/dL (31-37) 34 g/dL (31-37) Red Cell Distribution Width 14.5 % (11.5-14.5) 14.5 % (11.5-14.5) Platelet Count 139 x10^3/uL (140-400) 169 x10^3/uL (140-400) Neutrophils (%) (Auto) 86 % (31-73) 87 % (31-73) Lymphocytes (%) (Auto) 9 % (24-48) 7 % (24-48) Monocytes (%) (Auto) 5 % (0-9) 4 % (0-9) Eosinophils (%) (Auto) 1 % (0-3) 3 % (0-3) Basophils (%) (Auto) 0 % (0-3) 0 % (0-3) Neutrophils # (Auto) 3.4 x10^3/uL (1.8-7.7) 5.5 x10^3/uL (1.8-7.7) Lymphocytes # (Auto) 0.3 x10^3/uL (1.0-4.8) 0.4 x10^3/uL (1.0-4.8) Monocytes # (Auto) 0.2 x10^3/uL (0.0-1.1) 0.2 x10^3/uL (0.0-1.1) Eosinophils # (Auto) 0.0 x10^3/uL (0.0-0.7) 0.2 x10^3/uL (0.0-0.7) Basophils # (Auto) 0.0 x10^3/uL (0.0-0.2) 0.0 x10^3/uL (0.0-0.2) Sodium Level 143 mmol/L (136-145) 143 mmol/L (136-145) Potassium Level 4.5 mmol/L (3.5-5.1) 3.8 mmol/L (3.5-5.1) Chloride Level 110 mmol/L (98-107) 108 mmol/L (98-107) Carbon Dioxide Level 27 mmol/L (21-32) 25 mmol/L (21-32) Anion Gap 6 (6-14) 10 (6-14) Blood Urea Nitrogen 32 mg/dL (7-20) 28 mg/dL (7-20) Creatinine 0.8 mg/dL (0.6-1.0) 0.8 mg/dL (0.6-1.0) Estimated GFR (Cockcroft-Gault) 67.8 67.8 Glucose Level 138 mg/dL (70-99) 99 mg/dL (70-99) Calcium Level 8.3 mg/dL (8.5-10.1) 8.3 mg/dL (8.5-10.1) Troponin I Quantitative 0.025 ng/mL (0.000-0.055) BUN/Creatinine Ratio 35 (6-20) Total Bilirubin 0.7 mg/dL (0.2-1.0) Aspartate Amino Transf (AST/SGOT) 44 U/L (15-37) Alanine Aminotransferase (ALT/SGPT) 35 U/L (14-59) Alkaline Phosphatase 79 U/L (46-116) Total Protein 6.3 g/dL (6.4-8.2) Albumin 2.3 g/dL (3.4-5.0) Albumin/Globulin Ratio 0.6 (1.0-1.7) Digoxin Level 1.0 ng/mL (0.9-2.0) Digoxin Last Dose Date 11/22/20 Digoxin Last Dose Time 0900 Medications Active Scripts Medications Dose Route/Sig Max Daily Dose Days Date Category Dose Instructions [Cholecalciferol] 6,000 Intlu PO DAILY 11/15/20 Reported [zinc] 1 Tab DAILY 11/15/20 Reported Tramadol Hcl 50 Mg Tablet 50 Mg PO Q12HR 11/15/20 Reported Systane Ultra 0.4-0.3% Eye Drp (Propylene Glycol/Peg 400) 10 Ml Drops 1 Drop EACHEYE QID 11/15/20 Reported Omeprazole 20 Mg Capsule.dr 20 Mg PO DAILY 11/15/20 Reported Nitrostat (Nitroglycerin) 0.4 Mg Tab.subl 0.4 Mg SL PRN Q5MIN PRN 11/15/20 Reported Melatonin 10 Mg Tablet.er 10 Mg PO HS 11/15/20 Reported Maalox Advanced Suspension (Mag Hydrox/Aluminum Hyd/Simeth) 355 Ml Oral.susp 30 Ml PO Q2HR PRN 11/15/20 Reported Keppra (Levetiracetam) 250 Mg Tablet 250 Mg PO BID 11/15/20 Reported Fluoxetine Hcl 20 Mg Capsule 20 Mg PO DAILY 11/15/20 Reported Voltaren (Diclofenac Sodium) 100 Gm Gel..gram. 1 Gm TP QID PRN 30 11/15/20 Reported apply to affected area(s) Acetaminophen 500 Mg Tablet 1,000 Mg PO Q6HRS PRN 11/15/20 Reported Vitamin A & D Ointment (Petrolatum,White/Lanolin) 113 Gm Oint...g. 113 Gm TP BID 11/15/20 Reported Apply to buttock topically as needed for irritaion Digoxin 125 Mcg Tablet 125 Mcg PO DAILY 05/28/20 Rx Polyethylene Glycol 3350 17 Gm Powd.pack 17 Gm PO DAILY 30 12/12/17 Rx Metoprolol Tartrate 50 Mg Tablet 50 Mg PO BID 12/12/17 Rx Furosemide 40 Mg Tablet 40 Mg PO DAILY 30 12/12/17 Rx Keppra (Levetiracetam) 250 Mg Tablet 250 Mg PO BID 30 12/01/17 Rx Calcium (Calcium Carbonate) 500 Mg Tab.chew 1,000 Mg PO BID 11/27/17 Reported Allopurinol 100 Mg Tablet 100 Mg PO DAILY 06/04/16 Reported Multi-Day Vitamins (Multivitamin) 1 Each Tablet 1 Tab PO DAILY 06/04/16 Reported Klor-Con M20 (Potassium Chloride) 20 Meq Tab.er.prt 20 Meq PO DAILY 06/04/16 Reported Colace (Docusate Sodium) 100 Mg Capsule 100 Mg Pe PO BID PRN 06/04/16 Reported Comments CXR IMPRESSION: Diffuse bilateral airspace disease, may relate to edema or atypical infectious process. Impression . Acute hypoxemic respiratory failure secondary to COVID-19 viral pneumonia ,positive on 11/11/20---, possible bacterial pneumonia Dyspnea due to above, improve Abnormal CXR HTN Plan . PLAN: Continue supplemental oxygent sat keep sat 90%, on 2 liters N/C Continue steroids 10 day course, started on 11/15/20 Cotninue ABX: on Zoysn Continue remdesivir for full course Continue PPN for additional nutritional support, in addition to po intake HTN per PCP DVT/GI PPX PT/OT D/W RN and RT PT. is DANYELLR RUBEN NIEVES MD Nov 22, 2020 12:04
[2020-11-22 19:30] VITALS: BP 136/71
[2020-11-22 22:55] VITALS: BP 156/68
[2020-11-23] MEDS: PIPERACILLIN/TAZOBACTAM 3.375 GM in IV NORMAL SALINE 50ML 50 ML IV SCH ×2 (00:48→05:38)
[2020-11-23 03:15] VITALS: BP 160/68
[2020-11-23] MEDS: THIAMINE 100 MG TABLET. PO SCH ×3 (05:38→21:00)
[2020-11-23 07:00] VITALS: BP 145/54
[2020-11-23] MEDS: AMINO AC 3%/ELECTROLYTE/GLYCER 1,000 ML IV SCH ×2 (08:13→12:45)
[2020-11-23] MEDS: LACTOBACILLUS RHAMNOSUS GG 1 CAPSULE. PO SCH ×2 (08:13→21:00)
[2020-11-23] MEDS: PANTOPRAZOLE 40 MG TABLET.DR. PO SCH (08:13)
[2020-11-23] MEDS: LOPERAMIDE 2 MG CAPSULE PO PRN (08:13)
[2020-11-23] MEDS: ZINC SULFATE 220 MG CAPSULE. PO SCH (08:13)
[2020-11-23] MEDS: levETIRAcetam 250 MG TABLET PO SCH ×2 (08:13→21:00)
[2020-11-23] MEDS: POLYETHYLENE GLYCOL 3350 17 GM PACKET. PO SCH (08:14)
[2020-11-23] MEDS: ASCORBIC ACID 1,000 MG TABLET PO SCH ×3 (08:14→21:00)
[2020-11-23] MEDS: METOPROLOL TART IMMED RELEASE 50 MG TABLET. PO SCH ×2 (08:14→21:01)
[2020-11-23] MEDS: DEXAMETHASONE SOD PHOS 4 MG/ML VIAL IVP SCH (08:14)
[2020-11-23] MEDS: POLYVINYL ALCOHOL 1.4% OPHTH SOLUTION 15ML BOTTLE. OU SCH ×4 (08:14→21:00)
[2020-11-23] MEDS: ENOXAPARIN 40 MG/0.4 ML SYRINGE. SQ SCH ×2 (08:14→21:00)
[2020-11-23] MEDS: FLUoxetine HCL 20 MG CAPSULE PO SCH (08:16)
--- NOTE | 2020-11-23 10:59 | PDOC ---
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 She did test positive for COVID 19 on 11/11/20. Chest radiograph revealed diffuse bilateral airspace disease. Admitted with pulmonary consultation. 11/16: the normal saline was stopped overnight for shortness of breath, sodium is better, cont to hold, may restart soon. cont the PO intake, doing well 11/17: Overnight afebrile. On 4L NCO2. Asking for water. Notes no appetite. K 3.1, Na 150. Initiated on remdesivir. 11/18: Overnight afebrile. Now on 3L NCO2. Still on dysphagia diet with thickened liquids, asking for water. Has significant diarrhea. 11/19: Afebrile. Diarrhea resolved with Imodium. C. difficile negative. Overall she feels worse more weak. Asking for thin liquids. Shortness of breath stable does still have a cough. 11/20: Afebrile overnight. Still weak. Failed to tolerate thin liquids without aspiration. Still on 3L NCO2 11/21: Afebrile overnight. Still requiring 3 L nasal cannula oxygen. Some chest pain, negative for cardiac etiology. Afebrile overnight. Very agitated overnight improved with Zyprexa. Still requiring 3 L nasal cannula oxygen with weak cough. Having difficulty feeding herself and low appetite. Asking for thin liquids still aspiration precautions. 11/23/2020: -Patient seen and examined -ANNA MARIE RN -Chart reviewed Vitals/I&O Vitals/I&O: Vital Signs Date Time Temp Pulse Resp B/P (MAP) Pulse Ox O2 Delivery O2 Flow Rate FiO2 11/23/20 08:14 65 160/68 11/23/20 08:00 Nasal Cannula 4.0 11/23/20 07:00 97.7 18 95 97.7 I & O 11/22/20 11/22/20 11/23/20 15:00 23:00 07:00 Intake Total 0 ml Balance 0 ml Physical Exam General: Alert, Cooperative, No acute distress Heart: Regular rate, Normal S2, No murmurs, Other (3/6 SAMI murmur,. l;eft sternal to apex) Lungs: Clear Abdomen: Soft, No tenderness, No hepatosplenomegaly Extremities: No clubbing, No cyanosis, No edema Skin: No rashes, No breakdown, No significant lesion Review of Systems Review of Systems: 11/23/2020 -No eccymosis, no clubbing Assessment and Plan Assessmemt and Plan Problems Medical Problems: (1) Altered mental status Status: Acute (2) COVID-19 virus RNA test result positive at limit of detection Status: Acute (3) Dehydration Status: Acute (4) Fever Status: Acute 11/23/2020: A: COVID-19 viral pneumonia that tested positive on 10/11/2020. Sepsis Acute COVID 19 infection Acute hypoxic respiratory failure Acute systolic CHF Severe protein calorie malnutrition Acute vasomotor nephropathy Hypernatremia Elevated troponin - likely demand ischemia COPD Depression HTN Prior CVA P: -COVID protocol -IV procalamine -IV Zosyn -Encourage PO intake -Home meds -DNR -D/C disposition pending Comment Review of Relevant I have reviewed the following items jerrica (where applicable) has been applied. Medications: Current Medications Medications (Trade) Dose Ordered Sig/Chen Route PRN Reason Start Time Stop Time Status Last Admin Dose Admin Olanzapine (ZyPREXA ZYDIS) 5 mg PRN BID PRN PO ANXIETY / AGITATION 11/22/20 11:45 11/22/20 11:52 Justifications for Admission Other Justification covid infection HANSEL CHEATHAM III DO Nov 23, 2020 10:59
[2020-11-23 11:00] VITALS: BP 155/72
--- NOTE | 2020-11-23 11:14 | SNU/HH DC ---
DISCHARGE ORDERS DISCHARGE INFORMATION: FINAL DIAGNOSIS Problems Medical Problems: (1) Altered mental status Status: Acute (2) COVID-19 virus RNA test result positive at limit of detection Status: Acute (3) Dehydration Status: Acute (4) Fever Status: Acute CONDITION ON DISCHARGE: Stable CODE STATUS: Code Status: DNR/DNI SHELTER: SNF STAY <30 DAYS: No HOSPICE: HOSPICE: No HOSPICE EVAL & TREAT: No LTAC: ADMIT TO LTAC: No POST DISCHARGE ORDERS: ACTIVITY ORDERS: Activity as tolerated WEIGHT BEARING STATUS: As tolerated DIET AFTER DISCHARGE: Cardiac FOLLOW-UP: LAB ORDERS FOR FOLLOW-UP: cbc, chem 7, digoxin level in 7 days TREATMENT/EQUIPMENT ORDERS: ADAPTIVE EQUIPMENT NEEDED: None DISCHARGE MEDICATIONS: Home Meds Active Scripts Digoxin (DIGOXIN) 125 Mcg Tablet, 125 MCG PO DAILY for AFIB/HEART FAILURE, #30 TAB Prov:JAGJIT FONSECA MD 05/28/20 Polyethylene Glycol 3350 (POLYETHYLENE GLYCOL 3350) 17 Gm Powd.pack, 17 GM PO DAILY for 30 Days, #30 PKT Prov:NOA COLLIER MD 12/12/17 Metoprolol Tartrate (METOPROLOL TARTRATE) 50 Mg Tablet, 50 MG PO BID, #60 TAB 5 Refills Prov:NOA COLLIER MD 12/12/17 Furosemide (FUROSEMIDE) 40 Mg Tablet, 40 MG PO DAILY for 30 Days, #30 TAB Prov:NOA COLLIER MD 12/12/17 Levetiracetam (KEPPRA) 250 Mg Tablet, 250 MG PO BID for 30 Days, #60 TAB Prov:DAKOTA EDOUARD MD 12/01/17 Reported Medications [Cholecalciferol] No Conflict Check, 6000 INTLU PO DAILY 11/15/20 [zinc] No Conflict Check, 1 TAB DAILY 11/15/20 Tramadol Hcl (TRAMADOL HCL) 50 Mg Tablet, 50 MG PO Q12HR for pain, TAB 11/15/20 Propylene Glycol/Peg 400 (SYSTANE ULTRA 0.4-0.3% EYE DRP) 10 Ml Drops, 1 DROP EACHEYE QID for dry eyes, #15 ML 1 Refill 11/15/20 Omeprazole (OMEPRAZOLE) 20 Mg Capsule.dr, 20 MG PO DAILY for GERD, CAP 11/15/20 Nitroglycerin (NITROSTAT) 0.4 Mg Tab.subl, 0.4 MG SL PRN Q5MIN PRN for CHEST PAIN, BOTTLE 11/15/20 Melatonin (MELATONIN) 10 Mg Tablet.er, 10 MG PO HS for insomnia, TAB.SR 11/15/20 Mag Hydrox/Aluminum Hyd/Simeth (Maalox Advanced Suspension) 355 Ml Oral.susp, 30 ML PO Q2HR PRN for INDIGESTION, MISC 11/15/20 Levetiracetam (KEPPRA) 250 Mg Tablet, 250 MG PO BID for seizure, TAB 11/15/20 Fluoxetine Hcl (FLUOXETINE HCL) 20 Mg Capsule, 20 MG PO DAILY for depression, CAP 11/15/20 Diclofenac Sodium (VOLTAREN) 100 Gm Gel..gram., 1 GM TP QID PRN for PAIN for 30 Days, #100 GM 0 Refills apply to affected area(s) 11/15/20 Acetaminophen (ACETAMINOPHEN) 500 Mg Tablet, 1000 MG PO Q6HRS PRN for pain/fever, TAB 11/15/20 Petrolatum,White/Lanolin (VITAMIN A & D OINTMENT) 113 Gm Oint...g., 113 GM TP BID for irritation , MISC Apply to buttock topically as needed for irritaion 11/15/20 Calcium Carbonate (CALCIUM) 500 Mg Tab.chew, 1000 MG PO BID for supplement, TAB.CHEW 11/27/17 Allopurinol (ALLOPURINOL) 100 Mg Tablet, 100 MG PO DAILY for gout 06/04/16 Multivitamin (MULTI-DAY VITAMINS) 1 Each Tablet, 1 TAB PO DAILY for supplement, #30 TAB 06/04/16 Potassium Chloride (KLOR-CON M20) 20 Meq Tab.er.prt, 20 MEQ PO DAILY for supplement, #90 TAB 1 Refill 06/04/16 Docusate Sodium (COLACE) 100 Mg Capsule, 100 MG PE PO BID PRN for CONSTIPATION, #30 CAP 06/04/16 HANSEL CHEATHAM III DO Nov 23, 2020 11:14
--- NOTE | 2020-11-23 11:30 | PDOC ---
PULMONARY PROGRESS NOTES DATE: 11/23/20 TIME: 11:28 Subjective Patient remains on 3 L nasal cannula Remains weak Afebrile Vitals Vital Signs Date Time Temp Pulse Resp B/P (MAP) Pulse Ox O2 Delivery O2 Flow Rate FiO2 11/23/20 11:00 97.6 64 20 155/72 (99) 94 Nasal Cannula 4.0 97.6 ROS: No Nausea, No Chest Pain, No Abdominal Pain, No Increase Cough General: Alert, No acute distress Lungs: Clear Cardiovascular: S1, S2 Abdomen: Soft, Non-tender Neuro Exam: Alert Extremities: No Edema Skin: Warm Labs Laboratory Tests Test 11/21/20 17:35 11/22/20 10:10 White Blood Count 4.0 x10^3/uL (4.0-11.0) 6.4 x10^3/uL (4.0-11.0) Red Blood Count 3.85 x10^6/uL (3.50-5.40) 4.10 x10^6/uL (3.50-5.40) Hemoglobin 11.7 g/dL (12.0-15.5) 12.5 g/dL (12.0-15.5) Hematocrit 35.5 % (36.0-47.0) 37.1 % (36.0-47.0) Mean Corpuscular Volume 92 fL (79-100) 91 fL (79-100) Mean Corpuscular Hemoglobin 30 pg (25-35) 31 pg (25-35) Mean Corpuscular Hemoglobin Concent 33 g/dL (31-37) 34 g/dL (31-37) Red Cell Distribution Width 14.5 % (11.5-14.5) 14.5 % (11.5-14.5) Platelet Count 139 x10^3/uL (140-400) 169 x10^3/uL (140-400) Neutrophils (%) (Auto) 86 % (31-73) 87 % (31-73) Lymphocytes (%) (Auto) 9 % (24-48) 7 % (24-48) Monocytes (%) (Auto) 5 % (0-9) 4 % (0-9) Eosinophils (%) (Auto) 1 % (0-3) 3 % (0-3) Basophils (%) (Auto) 0 % (0-3) 0 % (0-3) Neutrophils # (Auto) 3.4 x10^3/uL (1.8-7.7) 5.5 x10^3/uL (1.8-7.7) Lymphocytes # (Auto) 0.3 x10^3/uL (1.0-4.8) 0.4 x10^3/uL (1.0-4.8) Monocytes # (Auto) 0.2 x10^3/uL (0.0-1.1) 0.2 x10^3/uL (0.0-1.1) Eosinophils # (Auto) 0.0 x10^3/uL (0.0-0.7) 0.2 x10^3/uL (0.0-0.7) Basophils # (Auto) 0.0 x10^3/uL (0.0-0.2) 0.0 x10^3/uL (0.0-0.2) Sodium Level 143 mmol/L (136-145) 143 mmol/L (136-145) Potassium Level 4.5 mmol/L (3.5-5.1) 3.8 mmol/L (3.5-5.1) Chloride Level 110 mmol/L (98-107) 108 mmol/L (98-107) Carbon Dioxide Level 27 mmol/L (21-32) 25 mmol/L (21-32) Anion Gap 6 (6-14) 10 (6-14) Blood Urea Nitrogen 32 mg/dL (7-20) 28 mg/dL (7-20) Creatinine 0.8 mg/dL (0.6-1.0) 0.8 mg/dL (0.6-1.0) Estimated GFR (Cockcroft-Gault) 67.8 67.8 Glucose Level 138 mg/dL (70-99) 99 mg/dL (70-99) Calcium Level 8.3 mg/dL (8.5-10.1) 8.3 mg/dL (8.5-10.1) Troponin I Quantitative 0.025 ng/mL (0.000-0.055) BUN/Creatinine Ratio 35 (6-20) Total Bilirubin 0.7 mg/dL (0.2-1.0) Aspartate Amino Transf (AST/SGOT) 44 U/L (15-37) Alanine Aminotransferase (ALT/SGPT) 35 U/L (14-59) Alkaline Phosphatase 79 U/L (46-116) Total Protein 6.3 g/dL (6.4-8.2) Albumin 2.3 g/dL (3.4-5.0) Albumin/Globulin Ratio 0.6 (1.0-1.7) Digoxin Level 1.0 ng/mL (0.9-2.0) Digoxin Last Dose Date 11/22/20 Digoxin Last Dose Time 0900 Medications Active Scripts Medications Dose Route/Sig Max Daily Dose Days Date Category Dose Instructions [Cholecalciferol] 6,000 Intlu PO DAILY 11/15/20 Reported [zinc] 1 Tab DAILY 11/15/20 Reported Tramadol Hcl 50 Mg Tablet 50 Mg PO Q12HR 11/15/20 Reported Systane Ultra 0.4-0.3% Eye Drp (Propylene Glycol/Peg 400) 10 Ml Drops 1 Drop EACHEYE QID 11/15/20 Reported Omeprazole 20 Mg Capsule.dr 20 Mg PO DAILY 11/15/20 Reported Nitrostat (Nitroglycerin) 0.4 Mg Tab.subl 0.4 Mg SL PRN Q5MIN PRN 11/15/20 Reported Melatonin 10 Mg Tablet.er 10 Mg PO HS 11/15/20 Reported Maalox Advanced Suspension (Mag Hydrox/Aluminum Hyd/Simeth) 355 Ml Oral.susp 30 Ml PO Q2HR PRN 11/15/20 Reported Keppra (Levetiracetam) 250 Mg Tablet 250 Mg PO BID 11/15/20 Reported Fluoxetine Hcl 20 Mg Capsule 20 Mg PO DAILY 11/15/20 Reported Voltaren (Diclofenac Sodium) 100 Gm Gel..gram. 1 Gm TP QID PRN 30 11/15/20 Reported apply to affected area(s) Acetaminophen 500 Mg Tablet 1,000 Mg PO Q6HRS PRN 11/15/20 Reported Vitamin A & D Ointment (Petrolatum,White/Lanolin) 113 Gm Oint...g. 113 Gm TP BID 11/15/20 Reported Apply to buttock topically as needed for irritaion Digoxin 125 Mcg Tablet 125 Mcg PO DAILY 05/28/20 Rx Polyethylene Glycol 3350 17 Gm Powd.pack 17 Gm PO DAILY 30 12/12/17 Rx Metoprolol Tartrate 50 Mg Tablet 50 Mg PO BID 12/12/17 Rx Furosemide 40 Mg Tablet 40 Mg PO DAILY 30 12/12/17 Rx Keppra (Levetiracetam) 250 Mg Tablet 250 Mg PO BID 30 12/01/17 Rx Calcium (Calcium Carbonate) 500 Mg Tab.chew 1,000 Mg PO BID 11/27/17 Reported Allopurinol 100 Mg Tablet 100 Mg PO DAILY 06/04/16 Reported Multi-Day Vitamins (Multivitamin) 1 Each Tablet 1 Tab PO DAILY 06/04/16 Reported Klor-Con M20 (Potassium Chloride) 20 Meq Tab.er.prt 20 Meq PO DAILY 06/04/16 Reported Colace (Docusate Sodium) 100 Mg Capsule 100 Mg Pe PO BID PRN 06/04/16 Reported Comments CXR IMPRESSION: Diffuse bilateral airspace disease, may relate to edema or atypical infectious process. Impression . Acute hypoxemic respiratory failure secondary to COVID-19 viral pneumonia ,positive on 11/11/20---, possible bacterial pneumonia Dyspnea due to above, improve Abnormal CXR HTN Plan . PLAN: Continue supplemental oxygent sat keep sat 90%, on 3 liters N/C Continue steroids 10 day course, started on 11/15/20 DC IV antibiotics Continue remdesivir for full course Continue PPN for additional nutritional support, in addition to po intake HTN per PCP DVT/GI PPX PT/OT D/W RN and RT PT. is DNR Patient is stable she could return to her retirement facility from our standpoint IRAM OCASIO MD Nov 23, 2020 11:30
--- NOTE | 2020-11-23 11:46 | NUR ---
SW following. Discussed with RN, pt is a correction care resident at [facility], 4L, dysphagia I diet, COVID-19 positive. Discharge order for return to [facility], however [facility] do not have insurance auth for SNU yet. Clinicals faxed to [facility]. Awaiting insurance auth. RN notified. Plan for discharge to [facility] tomorrow (11/24/20). RODNEY will continue to follow.
[2020-11-23 15:00] VITALS: BP 161/68
[2020-11-23] MEDS: MORPHINE SULFATE 2 MG/ML VIAL. IV PRN (18:07)
[2020-11-23 19:16] VITALS: BP 144/57
[2020-11-23 23:09] VITALS: BP 158/66
[2020-11-24 02:30] VITALS: BP 167/62
[2020-11-24] MEDS: THIAMINE 100 MG TABLET. PO SCH ×2 (05:35→14:00)
[2020-11-24 07:00] VITALS: BP 163/71
[2020-11-24] MEDS: levETIRAcetam 250 MG TABLET PO SCH (07:58)
[2020-11-24] MEDS: PANTOPRAZOLE 40 MG TABLET.DR. PO SCH (07:58)
[2020-11-24] MEDS: ENOXAPARIN 40 MG/0.4 ML SYRINGE. SQ SCH (07:58)
[2020-11-24] MEDS: FLUoxetine HCL 20 MG CAPSULE PO SCH (07:59)
[2020-11-24] MEDS: LACTOBACILLUS RHAMNOSUS GG 1 CAPSULE. PO SCH (07:59)
[2020-11-24] MEDS: DEXAMETHASONE SOD PHOS 4 MG/ML VIAL IVP SCH (07:59)
[2020-11-24] MEDS: POLYVINYL ALCOHOL 1.4% OPHTH SOLUTION 15ML BOTTLE. OU SCH ×2 (07:59→12:27)
[2020-11-24] MEDS: ASCORBIC ACID 1,000 MG TABLET PO SCH ×2 (07:59→14:00)
[2020-11-24] MEDS: METOPROLOL TART IMMED RELEASE 50 MG TABLET. PO SCH (07:59)
[2020-11-24] MEDS: ZINC SULFATE 220 MG CAPSULE. PO SCH (07:59)
[2020-11-24 08:32] LABS: BASO % 0 % (0-3); EOS # 0.1 x10^3/uL (0.0-0.7); EOS % 3 % (0-3); HEMATOCRIT 35.5 % (36.0-47.0); HEMOGLOBIN 11.8 g/dL (12.0-15.5); LYMPH # 0.6 x10^3/uL (1.0-4.8); LYMPH % 14 % (24-48); MEAN CORPUSCULAR HEMOGLOBIN 30 pg (25-35); MEAN CORPUSCULAR HGB CONC 33 g/dL (31-37); MEAN CORPUSCULAR VOLUME 91 fL (79-100); MONO # 0.3 x10^3/uL (0.0-1.1); MONO % 6 % (0-9); NEUT # 3.2 x10^3/uL (1.8-7.7); NEUT % 76 % (31-73); PLATELET COUNT 176 x10^3/uL (140-400); RED BLOOD COUNT 3.88 x10^6/uL (3.50-5.40); RED CELL DISTRIBUTION WIDTH 15.2 % (11.5-14.5); WHITE BLOOD COUNT 4.2 x10^3/uL (4.0-11.0)
[2020-11-24 09:17] LABS: ALBUMIN 2.1 g/dL (3.4-5.0); ALBUMIN/GLOBULIN RATIO 0.5 (1.0-1.7); CALCIUM 8.4 mg/dL (8.5-10.1); CREATININE 0.6 mg/dL (0.6-1.0); GFR 94.6; POTASSIUM 3.9 mmol/L (3.5-5.1); TOTAL BILIRUBIN 0.6 mg/dL (0.2-1.0)
[2020-11-24] MEDS ORDERED: traMADol 50 MG TABLET PO PRN (10:00)
--- NOTE | 2020-11-24 10:36 | PDOC ---
PULMONARY PROGRESS NOTES DATE: 11/24/20 TIME: 10:34 Subjective Patient remains on 3 L nasal cannula Afebrile no overnight concerns Vitals Vital Signs Date Time Temp Pulse Resp B/P (MAP) Pulse Ox O2 Delivery O2 Flow Rate FiO2 11/24/20 08:00 Nasal Cannula 4.0 11/24/20 07:59 62 163/71 11/24/20 07:00 97.5 21 95 97.5 ROS: No Nausea, No Chest Pain, No Abdominal Pain, No Increase Cough General: Alert, No acute distress Lungs: Clear Cardiovascular: S1, S2 Abdomen: Soft, Non-tender Neuro Exam: Alert Extremities: No Edema Skin: Warm Labs Laboratory Tests Test 11/24/20 08:05 White Blood Count 4.2 x10^3/uL (4.0-11.0) Red Blood Count 3.88 x10^6/uL (3.50-5.40) Hemoglobin 11.8 g/dL (12.0-15.5) Hematocrit 35.5 % (36.0-47.0) Mean Corpuscular Volume 91 fL (79-100) Mean Corpuscular Hemoglobin 30 pg (25-35) Mean Corpuscular Hemoglobin Concent 33 g/dL (31-37) Red Cell Distribution Width 15.2 % (11.5-14.5) Platelet Count 176 x10^3/uL (140-400) Neutrophils (%) (Auto) 76 % (31-73) Lymphocytes (%) (Auto) 14 % (24-48) Monocytes (%) (Auto) 6 % (0-9) Eosinophils (%) (Auto) 3 % (0-3) Basophils (%) (Auto) 0 % (0-3) Neutrophils # (Auto) 3.2 x10^3/uL (1.8-7.7) Lymphocytes # (Auto) 0.6 x10^3/uL (1.0-4.8) Monocytes # (Auto) 0.3 x10^3/uL (0.0-1.1) Eosinophils # (Auto) 0.1 x10^3/uL (0.0-0.7) Basophils # (Auto) 0.0 x10^3/uL (0.0-0.2) Sodium Level 145 mmol/L (136-145) Potassium Level 3.9 mmol/L (3.5-5.1) Chloride Level 110 mmol/L (98-107) Carbon Dioxide Level 28 mmol/L (21-32) Anion Gap 7 (6-14) Blood Urea Nitrogen 27 mg/dL (7-20) Creatinine 0.6 mg/dL (0.6-1.0) Estimated GFR (Cockcroft-Gault) 94.6 BUN/Creatinine Ratio 45 (6-20) Glucose Level 79 mg/dL (70-99) Calcium Level 8.4 mg/dL (8.5-10.1) Total Bilirubin 0.6 mg/dL (0.2-1.0) Aspartate Amino Transf (AST/SGOT) 30 U/L (15-37) Alanine Aminotransferase (ALT/SGPT) 26 U/L (14-59) Alkaline Phosphatase 70 U/L (46-116) Total Protein 6.0 g/dL (6.4-8.2) Albumin 2.1 g/dL (3.4-5.0) Albumin/Globulin Ratio 0.5 (1.0-1.7) Laboratory Tests Test 11/24/20 08:05 White Blood Count 4.2 x10^3/uL (4.0-11.0) Red Blood Count 3.88 x10^6/uL (3.50-5.40) Hemoglobin 11.8 g/dL (12.0-15.5) Hematocrit 35.5 % (36.0-47.0) Mean Corpuscular Volume 91 fL (79-100) Mean Corpuscular Hemoglobin 30 pg (25-35) Mean Corpuscular Hemoglobin Concent 33 g/dL (31-37) Red Cell Distribution Width 15.2 % (11.5-14.5) Platelet Count 176 x10^3/uL (140-400) Neutrophils (%) (Auto) 76 % (31-73) Lymphocytes (%) (Auto) 14 % (24-48) Monocytes (%) (Auto) 6 % (0-9) Eosinophils (%) (Auto) 3 % (0-3) Basophils (%) (Auto) 0 % (0-3) Neutrophils # (Auto) 3.2 x10^3/uL (1.8-7.7) Lymphocytes # (Auto) 0.6 x10^3/uL (1.0-4.8) Monocytes # (Auto) 0.3 x10^3/uL (0.0-1.1) Eosinophils # (Auto) 0.1 x10^3/uL (0.0-0.7) Basophils # (Auto) 0.0 x10^3/uL (0.0-0.2) Sodium Level 145 mmol/L (136-145) Potassium Level 3.9 mmol/L (3.5-5.1) Chloride Level 110 mmol/L (98-107) Carbon Dioxide Level 28 mmol/L (21-32) Anion Gap 7 (6-14) Blood Urea Nitrogen 27 mg/dL (7-20) Creatinine 0.6 mg/dL (0.6-1.0) Estimated GFR (Cockcroft-Gault) 94.6 BUN/Creatinine Ratio 45 (6-20) Glucose Level 79 mg/dL (70-99) Calcium Level 8.4 mg/dL (8.5-10.1) Total Bilirubin 0.6 mg/dL (0.2-1.0) Aspartate Amino Transf (AST/SGOT) 30 U/L (15-37) Alanine Aminotransferase (ALT/SGPT) 26 U/L (14-59) Alkaline Phosphatase 70 U/L (46-116) Total Protein 6.0 g/dL (6.4-8.2) Albumin 2.1 g/dL (3.4-5.0) Albumin/Globulin Ratio 0.5 (1.0-1.7) Medications Active Scripts Medications Dose Route/Sig Max Daily Dose Days Date Category Dose Instructions [Cholecalciferol] 6,000 Intlu PO DAILY 11/15/20 Reported [zinc] 1 Tab DAILY 11/15/20 Reported Tramadol Hcl 50 Mg Tablet 50 Mg PO Q12HR 11/15/20 Reported Systane Ultra 0.4-0.3% Eye Drp (Propylene Glycol/Peg 400) 10 Ml Drops 1 Drop EACHEYE QID 11/15/20 Reported Omeprazole 20 Mg Capsule.dr 20 Mg PO DAILY 11/15/20 Reported Nitrostat (Nitroglycerin) 0.4 Mg Tab.subl 0.4 Mg SL PRN Q5MIN PRN 11/15/20 Reported Melatonin 10 Mg Tablet.er 10 Mg PO HS 11/15/20 Reported Maalox Advanced Suspension (Mag Hydrox/Aluminum Hyd/Simeth) 355 Ml Oral.susp 30 Ml PO Q2HR PRN 11/15/20 Reported Keppra (Levetiracetam) 250 Mg Tablet 250 Mg PO BID 11/15/20 Reported Fluoxetine Hcl 20 Mg Capsule 20 Mg PO DAILY 11/15/20 Reported Voltaren (Diclofenac Sodium) 100 Gm Gel..gram. 1 Gm TP QID PRN 30 11/15/20 Reported apply to affected area(s) Acetaminophen 500 Mg Tablet 1,000 Mg PO Q6HRS PRN 11/15/20 Reported Vitamin A & D Ointment (Petrolatum,White/Lanolin) 113 Gm Oint...g. 113 Gm TP BID 11/15/20 Reported Apply to buttock topically as needed for irritaion Digoxin 125 Mcg Tablet 125 Mcg PO DAILY 05/28/20 Rx Polyethylene Glycol 3350 17 Gm Powd.pack 17 Gm PO DAILY 30 12/12/17 Rx Metoprolol Tartrate 50 Mg Tablet 50 Mg PO BID 12/12/17 Rx Furosemide 40 Mg Tablet 40 Mg PO DAILY 30 12/12/17 Rx Keppra (Levetiracetam) 250 Mg Tablet 250 Mg PO BID 30 12/01/17 Rx Calcium (Calcium Carbonate) 500 Mg Tab.chew 1,000 Mg PO BID 11/27/17 Reported Allopurinol 100 Mg Tablet 100 Mg PO DAILY 06/04/16 Reported Multi-Day Vitamins (Multivitamin) 1 Each Tablet 1 Tab PO DAILY 06/04/16 Reported Klor-Con M20 (Potassium Chloride) 20 Meq Tab.er.prt 20 Meq PO DAILY 06/04/16 Reported Colace (Docusate Sodium) 100 Mg Capsule 100 Mg Pe PO BID PRN 06/04/16 Reported Comments CXR IMPRESSION: Diffuse bilateral airspace disease, may relate to edema or atypical infectious process. Impression . Acute hypoxemic respiratory failure secondary to COVID-19 viral pneumonia ,positive on 11/11/20---, possible bacterial pneumonia Dyspnea due to above, improve Abnormal CXR HTN Plan . PLAN: Continue supplemental oxygent sat keep sat 90%, on 3 liters N/C DC steroids has completed full 10 day course Completed full course of ABX Has completed full course of remdesivir HTN per PCP DVT/GI PPX PT/OT D/W RN and RT PT. is DNR Patient is stable she could return to her longterm facility from our standpoint-- planned to D/C to [facility] today IRAM OCASIO MD Nov 24, 2020 10:36
[2020-11-24 11:00] VITALS: BP 137/58
--- NOTE | 2020-11-24 11:20 | PDOC ---
[employer] PROGRESS NOTE Date of Service DOS: DATE: 11/24/20 TIME: 11:15 Chief Complaint Chief Complaint CC: Altered mental status History of Present Illness History of Present Illness Ms Dean is an 85-year-old female [employer] SNF resident w/ PMHx prior CVA, HTN, COPD who was brought to ED from SNF for worsening hypoxia. She did test positive for COVID 19 on 11/11/20. Chest radiograph revealed diffuse bilateral airspace disease. Admitted with pulmonary consultation. 11/16: the / normal saline was stopped overnight for shortness of breath, sodium is better, cont to hold, may restart soon. cont the PO intake, doing well 11/17: Overnight afebrile. On 4L NCO2. Asking for water. Notes no appetite. K 3.1, Na 150. Initiated on remdesivir. 11/18: Overnight afebrile. Now on 3L NCO2. Still on dysphagia diet with thickened liquids, asking for water. Has significant diarrhea. 11/19: Afebrile. Diarrhea resolved with Imodium. C. difficile negative. Overall she feels worse more weak. Asking for thin liquids. Shortness of breath stable does still have a cough. 11/20: Afebrile overnight. Still weak. Failed to tolerate thin liquids without aspiration. Still on 3L NCO2 11/21: Afebrile overnight. Still requiring 3 L nasal cannula oxygen. Some chest pain, negative for cardiac etiology. Afebrile overnight. Very agitated overnight improved with Zyprexa. Still requiring 3 L nasal cannula oxygen with weak cough. Having difficulty feeding herself and low appetite. Asking for thin liquids still aspiration precautions. 11/23/2020: -Patient seen and examined -DW RN -Chart reviewed 11/24/2020 -Patient seen and examined -ANNA MARIE pulm -ANNA MARIE RN -Chart reviewed Vitals/I&O Vitals/I&O: Vital Signs Date Time Temp Pulse Resp B/P (MAP) Pulse Ox O2 Delivery O2 Flow Rate FiO2 11/24/20 08:00 Nasal Cannula 4.0 11/24/20 07:59 62 163/71 11/24/20 07:00 97.5 21 95 97.5 I & O 11/23/20 11/23/20 11/24/20 15:00 23:00 07:00 Intake Total 135 ml 100 ml 0 ml Balance 135 ml 100 ml 0 ml Physical Exam General: Alert, Cooperative, No acute distress Heart: Regular rate, Normal S2, No murmurs, Other (3/6 SAMI murmur,. l;eft sternal to apex) Lungs: Clear Abdomen: Soft, No tenderness, No hepatosplenomegaly Extremities: No clubbing, No cyanosis, No edema Skin: No rashes, No breakdown, No significant lesion Labs Labs: Laboratory Tests Test 11/24/20 08:05 White Blood Count 4.2 x10^3/uL (4.0-11.0) Red Blood Count 3.88 x10^6/uL (3.50-5.40) Hemoglobin 11.8 g/dL (12.0-15.5) Hematocrit 35.5 % (36.0-47.0) Mean Corpuscular Volume 91 fL (79-100) Mean Corpuscular Hemoglobin 30 pg (25-35) Mean Corpuscular Hemoglobin Concent 33 g/dL (31-37) Red Cell Distribution Width 15.2 % (11.5-14.5) Platelet Count 176 x10^3/uL (140-400) Neutrophils (%) (Auto) 76 % (31-73) Lymphocytes (%) (Auto) 14 % (24-48) Monocytes (%) (Auto) 6 % (0-9) Eosinophils (%) (Auto) 3 % (0-3) Basophils (%) (Auto) 0 % (0-3) Neutrophils # (Auto) 3.2 x10^3/uL (1.8-7.7) Lymphocytes # (Auto) 0.6 x10^3/uL (1.0-4.8) Monocytes # (Auto) 0.3 x10^3/uL (0.0-1.1) Eosinophils # (Auto) 0.1 x10^3/uL (0.0-0.7) Basophils # (Auto) 0.0 x10^3/uL (0.0-0.2) Sodium Level 145 mmol/L (136-145) Potassium Level 3.9 mmol/L (3.5-5.1) Chloride Level 110 mmol/L (98-107) Carbon Dioxide Level 28 mmol/L (21-32) Anion Gap 7 (6-14) Blood Urea Nitrogen 27 mg/dL (7-20) Creatinine 0.6 mg/dL (0.6-1.0) Estimated GFR (Cockcroft-Gault) 94.6 BUN/Creatinine Ratio 45 (6-20) Glucose Level 79 mg/dL (70-99) Calcium Level 8.4 mg/dL (8.5-10.1) Total Bilirubin 0.6 mg/dL (0.2-1.0) Aspartate Amino Transf (AST/SGOT) 30 U/L (15-37) Alanine Aminotransferase (ALT/SGPT) 26 U/L (14-59) Alkaline Phosphatase 70 U/L (46-116) Total Protein 6.0 g/dL (6.4-8.2) Albumin 2.1 g/dL (3.4-5.0) Albumin/Globulin Ratio 0.5 (1.0-1.7) Review of Systems Review of Systems: No ecchymosis, no clubbing Assessment and Plan Assessmemt and Plan Problems Medical Problems: (1) Altered mental status Status: Acute (2) COVID-19 virus RNA test result positive at limit of detection Status: Acute (3) Dehydration Status: Acute (4) Fever Status: Acute 11/24/2020 A: COVID-19 viral pneumonia that tested positive on 10/11/2020. Sepsis Acute COVID 19 infection Acute hypoxic respiratory failure Acute systolic CHF Severe protein calorie malnutrition Acute vasomotor nephropathy Hypernatremia Elevated troponin - likely demand ischemia COPD Depression HTN Prior CVA P: -COVID protocol -Probable d/c today to [facility], for now continue the following: Home meds, DNR, IV procalamine, IV Zosyn, Encourage PO intake Comment Review of Relevant I have reviewed the following items jerrica (where applicable) has been applied. Justifications for Admission Other Justification covid infection HANSEL CHEATHAM III DO Nov 24, 2020 11:20
--- NOTE | 2020-11-24 11:23 | SNU/HH DC ---
DISCHARGE WITH HOME HEALTH DISCHARGE INFORMATION: Final Diagnosis: Problems Medical Problems: (1) Altered mental status Status: Acute (2) COVID-19 virus RNA test result positive at limit of detection Status: Acute (3) Dehydration Status: Acute (4) Fever Status: Acute Condition on Discharge: Stable CODE STATUS: Code Status: Full HOME HEALTH: Face to Face: I certify this patient is under my care and that I, or a nurse practitioner or physician's community program assistant working with me, had a face to face encounter that meets the physician face to face encounter requirements with this patient on []. Medical Complications: Dementia Nursing Home For: Assess & Educate Safety RN For Eval/Treatment: Yes Physical Therapy For: Evalulation/Treatment Occupational Therapy For: Evaluation/Treatment Home Health Aide For: Self-care NATIONAL SALES For: Community Resources Pt Meets Homebound Status: Unsteady balance w/ amb, POST DISCHARGE ORDERS: Activity Instructions for Disc: Activity as tolerated Weight Bearing Status after Di: As tolerated DIET AFTER DISCHARGE: Cardiac FOLLOW-UP: DC TO SNF LABS: cbc, chem 7, digoxin level in 7 days TREATMENT/EQUIPMENT ORDERS: Adaptive Equipment Issued: None CERTIFICATION STATEMENT: Certification Statement: Certification Statement: Based on the above finding, I certify that this patient is confined to the home and needs intermittent shelter care, physical therapy and/or speech therapy, or continues to need occupational therapy.~ This patient is under my care, and I have initiated the establishment of the plan of care.~ This patient will be followed by myself or a community physician who will periodically review the plan of care. Home Meds Active Scripts Digoxin (DIGOXIN) 125 Mcg Tablet, 125 MCG PO DAILY for AFIB/HEART FAILURE, #30 TAB Prov:JAGJIT FONSECA MD 05/28/20 Polyethylene Glycol 3350 (POLYETHYLENE GLYCOL 3350) 17 Gm Powd.pack, 17 GM PO DAILY for 30 Days, #30 PKT Prov:NOA COLLIER MD 12/12/17 Metoprolol Tartrate (METOPROLOL TARTRATE) 50 Mg Tablet, 50 MG PO BID, #60 TAB 5 Refills Prov:NOA COLLIER MD 12/12/17 Furosemide (FUROSEMIDE) 40 Mg Tablet, 40 MG PO DAILY for 30 Days, #30 TAB Prov:NOA COLLIER MD 12/12/17 Levetiracetam (KEPPRA) 250 Mg Tablet, 250 MG PO BID for 30 Days, #60 TAB Prov:DAKOTA EDOUARD MD 12/01/17 Reported Medications [Cholecalciferol] No Conflict Check, 6000 INTLU PO DAILY 11/15/20 [zinc] No Conflict Check, 1 TAB DAILY 11/15/20 Tramadol Hcl (TRAMADOL HCL) 50 Mg Tablet, 50 MG PO Q12HR for pain, TAB 11/15/20 Propylene Glycol/Peg 400 (SYSTANE ULTRA 0.4-0.3% EYE DRP) 10 Ml Drops, 1 DROP EACHEYE QID for dry eyes, #15 ML 1 Refill 11/15/20 Omeprazole (OMEPRAZOLE) 20 Mg Capsule.dr, 20 MG PO DAILY for GERD, CAP 11/15/20 Nitroglycerin (NITROSTAT) 0.4 Mg Tab.subl, 0.4 MG SL PRN Q5MIN PRN for CHEST PAIN, BOTTLE 11/15/20 Melatonin (MELATONIN) 10 Mg Tablet.er, 10 MG PO HS for insomnia, TAB.SR 11/15/20 Mag Hydrox/Aluminum Hyd/Simeth (Maalox Advanced Suspension) 355 Ml Oral.susp, 30 ML PO Q2HR PRN for INDIGESTION, MISC 11/15/20 Levetiracetam (KEPPRA) 250 Mg Tablet, 250 MG PO BID for seizure, TAB 11/15/20 Fluoxetine Hcl (FLUOXETINE HCL) 20 Mg Capsule, 20 MG PO DAILY for depression, CAP 11/15/20 Diclofenac Sodium (VOLTAREN) 100 Gm Gel..gram., 1 GM TP QID PRN for PAIN for 30 Days, #100 GM 0 Refills apply to affected area(s) 11/15/20 Acetaminophen (ACETAMINOPHEN) 500 Mg Tablet, 1000 MG PO Q6HRS PRN for pain/fever, TAB 11/15/20 Petrolatum,White/Lanolin (VITAMIN A & D OINTMENT) 113 Gm Oint...g., 113 GM TP BID for irritation , MISC Apply to buttock topically as needed for irritaion 11/15/20 Calcium Carbonate (CALCIUM) 500 Mg Tab.chew, 1000 MG PO BID for supplement, TAB.CHEW 11/27/17 Allopurinol (ALLOPURINOL) 100 Mg Tablet, 100 MG PO DAILY for gout 06/04/16 Multivitamin (MULTI-DAY VITAMINS) 1 Each Tablet, 1 TAB PO DAILY for supplement, #30 TAB 06/04/16 Potassium Chloride (KLOR-CON M20) 20 Meq Tab.er.prt, 20 MEQ PO DAILY for supplement, #90 TAB 1 Refill 06/04/16 Docusate Sodium (COLACE) 100 Mg Capsule, 100 MG PE PO BID PRN for CONSTIPATION, #30 CAP 06/04/16 HANSEL CHEATHAM III DO Nov 24, 2020 11:23
--- NOTE | 2020-11-24 11:23 | SNU/HH DC ---
DISCHARGE ORDERS DISCHARGE INFORMATION: FINAL DIAGNOSIS Problems Medical Problems: (1) Altered mental status Status: Acute (2) COVID-19 virus RNA test result positive at limit of detection Status: Acute (3) Dehydration Status: Acute (4) Fever Status: Acute CONDITION ON DISCHARGE: Stable CODE STATUS: Code Status: Full LONGTERM: SNF STAY <30 DAYS: Yes HOSPICE: HOSPICE: No HOSPICE EVAL & TREAT: No LTAC: ADMIT TO LTAC: No POST DISCHARGE ORDERS: ACTIVITY ORDERS: Activity as tolerated WEIGHT BEARING STATUS: As tolerated DIET AFTER DISCHARGE: Cardiac FOLLOW-UP: LAB ORDERS FOR FOLLOW-UP: cbc, chem 7, digoxin level in 7 days TREATMENT/EQUIPMENT ORDERS: ADAPTIVE EQUIPMENT NEEDED: None Physical Therapy For: Evalulation/Treatment Occupational Therapy For: Evaluation/Treatment DISCHARGE MEDICATIONS: Home Meds Active Scripts Digoxin (DIGOXIN) 125 Mcg Tablet, 125 MCG PO DAILY for AFIB/HEART FAILURE, #30 TAB Prov:JAGJIT FONSECA MD 05/28/20 Polyethylene Glycol 3350 (POLYETHYLENE GLYCOL 3350) 17 Gm Powd.pack, 17 GM PO DAILY for 30 Days, #30 PKT Prov:NOA COLLIER MD 12/12/17 Metoprolol Tartrate (METOPROLOL TARTRATE) 50 Mg Tablet, 50 MG PO BID, #60 TAB 5 Refills Prov:NOA COLLIER MD 12/12/17 Furosemide (FUROSEMIDE) 40 Mg Tablet, 40 MG PO DAILY for 30 Days, #30 TAB Prov:NOA COLLIER MD 12/12/17 Levetiracetam (KEPPRA) 250 Mg Tablet, 250 MG PO BID for 30 Days, #60 TAB Prov:DAKOTA EDOUARD MD 12/01/17 Reported Medications [Cholecalciferol] No Conflict Check, 6000 INTLU PO DAILY 11/15/20 [zinc] No Conflict Check, 1 TAB DAILY 11/15/20 Tramadol Hcl (TRAMADOL HCL) 50 Mg Tablet, 50 MG PO Q12HR for pain, TAB 11/15/20 Propylene Glycol/Peg 400 (SYSTANE ULTRA 0.4-0.3% EYE DRP) 10 Ml Drops, 1 DROP EACHEYE QID for dry eyes, #15 ML 1 Refill 11/15/20 Omeprazole (OMEPRAZOLE) 20 Mg Capsule.dr, 20 MG PO DAILY for GERD, CAP 11/15/20 Nitroglycerin (NITROSTAT) 0.4 Mg Tab.subl, 0.4 MG SL PRN Q5MIN PRN for CHEST PAIN, BOTTLE 11/15/20 Melatonin (MELATONIN) 10 Mg Tablet.er, 10 MG PO HS for insomnia, TAB.SR 11/15/20 Mag Hydrox/Aluminum Hyd/Simeth (Maalox Advanced Suspension) 355 Ml Oral.susp, 30 ML PO Q2HR PRN for INDIGESTION, MISC 11/15/20 Levetiracetam (KEPPRA) 250 Mg Tablet, 250 MG PO BID for seizure, TAB 11/15/20 Fluoxetine Hcl (FLUOXETINE HCL) 20 Mg Capsule, 20 MG PO DAILY for depression, CAP 11/15/20 Diclofenac Sodium (VOLTAREN) 100 Gm Gel..gram., 1 GM TP QID PRN for PAIN for 30 Days, #100 GM 0 Refills apply to affected area(s) 11/15/20 Acetaminophen (ACETAMINOPHEN) 500 Mg Tablet, 1000 MG PO Q6HRS PRN for pain/fever, TAB 11/15/20 Petrolatum,White/Lanolin (VITAMIN A & D OINTMENT) 113 Gm Oint...g., 113 GM TP BID for irritation , MISC Apply to buttock topically as needed for irritaion 11/15/20 Calcium Carbonate (CALCIUM) 500 Mg Tab.chew, 1000 MG PO BID for supplement, TAB.CHEW 11/27/17 Allopurinol (ALLOPURINOL) 100 Mg Tablet, 100 MG PO DAILY for gout 06/04/16 Multivitamin (MULTI-DAY VITAMINS) 1 Each Tablet, 1 TAB PO DAILY for supplement, #30 TAB 06/04/16 Potassium Chloride (KLOR-CON M20) 20 Meq Tab.er.prt, 20 MEQ PO DAILY for supplement, #90 TAB 1 Refill 06/04/16 Docusate Sodium (COLACE) 100 Mg Capsule, 100 MG PE PO BID PRN for CONSTIPATION, #30 CAP 06/04/16 HANSEL CHEATHAM III DO Nov 24, 2020 11:23
[2020-11-24] MEDS ORDERED: DIGOXIN 125 MCG TABLET. PO SCH (12:00)
[2020-11-24 12:26] VITALS: BP 137/58
--- NOTE | 2020-11-24 12:52 | NUR ---
SS following up with discharge planning. SS reviewed pt chart and discussed with pt RN. Pt is currently requiring oxygen at four liters nasal canula. COVID19 positive. Pt is LTC resident from [facility], ; fax [phone]. Discharge orders received for return to facility. SS phoned and faxed discharge orders and updated clinicals to [facility]. SS left voicemail for Marjorie at [facility]. SS will continue to follow for discharge planning.
--- NOTE | 2020-11-24 14:52 | NUR ---
SS following up with discharge planning. SS reviewed pt chart and discussed with pt RN. PT/OT worked with pt and recommended nursing home unit. Pt will discharge today and return to [facility] at 1700 via [facility]. Packet and ambulance form on the chart. Pt, pt's RN, and pt's family notified.
--- NOTE | 2020-11-24 18:04 | NUR ---
Discharge Note: [facility] Discharge instructions and discharge home medications reviewed with Other facility and a copy given. All questions have been answered and understanding verbalized. The following instructions and handouts were given: Resp Failure Discontinued lines and drains: Peripheral IV intact. Patient discharged to [facility] with Self via St[facility]
--- NOTE | 2020-12-22 15:09 | DS ---
DATE OF DISCHARGE: 11/24/2020 ADMISSION DIAGNOSIS: COVID-19 pneumonia. DISCHARGE DIAGNOSES: 1. Resolving COVID-19 pneumonia. 2. Resolving sepsis. 3. Resolving respiratory failure. 4. Acute on chronic systolic and diastolic heart failure. 5. Severe protein malnutrition. 6. Neuropathy. 7. Hypernatremia. 8. Chronic obstructive pulmonary disease. 9. Depression. 10. Hypertension. 11. Stroke. CONSULTS: Dr. Rodriguez. HOSPITAL COURSE: The patient is a pleasant elderly female who presented with respiratory failure after having COVID-19 and multiple comorbidities. She was from a skilled nursing. Basically admitted here, we gave her COVID protocol including steroids, remdesivir, antibiotics, oxygen, beta agonist, vitamins and minerals. We consulted Pulmonary. Over the next few days, she returned to her baseline. We discharged to [facility]. DISPOSITION: [facility]. ACTIVITY: As tolerated. DIET: Low sodium. MEDICATIONS: Please see the MRAD. TOTAL TIME: 31 minutes. HANSEL CHEATHAM DO DR: ERNIE/baltazar JOB#: [id number] / [id number]
== END 2020-11-24 18:06 | DRG 871 ==
LOC: ER 20:02 → 2 SOUTH 21:29
PROVIDERS: ADMIT Internal Medicine; ATTEND Internal Medicine
PROC: XW033E5 Introduction of Remdesivir Anti-infective into Peripheral Vein, Percutaneous Approach, New Technology Group 5 (ICD-10-PCS; principal; 2020-11-17)
DX: A41.89 Other specified sepsis (principal); U07.1 COVID-19; J96.01 Acute respiratory failure with hypoxia; E43 Unspecified severe protein-calorie malnutrition; I50.43 Acute on chronic combined systolic (congestive) and diastolic (congestive) heart failure; N17.0 Acute kidney failure with tubular necrosis; E87.0 Hyperosmolality and hypernatremia; I24.8 Other forms of acute ischemic heart disease; I48.20 Chronic atrial fibrillation, unspecified; J44.1 Chronic obstructive pulmonary disease with (acute) exacerbation; I13.0 Hypertensive heart and chronic kidney disease with heart failure and stage 1 through stage 4 chronic kidney disease, or unspecified chronic kidney disease; E86.0 Dehydration; F32.9 Major depressive disorder, single episode, unspecified; M19.90 Unspecified osteoarthritis, unspecified site; N18.30 Chronic kidney disease, stage 3 unspecified; D69.6 Thrombocytopenia, unspecified; Z66 Do not resuscitate; Z68.23 Body mass index [BMI] 23.0-23.9, adult; Z86.73 Personal history of transient ischemic attack (TIA), and cerebral infarction without residual deficits; Z87.891 Personal history of nicotine dependence; Z90.710 Acquired absence of both cervix and uterus; Z95.0 Presence of cardiac pacemaker; Z94.7 Corneal transplant status; Z88.5 Allergy status to narcotic agent; Z88.2 Allergy status to sulfonamides
CPT/HCPCS: 36415; 71045; 80048; 80053; 80162; 82962; 83605; 83735; 83880; 84100; 84145; 84484; 85007; 85025; 85610; 85730; 87040; 87493; 93005; 96361; 96374; J0360; J1100; J1650; J1940; J1956; J2270; J2405; J2543; J3411; J3480; J3490; J7030; J7050; J7060; 92526-GN; 92610-GN; 97110-GP; 97530-GO; 97530-GP; 97535-GO; 99285-25; G0378

== ENCOUNTER → 2020-12-02 | Outpatient (CLI) | payer BC, OTHER ==
[2020-11-24 12:26] VITALS: BP 137/58
[~2020-12-02] MED LIST changes: +ACET500T68 PO; +Cholecalciferol PO; +DICL100G54 TP; +FLUO20CA20 PO; +MAG355OR11 PO; +MELA10TA3 PO; +NITR0.4T24 SL; +OMEP20CA16 PO; +PETR113O TP; +PROP10DR3 EACHEYE; +TRAM50TA PO; +zinc
[2020-12-02 09:27] LABS: BASO % 0 % (0-3); EOS # 0.2 x10^3/uL (0.0-0.7); EOS % 3 % (0-3); HEMATOCRIT 38.7 % (36.0-47.0); HEMOGLOBIN 12.8 g/dL (12.0-15.5); LYMPH # 0.6 x10^3/uL (1.0-4.8); LYMPH % 13 % (24-48); MEAN CORPUSCULAR HEMOGLOBIN 30 pg (25-35); MEAN CORPUSCULAR HGB CONC 33 g/dL (31-37); MEAN CORPUSCULAR VOLUME 92 fL (79-100); MONO # 0.5 x10^3/uL (0.0-1.1); MONO % 10 % (0-9); NEUT # 3.5 x10^3/uL (1.8-7.7); NEUT % 74 % (31-73); PLATELET COUNT 124 x10^3/uL (140-400); RED BLOOD COUNT 4.23 x10^6/uL (3.50-5.40); RED CELL DISTRIBUTION WIDTH 15.1 % (11.5-14.5); WHITE BLOOD COUNT 4.8 x10^3/uL (4.0-11.0)
[2020-12-02 09:39] LABS: ANION GAP 3 (6-14); BLOOD UREA NITROGEN 26 mg/dL (7-20); CALCIUM 8.8 mg/dL (8.5-10.1); CARBON DIOXIDE 35 mmol/L (21-32); CHLORIDE 103 mmol/L (98-107); DIG 1.5 ng/mL (0.9-2.0); GFR 52.4; GLUCOSE 77 mg/dL (70-99); POTASSIUM 4.4 mmol/L (3.5-5.1); SODIUM 141 mmol/L (136-145)
== END ==
LOC: SPEC 08:48
PROVIDERS: ATTEND Family Medicine
DX: E11.22 Type 2 diabetes mellitus with diabetic chronic kidney disease (principal); E55.9 Vitamin D deficiency, unspecified; I10 Essential (primary) hypertension; N18.30 Chronic kidney disease, stage 3 unspecified
CPT/HCPCS: 36415; 80048; 80162; 85025

== ENCOUNTER → 2020-12-09 | Outpatient (CLI) | payer BC, OTHER ==
[2020-11-24 12:26] VITALS: BP 137/58
[~2020-12-09] MED LIST changes: +POLY17PO28 PO; -POLY17PO52 PO
[2020-12-09 19:15] LABS: BILIRUBIN,URINE NEGATIVE (NEG); CLARITY,URINE TURBID; COLOR,URINE YELLOW; NITRITE,URINE NEGATIVE (NEG); PH,URINE 5.5 (<5.0-8.0); PROTEIN,URINE 100 mg/dL (NEG-TRACE)
[2020-12-09 19:50] LABS: BACTERIA,URINE MANY /HPF (0-FEW); WBC,URINE FIELD OBSCURED /HPF (0-4)
[2020-12-09 19:51] LABS: RBC,URINE 0 /HPF (0-2)
== END ==
PROVIDERS: ATTEND Family Medicine
DX: R41.0 Disorientation, unspecified (principal)
CPT/HCPCS: 81001; 87077; 87086; 87186